=== PATIENT | male | born 1960 | race Caucasian/White ===

== ENCOUNTER 2016-10-20 20:00 | Emergency (ER) | payer MEDICAID, MEDICARE ==
--- NOTE | 2016-10-21 00:09 | EDDOCDS ---
Nurse's Notes [facility] Name: Valentino Lindsey Age: 56 yrs Sex: Male : 1960 Arrival Date: 10/20/2016 Time: 20:00 Bed TR8 Private MD: Diagnosis: Encounter for issue of repeat prescription-MULTIPLE Presentation: 10/20 20:03 Presenting complaint: Patient states: needs medication refill till he can get to the [facility] doctors office on Saturday. Adult Sepsis Screening: The patient does not have new or worsening altered mentation. Patient's respiratory rate is less than 22. Systolic blood pressure is greater than 100. Patient has a qSOFA score of 0- Negative Sepsis Screen. Suicide/Homicide risk assessment- the patient denies having any suicidal and/or homicidal ideations and does not present with any other emotional, behavioral or mental health complaints. Status: Patient is not a field service consultant or dependent. Transition of care: patient was not received from another setting of care. 20:03 Acuity: GIANNI Level 5 dsf 20:03 Method Of Arrival: Walkin/Carried/Asstd dsf Triage Assessment: 20:05 General: Appears in no apparent distress, Behavior is appropriate for age, cooperative. dsf Pain: Denies pain. HIV screening NA for this visit Offered previously. Historical: - Allergies: Codeine Phosphate; Haldol; - Home Meds: 1. Ventolin Rotahaler/Rotacaps Inhl 90 mcg every 4 hours (Last dose: Unknown) 2. quetiapine 300 mg oral tab nightly (Last dose: 10/19/2016) 3. trazodone 100 mg Oral tab nightly (Last dose: 10/19/2016) 4. clonidine HCl 0.1 mg Oral tab 1 tab 2 times per day (Last dose: 10/19/2016) 5. cyclobenzaprine 10 mg Oral tab every 8 hours (Last dose: 10/19/2016) 6. oxcarbazepine 300 mg oral tab 2 times per day (Last dose: 10/19/2016) 7. venlafaxine 75 mg oral cp24 1 cap once daily (Last dose: 10/19/2016) - PMHx: Asthma; Depression; - PSHx: right eye; repair of fracture to left little finger; - Social history: Smoking status: Patient uses tobacco products, current every day smoker. No barriers to communication noted, The patient speaks fluent Panamanian, Speaks appropriately for age. - Family history: Not pertinent. - : The pt / caregiver states he / she is not on anticoagulants. Home medication list is obtained from the patient. - Exposure Risk Screening:: None identified. Screenin/19 00:05 Screening information is obtained from the patient. Fall risk: No risks identified. cz Assistance ADL's: requires no assistance with activities of daily living. Abuse/DV Screen: The patient / caregiver reports he/she is: not in a situation that causes fear, pain or injury. Nutritional screening: No deficits noted. Advance Directives: Currently, there is no health care proxy. There is no active DNR order. There is no living will. There is no Power of Home Health Clinician. Advance directive information has not previously been placed in an [facility] medical record. Further advance directive information is declined. home support is adequate. Assessment: 00:05 General: alert male with no complaints just requesting prescription refills. cz Vital Signs: 10/20 20:01 BP 129 / 82; Pulse 67; Resp 18; Temp 96.5(T); Pulse Ox 99% on R/A; Weight 63.5 kg (R); lr2 Height 5 ft. 9 in. (175.26 cm) (R); Pain 0/10; 20:01 Body Mass Index 20.67 (63.50 kg, 175.26 cm) lr2 Vitals: 20:01 Log In Time: October 20, 2016 at 20:00. lr2 ED Course: 20:01 Patient visited by Keke Ibrahim. lr2 20:01 Patient moved to Waiting lr2 20:03 Patient moved to Pre RCE lr2 20:04 Triage Initiated dsf 22:15 Patient moved to Triage 1 ct3 23:31 [facility] Hedrick [facility]-C [facility] dt4 23:31 Gian Garg DO is Attending Physician. dt4 23:32 Patient visited by Jaleesa Hedrick PA-C. dt4 10/21 00:05 Patient moved to TR8 cz 00:05 The patient / caregiver is instructed regarding the plan of care and ED course. cz 00:05 No IV's were initiated during this patient's visit. No procedures done that require cz assistance. Order Results: There are currently no results for this order. Outcome: 00:01 Discharge ordered by Provider. dt4 00:05 Discharge Assessment: Patient awake, alert and oriented x 3. No cognitive and/or cz functional deficits noted. Patient verbalized understanding of disposition instructions. patient administered narcotics - no. The following High Risk Discharge criteria are identified: None. Discharged to home ambulatory. Condition: stable. Discharge instructions given to patient, Instructed on discharge instructions, follow up and referral plans. medication usage, Demonstrated understanding of instructions, medications, Pt was receptive of discharge instructions/ teaching. Prescriptions given X X 6. No special radiology studies were completed. Property :Personal belongings accompany Pt. 00:08 Patient left the ED. cz Signatures: Jose Rowley, DANIELLA RN cz Verito Sheets, MUNICIPAL CLERK MUNICIPAL CLERK ct3 Erika Cooney,DANIELLA RN Jaleesa Ramirez, PA-C PA-C dt4 Keke Ibrahim lr2 MONTSE
--- NOTE | 2016-10-21 00:09 | EDDOCDS ---
Physician Documentation [facility] Name: Valentino Lindsey Age: 56 yrs Sex: Male : 1960 Arrival Date: 10/20/2016 Time: 20:00 Bed TR8 Private MD: Disposition: 10/21/16 00:01 Discharged to Home/Self Care. Impression: Encounter for issue of repeat prescription - MULTIPLE. - Condition is Stable. - Discharge Instructions: Medicine Refill at the Emergency Department. - Prescriptions for oxcarbazepine 300 mg Oral tablet - take 1 tablet by ORAL route 2 times per day; 14 tablet. quetiapine 300 mg Oral tablet extended release 24 hr - take 1 tablet by ORAL route once daily at bedtime; 7 tablet. trazodone 100 mg Oral tablet - take 1 tablet by ORAL route at bedtime; 7 tablet. Clonidine 0.1 mg Oral Tablet - take 1 tablet by ORAL route every 12 hours; 14 tablet. Cyclobenzaprine 10 mg Oral Tablet - take 1 tablet by ORAL route 3 times per day As needed; 21 tablet. venlafaxine 75 mg Oral Tablet - take 1 tablet by ORAL route once daily with food; 7 tablet. - Medication Reconciliation, Local Pharmacy Hours form. - Follow up: Emergency Department; When: As needed; Reason: Worsening of conditions. Follow up: Private Physician; When: AT YOUR SCHEDULED APPOINTMENT ON Saturday10/26/16; Reason: Wound/Symptom Recheck, Recheck today's complaints, Continuance of care. - Problem is new. - Symptoms are unchanged. Historical: - Allergies: Codeine Phosphate; Haldol; - Home Meds: 1. Ventolin Rotahaler/Rotacaps Inhl 90 mcg every 4 hours (Last dose: Unknown) 2. quetiapine 300 mg oral tab nightly (Last dose: 10/19/2016) 3. trazodone 100 mg Oral tab nightly (Last dose: 10/19/2016) 4. clonidine HCl 0.1 mg Oral tab 1 tab 2 times per day (Last dose: 10/19/2016) 5. cyclobenzaprine 10 mg Oral tab every 8 hours (Last dose: 10/19/2016) 6. oxcarbazepine 300 mg oral tab 2 times per day (Last dose: 10/19/2016) 7. venlafaxine 75 mg oral cp24 1 cap once daily (Last dose: 10/19/2016) - PMHx: Asthma; Depression; - PSHx: right eye; repair of fracture to left little finger; - Social history: Smoking status: Patient uses tobacco products, current every day smoker. No barriers to communication noted, The patient speaks fluent French, Speaks appropriately for age. - Family history: Not pertinent. - : The pt / caregiver states he / she is not on anticoagulants. Home medication list is obtained from the patient. - Exposure Risk Screening:: None identified. Vital Signs: 10/20 20:01 BP 129 / 82; Pulse 67; Resp 18; Temp 96.5(T); Pulse Ox 99% on R/A; Weight 63.5 kg / lr2 139.99 lbs (R); Height 5 ft. 9 in. (175.26 cm) (R); Pain 0/10; 20:01 Body Mass Index 20.67 (63.50 kg, 175.26 cm) lr2 Signatures: Jose Rowley RN RN cz Fuller, Desiree, RN RN dsf Tschudi, Diane, PA-C PA-C dt4 MONTSE
--- NOTE | 2016-10-23 01:08 | EDDOCDS ---
Physician Documentation [facility] Name: Valentino Lindsey Age: 56 yrs Sex: Male : 1960 Arrival Date: 10/20/2016 Time: 20:00 Bed TR8 Private MD: Disposition: 10/21/16 00:01 Discharged to Home/Self Care. Impression: Encounter for issue of repeat prescription - MULTIPLE. - Condition is Stable. - Discharge Instructions: Medicine Refill at the Emergency Department. - Prescriptions for oxcarbazepine 300 mg Oral tablet - take 1 tablet by ORAL route 2 times per day; 14 tablet. quetiapine 300 mg Oral tablet extended release 24 hr - take 1 tablet by ORAL route once daily at bedtime; 7 tablet. trazodone 100 mg Oral tablet - take 1 tablet by ORAL route at bedtime; 7 tablet. Clonidine 0.1 mg Oral Tablet - take 1 tablet by ORAL route every 12 hours; 14 tablet. Cyclobenzaprine 10 mg Oral Tablet - take 1 tablet by ORAL route 3 times per day As needed; 21 tablet. venlafaxine 75 mg Oral Tablet - take 1 tablet by ORAL route once daily with food; 7 tablet. - Medication Reconciliation, Local Pharmacy Hours form. - Follow up: Emergency Department; When: As needed; Reason: Worsening of conditions. Follow up: Private Physician; When: AT YOUR SCHEDULED APPOINTMENT ON Saturday10/26/16; Reason: Wound/Symptom Recheck, Recheck today's complaints, Continuance of care. - Problem is new. - Symptoms are unchanged. Historical: - Allergies: Codeine Phosphate; Haldol; - Home Meds: 1. Ventolin Rotahaler/Rotacaps Inhl 90 mcg every 4 hours (Last dose: Unknown) 2. quetiapine 300 mg oral tab nightly (Last dose: 10/19/2016) 3. trazodone 100 mg Oral tab nightly (Last dose: 10/19/2016) 4. clonidine HCl 0.1 mg Oral tab 1 tab 2 times per day (Last dose: 10/19/2016) 5. cyclobenzaprine 10 mg Oral tab every 8 hours (Last dose: 10/19/2016) 6. oxcarbazepine 300 mg oral tab 2 times per day (Last dose: 10/19/2016) 7. venlafaxine 75 mg oral cp24 1 cap once daily (Last dose: 10/19/2016) - PMHx: Asthma; Depression; - PSHx: right eye; repair of fracture to left little finger; - Social history: Smoking status: Patient uses tobacco products, current every day smoker. No barriers to communication noted, The patient speaks fluent South African, Speaks appropriately for age. - Family history: Not pertinent. - : The pt / caregiver states he / she is not on anticoagulants. Home medication list is obtained from the patient. - Exposure Risk Screening:: None identified. Vital Signs: 10/20 20:01 BP 129 / 82; Pulse 67; Resp 18; Temp 96.5(T); Pulse Ox 99% on R/A; Weight 63.5 kg / lr2 139.99 lbs (R); Height 5 ft. 9 in. (175.26 cm) (R); Pain 0/10; 20:01 Body Mass Index 20.67 (63.50 kg, 175.26 cm) lr2 MDM: 10/21 00:59 [facility] Payment Agreement was scanned into [employer] and attached to record. [facility] 00:59 Financial registration complete. gjb 12:08 T-Sheet-- Draft Copy was scanned into [employer] and attached to record. lg Signatures: Jose Rowley, Isis Fuentes RN, Reg Reg lg Fuller, Desiree, RN RN dsf Tschudi, Diane, JAMES RAMIREZ dt4 Piper Conroy The chart was reviewed and I authenticate all verbal orders and agree with the evaluation and treatment provided.Attachments: 00:59 [facility] Payment Agreement [facility] 12:08 T-Sheet-- Draft Copy lg Chart Complete MTDD
--- NOTE | 2016-10-23 01:08 | EDDOCDS ---
Nurse's Notes [facility] Name: Valentino Lindsey Age: 56 yrs Sex: Male : 1960 Arrival Date: 10/20/2016 Time: 20:00 Bed TR8 Private MD: Diagnosis: Encounter for issue of repeat prescription-MULTIPLE Presentation: 10/20 20:03 Presenting complaint: Patient states: needs medication refill till he can get to the [facility] doctors office on Saturday. Adult Sepsis Screening: The patient does not have new or worsening altered mentation. Patient's respiratory rate is less than 22. Systolic blood pressure is greater than 100. Patient has a qSOFA score of 0- Negative Sepsis Screen. Suicide/Homicide risk assessment- the patient denies having any suicidal and/or homicidal ideations and does not present with any other emotional, behavioral or mental health complaints. Status: Patient is not a mechanical service technician or dependent. Transition of care: patient was not received from another setting of care. 20:03 Acuity: GIANNI Level 5 dsf 20:03 Method Of Arrival: Walkin/Carried/Asstd dsf Triage Assessment: 20:05 General: Appears in no apparent distress, Behavior is appropriate for age, cooperative. dsf Pain: Denies pain. HIV screening NA for this visit Offered previously. Historical: - Allergies: Codeine Phosphate; Haldol; - Home Meds: 1. Ventolin Rotahaler/Rotacaps Inhl 90 mcg every 4 hours (Last dose: Unknown) 2. quetiapine 300 mg oral tab nightly (Last dose: 10/19/2016) 3. trazodone 100 mg Oral tab nightly (Last dose: 10/19/2016) 4. clonidine HCl 0.1 mg Oral tab 1 tab 2 times per day (Last dose: 10/19/2016) 5. cyclobenzaprine 10 mg Oral tab every 8 hours (Last dose: 10/19/2016) 6. oxcarbazepine 300 mg oral tab 2 times per day (Last dose: 10/19/2016) 7. venlafaxine 75 mg oral cp24 1 cap once daily (Last dose: 10/19/2016) - PMHx: Asthma; Depression; - PSHx: right eye; repair of fracture to left little finger; - Social history: Smoking status: Patient uses tobacco products, current every day smoker. No barriers to communication noted, The patient speaks fluent Gambian, Speaks appropriately for age. - Family history: Not pertinent. - : The pt / caregiver states he / she is not on anticoagulants. Home medication list is obtained from the patient. - Exposure Risk Screening:: None identified. Screenin/19 00:05 Screening information is obtained from the patient. Fall risk: No risks identified. cz Assistance ADL's: requires no assistance with activities of daily living. Abuse/DV Screen: The patient / caregiver reports he/she is: not in a situation that causes fear, pain or injury. Nutritional screening: No deficits noted. Advance Directives: Currently, there is no health care proxy. There is no active DNR order. There is no living will. There is no Power of Human Resources Hr Representative. Advance directive information has not previously been placed in an [facility] medical record. Further advance directive information is declined. home support is adequate. Assessment: 00:05 General: alert male with no complaints just requesting prescription refills. cz Vital Signs: 10/20 20:01 BP 129 / 82; Pulse 67; Resp 18; Temp 96.5(T); Pulse Ox 99% on R/A; Weight 63.5 kg (R); lr2 Height 5 ft. 9 in. (175.26 cm) (R); Pain 0/10; 20:01 Body Mass Index 20.67 (63.50 kg, 175.26 cm) lr2 Vitals: 20:01 Log In Time: October 20, 2016 at 20:00. lr2 ED Course: 20:01 Patient visited by Keke Ibrahim. lr2 20:01 Patient moved to Waiting lr2 20:03 Patient moved to Pre RCE lr2 20:04 Triage Initiated dsf 22:15 Patient moved to Triage 1 ct3 23:31 [facility] Hedrick [facility] dt4 23:31 Gian Garg DO is Attending Physician. dt4 23:32 Patient visited by Jaleesa Hedrick PA-C. dt4 10/21 00:05 Patient moved to TR8 cz 00:05 The patient / caregiver is instructed regarding the plan of care and ED course. cz 00:05 No IV's were initiated during this patient's visit. No procedures done that require cz assistance. 00:59 [facility] Payment Agreement was scanned into [employer] and attached to record. gjchelsie 12:08 T-Sheet-- Draft Copy was scanned into [employer] and attached to record. lg Order Results: There are currently no results for this order. Outcome: 00:01 Discharge ordered by Provider. dt4 00:05 Discharge Assessment: Patient awake, alert and oriented x 3. No cognitive and/or cz functional deficits noted. Patient verbalized understanding of disposition instructions. patient administered narcotics - no. The following High Risk Discharge criteria are identified: None. Discharged to home ambulatory. Condition: stable. Discharge instructions given to patient, Instructed on discharge instructions, follow up and referral plans. medication usage, Demonstrated understanding of instructions, medications, Pt was receptive of discharge instructions/ teaching. Prescriptions given X X 6. No special radiology studies were completed. Property :Personal belongings accompany Pt. 00:08 Patient left the ED. cz Signatures: Jose Rowley, RN RN cz Isis Giron, Reg Reg lg Verito Sheets, BALL THREAD MACHINE TENDER BALL THREAD MACHINE TENDER ct3 Erika Cooney,RN RN dsf Jaleesa Hedrick, JAMES RAMIREZ dt4 Piper Conroy Laura lr2 Chart Complete MONTSE
--- NOTE | 2016-10-23 01:08 | EDDOCDS ---
Physician Documentation [facility] Name: Valentino Lindsey Age: 56 yrs Sex: Male : 1960 Arrival Date: 10/20/2016 Time: 20:00 Bed TR8 Private MD: Disposition: 10/21/16 00:01 Discharged to Home/Self Care. Impression: Encounter for issue of repeat prescription - MULTIPLE. - Condition is Stable. - Discharge Instructions: Medicine Refill at the Emergency Department. - Prescriptions for oxcarbazepine 300 mg Oral tablet - take 1 tablet by ORAL route 2 times per day; 14 tablet. quetiapine 300 mg Oral tablet extended release 24 hr - take 1 tablet by ORAL route once daily at bedtime; 7 tablet. trazodone 100 mg Oral tablet - take 1 tablet by ORAL route at bedtime; 7 tablet. Clonidine 0.1 mg Oral Tablet - take 1 tablet by ORAL route every 12 hours; 14 tablet. Cyclobenzaprine 10 mg Oral Tablet - take 1 tablet by ORAL route 3 times per day As needed; 21 tablet. venlafaxine 75 mg Oral Tablet - take 1 tablet by ORAL route once daily with food; 7 tablet. - Medication Reconciliation, Local Pharmacy Hours form. - Follow up: Emergency Department; When: As needed; Reason: Worsening of conditions. Follow up: Private Physician; When: AT YOUR SCHEDULED APPOINTMENT ON Saturday10/26/16; Reason: Wound/Symptom Recheck, Recheck today's complaints, Continuance of care. - Problem is new. - Symptoms are unchanged. Historical: - Allergies: Codeine Phosphate; Haldol; - Home Meds: 1. Ventolin Rotahaler/Rotacaps Inhl 90 mcg every 4 hours (Last dose: Unknown) 2. quetiapine 300 mg oral tab nightly (Last dose: 10/19/2016) 3. trazodone 100 mg Oral tab nightly (Last dose: 10/19/2016) 4. clonidine HCl 0.1 mg Oral tab 1 tab 2 times per day (Last dose: 10/19/2016) 5. cyclobenzaprine 10 mg Oral tab every 8 hours (Last dose: 10/19/2016) 6. oxcarbazepine 300 mg oral tab 2 times per day (Last dose: 10/19/2016) 7. venlafaxine 75 mg oral cp24 1 cap once daily (Last dose: 10/19/2016) - PMHx: Asthma; Depression; - PSHx: right eye; repair of fracture to left little finger; - Social history: Smoking status: Patient uses tobacco products, current every day smoker. No barriers to communication noted, The patient speaks fluent Liberian, Speaks appropriately for age. - Family history: Not pertinent. - : The pt / caregiver states he / she is not on anticoagulants. Home medication list is obtained from the patient. - Exposure Risk Screening:: None identified. Vital Signs: 10/20 20:01 BP 129 / 82; Pulse 67; Resp 18; Temp 96.5(T); Pulse Ox 99% on R/A; Weight 63.5 kg / lr2 139.99 lbs (R); Height 5 ft. 9 in. (175.26 cm) (R); Pain 0/10; 20:01 Body Mass Index 20.67 (63.50 kg, 175.26 cm) lr2 MDM: 10/21 00:59 [facility] Payment Agreement was scanned into [employer] and attached to record. [facility] 00:59 Financial registration complete. gjb 12:08 T-Sheet-- Draft Copy was scanned into [employer] and attached to record. lg Signatures: Jose Rowley, Isis Fuentes RN, Reg Reg lg Fuller, Desiree, RN RN dsf Tschudi, Diane, JAMES RAMIREZ dt4 Piper Conroy The chart was reviewed and I authenticate all verbal orders and agree with the evaluation and treatment provided.Attachments: 00:59 [facility] Payment Agreement [facility] 12:08 T-Sheet-- Draft Copy lg Chart Complete MTDD
== END 2016-10-21 00:08 | disposition home or self-care (01) ==
LOC: M ED 20:00
DX: Z76.0 Encounter for issue of repeat prescription (principal); J45.909 Unspecified asthma, uncomplicated; F32.9 Major depressive disorder, single episode, unspecified; Z79.899 Other long term (current) drug therapy; Z88.5 Allergy status to narcotic agent; Z88.8 Allergy status to other drugs, medicaments and biological substances; F17.210 Nicotine dependence, cigarettes, uncomplicated

== ENCOUNTER 2016-10-29 23:14 | Emergency (ER) | payer MEDICARE, MEDICAID ==
[2016-10-30] MEDS ORDERED: KETOROLAC 30 MG/ML VIAL (J1885) As Ordered ONE (00:59)
--- NOTE | 2016-10-30 01:26 | EDDOCDS ---
Physician Documentation [facility] Name: Valentino Lindsey Age: 56 yrs Sex: Male : 1960 Arrival Date: 10/29/2016 Time: 23:14 Bed Radiology Private MD: Disposition: 10/30/16 00:38 Discharged to Home/Self Care. Impression: Intercostal pain. - Condition is Stable. - Medication Reconciliation, Local Pharmacy Hours form. - Follow up: Private Physician; When: Call to arrange an appointment; Reason: Recheck today's complaints. - Problem is new. - Symptoms have improved. Historical: - Allergies: Codeine Phosphate (Anaphylaxis); Haldoldizzy, sleepy; - Home Meds: 1. clonidine HCl 0.1 mg Oral tab 1 tab 2 times per day 2. cyclobenzaprine 10 mg Oral tab every 8 hours 3. oxcarbazepine 300 mg oral tab 2 times per day 4. trazodone 100 mg Oral tab nightly 5. quetiapine 300 mg oral tab nightly 6. venlafaxine 75 mg oral cp24 1 cap once daily - PMHx: Asthma; Depression; Bipolar disorder; Mental Disabilty; - PSHx: right eye; repair of fracture to left little finger; - Social history: Smoking status: Patient uses tobacco products, heavy tobacco smoker. No barriers to communication noted, The patient speaks fluent Irish, Speaks appropriately for age, Preferred Language: Irish. - Family history: Not pertinent. - : The pt / caregiver states he / she is not on anticoagulants. Home medication list is obtained from the patient. - Exposure Risk Screening:: None identified. Vital Signs: 10/29 23:16 BP 149 / 92; Pulse 104; Resp 16; Temp 98.3(O); Pulse Ox 98% on R/A; Weight 63.5 kg / lr2 139.99 lbs (R); Height 5 ft. 8 in. (172.72 cm); Pain 3/10; 10/30 00:49 BP 118 / 78; Pulse 103; Resp 18; Temp 98.3(TE); Pulse Ox 96% on R/A; Pain 2/10; yamilex 10/29 23:16 Body Mass Index 21.29 (63.50 kg, 172.72 cm) lr2 MDM: 00:12 Rib Unilat W/PA Chest Only Ordered. EDMS 00:36 ketorolac 60 mg IM once ordered. cs11 01:12 Financial registration complete. [facility] Administered Medications: 01:04 Drug: ketorolac 60 mg [ketorolac 30 mg/mL (1 mL) injection solution (2 mL)] Route: IM; mgs Site: left gluteus; 01:26 Follow up: Response: Pain is decreased mlc Signatures: Dispatcher [employer] EDMS Wendy Guthrie RN RN lf1 Carmelo Dykes DO DO cs11 Rosalina Liz RN RN mlc Hook, Sandra [facility] Gian Odom RN mgs MTDD
--- NOTE | 2016-10-30 01:26 | EDDOCDS ---
Nurse's Notes [facility] Name: Valentino Lindsey Age: 56 yrs Sex: Male : 1960 Arrival Date: 10/29/2016 Time: 23:14 Bed Radiology Private MD: Diagnosis: Intercostal pain Presentation: 10/29 23:19 Presenting complaint: Patient states: Pt. reports that his rib on the right side has lf1 been popping out for two weeks and then he puts in back in place which takes he about five minutes and then it's okay for a awhile and pops out again. Pt. denies injury. States he would also like a flue shot. Pain is currently 2/10. Denies shortness of breath, no respiratory distress noted. Adult Sepsis Screening: The patient does not have new or worsening altered mentation. Patient's respiratory rate is less than 22. Systolic blood pressure is greater than 100. Patient has a qSOFA score of 0- Negative Sepsis Screen. Suicide/Homicide risk assessment- the patient denies having any suicidal and/or homicidal ideations and does not present with any other emotional, behavioral or mental health complaints. Status: Patient is not a claim service representative or dependent. Transition of care: patient was not received from another setting of care. 23:19 Acuity: GIANNI Level 3 lf1 23:19 Method Of Arrival: Walkin/Carried/Asstd lf1 Triage Assessment: 23:27 General: Appears unkempt, Behavior is anxious, restless. Pain: Location: left flank, lf1 left rib Pain currently is 6 out of 10 on a pain scale. HIV screening NA for this visit Offered previously. The patient is triaged at the bedside. See Assessment in Nurses Notes section of ED record. The patient is triaged at the bedside. See Assessment in Nurses Notes section of ED record. Neurological: Level of Consciousness is awake, alert. EENT: No deficits noted. Respiratory: Respiratory effort is even, unlabored, Respiratory pattern is regular, Breath sounds are clear bilaterally. Denies shortness of breath. Derm: Skin is normal. Historical: - Allergies: Codeine Phosphate (Anaphylaxis); Haldoldizzy, sleepy; - Home Meds: 1. clonidine HCl 0.1 mg Oral tab 1 tab 2 times per day 2. cyclobenzaprine 10 mg Oral tab every 8 hours 3. oxcarbazepine 300 mg oral tab 2 times per day 4. trazodone 100 mg Oral tab nightly 5. quetiapine 300 mg oral tab nightly 6. venlafaxine 75 mg oral cp24 1 cap once daily - PMHx: Asthma; Depression; Bipolar disorder; Mental Disabilty; - PSHx: right eye; repair of fracture to left little finger; - Social history: Smoking status: Patient uses tobacco products, heavy tobacco smoker. No barriers to communication noted, The patient speaks fluent [place] Islander, Speaks appropriately for age, Preferred Language: [place] Islander. - Family history: Not pertinent. - : The pt / caregiver states he / she is not on anticoagulants. Home medication list is obtained from the patient. - Exposure Risk Screening:: None identified. Screenin:55 Screening information is obtained from the patient. Fall risk: No risks identified. mgs Assistance ADL's: requires no assistance with activities of daily living. Abuse/DV Screen: The patient / caregiver reports he/she is: not in a situation that causes fear, pain or injury. Nutritional screening: No deficits noted. Advance Directives: Currently, there is no health care proxy. There is no active DNR order. home support is adequate. Assessment: 23:55 General: Appears in no apparent distress, Behavior is cooperative. Neurological: Level mgs of Consciousness is awake, alert. Cardiovascular: Capillary refill < 3 seconds. Respiratory: Airway is patent Respiratory effort is even, unlabored, Respiratory pattern is regular, symmetrical. Derm: Skin is pink, warm & dry. 10/30 01:05 General: Appears in no apparent distress, Behavior is cooperative. Neurological: Level mgs of Consciousness is awake, alert. Cardiovascular: Capillary refill < 3 seconds. Respiratory: Airway is patent Respiratory effort is even, unlabored, Respiratory pattern is regular, symmetrical. Derm: Skin is pink, warm & dry. 01:25 General: Appears in no apparent distress, comfortable, Behavior is cooperative. mlc Neurological: Level of Consciousness is awake, alert, obeys commands, Oriented to person, place, time. Respiratory: Airway is patent Respiratory effort is even, unlabored, Respiratory pattern is regular. Vital Signs: 10/29 23:16 BP 149 / 92; Pulse 104; Resp 16; Temp 98.3(O); Pulse Ox 98% on R/A; Weight 63.5 kg (R); lr2 Height 5 ft. 8 in. (172.72 cm); Pain 3/10; 10/30 00:49 BP 118 / 78; Pulse 103; Resp 18; Temp 98.3(TE); Pulse Ox 96% on R/A; Pain 2/10; yamilex 10/29 23:16 Body Mass Index 21.29 (63.50 kg, 172.72 cm) lr2 Vitals: 10/29 23:16 Log In Time: October 29, 2016 at 23:14. lr2 ED Course: 23:16 Patient visited by Keke Ibrahim. lr2 23:16 Patient moved to Waiting lr2 23:18 Patient moved to Pre RCE lr2 23:25 Triage Initiated lf1 23:44 Patient moved to 14 cz 23:48 Carmelo Dykes DO is Attending Physician. cs11 23:48 Patient visited by Carmelo Dykes DO. cs11 23:55 Gian Odom,RN is Primary Nurse. mgs 23:55 Patient visited by Gian Odom,DANIELLA. mgs 10/30 00:14 Patient moved to Radiology tmb 00:49 Patient visited by Karen Orta PCA. yamilex 01:05 Patient visited by Gian Odom,DANIELLA. mgs 01:25 The patient / caregiver is instructed regarding the plan of care and ED course. mlc 01:25 No IV's were initiated during this patient's visit. No procedures done that require mlc assistance. Administered Medications: 01:04 Drug: ketorolac 60 mg [ketorolac 30 mg/mL (1 mL) injection solution (2 mL)] Route: IM; mgs Site: left gluteus; 01:26 Follow up: Response: Pain is decreased mlc Order Results: There are currently no results for this order. Outcome: 00:38 Discharge ordered by Provider. cs11 01:25 Discharge Assessment: Patient awake, alert and oriented x 3. No cognitive and/or mlc functional deficits noted. Patient verbalized understanding of disposition instructions. patient administered narcotics - no. The following High Risk Discharge criteria are identified: None. Discharged to home ambulatory. Condition: stable. Discharge instructions given to patient, Instructed on discharge instructions, Demonstrated understanding of instructions, Pt was receptive of discharge instructions/ teaching. No special radiology studies were completed. Property sent home with patient. 01:26 Patient left the ED. mlc Signatures: Jose Rowley, RN RN cz Wendy Guthrie RN RN lf1 Marivel, Karen, TELEVISION EQUIPMENT OPERATOR TELEVISION EQUIPMENT OPERATOR Carmelo Calvo, DO cs11 Valentín Pena Mandy, RN RN mlc Sheldon, Matthew, RN RN Keke Rossi lr2 MTDD
--- NOTE | 2016-10-30 10:14 | REP ---
LEFT RIB SERIES: Five views including PA chest. HISTORY: Trauma. Left mid rib pain laterally. FINDINGS: PA chest radiograph shows no evidence of pneumothorax or hydrothorax. Mediastinum is not widened. Multiple views of the left rib cage show no obvious rib fracture. There is however on oblique radiograph a bulge or protrusion along the costal margin which may represent injury of the costal cartilage. This should be correlated clinically. No bony destructive lesion is seen. IMPRESSION: Question cartilage injury or fracture along the inferior costal margin visible on oblique radiograph. Correlate clinically. No rib fracture or bony destructive lesion is seen. Signed by Jay Downs MD 10/30/2016 01:58 P
--- NOTE | 2016-11-01 02:27 | EDDOCDS ---
Nurse's Notes [facility] Name: Valentino Lindsey Age: 56 yrs Sex: Male : 1960 Arrival Date: 10/29/2016 Time: 23:14 Bed Radiology Private MD: Diagnosis: Intercostal pain Presentation: 10/29 23:19 Presenting complaint: Patient states: Pt. reports that his rib on the right side has lf1 been popping out for two weeks and then he puts in back in place which takes he about five minutes and then it's okay for a awhile and pops out again. Pt. denies injury. States he would also like a flue shot. Pain is currently 2/10. Denies shortness of breath, no respiratory distress noted. Adult Sepsis Screening: The patient does not have new or worsening altered mentation. Patient's respiratory rate is less than 22. Systolic blood pressure is greater than 100. Patient has a qSOFA score of 0- Negative Sepsis Screen. Suicide/Homicide risk assessment- the patient denies having any suicidal and/or homicidal ideations and does not present with any other emotional, behavioral or mental health complaints. Status: Patient is not a human service technician or dependent. Transition of care: patient was not received from another setting of care. 23:19 Acuity: GIANNI Level 3 lf1 23:19 Method Of Arrival: Walkin/Carried/Asstd lf1 Triage Assessment: 23:27 General: Appears unkempt, Behavior is anxious, restless. Pain: Location: left flank, lf1 left rib Pain currently is 6 out of 10 on a pain scale. HIV screening NA for this visit Offered previously. The patient is triaged at the bedside. See Assessment in Nurses Notes section of ED record. The patient is triaged at the bedside. See Assessment in Nurses Notes section of ED record. Neurological: Level of Consciousness is awake, alert. EENT: No deficits noted. Respiratory: Respiratory effort is even, unlabored, Respiratory pattern is regular, Breath sounds are clear bilaterally. Denies shortness of breath. Derm: Skin is normal. Historical: - Allergies: Codeine Phosphate (Anaphylaxis); Haldoldizzy, sleepy; - Home Meds: 1. clonidine HCl 0.1 mg Oral tab 1 tab 2 times per day 2. cyclobenzaprine 10 mg Oral tab every 8 hours 3. oxcarbazepine 300 mg oral tab 2 times per day 4. trazodone 100 mg Oral tab nightly 5. quetiapine 300 mg oral tab nightly 6. venlafaxine 75 mg oral cp24 1 cap once daily - PMHx: Asthma; Depression; Bipolar disorder; Mental Disabilty; - PSHx: right eye; repair of fracture to left little finger; - Social history: Smoking status: Patient uses tobacco products, heavy tobacco smoker. No barriers to communication noted, The patient speaks fluent Sudanese, Speaks appropriately for age, Preferred Language: Sudanese. - Family history: Not pertinent. - : The pt / caregiver states he / she is not on anticoagulants. Home medication list is obtained from the patient. - Exposure Risk Screening:: None identified. Screenin:55 Screening information is obtained from the patient. Fall risk: No risks identified. mgs Assistance ADL's: requires no assistance with activities of daily living. Abuse/DV Screen: The patient / caregiver reports he/she is: not in a situation that causes fear, pain or injury. Nutritional screening: No deficits noted. Advance Directives: Currently, there is no health care proxy. There is no active DNR order. home support is adequate. Assessment: 23:55 General: Appears in no apparent distress, Behavior is cooperative. Neurological: Level mgs of Consciousness is awake, alert. Cardiovascular: Capillary refill < 3 seconds. Respiratory: Airway is patent Respiratory effort is even, unlabored, Respiratory pattern is regular, symmetrical. Derm: Skin is pink, warm & dry. 10/30 01:05 General: Appears in no apparent distress, Behavior is cooperative. Neurological: Level mgs of Consciousness is awake, alert. Cardiovascular: Capillary refill < 3 seconds. Respiratory: Airway is patent Respiratory effort is even, unlabored, Respiratory pattern is regular, symmetrical. Derm: Skin is pink, warm & dry. 01:25 General: Appears in no apparent distress, comfortable, Behavior is cooperative. mlc Neurological: Level of Consciousness is awake, alert, obeys commands, Oriented to person, place, time. Respiratory: Airway is patent Respiratory effort is even, unlabored, Respiratory pattern is regular. Vital Signs: 10/29 23:16 BP 149 / 92; Pulse 104; Resp 16; Temp 98.3(O); Pulse Ox 98% on R/A; Weight 63.5 kg (R); lr2 Height 5 ft. 8 in. (172.72 cm); Pain 3/10; 10/30 00:49 BP 118 / 78; Pulse 103; Resp 18; Temp 98.3(TE); Pulse Ox 96% on R/A; Pain 2/10; yamilex 10/29 23:16 Body Mass Index 21.29 (63.50 kg, 172.72 cm) lr2 Vitals: 10/29 23:16 Log In Time: October 29, 2016 at 23:14. lr2 ED Course: 23:16 Patient visited by Keke Ibrahim. lr2 23:16 Patient moved to Waiting lr2 23:18 Patient moved to Pre RCE lr2 23:25 Triage Initiated lf1 23:44 Patient moved to 14 cz 23:48 Carmelo Dykes DO is Attending Physician. cs11 23:48 Patient visited by Carmelo Dykes DO. cs11 23:55 Gian Odom,RN is Primary Nurse. mgs 23:55 Patient visited by Gian Odom,DANIELLA. mgs 10/30 00:14 Patient moved to Radiology tmb 00:49 Patient visited by Karen Orta PCA. yamilex 01:05 Patient visited by Gian Odom,DANIELLA. mgs 01:25 The patient / caregiver is instructed regarding the plan of care and ED course. mlc 01:25 No IV's were initiated during this patient's visit. No procedures done that require mlc assistance. 01:43 [facility] Payment Agreement was scanned into [email or web address] and attached to record. [facility] 10:43 Rib Unilat W/PA Chest Only Returned. EDMS Administered Medications: 01:04 Drug: ketorolac 60 mg [ketorolac 30 mg/mL (1 mL) injection solution (2 mL)] Route: IM; mgs Site: left gluteus; 01:26 Follow up: Response: Pain is decreased mlc Order Results: Radiology Order: Rib Unilat W/PA Chest Only Test: Rib Unilat W/PA Chest Only REASON FOR EXAMINATION: Trauma; LEFT RIB SERIES: Five views including PA chest.; ; HISTORY: Trauma. Left mid rib pain laterally.; ; FINDINGS: PA chest radiograph shows no evidence of pneumothorax or hydrothorax.; Mediastinum is not widened. Multiple views of the left rib cage show no obvious; rib fracture. There is however on oblique radiograph a bulge or protrusion along; the costal margin which may represent injury of the costal cartilage. This; should be correlated clinically. No bony destructive lesion is seen.; ; IMPRESSION: Question cartilage injury or fracture along the inferior costal; margin visible on oblique radiograph. Correlate clinically. No rib fracture or; bony destructive lesion is seen.; ; ; Signed by; Jay Downs MD 10/30/2016 01:58 P; Outcome: 00:38 Discharge ordered by Provider. cs11 01:25 Discharge Assessment: Patient awake, alert and oriented x 3. No cognitive and/or mlc functional deficits noted. Patient verbalized understanding of disposition instructions. patient administered narcotics - no. The following High Risk Discharge criteria are identified: None. Discharged to home ambulatory. Condition: stable. Discharge instructions given to patient, Instructed on discharge instructions, Demonstrated understanding of instructions, Pt was receptive of discharge instructions/ teaching. No special radiology studies were completed. Property sent home with patient. 01:26 Patient left the ED. [facility] [place] Signatures: Dispatcher [employer] EDJose Frank, Wendy Valles RNRN RN lf1 Karen Orta, INDIRECT SALES REPRESENTATIVE INDIRECT SALES REPRESENTATIVE Carmelo Calvo, DO DO cs11 Valentín Pena MandyRN Jia Ballard Matthew, RN RN Keke Rossi2 Chart Complete [facility]
--- NOTE | 2016-11-01 02:27 | EDDOCDS ---
Physician Documentation [facility] Name: Valentino Lindsey Age: 56 yrs Sex: Male : 1960 Arrival Date: 10/29/2016 Time: 23:14 Bed Radiology Private MD: Disposition: 10/30/16 00:38 Discharged to Home/Self Care. Impression: Intercostal pain. - Condition is Stable. - Medication Reconciliation, Local Pharmacy Hours form. - Follow up: Private Physician; When: Call to arrange an appointment; Reason: Recheck today's complaints. - Problem is new. - Symptoms have improved. Historical: - Allergies: Codeine Phosphate (Anaphylaxis); Haldoldizzy, sleepy; - Home Meds: 1. clonidine HCl 0.1 mg Oral tab 1 tab 2 times per day 2. cyclobenzaprine 10 mg Oral tab every 8 hours 3. oxcarbazepine 300 mg oral tab 2 times per day 4. trazodone 100 mg Oral tab nightly 5. quetiapine 300 mg oral tab nightly 6. venlafaxine 75 mg oral cp24 1 cap once daily - PMHx: Asthma; Depression; Bipolar disorder; Mental Disabilty; - PSHx: right eye; repair of fracture to left little finger; - Social history: Smoking status: Patient uses tobacco products, heavy tobacco smoker. No barriers to communication noted, The patient speaks fluent [place], Speaks appropriately for age, Preferred Language: [place]. - Family history: Not pertinent. - : The pt / caregiver states he / she is not on anticoagulants. Home medication list is obtained from the patient. - Exposure Risk Screening:: None identified. Vital Signs: 10/29 23:16 BP 149 / 92; Pulse 104; Resp 16; Temp 98.3(O); Pulse Ox 98% on R/A; Weight 63.5 kg / lr2 139.99 lbs (R); Height 5 ft. 8 in. (172.72 cm); Pain 3/10; 10/30 00:49 BP 118 / 78; Pulse 103; Resp 18; Temp 98.3(TE); Pulse Ox 96% on R/A; Pain 2/10; yamilex 10/29 23:16 Body Mass Index 21.29 (63.50 kg, 172.72 cm) lr2 MDM: 00:12 Rib Unilat W/PA Chest Only Ordered. EDMS 00:36 ketorolac 60 mg IM once ordered. cs11 01:12 Financial registration complete. [facility] 01:43 [facility] Payment Agreement was scanned into [employer] and attached to record. [facility] 10/31 06:56 ED course: certified letter sent to tp re formal reading of rib films. pt diagnosed w ml intercostal injury and rib film formally read that way. mlg. Administered Medications: 10/30 01:04 Drug: ketorolac 60 mg [ketorolac 30 mg/mL (1 mL) injection solution (2 mL)] Route: IM; mgs Site: left gluteus; 01:26 Follow up: Response: Pain is decreased mlc Signatures: Dispatcher [employer] EDMS Angelita Rodgers MD MD ml Ford, Lisa,RN RN lf1 Carmelo Dykes, DO cs11 Rosalina Liz RN RN mlc Hook, Sandra [facility] Gian Odom RN mgs The chart was reviewed and I authenticate all verbal orders and agree with the evaluation and treatment provided.Attachments: 01:43 [facility] Payment Agreement [facility] Chart Complete MTDD
--- NOTE | 2016-11-01 02:27 | EDDOCDS ---
Physician Documentation [facility] Name: Valentino Lindsey Age: 56 yrs Sex: Male : 1960 Arrival Date: 10/29/2016 Time: 23:14 Bed Radiology Private MD: Disposition: 10/30/16 00:38 Discharged to Home/Self Care. Impression: Intercostal pain. - Condition is Stable. - Medication Reconciliation, Local Pharmacy Hours form. - Follow up: Private Physician; When: Call to arrange an appointment; Reason: Recheck today's complaints. - Problem is new. - Symptoms have improved. Historical: - Allergies: Codeine Phosphate (Anaphylaxis); Haldoldizzy, sleepy; - Home Meds: 1. clonidine HCl 0.1 mg Oral tab 1 tab 2 times per day 2. cyclobenzaprine 10 mg Oral tab every 8 hours 3. oxcarbazepine 300 mg oral tab 2 times per day 4. trazodone 100 mg Oral tab nightly 5. quetiapine 300 mg oral tab nightly 6. venlafaxine 75 mg oral cp24 1 cap once daily - PMHx: Asthma; Depression; Bipolar disorder; Mental Disabilty; - PSHx: right eye; repair of fracture to left little finger; - Social history: Smoking status: Patient uses tobacco products, heavy tobacco smoker. No barriers to communication noted, The patient speaks fluent Bulgarian, Speaks appropriately for age, Preferred Language: Bulgarian. - Family history: Not pertinent. - : The pt / caregiver states he / she is not on anticoagulants. Home medication list is obtained from the patient. - Exposure Risk Screening:: None identified. Vital Signs: 10/29 23:16 BP 149 / 92; Pulse 104; Resp 16; Temp 98.3(O); Pulse Ox 98% on R/A; Weight 63.5 kg / lr2 139.99 lbs (R); Height 5 ft. 8 in. (172.72 cm); Pain 3/10; 10/30 00:49 BP 118 / 78; Pulse 103; Resp 18; Temp 98.3(TE); Pulse Ox 96% on R/A; Pain 2/10; yamilex 10/29 23:16 Body Mass Index 21.29 (63.50 kg, 172.72 cm) lr2 MDM: 00:12 Rib Unilat W/PA Chest Only Ordered. EDMS 00:36 ketorolac 60 mg IM once ordered. cs11 01:12 Financial registration complete. [facility] 01:43 [facility] Payment Agreement was scanned into [employer] and attached to record. [facility] 10/31 06:56 ED course: certified letter sent to tp re formal reading of rib films. pt diagnosed w ml intercostal injury and rib film formally read that way. mlg. Administered Medications: 10/30 01:04 Drug: ketorolac 60 mg [ketorolac 30 mg/mL (1 mL) injection solution (2 mL)] Route: IM; mgs Site: left gluteus; 01:26 Follow up: Response: Pain is decreased mlc Signatures: Dispatcher [employer] EDMS Angelita Rodgers MD MD ml Ford, Lisa,RN RN lf1 Carmelo Dykes, DO cs11 Rosalina Liz RN RN mlc Hook, Sandra [facility] Gian Odom RN mgs The chart was reviewed and I authenticate all verbal orders and agree with the evaluation and treatment provided.Attachments: 01:43 [facility] Payment Agreement [facility] Chart Complete MTDD
== END 2016-10-30 01:26 | disposition home or self-care (01) ==
LOC: M ED 23:14
DX: R07.82 Intercostal pain (principal); F31.9 Bipolar disorder, unspecified; J45.909 Unspecified asthma, uncomplicated; F79 Unspecified intellectual disabilities; F17.210 Nicotine dependence, cigarettes, uncomplicated; Z79.899 Other long term (current) drug therapy; Z88.5 Allergy status to narcotic agent
CPT/HCPCS: 71101; 96372; 99283; J1885

== ENCOUNTER 2016-11-04 00:27 | Emergency (ER) | payer MEDICAID ==
[~2016-11-04] VITALS: Ht 175.3 cm; Wt 65.8 kg
[2016-11-04 00:53] VITALS: BP 130/80
[2016-11-04] MEDS ORDERED: CLON-412 PO (00:59)
[2016-11-04] MEDS ORDERED: TRAZ100T4 PO ×2 (00:59→01:11)
[2016-11-04] MEDS ORDERED: VENL75TA2 PO ×2 (00:59→01:12)
[2016-11-04] MEDS ORDERED: OXCA300T PO (00:59)
[2016-11-04] MEDS ORDERED: CYCL10TA PO ×2 (00:59→01:16)
[2016-11-04] MEDS ORDERED: QUET300T49 PO (00:59)
[2016-11-04] MEDS ORDERED: ALBU17IN INH (01:09)
[2016-11-04] MEDS ORDERED: CLONI1TA PO (01:10)
[2016-11-04] MEDS ORDERED: QUET1TAB10 PO (01:14)
[2016-11-04] MEDS ORDERED: OXCA300S3 PO (01:15)
== END 2016-11-04 01:30 | disposition home or self-care (01) ==
LOC: M ED 01:21
DX: Z76.0 Encounter for issue of repeat prescription (principal); F20.9 Schizophrenia, unspecified; G47.9 Sleep disorder, unspecified; Z79.899 Other long term (current) drug therapy

== ENCOUNTER → 2016-11-18 | Emergency (ER) | payer MEDICAID, MEDICARE ==
[~2016-11-18] VITALS: Ht 180.3 cm; Wt 63.5 kg
[~2016-11-18] MED LIST: ALBU17IN INH; CLON-412 PO; CLONI1TA PO; CYCL10TA PO; OXCA300S3 PO; OXCA300T PO; QUET1TAB10 PO; QUET300T49 PO; TRAZ100T4 PO; VENL75TA2 PO
[2016-11-18 21:24] VITALS: BP 157/94
== END | disposition home or self-care (01) ==
LOC: M ED 21:23
DX: S09.90XA Unspecified injury of head, initial encounter (principal); Z53.21 Procedure and treatment not carried out due to patient leaving prior to being seen by health care provider

== ENCOUNTER 2017-01-10 19:19 | Emergency (ER) | payer MEDICAID ==
[~2017-01-10] VITALS: Ht 177.8 cm; Wt 63.5 kg
[2017-01-10 19:20] VITALS: BP 163/95
== END 2017-01-10 20:58 | disposition left against medical advice (07) ==
LOC: M ED 20:50
DX: Z53.29 Procedure and treatment not carried out because of patient's decision for other reasons (principal)

== ENCOUNTER 2017-01-17 22:51 | Emergency (ER) | payer MEDICAID ==
[~2017-01-17] VITALS: Ht 177.8 cm; Wt 63.5 kg
[2017-01-17 22:52] VITALS: BP 156/87
[2017-01-17] MEDS ORDERED: FLUORESCEIN OPHTH 1 MG STRIP OS ONE (23:15)
[2017-01-17] MEDS ORDERED: TETRACAINE 0.5% OPHTH SOLN 4ML OS ONE (23:15)
--- NOTE | 2017-01-17 23:38 | ED PDOC ---
Post-Departure Follow-Up WENT IN PT'S ROOM AT THIS TIME AND PT NOT IN EXAM ROOM AT THIS TIME. WILL CHECK ROOM AGAIN SHORTLY. AT THIS TIME, PT STILL NOT IN EXAM ROOM. PT LEFT WITHOUT BEING SEEN BY THIS RETAIL GREETER AT THIS TIME. NURSING STAFF DID INITIALLY ASSESSMENT ON THIS PT. MARY ANN MAGUIRE PA-C January 17, 2017 23:38
== END 2017-01-18 00:10 | disposition left against medical advice (07) ==
LOC: M ED 23:30
DX: S05.90XA Unspecified injury of unspecified eye and orbit, initial encounter (principal); Z53.21 Procedure and treatment not carried out due to patient leaving prior to being seen by health care provider

== ENCOUNTER 2017-05-17 19:40 | Emergency (ER) | payer MEDICAID ==
[~2017-05-17] VITALS: Ht 177.8 cm; Wt 68.2 kg
[~2017-05-17 19:40] MED LIST changes: +TRAZ-136 PO; -TRAZ100T4 PO
[2017-05-17 20:07] VITALS: BP 135/80
[2017-05-17] MEDS ORDERED: CLON-412 PO (20:12)
[2017-05-17] MEDS ORDERED: CETI1SYP16 PO (20:12)
[2017-05-17] MEDS ORDERED: OMEP40CA2 PO (20:12)
== END 2017-05-17 21:58 | disposition left against medical advice (07) ==
LOC: M ED 19:40
DX: Z76.0 Encounter for issue of repeat prescription (principal); Z53.21 Procedure and treatment not carried out due to patient leaving prior to being seen by health care provider

== ENCOUNTER 2017-05-21 11:12 | Emergency (ER) | payer MEDICAID ==
[~2017-05-21] VITALS: Ht 177.8 cm; Wt 68.2 kg
[2017-05-21 11:12] VITALS: BP 155/86
[~2017-05-21 11:12] MED LIST changes: +CETI1SYP16 PO; +OMEP40CA2 PO
[2017-05-21] MEDS ORDERED: CLON-412 PO (11:31)
[2017-05-21] MEDS ORDERED: CETI1SYP16 PO (11:31)
== END 2017-05-21 11:43 | disposition home or self-care (01) ==
LOC: M ED 11:12
DX: Z76.0 Encounter for issue of repeat prescription (principal); F41.9 Anxiety disorder, unspecified; F31.9 Bipolar disorder, unspecified; F17.200 Nicotine dependence, unspecified, uncomplicated; Z88.5 Allergy status to narcotic agent; Z88.8 Allergy status to other drugs, medicaments and biological substances

== ENCOUNTER 2017-07-26 20:43 | Emergency (ER) | payer MEDICAID ==
[~2017-07-26] VITALS: Ht 175.3 cm; Wt 69.1 kg
[2017-07-26] MEDS ORDERED: ASPIRIN 81 MG CHEW TABLET PO ONE (21:30)
[2017-07-26 21:51] LABS: BASO # 0.1 10^3/uL (0.0-0.2); BASO % 0.6 % (0.0-1.0); EOS # 0.2 10^3/uL (0.0-0.50); EOS % 2.2 % (0.0-3.0); IMMATURE GRANULOCYTE % 0.4 % (0-0); LYMPH # 3.4 10^3/uL (1.5-4.5); LYMPH % 32.5 % (24.0-44.0); MEAN CORPUSCULAR HEMOGLOBIN 32.9 pg (27.0-33.0); MEAN CORPUSCULAR HGB CONC 34.4 g/dl (32.0-36.5); MEAN CORPUSCULAR VOLUME 95.6 fl (80.0-96.0); MONO # 0.8 10^3/uL (0.0-0.8); MONO % 7.9 % (0.0-5.0); NEUTROPHILS # 5.9 10^3/uL (1.8-7.7); NEUTROPHILS % 56.4 % (36.0-66.0); PLATELET COUNT, AUTOMATED 260 10^3/uL (150-450); RED CELL DISTRIBUTION WIDTH 11.9 % (11.5-14.5); WHITE BLOOD COUNT 10.4 10^3/uL (4.0-10.0)
[2017-07-26 22:03] LABS: INR 0.86
[2017-07-26 22:26] LABS: ALBUMIN 3.9 GM/DL (3.2-5.2); ALBUMIN/GLOBULIN RATIO 0.98 (1.00-1.93); ALKALINE PHOSPHATASE 75 U/L (45-117); ALT/SGPT 21 U/L (12-78); ANION GAP 5 MEQ/L (8-16); AST/SGOT 17 U/L (7-37); BILIRUBIN,DIRECT < 0.1 MG/DL (0.0-0.2); BILIRUBIN,TOTAL 0.3 MG/DL (0.2-1.0); BLOOD UREA NITROGEN 9 MG/DL (7-18); CALCIUM LEVEL 9.7 MG/DL (8.5-10.1); CARBON DIOXIDE LEVEL 29 MEQ/L (21-32); CHLORIDE LEVEL 105 MEQ/L (98-107); CREATININE FOR GFR 1.06 MG/DL (0.70-1.30); GLOMERULAR FILTRATION RATE > 60.0 (>56); GLUCOSE, FASTING 91 MG/DL (70-105); POTASSIUM SERUM 3.7 MEQ/L (3.5-5.1); SODIUM LEVEL 139 MEQ/L (136-145); TOTAL PROTEIN 7.9 GM/DL (6.4-8.2)
[2017-07-26] MEDS ORDERED: LABETALOL HCL 100 MG/20 ML VIAL IV STA (23:02)
[2017-07-26 23:12] VITALS: BP 174/94
[2017-07-26 23:23] VITALS: BP 169/89
--- NOTE | 2017-07-27 07:56 | REP ---
Clinical: Chest pain . Comparison: 10/30/2016 . Technique: PA and lateral. Findings: The mediastinum and cardiac silhouette are normal. The lung miller are clear and without acute consolidation, effusion, or pneumothorax. The skeletal structures are intact and normal. Impression: 1. No acute cardiopulmonary process. Signed by Scott Roberson MD 07/27/2017 07:47 A
--- NOTE | 2017-07-29 08:14 | ECGEPIP ---
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
== END 2017-07-27 00:09 | disposition left against medical advice (07) ==
LOC: M ED 20:43
DX: I21.9 Acute myocardial infarction, unspecified (principal); I20.0 Unstable angina; F17.210 Nicotine dependence, cigarettes, uncomplicated; Z88.5 Allergy status to narcotic agent; Z88.8 Allergy status to other drugs, medicaments and biological substances; Z82.49 Family history of ischemic heart disease and other diseases of the circulatory system

== ENCOUNTER 2017-08-04 20:47 | Emergency (ER) | payer MEDICAID ==
[~2017-08-04] VITALS: Ht 177.8 cm; Wt 63.6 kg
[2017-08-04] MEDS ORDERED: HEPARIN DRIP 25,000 UNITS in APPROPRIATE DILUENT 1 EA IV SCH (21:10)
[2017-08-04] MEDS ORDERED: FAMOTIDINE 20 MG TAB PO ONE (21:15)
[2017-08-04] MEDS ORDERED: ASPIRIN 325 MG TAB PO ONE (21:15)
[2017-08-04] MEDS ORDERED: METOPROLOL TART 25 MG TABLET PO ONE (21:15)
[2017-08-04] MEDS ORDERED: CLOPIDOGREL 300 MG TAB (PLAVIX) PO ONE (21:15)
[2017-08-04] MEDS ORDERED: HEPARIN SOD (PORCINE) 5000 UNITS/ML VIAL IV ONE (21:15)
[2017-08-04] MEDS ORDERED: TENECTEPLASE 50 MG KIT (TNKase)(J3101) IV ONE (21:15)
[2017-08-04 21:20] LABS: BASO # 0.1 10^3/uL (0.0-0.2); BASO % 0.4 % (0.0-1.0); EOS # 0.2 10^3/uL (0.0-0.50); EOS % 1.7 % (0.0-3.0); IMMATURE GRANULOCYTE % 0.3 % (0-0); LYMPH # 3.7 10^3/uL (1.5-4.5); LYMPH % 29.4 % (24.0-44.0); MEAN CORPUSCULAR HEMOGLOBIN 33.3 pg (27.0-33.0); MEAN CORPUSCULAR HGB CONC 34.1 g/dl (32.0-36.5); MEAN CORPUSCULAR VOLUME 97.5 fl (80.0-96.0); MONO # 1.3 10^3/uL (0.0-0.8); MONO % 9.9 % (0.0-5.0); NEUTROPHILS # 7.4 10^3/uL (1.8-7.7); NEUTROPHILS % 58.3 % (36.0-66.0); PLATELET COUNT, AUTOMATED 240 10^3/uL (150-450); RED CELL DISTRIBUTION WIDTH 11.7 % (11.5-14.5); WHITE BLOOD COUNT 12.7 10^3/uL (4.0-10.0)
[2017-08-04 21:34] LABS: INR 0.93
[2017-08-04] MEDS ORDERED: MORPHINE 4 MG/ML 1ML SYRINGE IV ONE (21:45)
[2017-08-04 21:51] LABS: ANION GAP 8 MEQ/L (8-16); BLOOD UREA NITROGEN 12 MG/DL (7-18); CALCIUM LEVEL 9.3 MG/DL (8.5-10.1); CARBON DIOXIDE LEVEL 29 MEQ/L (21-32); CHLORIDE LEVEL 101 MEQ/L (98-107); CREATININE FOR GFR 1.24 MG/DL (0.70-1.30); GLOMERULAR FILTRATION RATE > 60.0 (>56); GLUCOSE, FASTING 148 MG/DL (70-105); POTASSIUM SERUM 3.4 MEQ/L (3.5-5.1); SODIUM LEVEL 138 MEQ/L (136-145)
--- NOTE | 2017-08-04 22:14 | REP ---
Clinical: Chest pain . Comparison: 07/26/2017 . Technique: PA and lateral. Findings: The cardiac silhouette is within normal limits. Hilar prominence and possible adenopathy cannot be excluded. The lung miller are clear and without acute consolidation, effusion, or pneumothorax. The skeletal structures are intact and normal. Impression: Cannot exclude hilar prominence and possible adenopathy. Consider chest CT with contrast for further investigation. Signed by Scott Roberson MD 08/04/2017 10:06 P
[2017-08-04 22:31] VITALS: BP 89/65
[2017-08-04] MEDS ORDERED: NS 1,000 ML IV STA (22:36)
--- NOTE | 2017-08-05 09:31 | ECGEPIP ---
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
== END 2017-08-04 22:43 | disposition short-term general hospital (02) ==
LOC: M ED 20:47
DX: I21.09 ST elevation (STEMI) myocardial infarction involving other coronary artery of anterior wall (principal); F31.9 Bipolar disorder, unspecified; F17.210 Nicotine dependence, cigarettes, uncomplicated; Z88.8 Allergy status to other drugs, medicaments and biological substances; Z88.5 Allergy status to narcotic agent
CPT/HCPCS: 71010; 80048; 82550; 82553; 85025; 85610; 85730; 93005; 96374; 96375; 99285; J3101

== ENCOUNTER 2017-09-11 23:21 | Emergency (ER) | payer MEDICARE, MEDICAID ==
[2017-09-12 00:03] LABS: HEMATOCRIT 42.8 % (42.0-52.0); HEMOGLOBIN 14.4 g/dl (14.0-18.0); MEAN CORPUSCULAR HEMOGLOBIN 32.4 pg (27.0-33.0); MEAN CORPUSCULAR HGB CONC 33.6 g/dl (32.0-36.5); MEAN CORPUSCULAR VOLUME 96.2 fl (80.0-96.0); PLATELET COUNT, AUTOMATED 196 10^3/uL (150-450); RED BLOOD COUNT 4.45 10^6/uL (4.30-6.10); WHITE BLOOD COUNT 7.5 10^3/uL (4.0-10.0)
[2017-09-12 00:23] LABS: AMPHETAMINES LEVEL URINE NEGATIVE (NEGATIVE); BARBITURATES URINE NEGATIVE (NEGATIVE); BENZODIAZEPINES URINE NEGATIVE (NEGATIVE); CANNABINOIDS URINE NEGATIVE (NEGATIVE); COCAINE METABOLITE URINE NEGATIVE (NEGATIVE); METHADONE URINE NEGATIVE (NEGATIVE); OPIATES URINE NEGATIVE (NEGATIVE); PHENCYCLIDINE URINE NEGATIVE (NEGATIVE)
[2017-09-12 00:35] LABS: ACETAMINOPHEN LEVEL < 2.0 UG/ML (10.0-30.0); ALBUMIN 3.7 GM/DL (3.2-5.2); ALBUMIN/GLOBULIN RATIO 1.12 (1.00-1.93); ALKALINE PHOSPHATASE 63 U/L (45-117); ALT/SGPT 17 U/L (12-78); ANION GAP 11 MEQ/L (8-16); AST/SGOT 14 U/L (7-37); BILIRUBIN,DIRECT < 0.1 MG/DL (0.0-0.2); BILIRUBIN,TOTAL 0.2 MG/DL (0.2-1.0); BLOOD UREA NITROGEN 13 MG/DL (7-18); CALCIUM LEVEL 8.9 MG/DL (8.5-10.1); CARBON DIOXIDE LEVEL 26 MEQ/L (21-32); CHLORIDE LEVEL 109 MEQ/L (98-107); CREATININE FOR GFR 0.96 MG/DL (0.70-1.30); ETHYL ALCOHOL (ETHANOL) 0.176 % (0.000-0.010); GLOMERULAR FILTRATION RATE > 60.0 (>56); GLUCOSE, FASTING 99 MG/DL (70-105); POTASSIUM SERUM 3.7 MEQ/L (3.5-5.1); SALICYLATE LEVEL 4.9 MG/DL (5.0-30.0); SODIUM LEVEL 146 MEQ/L (136-145); THYROID STIMULATING HORMONE 0.393 uIU/ML (0.358-3.740)
== END 2017-09-12 04:54 | disposition home or self-care (01) ==
LOC: M ED 23:21
DX: F10.929 Alcohol use, unspecified with intoxication, unspecified (principal); I25.10 Atherosclerotic heart disease of native coronary artery without angina pectoris; F41.9 Anxiety disorder, unspecified; F31.9 Bipolar disorder, unspecified; F20.9 Schizophrenia, unspecified; F17.210 Nicotine dependence, cigarettes, uncomplicated; Z79.01 Long term (current) use of anticoagulants; Z88.5 Allergy status to narcotic agent; Z88.8 Allergy status to other drugs, medicaments and biological substances
CPT/HCPCS: 84443

== ENCOUNTER 2017-11-03 03:33 | Emergency (ER) | payer MEDICARE, MEDICAID ==
[2017-11-03] MEDS ORDERED: METAL LOCK LOOP XX (05:14)
== END 2017-11-03 05:38 | disposition home or self-care (01) ==
LOC: M ED 03:33
DX: S00.93XA Contusion of unspecified part of head, initial encounter (principal); W00.9XXA Unspecified fall due to ice and snow, initial encounter; Y92.410 Unspecified street and highway as the place of occurrence of the external cause; I25.10 Atherosclerotic heart disease of native coronary artery without angina pectoris; I10 Essential (primary) hypertension; E78.5 Hyperlipidemia, unspecified; F17.210 Nicotine dependence, cigarettes, uncomplicated; Z88.5 Allergy status to narcotic agent; Z88.8 Allergy status to other drugs, medicaments and biological substances
CPT/HCPCS: 70450

== ENCOUNTER 2018-02-01 20:24 | Emergency (ER) | payer MEDICAID, MEDICARE ==
[2018-02-01] MEDS: NORCO 5/325MG TABLET (BULK FOR ED) PO ×2 (21:13)
== END 2018-02-01 21:25 | disposition home or self-care (01) ==
LOC: M ED 20:24
DX: S30.0XXA Contusion of lower back and pelvis, initial encounter (principal); W01.0XXA Fall on same level from slipping, tripping and stumbling without subsequent striking against object, initial encounter; Y92.89 Other specified places as the place of occurrence of the external cause; I10 Essential (primary) hypertension; F31.9 Bipolar disorder, unspecified; F17.200 Nicotine dependence, unspecified, uncomplicated; Z88.5 Allergy status to narcotic agent; Z88.8 Allergy status to other drugs, medicaments and biological substances
CPT/HCPCS: 99282

== ENCOUNTER 2018-02-03 16:35 | Emergency (ER) | payer MEDICARE, MEDICAID ==
[2018-02-03] MEDS: NS 1,000 ML IV (17:23)
[2018-02-03] MEDS: ADACEL/BOOSTRIX VACCINE (DIPHTH/PERTUSS/ACELL/TETANUS)0.5ML SYR (90715) IM (17:30)
[2018-02-03 17:51] LABS: BASO # 0.1 10^3/uL (0.0-0.2); BASO % 0.4 % (0.0-1.0); EOS # 0.1 10^3/uL (0.0-0.50); EOS % 0.4 % (0.0-3.0); HEMATOCRIT 50.6 % (42.0-52.0); HEMOGLOBIN 17.7 g/dl (13.5-17.5); IMMATURE GRANULOCYTE % 0.6 % (0-3.0); LYMPH % 14.2 % (24.0-44.0); MEAN CORPUSCULAR VOLUME 94.4 fl (80.0-96.0); MONO # 0.8 10^3/uL (0.0-0.8); MONO % 5.8 % (0.0-5.0); NEUTROPHILS % 78.6 % (36.0-66.0); PLATELET COUNT, AUTOMATED 354 10^3/uL (150-450); RED BLOOD COUNT 5.36 10^6/uL (4.30-6.10)
[2018-02-03 18:11] LABS: ANION GAP 15 MEQ/L (8-16); BLOOD UREA NITROGEN 11 MG/DL (7-18); CALCIUM LEVEL 9.4 MG/DL (8.5-10.1); CARBON DIOXIDE LEVEL 23 MEQ/L (21-32); CHLORIDE LEVEL 103 MEQ/L (98-107); CREATININE FOR GFR 1.25 MG/DL (0.70-1.30); GLOMERULAR FILTRATION RATE > 60.0 (>56); GLUCOSE, FASTING 98 MG/DL (70-100); POTASSIUM SERUM 3.9 MEQ/L (3.5-5.1); SODIUM LEVEL 141 MEQ/L (136-145)
[2018-02-03] MEDS: ceFAZolin SOD 1 GM in D5W MINI-BAG PLUS 50 ML IV (18:30)
[2018-02-03] MEDS: LIDOCAINE 1% MDV 20ML VIAL SC (18:45)
== END 2018-02-03 20:06 | disposition home or self-care (01) ==
LOC: M ED 16:35
DX: T76.11XA Adult physical abuse, suspected, initial encounter (principal); S02.401A Maxillary fracture, unspecified side, initial encounter for closed fracture; S61.215A Laceration without foreign body of left ring finger without damage to nail, initial encounter; S02.40FA Zygomatic fracture, left side, initial encounter for closed fracture; S61.511A Laceration without foreign body of right wrist, initial encounter; X99.1XXA Assault by knife, initial encounter; Y92.410 Unspecified street and highway as the place of occurrence of the external cause; I25.10 Atherosclerotic heart disease of native coronary artery without angina pectoris; F17.200 Nicotine dependence, unspecified, uncomplicated
CPT/HCPCS: J0690

== ENCOUNTER 2018-02-04 13:13 | Emergency (ER) | payer MEDICARE, MEDICAID | END 2018-02-04 15:02 | disposition left against medical advice (07) | LOC: M ED 13:13 | DX: Z53.21 Procedure and treatment not carried out due to patient leaving prior to being seen by health care provider (principal) ==

== ENCOUNTER 2018-02-04 20:05 | Emergency (ER) | payer MEDICARE, MEDICAID ==
[2018-02-04] MEDS: ONDANSETRON 4 MG ORAL DISINTEGRATING TAB (Q0162 PER 1MG) PO (20:56)
[2018-02-04] MEDS: IBUPROFEN 600 MG TAB PO (20:56)
== END 2018-02-04 21:27 | disposition home or self-care (01) ==
LOC: M ED 20:05
DX: Z48.00 Encounter for change or removal of nonsurgical wound dressing (principal); I10 Essential (primary) hypertension; I25.2 Old myocardial infarction; F20.89 Other schizophrenia; F17.210 Nicotine dependence, cigarettes, uncomplicated; Z88.5 Allergy status to narcotic agent; Z88.8 Allergy status to other drugs, medicaments and biological substances
CPT/HCPCS: Q0162

== ENCOUNTER 2018-02-12 02:11 | Emergency (ER) | payer MEDICARE, MEDICAID ==
[2018-02-12] MEDS ORDERED: CLINDAMYCIN 150 MG CAP As Ordered (02:33)
[2018-02-12] MEDS ORDERED: CLINDAMYCIN 150 MG CAP PO (02:45)
== END 2018-02-12 03:03 | disposition home or self-care (01) ==
LOC: M ED 03:03
DX: L03.113 Cellulitis of right upper limb (principal); Z88.5 Allergy status to narcotic agent; Z88.8 Allergy status to other drugs, medicaments and biological substances

== ENCOUNTER 2018-02-14 05:43 | Emergency (ER) | payer MEDICARE, MEDICAID ==
[2018-02-14] MEDS ORDERED: NEOSPORIN OINT 0.9 GM PKT (FLOOR STOCK) As Ordered (07:40)
== END 2018-02-14 08:03 | disposition home or self-care (01) ==
LOC: M ED 05:43
DX: Z48.02 Encounter for removal of sutures (principal); Z48.816 Encounter for surgical aftercare following surgery on the genitourinary system; I25.2 Old myocardial infarction; I10 Essential (primary) hypertension; F20.9 Schizophrenia, unspecified; F31.9 Bipolar disorder, unspecified; Z72.0 Tobacco use; Z88.5 Allergy status to narcotic agent; Z88.8 Allergy status to other drugs, medicaments and biological substances
CPT/HCPCS: 99283

== ENCOUNTER 2018-02-28 02:01 | Emergency (ER) | payer MEDICARE, MEDICAID | END 2018-02-28 04:05 | disposition left against medical advice (07) | LOC: M ED 02:01 | DX: M79.601 Pain in right arm (principal); Z53.21 Procedure and treatment not carried out due to patient leaving prior to being seen by health care provider ==

== ENCOUNTER 2018-03-07 20:42 | Emergency (ER) | payer MEDICARE, MEDICAID | END 2018-03-07 23:26 | disposition home or self-care (01) | LOC: M ED 20:42 | DX: S50.02XA Contusion of left elbow, initial encounter (principal); S60.211A Contusion of right wrist, initial encounter; W19.XXXA Unspecified fall, initial encounter; Y92.830 Public park as the place of occurrence of the external cause; Y93.67 Activity, basketball; Y99.9 Unspecified external cause status; I25.2 Old myocardial infarction; I10 Essential (primary) hypertension; F31.9 Bipolar disorder, unspecified; F20.9 Schizophrenia, unspecified; Z72.0 Tobacco use; Z88.5 Allergy status to narcotic agent; Z88.8 Allergy status to other drugs, medicaments and biological substances | CPT/HCPCS: 73080 ==

== ENCOUNTER 2018-03-14 01:01 | Emergency (ER) | payer MEDICARE, MEDICAID | END 2018-03-14 01:57 | disposition home or self-care (01) | LOC: M ED 01:01 | DX: S80.11XA Contusion of right lower leg, initial encounter (principal); X58.XXXA Exposure to other specified factors, initial encounter; Y92.9 Unspecified place or not applicable; Y93.9 Activity, unspecified; Y99.9 Unspecified external cause status; I25.2 Old myocardial infarction; I10 Essential (primary) hypertension; F20.9 Schizophrenia, unspecified; F31.9 Bipolar disorder, unspecified; Z72.0 Tobacco use; Z88.5 Allergy status to narcotic agent; Z88.8 Allergy status to other drugs, medicaments and biological substances | CPT/HCPCS: 99282 ==

== ENCOUNTER 2018-03-22 07:04 | Emergency (ER) | payer MEDICARE, MEDICAID | END 2018-03-22 08:20 | disposition home or self-care (01) | LOC: M ED 07:04 | DX: S50.02XA Contusion of left elbow, initial encounter (principal); Y04.0XXA Assault by unarmed brawl or fight, initial encounter; Y92.410 Unspecified street and highway as the place of occurrence of the external cause; J44.9 Chronic obstructive pulmonary disease, unspecified; F99 Mental disorder, not otherwise specified; F17.210 Nicotine dependence, cigarettes, uncomplicated | CPT/HCPCS: 73080 ==

== ENCOUNTER 2018-03-26 19:06 | Emergency (ER) | payer MEDICARE, MEDICAID ==
[2018-03-26] MEDS: NORCO, ANEXSIA 5/325MG TABLET (HYDROcodone/ACETAMINOPHEN) PO (20:07)
== END 2018-03-26 20:15 | disposition home or self-care (01) ==
LOC: M ED 19:06
DX: S40.011A Contusion of right shoulder, initial encounter (principal); Y04.8XXA Assault by other bodily force, initial encounter; Y92.830 Public park as the place of occurrence of the external cause; I10 Essential (primary) hypertension; I25.2 Old myocardial infarction; F31.9 Bipolar disorder, unspecified; F20.9 Schizophrenia, unspecified; Z95.5 Presence of coronary angioplasty implant and graft; Z88.5 Allergy status to narcotic agent; Z88.8 Allergy status to other drugs, medicaments and biological substances
CPT/HCPCS: 73030

== ENCOUNTER 2018-03-27 23:08 | Emergency (ER) | payer MEDICARE, MEDICAID | END 2018-03-27 23:11 | disposition left against medical advice (07) | LOC: M ED 23:08 | DX: Z53.29 Procedure and treatment not carried out because of patient's decision for other reasons (principal) ==

== ENCOUNTER 2018-05-04 12:01 | Emergency (ER) | payer MEDICARE, MEDICAID ==
[2018-05-04] MEDS: NS 1,000 ML IV (13:30)
[2018-05-04 13:35] LABS: BASO % 0.3 % (0.0-1.0); EOS % 0.1 % (0.0-3.0); HEMATOCRIT 49.5 % (42.0-52.0); HEMOGLOBIN 17.2 g/dl (13.5-17.5); IMMATURE GRANULOCYTE % 0.5 % (0-3.0); LYMPH # 2.1 10^3/uL (1.5-4.5); LYMPH % 19.4 % (24.0-44.0); MEAN CORPUSCULAR HEMOGLOBIN 33.7 pg (27.0-33.0); MEAN CORPUSCULAR HGB CONC 34.7 g/dl (32.0-36.5); MEAN CORPUSCULAR VOLUME 97.1 fl (80.0-96.0); MONO # 0.7 10^3/uL (0.0-0.8); MONO % 6.3 % (0.0-5.0); NEUTROPHILS # 7.8 10^3/uL (1.8-7.7); NEUTROPHILS % 73.4 % (36.0-66.0); PLATELET COUNT, AUTOMATED 228 10^3/uL (150-450); RED CELL DISTRIBUTION WIDTH 12.2 % (11.5-14.5); WHITE BLOOD COUNT 10.6 10^3/uL (4.0-10.0)
[2018-05-04 13:47] LABS: INR 0.92; PROTHROMBIN TIME 12.5 SECONDS (12.1-14.4)
[2018-05-04 13:48] LABS: PARTIAL THROMBOPLASTIN TIME 26.7 SECONDS (25.4-37.6)
[2018-05-04 13:57] LABS: ALBUMIN 3.8 GM/DL (3.2-5.2); ALBUMIN/GLOBULIN RATIO 0.93 (1.00-1.93); ALKALINE PHOSPHATASE 80 U/L (45-117); ALT/SGPT 35 U/L (12-78); ANION GAP 14 MEQ/L (8-16); AST/SGOT 55 U/L (7-37); BILIRUBIN,DIRECT 0.1 MG/DL (0.0-0.2); BILIRUBIN,TOTAL 0.4 MG/DL (0.2-1.0); BLOOD UREA NITROGEN 11 MG/DL (7-18); CALCIUM LEVEL 8.6 MG/DL (8.5-10.1); CARBON DIOXIDE LEVEL 22 MEQ/L (21-32); CHLORIDE LEVEL 106 MEQ/L (98-107); CK-MB VALUE MASS 7.1 NG/ML (<3.6); CPK CREATINE PHOSPHOKINASE 854 U/L (39-308); GLOMERULAR FILTRATION RATE > 60.0 (>56); GLUCOSE, FASTING 70 MG/DL (70-100); LIPASE 420 U/L (73-393); MB/CK RELATIVE INDEX 0.83 (< OR =4); POTASSIUM SERUM 4.4 MEQ/L (3.5-5.1); SODIUM LEVEL 142 MEQ/L (136-145); TOTAL PROTEIN 7.9 GM/DL (6.4-8.2); TROPONIN I 0.03 NG/ML (< 0.10)
[2018-05-04 14:31] LABS: SALICYLATE LEVEL 4.2 MG/DL (5.0-30.0); THYROID STIMULATING HORMONE 0.632 uIU/ML (0.358-3.740)
[2018-05-04 14:34] LABS: ACETAMINOPHEN LEVEL < 2.0 UG/ML (10.0-30.0)
[2018-05-04 14:34] LABS: ETHYL ALCOHOL (ETHANOL) 0.316 % (0.000-0.010)
[2018-05-04 15:08] LABS: AMPHETAMINES LEVEL URINE NEGATIVE (NEGATIVE); BARBITURATES URINE NEGATIVE (NEGATIVE); BENZODIAZEPINES URINE NEGATIVE (NEGATIVE); CANNABINOIDS URINE NEGATIVE (NEGATIVE); COCAINE METABOLITE URINE NEGATIVE (NEGATIVE); METHADONE URINE NEGATIVE (NEGATIVE); OPIATES URINE NEGATIVE (NEGATIVE); PHENCYCLIDINE URINE NEGATIVE (NEGATIVE)
[2018-05-04] MEDS: diphenhydrAMINE 50 MG CAP PO (18:09)
== END 2018-05-04 20:35 | disposition home or self-care (01) ==
LOC: M ED 12:01
DX: S00.83XA Contusion of other part of head, initial encounter (principal); Y04.0XXA Assault by unarmed brawl or fight, initial encounter; F10.129 Alcohol abuse with intoxication, unspecified
CPT/HCPCS: 73080

== ENCOUNTER 2018-05-11 21:29 | Emergency (ER) | payer MEDICARE, MEDICAID | END 2018-05-11 23:03 | disposition home or self-care (01) | LOC: M ED 21:29 | DX: S05.12XA Contusion of eyeball and orbital tissues, left eye, initial encounter (principal); R07.89 Other chest pain; Y04.0XXA Assault by unarmed brawl or fight, initial encounter; Y92.098 Other place in other non-institutional residence as the place of occurrence of the external cause; I10 Essential (primary) hypertension; F20.9 Schizophrenia, unspecified; F31.9 Bipolar disorder, unspecified; Z95.5 Presence of coronary angioplasty implant and graft; Z97.0 Presence of artificial eye; Z88.5 Allergy status to narcotic agent; Z88.8 Allergy status to other drugs, medicaments and biological substances | CPT/HCPCS: 99283 ==

== ENCOUNTER 2018-05-27 03:55 | Emergency (ER) | payer MEDICARE, MEDICAID | END 2018-05-27 04:45 | disposition left against medical advice (07) | LOC: M ED 03:55 | DX: Z53.21 Procedure and treatment not carried out due to patient leaving prior to being seen by health care provider (principal) ==

== ENCOUNTER 2018-06-17 07:15 | Emergency (ER) | payer MEDICARE, MEDICAID | END 2018-06-17 08:59 | disposition left against medical advice (07) | LOC: M ED 07:15 | DX: M79.603 Pain in arm, unspecified (principal); Z53.21 Procedure and treatment not carried out due to patient leaving prior to being seen by health care provider ==

== ENCOUNTER 2018-06-28 23:27 | Emergency (ER) | payer MEDICARE, MEDICAID | END 2018-06-29 | disposition left against medical advice (07) | LOC: M ED 23:27 | DX: Z53.21 Procedure and treatment not carried out due to patient leaving prior to being seen by health care provider (principal) ==

== ENCOUNTER 2018-07-05 17:29 | Emergency (ER) | payer MEDICARE, MEDICAID | END 2018-07-05 17:45 | disposition left against medical advice (07) | LOC: M ED 17:29 | DX: Z53.29 Procedure and treatment not carried out because of patient's decision for other reasons (principal) ==

== ENCOUNTER 2018-07-19 01:25 | Emergency (ER) | payer MEDICARE, MEDICAID | END 2018-07-19 02:10 | disposition left against medical advice (07) | LOC: M ED 01:25 | DX: Z53.21 Procedure and treatment not carried out due to patient leaving prior to being seen by health care provider (principal) ==

== ENCOUNTER 2018-07-19 10:16 | Emergency (ER) | payer MEDICARE, MEDICAID ==
[2018-07-19 11:46] LABS: BASO % 0.4 % (0.0-1.0); EOS # 0.1 10^3/uL (0.0-0.50); EOS % 0.6 % (0.0-3.0); HEMATOCRIT 45.9 % (42.0-52.0); HEMOGLOBIN 15.8 g/dl (13.5-17.5); IMMATURE GRANULOCYTE % 0.3 % (0-3.0); LYMPH # 2.5 10^3/uL (1.5-4.5); MEAN CORPUSCULAR HEMOGLOBIN 33.8 pg (27.0-33.0); MEAN CORPUSCULAR HGB CONC 34.4 g/dl (32.0-36.5); MEAN CORPUSCULAR VOLUME 98.1 fl (80.0-96.0); MONO # 1.1 10^3/uL (0.0-0.8); MONO % 10.7 % (0.0-5.0); NEUTROPHILS # 6.7 10^3/uL (1.8-7.7); PLATELET COUNT, AUTOMATED 284 10^3/uL (150-450); RED BLOOD COUNT 4.68 10^6/uL (4.30-6.10); RED CELL DISTRIBUTION WIDTH 12.7 % (11.5-14.5); WHITE BLOOD COUNT 10.4 10^3/uL (4.0-10.0)
[2018-07-19 12:13] LABS: ANION GAP 10 MEQ/L (8-16); BLOOD UREA NITROGEN 13 MG/DL (7-18); CALCIUM LEVEL 9.1 MG/DL (8.5-10.1); CARBON DIOXIDE LEVEL 25 MEQ/L (21-32); CHLORIDE LEVEL 103 MEQ/L (98-107); CPK CREATINE PHOSPHOKINASE 145 U/L (39-308); CREATININE FOR GFR 0.91 MG/DL (0.70-1.30); GLOMERULAR FILTRATION RATE > 60.0 (>56); GLUCOSE, FASTING 82 MG/DL (70-100); MB/CK RELATIVE INDEX 1.31 (< OR =4); POTASSIUM SERUM 4.2 MEQ/L (3.5-5.1); SODIUM LEVEL 138 MEQ/L (136-145); TROPONIN I < 0.02 NG/ML (< 0.10)
== END 2018-07-19 12:54 | disposition home or self-care (01) ==
LOC: M ED 10:16
DX: F10.10 Alcohol abuse, uncomplicated (principal); M77.11 Lateral epicondylitis, right elbow; I25.2 Old myocardial infarction; R94.31 Abnormal electrocardiogram [ECG] [EKG]; F33.9 Major depressive disorder, recurrent, unspecified; F41.9 Anxiety disorder, unspecified; Z98.61 Coronary angioplasty status; Z97.0 Presence of artificial eye; F17.200 Nicotine dependence, unspecified, uncomplicated; Z88.5 Allergy status to narcotic agent; Z88.8 Allergy status to other drugs, medicaments and biological substances
CPT/HCPCS: 71046

== ENCOUNTER 2018-08-08 08:57 | Emergency (ER) | payer MEDICARE, MEDICAID | END 2018-08-08 10:26 | disposition home or self-care (01) | LOC: M ED 08:57 | DX: S20.219A Contusion of unspecified front wall of thorax, initial encounter (principal); I25.2 Old myocardial infarction; I25.10 Atherosclerotic heart disease of native coronary artery without angina pectoris; I10 Essential (primary) hypertension; F17.210 Nicotine dependence, cigarettes, uncomplicated; Y99.9 Unspecified external cause status | CPT/HCPCS: 71101 ==

== ENCOUNTER 2018-08-16 05:39 | Emergency (ER) | payer MEDICARE, MEDICAID ==
[2018-08-16] MEDS: KETOROLAC 60 MG/2 ML VIAL (J1885) IM (06:16)
== END 2018-08-16 06:20 | disposition home or self-care (01) ==
LOC: M ED 05:39
DX: R07.89 Other chest pain (principal); I25.10 Atherosclerotic heart disease of native coronary artery without angina pectoris; I10 Essential (primary) hypertension; F31.9 Bipolar disorder, unspecified; F10.20 Alcohol dependence, uncomplicated; Z95.5 Presence of coronary angioplasty implant and graft; Z72.0 Tobacco use
CPT/HCPCS: J1885

== ENCOUNTER 2018-10-08 10:30 | Emergency (ER) | payer MEDICARE, MEDICAID ==
[~2018-10-08] VITALS: Ht 172.7 cm; Wt 68.0 kg
[~2018-10-08 10:30] MED LIST changes: +ATOR80TA59; +CEPH500C; +CLOP75TA2; +IBUP-1022 PO; +IBUP80TA PO; +KEFL500C17 PO; +METO1TAB32; +MUCI600T37 PO; +NITR0.4S14; +NITR0.4S14 SL; -OXCA300T PO; +OXCA300T14 PO; -QUET300T49 PO; +QUET300T53 PO; +TESS100C PO; -TRAZ-136 PO; +TRAZ-163 PO
[2018-10-08 11:10] LABS: HEMATOCRIT 47.7 % (42.0-52.0); HEMOGLOBIN 16.8 g/dl (13.5-17.5); MEAN CORPUSCULAR HEMOGLOBIN 34.4 pg (27.0-33.0); MEAN CORPUSCULAR HGB CONC 35.2 g/dl (32.0-36.5); MEAN CORPUSCULAR VOLUME 97.5 fl (80.0-96.0); PLATELET COUNT, AUTOMATED 212 10^3/uL (150-450); RED BLOOD COUNT 4.89 10^6/uL (4.30-6.10); WHITE BLOOD COUNT 8.1 10^3/uL (4.0-10.0)
[2018-10-08 11:36] LABS: AMPHETAMINES LEVEL URINE NEGATIVE (NEGATIVE); BARBITURATES URINE NEGATIVE (NEGATIVE); BENZODIAZEPINES URINE NEGATIVE (NEGATIVE); CANNABINOIDS URINE NEGATIVE (NEGATIVE); COCAINE METABOLITE URINE NEGATIVE (NEGATIVE); METHADONE URINE NEGATIVE (NEGATIVE); OPIATES URINE NEGATIVE (NEGATIVE); PHENCYCLIDINE URINE NEGATIVE (NEGATIVE)
[2018-10-08 11:59] LABS: ALT/SGPT 46 U/L (12-78); BILIRUBIN,DIRECT 0.4 MG/DL (0.0-0.2); BILIRUBIN,TOTAL 1.3 MG/DL (0.2-1.0); BLOOD UREA NITROGEN 17 MG/DL (7-18); CALCIUM LEVEL 9.2 MG/DL (8.5-10.1); CARBON DIOXIDE LEVEL 22 MEQ/L (21-32); CHLORIDE LEVEL 98 MEQ/L (98-107); CREATININE FOR GFR 1.09 MG/DL (0.70-1.30); GLOMERULAR FILTRATION RATE > 60.0 (>56); GLUCOSE, FASTING 89 MG/DL (70-100); SODIUM LEVEL 135 MEQ/L (136-145); TOTAL PROTEIN 8.2 GM/DL (6.4-8.2)
[2018-10-08 12:00] LABS: ACETAMINOPHEN LEVEL < 2.0 UG/ML (10.0-30.0); ALBUMIN 4.3 GM/DL (3.2-5.2); ETHYL ALCOHOL (ETHANOL) 0.269 % (0.000-0.010); SALICYLATE LEVEL 3.8 MG/DL (5.0-30.0)
[2018-10-08 17:20] VITALS: BP 150/85
== END 2018-10-08 17:22 | disposition home or self-care (01) ==
LOC: M ED 10:30
DX: F10.129 Alcohol abuse with intoxication, unspecified (principal); I25.2 Old myocardial infarction; Z98.61 Coronary angioplasty status
CPT/HCPCS: 36415; 80048; 80076; 80307; 84443; 85027; 99284; G0480

== ENCOUNTER 2018-11-01 05:01 | Emergency (ER) | payer MEDICARE, MEDICAID ==
[~2018-11-01] VITALS: Ht 177.8 cm; Wt 68.2 kg
[2018-11-01 05:02] VITALS: BP 137/89
--- NOTE | 2018-11-01 08:27 | REP ---
Clinical: Trauma . Technique: AP, lateral views of the left elbow. Findings: No acute fracture or dislocation is appreciated. Joint spaces and surrounding soft tissues appear normal. Lateral view demonstrates normal positioning to the anterior and posterior fat pads without evidence for effusion/hemarthrosis. No subcutaneous emphysema or foreign body identified. Impression: Normal left elbow radiographs. Electronically Signed by Scott Roberson MD 11/01/2018 08:19 A
== END 2018-11-01 05:51 | disposition home or self-care (01) ==
LOC: M ED 05:01
DX: S50.02XA Contusion of left elbow, initial encounter (principal); F10.220 Alcohol dependence with intoxication, uncomplicated; W00.0XXA Fall on same level due to ice and snow, initial encounter; Y92.410 Unspecified street and highway as the place of occurrence of the external cause; I25.10 Atherosclerotic heart disease of native coronary artery without angina pectoris; F17.200 Nicotine dependence, unspecified, uncomplicated; Z88.5 Allergy status to narcotic agent; Z88.8 Allergy status to other drugs, medicaments and biological substances

== ENCOUNTER 2018-11-07 07:18 | Emergency (ER) | payer MEDICARE, MEDICAID ==
[~2018-11-07] VITALS: Ht 175.3 cm; Wt 68.2 kg
[2018-11-07 07:18] VITALS: BP 177/79
[2018-11-07] MEDS ORDERED: AUGM875T28 PO (08:01)
--- NOTE | 2018-11-07 08:28 | REP ---
Right scapula: Two views. History: Trauma. Comparison right shoulder radiographs are from March 26, 2018. Findings: The right glenohumeral and acromioclavicular joints are normally aligned. No scapular fracture is seen. No humeral or clavicular fracture is noted. Periarticular soft tissues are unremarkable. The visualized right chest is unremarkable. Impression: Negative right scapular views. Electronically Signed by Jay Downs MD 11/07/2018 08:18 A
== END 2018-11-07 08:07 | disposition home or self-care (01) ==
LOC: M ED 07:18
DX: L03.011 Cellulitis of right finger (principal); S43.401A Unspecified sprain of right shoulder joint, initial encounter; W00.9XXA Unspecified fall due to ice and snow, initial encounter; Y92.89 Other specified places as the place of occurrence of the external cause; I25.2 Old myocardial infarction; F20.9 Schizophrenia, unspecified; F31.9 Bipolar disorder, unspecified; Z88.5 Allergy status to narcotic agent; Z88.8 Allergy status to other drugs, medicaments and biological substances; Z95.5 Presence of coronary angioplasty implant and graft; Z98.890 Other specified postprocedural states; Z97.0 Presence of artificial eye

== ENCOUNTER 2018-11-09 05:39 | Emergency (ER) | payer MEDICARE, MEDICAID ==
[~2018-11-09] VITALS: Ht 177.8 cm; Wt 66.4 kg
[2018-11-09 05:39] VITALS: BP 167/90
[~2018-11-09 05:39] MED LIST changes: +AUGM875T28 PO
[2018-11-09] MEDS ORDERED: METAL LOCK LOOP XX ONE (06:15)
== END 2018-11-09 08:32 | disposition left against medical advice (07) ==
LOC: M ED 05:39
DX: J02.9 Acute pharyngitis, unspecified (principal); R05 Cough; F20.9 Schizophrenia, unspecified; I25.10 Atherosclerotic heart disease of native coronary artery without angina pectoris; Z88.8 Allergy status to other drugs, medicaments and biological substances; Z88.5 Allergy status to narcotic agent

== ENCOUNTER 2018-11-13 01:18 | Emergency (ER) | payer MEDICARE, MEDICAID ==
[~2018-11-13] VITALS: Ht 177.8 cm; Wt 68.3 kg
[2018-11-13 01:18] VITALS: BP 140/90
== END 2018-11-13 03:46 | disposition left against medical advice (07) ==
LOC: M ED 01:18
DX: Z53.21 Procedure and treatment not carried out due to patient leaving prior to being seen by health care provider (principal)

== ENCOUNTER 2019-01-13 00:44 | Emergency (ER) | payer MEDICARE, MEDICAID ==
[~2019-01-13 00:44] MED LIST changes: +MOTR200T44 PO
[2019-01-13 00:54] VITALS: BP 125/80
== END 2019-01-13 02:31 | disposition left against medical advice (07) ==
LOC: M ED 00:44
DX: Z53.29 Procedure and treatment not carried out because of patient's decision for other reasons (principal)

== ENCOUNTER 2019-01-22 22:29 | Emergency (ER) | payer MEDICARE, MEDICAID | END 2019-01-22 23:16 | disposition left against medical advice (07) | LOC: M ED 22:29 | DX: R68.84 Jaw pain (principal); Z53.21 Procedure and treatment not carried out due to patient leaving prior to being seen by health care provider ==

== ENCOUNTER 2019-02-08 08:38 | Emergency (ER) | payer MEDICARE, MEDICAID ==
[~2019-02-08] VITALS: Ht 180.3 cm; Wt 68.3 kg
[2019-02-08 08:47] VITALS: BP 136/85
== END 2019-02-08 09:12 | disposition left against medical advice (07) ==
LOC: M ED 08:38 → EDBD 08:38 → M ED 09:12
DX: Z53.29 Procedure and treatment not carried out because of patient's decision for other reasons (principal)

== ENCOUNTER 2019-03-31 16:13 | Emergency (ER) | payer MEDICARE, MEDICAID ==
[~2019-03-31] VITALS: Ht 177.8 cm; Wt 52.3 kg
[2019-03-31 16:13] VITALS: BP 108/66
[2019-03-31 16:55] LABS: BASO # 0.1 10^3/uL (0.0-0.2); BASO % 0.6 % (0.0-1.0); EOS # 0.1 10^3/uL (0.0-0.50); EOS % 1.6 % (0.0-3.0); HEMATOCRIT 43.4 % (42.0-52.0); HEMOGLOBIN 15.5 g/dl (13.5-17.5); LYMPH # 2.3 10^3/uL (1.5-4.5); LYMPH % 29.1 % (24.0-44.0); MEAN CORPUSCULAR HEMOGLOBIN 35.9 pg (27.0-33.0); MEAN CORPUSCULAR HGB CONC 35.7 g/dl (32.0-36.5); MEAN CORPUSCULAR VOLUME 100.5 fl (80.0-96.0); MONO # 0.9 10^3/uL (0.0-0.8); MONO % 11.1 % (0.0-5.0); NEUTROPHILS # 4.6 10^3/uL (1.8-7.7); NEUTROPHILS % 57.3 % (36.0-66.0); PLATELET COUNT, AUTOMATED 188 10^3/uL (150-450); RED BLOOD COUNT 4.32 10^6/uL (4.30-6.10)
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
[2019-03-31 17:17] LABS: BLOOD UREA NITROGEN 10 MG/DL (7-18); CALCIUM LEVEL 9.3 MG/DL (8.8-10.2); CARBON DIOXIDE LEVEL 28 MEQ/L (21-32); CHLORIDE LEVEL 106 MEQ/L (98-107); CK-MB VALUE MASS 1.3 NG/ML (<3.6); CPK CREATINE PHOSPHOKINASE 156 U/L (39-308); CREATININE FOR GFR 1.14 MG/DL (0.70-1.30); GLOMERULAR FILTRATION RATE > 60.0 (>49); GLUCOSE, FASTING 134 MG/DL (70-100); MB/CK RELATIVE INDEX 0.83 (< OR =4); POTASSIUM SERUM 3.4 MEQ/L (3.5-5.1); SODIUM LEVEL 142 MEQ/L (136-145); TROPONIN I < 0.02 NG/ML (< 0.10)
[2019-03-31] MEDS ORDERED: IBUP-1022 PO (18:03)
[2019-03-31] MEDS ORDERED: METAL LOCK LOOP XX ONE ×2 (18:04→18:05)
[2019-03-31] MEDS ORDERED: IBUPROFEN 600 MG TAB PO ONE (18:15)
--- NOTE | 2019-04-01 19:31 | ECGEPIP ---
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
== END 2019-03-31 18:11 | disposition home or self-care (01) ==
LOC: M ED 16:13
DX: R07.89 Other chest pain (principal); Y04.8XXA Assault by other bodily force, initial encounter; Y92.89 Other specified places as the place of occurrence of the external cause; F17.210 Nicotine dependence, cigarettes, uncomplicated; Z88.5 Allergy status to narcotic agent; Z88.8 Allergy status to other drugs, medicaments and biological substances
CPT/HCPCS: 36415; 71046; 80048; 82550; 82553; 84484; 85025; 93005; 99284; G0480

== ENCOUNTER 2019-05-12 13:39 | Emergency (ER) | payer MEDICARE, MEDICAID ==
[~2019-05-12] VITALS: Ht 172.7 cm; Wt 67.8 kg
[2019-05-12 13:39] VITALS: BP 109/66
--- NOTE | 2019-05-12 14:33 | REP ---
LUMBOSACRAL SPINE: Five views of the lumbosacral spine are performed. There is no compression fracture identified. There is no definite malalignment. Mild diffuse spurring is noted. There appears to be slight disc space narrowing at L4-5 and L5-S1 with sclerosis at the facet joint at those levels. The posterior elements appear intact. IMPRESSION: Degenerative changes without evidence of fracture or dislocation. Electronically Signed by Andrés Menjivar MD 05/13/2019 04:54 P
== END 2019-05-12 15:01 | disposition home or self-care (01) ==
LOC: M ED 13:39
DX: S20.229A Contusion of unspecified back wall of thorax, initial encounter (principal); W19.XXXA Unspecified fall, initial encounter; Y92.098 Other place in other non-institutional residence as the place of occurrence of the external cause; I11.9 Hypertensive heart disease without heart failure; J44.9 Chronic obstructive pulmonary disease, unspecified; I25.10 Atherosclerotic heart disease of native coronary artery without angina pectoris; E78.9 Disorder of lipoprotein metabolism, unspecified; F17.200 Nicotine dependence, unspecified, uncomplicated; Z88.5 Allergy status to narcotic agent; Z88.8 Allergy status to other drugs, medicaments and biological substances; Z79.899 Other long term (current) drug therapy

== ENCOUNTER 2019-05-13 19:50 | Emergency (ER) | payer MEDICARE, MEDICAID ==
[~2019-05-13] VITALS: Ht 170.2 cm; Wt 67.7 kg
[2019-05-13 19:50] VITALS: BP 132/78
== END 2019-05-13 21:15 | disposition left against medical advice (07) ==
LOC: M ED 19:50
DX: Z53.21 Procedure and treatment not carried out due to patient leaving prior to being seen by health care provider (principal)

== ENCOUNTER 2019-05-14 07:55 | Emergency (ER) | payer MEDICARE, MEDICAID ==
[~2019-05-14] VITALS: Ht 177.8 cm; Wt 68.2 kg
--- NOTE | 2019-05-14 08:47 | REP ---
Left shoulder series: Three views: History: Pain. The lump on shoulder. Comparison is made with prior right shoulder radiographs most recent which is from December 04, 2018. Findings: There is osteoarthritic hypertrophy of the distal clavicle. The distal clavicle aligns somewhat superior with respect to the acromion process. There is soft tissue swelling overlying the distal clavicle at the AC joint. All of these findings however are observed on the contralateral side on the prior shoulder x-ray. This may reflect degenerative osteoarthritic disease rather than trauma. The glenohumeral joint is normally aligned. Periarticular soft tissues are unremarkable. Impression: AC joint osteoarthritis and mild superior subluxation of the distal clavicle relative to the acromion process essentially symmetric with the other shoulder radiographs done previously. AC separation injury versus arthropathy. Electronically Signed by Jay Downs MD 05/14/2019 12:44 P
[2019-05-14] MEDS ORDERED: KETOROLAC 60 MG/2 ML VIAL (J1885) IM ONE (09:00)
[2019-05-14 09:25] VITALS: BP 134/87
== END 2019-05-14 09:34 | disposition home or self-care (01) ==
LOC: M ED 07:55
DX: S43.102A Unspecified dislocation of left acromioclavicular joint, initial encounter (principal); M19.012 Primary osteoarthritis, left shoulder; X58.XXXA Exposure to other specified factors, initial encounter; Y92.098 Other place in other non-institutional residence as the place of occurrence of the external cause; I25.10 Atherosclerotic heart disease of native coronary artery without angina pectoris; Z95.5 Presence of coronary angioplasty implant and graft; F17.200 Nicotine dependence, unspecified, uncomplicated; Z88.5 Allergy status to narcotic agent; Z88.8 Allergy status to other drugs, medicaments and biological substances
CPT/HCPCS: 73030; 96372; 99283; J1885

== ENCOUNTER 2019-06-06 01:21 | Emergency (ER) | payer MEDICARE, MEDICAID ==
[~2019-06-06] VITALS: Ht 177.8 cm; Wt 68.2 kg
[2019-06-06 01:31] VITALS: BP 140/82
--- NOTE | 2019-06-06 01:56 | ED PDOC ---
Post-Departure Follow-Up Pt left without being seen CARROL BRAY, Jun 06, 2019 01:56
== END 2019-06-06 01:58 | disposition left against medical advice (07) ==
LOC: M ED 01:21
DX: Z53.21 Procedure and treatment not carried out due to patient leaving prior to being seen by health care provider (principal)

== ENCOUNTER 2019-06-16 00:58 | Emergency (ER) | payer MEDICARE, MEDICAID ==
[2019-06-16 01:07] VITALS: BP 114/69
== END 2019-06-16 01:41 | disposition left against medical advice (07) ==
LOC: M ED 00:58
DX: Z53.21 Procedure and treatment not carried out due to patient leaving prior to being seen by health care provider (principal)

== ENCOUNTER → 2019-06-20 | Emergency (ER) | payer MEDICARE, MEDICAID ==
[~2019-06-20] VITALS: Ht 177.8 cm; Wt 68.2 kg
[~2019-06-20] MED LIST changes: +METAL LOCK LOOP XX ONE; -OMEP40CA2 PO; +OMEP40CA97 PO
[2019-06-20 13:20] VITALS: BP 139/97
== END | disposition left against medical advice (07) ==
LOC: EDUNIT# 13:12 → EDBD 13:16 → M ED 13:16
DX: R10.30 Lower abdominal pain, unspecified (principal); Z53.21 Procedure and treatment not carried out due to patient leaving prior to being seen by health care provider

== ENCOUNTER 2019-07-23 20:21 | Emergency (ER) | payer MEDICARE, MEDICAID ==
[~2019-07-23] VITALS: Ht 177.8 cm; Wt 68.2 kg
[~2019-07-23 20:21] MED LIST changes: -METAL LOCK LOOP XX ONE
[2019-07-23 21:45] VITALS: BP 156/83
--- NOTE | 2019-07-24 08:54 | REP ---
Chest x-ray: Two views. History: Cough . Comparison study: March 31, 2019 . Findings: The lungs are well inflated and free of infiltrate. The pleural angles are sharp. The heart size is normal. Pulmonary vasculature is not increased. No significant bony abnormality is seen. Coronary artery stent material is seen overlying the heart. Impression: Status post coronary artery stenting. Otherwise negative chest x-ray. Electronically Signed by Jay Downs MD 07/24/2019 08:45 A
== END 2019-07-23 21:46 | disposition home or self-care (01) ==
LOC: M ED 20:21
DX: J41.0 Simple chronic bronchitis (principal); F17.200 Nicotine dependence, unspecified, uncomplicated; I25.10 Atherosclerotic heart disease of native coronary artery without angina pectoris; F10.20 Alcohol dependence, uncomplicated; Z95.1 Presence of aortocoronary bypass graft; Z95.5 Presence of coronary angioplasty implant and graft; Z88.8 Allergy status to other drugs, medicaments and biological substances; Z88.5 Allergy status to narcotic agent

== ENCOUNTER 2019-08-09 13:41 | Emergency (ER) | payer MEDICARE, MEDICAID ==
[~2019-08-09] VITALS: Ht 177.8 cm; Wt 68.2 kg
[2019-08-09 14:41] LABS: INFLUENZA A AMPLIFICATION NEGATIVE (NEGATIVE); INFLUENZA B AMPLIFICATION NEGATIVE (NEGATIVE)
[2019-08-09] MEDS ORDERED: ONDA4TAB6 PO (15:29)
[2019-08-09] MEDS ORDERED: KEFL500C17 PO (15:29)
[2019-08-09 15:31] VITALS: BP 135/86
--- NOTE | 2019-08-09 15:49 | ECGEPIP ---
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 Order Number: [id number] Reading MD: Miladys Carpio Measurements Intervals [place] Rate: 70 P: 62 ID: [id number] QRS: 35 QRSD: 93 T: 65 QT: 434 QTc: 469 Interpretive Statements SINUS RHYTHM LEFT ATRIAL ENLARGEMENT POSSIBLE LEFT VENTRICULAR HYPERTROPHY PROBABLE INFERIOR MYOCARDIAL INFARCTION, PROBABLY OLD NSTTW abnormalities DECREASED RATE 03/31/19 Electronically Signed on 08-09-2019 15:48:50 EST by Miladys Carpio
== END 2019-08-09 15:46 | disposition home or self-care (01) ==
LOC: M ED 13:41
DX: K12.2 Cellulitis and abscess of mouth (principal)

== ENCOUNTER 2019-09-07 05:27 | Emergency (ER) | payer MEDICARE, MEDICAID ==
[~2019-09-07] VITALS: Ht 177.8 cm; Wt 68.2 kg
[~2019-09-07 05:27] MED LIST changes: +ONDA4TAB6 PO
[2019-09-07 05:38] VITALS: BP 134/67
[2019-09-07] MEDS ORDERED: AUGMENTIN 875 MG TAB PO ONE (06:00)
[2019-09-07] MEDS ORDERED: predniSONE 20 MG TAB PO ONE (06:00)
[2019-09-07] MEDS ORDERED: AUGM500T34 PO (06:03)
[2019-09-07] MEDS ORDERED: PRED20TA PO (06:03)
== END 2019-09-07 06:22 | disposition home or self-care (01) ==
LOC: M ED 05:27
DX: J01.90 Acute sinusitis, unspecified (principal); F17.210 Nicotine dependence, cigarettes, uncomplicated; Z88.8 Allergy status to other drugs, medicaments and biological substances; Z88.5 Allergy status to narcotic agent

== ENCOUNTER 2019-10-08 20:27 | Emergency (ER) | payer MEDICARE, MEDICAID ==
[~2019-10-08] VITALS: Ht 175.3 cm; Wt 68.2 kg
[~2019-10-08 20:27] MED LIST changes: +AUGM500T34 PO; +PRED20TA PO; -TRAZ-163 PO; +TRAZ-257 PO
[2019-10-08 20:59] LABS: BASO % 0.5 % (0.0-1.0); EOS # 0.2 10^3/uL (0.0-0.5); EOS % 2.8 % (0.0-3.0); HEMOGLOBIN 15.5 g/dl (13.5-17.5); LYMPH # 2.6 10^3/uL (1.5-5.0); LYMPH % 34.2 % (24.0-44.0); MEAN CORPUSCULAR HEMOGLOBIN 33.6 pg (27.0-33.0); MEAN CORPUSCULAR HGB CONC 33.7 g/dl (32.0-36.5); MEAN CORPUSCULAR VOLUME 99.8 fl (80.0-96.0); MONO # 0.8 10^3/uL (0.0-0.8); MONO % 10.9 % (0.0-5.0); NEUTROPHILS # 3.9 10^3/uL (1.5-8.5); NEUTROPHILS % 51.2 % (36.0-66.0); PLATELET COUNT, AUTOMATED 188 10^3/uL (150-450); RED BLOOD COUNT 4.61 10^6/uL (4.30-6.10); WHITE BLOOD COUNT 7.6 10^3/uL (4.0-10.0)
[2019-10-08 21:29] LABS: BLOOD UREA NITROGEN 13 MG/DL (7-18); CALCIUM LEVEL 8.9 MG/DL (8.8-10.2); CARBON DIOXIDE LEVEL 27 MEQ/L (21-32); CHLORIDE LEVEL 107 MEQ/L (98-107); CK-MB VALUE MASS 1.7 NG/ML (<3.6); CPK CREATINE PHOSPHOKINASE 151 U/L (39-308); CREATININE FOR GFR 0.96 MG/DL (0.70-1.30); ETHYL ALCOHOL (ETHANOL) < 0.003 % (0.000-0.010); GLOMERULAR FILTRATION RATE > 60.0 (>49); GLUCOSE, FASTING 102 MG/DL (70-100); MB/CK RELATIVE INDEX 1.13 (< OR =4); POTASSIUM SERUM 3.9 MEQ/L (3.5-5.1); SODIUM LEVEL 142 MEQ/L (136-145); TROPONIN I 0.02 NG/ML (< 0.10)
[2019-10-08 21:30] VITALS: BP 155/94
--- NOTE | 2019-10-09 05:55 | ECGEPIP ---
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
--- NOTE | 2019-10-09 07:33 | REP ---
Portable chest, 08:58 p.m., single AP view with the patient sitting: Comparison is the PA and lateral chest 07/23/2019. The lung miller are clear. The cardiac size is normal. The gregory, mediastinum, and skeletal structures are unremarkable. Impression: Negative portable chest. Electronically Signed by Andrés Cavazos MD 10/09/2019 07:25 A
== END 2019-10-08 21:52 | disposition left against medical advice (07) ==
LOC: EDBD 20:27 → M ED 20:27
DX: R07.9 Chest pain, unspecified (principal); I25.10 Atherosclerotic heart disease of native coronary artery without angina pectoris; F31.9 Bipolar disorder, unspecified; F10.11 Alcohol abuse, in remission; I25.2 Old myocardial infarction; Z95.5 Presence of coronary angioplasty implant and graft; Z88.5 Allergy status to narcotic agent; Z88.8 Allergy status to other drugs, medicaments and biological substances; F17.210 Nicotine dependence, cigarettes, uncomplicated
CPT/HCPCS: 36415; 71045; 80048; 82550; 82553; 84484; 85025; 93005; 93041; 94760; 99285; G0480

== ENCOUNTER 2019-10-19 22:04 | Emergency (ER) | payer MEDICARE, MEDICAID ==
[~2019-10-19] VITALS: Ht 172.7 cm; Wt 68.2 kg
[2019-10-19 22:07] VITALS: BP 136/93
[2019-10-20] MEDS ORDERED: ANALGESIC BALM CRM 120 GM TOP STA (00:48)
[2019-10-20] MEDS ORDERED: BIOF4GEL4 TOP (00:51)
== END 2019-10-20 01:05 | disposition home or self-care (01) ==
LOC: M ED 22:04
DX: M79.604 Pain in right leg (principal); M79.605 Pain in left leg; I10 Essential (primary) hypertension; I25.2 Old myocardial infarction; Z95.5 Presence of coronary angioplasty implant and graft; Z88.5 Allergy status to narcotic agent; Z88.8 Allergy status to other drugs, medicaments and biological substances

== ENCOUNTER 2019-10-25 18:18 | Emergency (ER) | payer MEDICARE, MEDICAID ==
[~2019-10-25] VITALS: Ht 175.3 cm; Wt 73.3 kg
[~2019-10-25 18:18] MED LIST changes: +BIOF4GEL4 TOP
[2019-10-25 18:19] VITALS: BP 144/87
== END 2019-10-25 19:50 | disposition left against medical advice (07) ==
LOC: M ED 18:18
DX: Z53.21 Procedure and treatment not carried out due to patient leaving prior to being seen by health care provider (principal)

== ENCOUNTER 2019-11-03 17:17 | Emergency (ER) | payer MEDICARE, MEDICAID ==
[~2019-11-03] VITALS: Ht 175.3 cm; Wt 73.3 kg
[2019-11-03 17:29] VITALS: BP 140/88
== END 2019-11-03 17:35 | disposition left against medical advice (07) ==
LOC: M ED 17:17 → EDBD 17:17 → M ED 17:35
DX: Z53.21 Procedure and treatment not carried out due to patient leaving prior to being seen by health care provider (principal)

== ENCOUNTER 2019-11-06 04:53 | Emergency (ER) | payer MEDICARE, MEDICAID ==
[~2019-11-06] VITALS: Ht 175.3 cm; Wt 68.2 kg
[2019-11-06 05:21] LABS: BASO % 0.5 % (0.0-1.0); EOS # 0.2 10^3/uL (0.0-0.5); EOS % 2.2 % (0.0-3.0); HEMATOCRIT 45.2 % (42.0-52.0); HEMOGLOBIN 16.1 g/dl (13.5-17.5); LYMPH # 2.4 10^3/uL (1.5-5.0); LYMPH % 30.6 % (24.0-44.0); MEAN CORPUSCULAR HEMOGLOBIN 34.5 pg (27.0-33.0); MEAN CORPUSCULAR HGB CONC 35.6 g/dl (32.0-36.5); MEAN CORPUSCULAR VOLUME 96.8 fl (80.0-96.0); MONO # 0.9 10^3/uL (0.0-0.8); MONO % 11.7 % (0.0-5.0); NEUTROPHILS # 4.2 10^3/uL (1.5-8.5); NEUTROPHILS % 54.7 % (36.0-66.0); PLATELET COUNT, AUTOMATED 190 10^3/uL (150-450); RED BLOOD COUNT 4.67 10^6/uL (4.30-6.10); WHITE BLOOD COUNT 7.8 10^3/uL (4.0-10.0)
--- NOTE | 2019-11-06 05:45 | ECGEPIP ---
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
[2019-11-06 05:50] LABS: BLOOD UREA NITROGEN 13 MG/DL (7-18); CALCIUM LEVEL 9.5 MG/DL (8.8-10.2); CARBON DIOXIDE LEVEL 28 MEQ/L (21-32); CHLORIDE LEVEL 103 MEQ/L (98-107); CK-MB VALUE MASS 1.4 NG/ML (<3.6); CPK CREATINE PHOSPHOKINASE 142 U/L (39-308); CREATININE FOR GFR 1.05 MG/DL (0.70-1.30); GLOMERULAR FILTRATION RATE > 60.0 (>49); GLUCOSE, FASTING 104 MG/DL (70-100); MB/CK RELATIVE INDEX 0.99 (< OR =4); POTASSIUM SERUM 3.9 MEQ/L (3.5-5.1); SODIUM LEVEL 137 MEQ/L (136-145); TROPONIN I < 0.02 NG/ML (< 0.10)
[2019-11-06 06:15] VITALS: BP 150/87
[2019-11-06 06:15] LABS: ETHYL ALCOHOL (ETHANOL) 0.027 % (0.000-0.010)
== END 2019-11-06 06:30 | disposition left against medical advice (07) ==
LOC: M ED 04:53
DX: R07.9 Chest pain, unspecified (principal); I25.10 Atherosclerotic heart disease of native coronary artery without angina pectoris; R06.02 Shortness of breath; F17.200 Nicotine dependence, unspecified, uncomplicated; Z88.5 Allergy status to narcotic agent; Z88.8 Allergy status to other drugs, medicaments and biological substances
CPT/HCPCS: 80048; 82550; 82553; 84484; 85025; 93005; 93041; 94760; 99284; G0480

== ENCOUNTER 2019-12-22 11:05 | Emergency (ER) | payer MEDICARE, MEDICAID ==
[~2019-12-22] VITALS: Ht 177.8 cm; Wt 70.5 kg
[~2019-12-22 11:05] MED LIST changes: +CYCL-707 PO; -CYCL10TA PO
[2019-12-22 11:06] VITALS: BP 170/94
[2019-12-22] MEDS ORDERED: LATA0.0015 (11:11)
--- NOTE | 2019-12-22 12:55 | REP ---
DEEP VENOUS ULTRASONOGRAPHY RIGHT THIGH, RULE OUT DVT: REASON: Pain and swelling. TECHNIQUE: Multiple ultrasonographic images of the deep venous structures of the right thigh were obtained from the common femoral vein to the popliteal vein along with Doppler interrogation and color flow Doppler images. FINDINGS: There is no abnormal echogenic material seen within any of the visualized deep venous structures that would suggest acute thrombosis. Coaptation is unremarkable throughout. Doppler interrogation shows an expected response to respiratory variability and augmentation. The color flow images show what appears to be a normal vascular pattern throughout. IMPRESSION: There is no ultrasonographic evidence of deep venous thrombosis involving any of the visualized deep venous structures of the right thigh, as described above. Electronically Signed by Ed Watson DO 12/22/2019 01:25 P
[2019-12-22] MEDS ORDERED: IBUPROFEN 600 MG TAB PO ONE (13:00)
--- NOTE | 2019-12-22 13:01 | REP ---
REASON: Groin pain. Ultrasonographic evaluation of the right groin and inguinal region was performed. There is no evidence of a bowel-containing femoral or inguinal hernia. No abnormal rent is identified. There is no abnormal adipose collection. Two lymph nodes were seen in the right groin region, both maintain reniform shape with peripheral decreased echoes and central increased echoes, consistent with a fatty hilum. IMPRESSION: 1. No evidence of a hernia. 2. Normal-appearing groin lymph nodes. Electronically Signed by Ed Watson DO 12/22/2019 01:26 P
--- NOTE | 2019-12-22 13:47 | REP ---
RIGHT HIP, TWO VIEWS: Two views, right hip performed. No acute fracture or dislocation is seen. Mild degenerative changes at the hip joint with very mild joint space narrowing, subchondral sclerosis, and spurring. IMPRESSION: Mild degenerative changes. No acute fracture or dislocation. Electronically Signed by Andrés Menjivar MD 12/22/2019 04:59 P
== END 2019-12-22 13:01 | disposition home or self-care (01) ==
LOC: M ED 11:05
DX: S76.811A Strain of other specified muscles, fascia and tendons at thigh level, right thigh, initial encounter (principal); X58.XXXA Exposure to other specified factors, initial encounter; I10 Essential (primary) hypertension; F17.218 Nicotine dependence, cigarettes, with other nicotine-induced disorders; M79.604 Pain in right leg; Z88.8 Allergy status to other drugs, medicaments and biological substances; Z88.5 Allergy status to narcotic agent; Y92.89 Other specified places as the place of occurrence of the external cause; Y93.9 Activity, unspecified; Y99.9 Unspecified external cause status

== ENCOUNTER 2019-12-23 20:08 | Emergency (ER) | payer MEDICARE, MEDICAID ==
[~2019-12-23] VITALS: Ht 177.8 cm; Wt 70.5 kg
[~2019-12-23 20:08] MED LIST changes: +LATA0.0015
[2019-12-23 22:00] LABS: BASO % 0.3 % (0.0-1.0); EOS % 0.1 % (0.0-3.0); HEMATOCRIT 47.4 % (42.0-52.0); HEMOGLOBIN 16.7 g/dl (13.5-17.5); LYMPH # 1.2 10^3/uL (1.5-5.0); LYMPH % 12.4 % (24.0-44.0); MEAN CORPUSCULAR HEMOGLOBIN 34.3 pg (27.0-33.0); MEAN CORPUSCULAR HGB CONC 35.2 g/dl (32.0-36.5); MEAN CORPUSCULAR VOLUME 97.3 fl (80.0-96.0); MONO # 0.8 10^3/uL (0.0-0.8); MONO % 7.9 % (0.0-5.0); NEUTROPHILS # 7.6 10^3/uL (1.5-8.5); PLATELET COUNT, AUTOMATED 178 10^3/uL (150-450); RED BLOOD COUNT 4.87 10^6/uL (4.30-6.10); WHITE BLOOD COUNT 9.6 10^3/uL (4.0-10.0)
[2019-12-23 22:18] LABS: BLOOD UREA NITROGEN 12 MG/DL (7-18); CALCIUM LEVEL 9.3 MG/DL (8.8-10.2); CARBON DIOXIDE LEVEL 28 MEQ/L (21-32); CHLORIDE LEVEL 102 MEQ/L (98-107); CREATININE FOR GFR 1.01 MG/DL (0.70-1.30); GLOMERULAR FILTRATION RATE > 60.0 (>49); GLUCOSE, FASTING 117 MG/DL (70-100); POTASSIUM SERUM 4.2 MEQ/L (3.5-5.1); SODIUM LEVEL 137 MEQ/L (136-145)
[2019-12-23] MEDS ORDERED: NS 500 ML IV ONE (23:15)
--- NOTE | 2019-12-23 23:29 | REPVR ---
PROCEDURE INFORMATION: Exam: US Duplex Right Lower Extremity Arteries Or Arterial Bypass Grafts Exam date and time: 12/23/2019 10:25 PM Age: 59 years old Clinical indication: Pain; Foot; Right; Additional info: Right foot pain, abscent dp pulses TECHNIQUE: Imaging protocol: Right Real-time duplex scan of the arteries or arterial bypass grafts of the right lower extremity with 2-D willingham scale, color Doppler flow and spectral waveform analysis. Images documented and saved. COMPARISON: CR Foot, complete RIGHT 12/23/2019 9:02 PM FINDINGS: Right common femoral artery: No occlusion or significant stenosis. Monophasic waveforms. Atherosclerotic plaque present. Peak systolic velocity is 132 cm/s. Right superficial femoral artery: No occlusion or significant stenosis. Monophasic waveforms. Diffuse atherosclerotic plaque present. Peak systolic velocity is up to 30 cm/s. Right popliteal artery: Complete occlusion of the popliteal artery. However, there is small focal vascular flow seen within the in the mid popliteal artery without proximal or distal flow. Collateral vessels are seen adjacent to the popliteal artery. Right calf/foot arteries: Proximal anterior tibial artery and tibioperoneal arteries are patent. Tardus parvus waveforms in the proximal anterior tibial artery with slow flow. Posterior tibial and mid and distal segment of the anterior tibial arteries are occluded. Dorsalis pedis artery is not interrogated. Soft tissues: Unremarkable. IMPRESSION: 1. 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 2. Complete occlusion of the right posterior tibial and anterior tibial arteries as described. Electronically signed by: Lashanda Theodore On 12/23/2019 23:29:08 PM
[2019-12-24 00:58] VITALS: BP 160/96
--- NOTE | 2019-12-24 03:36 | REP ---
Clinical: Nontraumatic right foot pain Technique: AP, lateral, bilateral oblique views right foot . Findings: The osseous structures and joint spaces are intact and normal. There is no evidence for acute fracture or dislocation. Surrounding soft tissues are unremarkable. No subcutaneous emphysema or radiodense foreign body. Impression: Age-appropriate right foot series. No acute fracture or dislocation. Electronically Signed by Scott Roberson MD 12/24/2019 03:27 A
== END 2019-12-24 01:02 | disposition short-term general hospital (02) ==
LOC: M ED 20:08
DX: I77.1 Stricture of artery (principal); F17.200 Nicotine dependence, unspecified, uncomplicated; Z88.5 Allergy status to narcotic agent; Z88.8 Allergy status to other drugs, medicaments and biological substances; Z79.899 Other long term (current) drug therapy

== ENCOUNTER 2019-12-26 05:52 | Emergency (ER) | payer MEDICARE, MEDICAID ==
[2019-12-26 06:28] LABS: BASO % 0.2 % (0.0-1.0); HEMOGLOBIN 14.5 g/dl (13.5-17.5); LYMPH # 1.8 10^3/uL (1.5-5.0); MEAN CORPUSCULAR HEMOGLOBIN 34.3 pg (27.0-33.0); MEAN CORPUSCULAR HGB CONC 33.7 g/dl (32.0-36.5); MEAN CORPUSCULAR VOLUME 101.7 fl (80.0-96.0); MONO # 1.1 10^3/uL (0.0-0.8); MONO % 8.1 % (0.0-5.0); NEUTROPHILS # 10.1 10^3/uL (1.5-8.5); NEUTROPHILS % 77.4 % (36.0-66.0); PLATELET COUNT, AUTOMATED 163 10^3/uL (150-450); RED BLOOD COUNT 4.23 10^6/uL (4.30-6.10)
[2019-12-26 06:42] LABS: INR 0.95; PROTHROMBIN TIME 12.3 SECONDS (11.8-14.0)
[2019-12-26 06:43] LABS: PARTIAL THROMBOPLASTIN TIME 25.4 SECONDS (25.0-38.4)
[2019-12-26] MEDS ORDERED: traMADol 50 MG TAB PO ONE (06:45)
[2019-12-26] MEDS ORDERED: traMADol 50 MG TAB (BULK 4 TAB ED) PO ONE (06:45)
[2019-12-26 06:57] LABS: ALBUMIN 3.8 GM/DL (3.2-5.2); BILIRUBIN,DIRECT 0.4 MG/DL (0.0-0.2); BILIRUBIN,TOTAL 1.4 MG/DL (0.2-1.0); TOTAL PROTEIN 7.4 GM/DL (6.4-8.2)
[2019-12-26 07:56] VITALS: BP 102/57
== END 2019-12-26 07:58 | disposition home or self-care (01) ==
LOC: M ED 05:52
DX: G89.18 Other acute postprocedural pain (principal); R10.11 Right upper quadrant pain; E87.1 Hypo-osmolality and hyponatremia; M79.604 Pain in right leg; I10 Essential (primary) hypertension; F17.210 Nicotine dependence, cigarettes, uncomplicated; Z95.5 Presence of coronary angioplasty implant and graft

== ENCOUNTER 2019-12-30 04:09 | Emergency (ER) | payer MEDICARE, MEDICAID ==
[~2019-12-30] VITALS: Ht 175.3 cm; Wt 70.5 kg
[2019-12-30 04:46] VITALS: BP 100/59
== END 2019-12-30 05:45 | disposition home or self-care (01) ==
LOC: M ED 04:09 → EDBD 04:09 → EDUNIT# 04:09 → M ED 05:45
DX: I73.9 Peripheral vascular disease, unspecified (principal); I25.10 Atherosclerotic heart disease of native coronary artery without angina pectoris; F17.218 Nicotine dependence, cigarettes, with other nicotine-induced disorders; I10 Essential (primary) hypertension; I25.2 Old myocardial infarction; Z88.5 Allergy status to narcotic agent; Z88.8 Allergy status to other drugs, medicaments and biological substances

== ENCOUNTER 2020-01-11 05:44 | Emergency (ER) | payer MEDICARE, MEDICAID ==
[~2020-01-11] VITALS: Ht 175.3 cm; Wt 68.2 kg
[2020-01-11] MEDS ORDERED: methylPREDNISolone INJ 125 MG/2 ML VIAL (J2930) IV ONE (06:15)
[2020-01-11] MEDS ORDERED: TRANEXAMIC ACID INJection 1,000 MG in D5W 100 ML IV ONE (06:15)
[2020-01-11] MEDS ORDERED: C1 ESTERASE INHIBITOR IV ONE (06:15)
[2020-01-11] MEDS ORDERED: FAMOTIDINE IV BAG 20 MG in IV 1 EA IV ONE (06:15)
[2020-01-11] MEDS ORDERED: diphenhydrAMINE 50MG/ML VIAL (J1200) IV ONE (06:15)
[2020-01-11 06:29] LABS: ALBUMIN 3.7 GM/DL (3.2-5.2); ALT/SGPT 22 U/L (12-78); BILIRUBIN,DIRECT 0.2 MG/DL (0.0-0.2); BILIRUBIN,TOTAL 0.9 MG/DL (0.2-1.0); BLOOD UREA NITROGEN 17 MG/DL (7-18); C REACTIVE PROTEIN QUANTITATIV 1.97 MG/DL (0.00-0.30); CALCIUM LEVEL 9.1 MG/DL (8.8-10.2); CARBON DIOXIDE LEVEL 30 MEQ/L (21-32); CHLORIDE LEVEL 101 MEQ/L (98-107); COMPLEMENT C4 41 MG/DL (10-40); CREATININE FOR GFR 1.08 MG/DL (0.70-1.30); ETHYL ALCOHOL (ETHANOL) < 0.003 % (0.000-0.010); GLOMERULAR FILTRATION RATE > 60.0 (>49); GLUCOSE, FASTING 96 MG/DL (70-100); POTASSIUM SERUM 4.1 MEQ/L (3.5-5.1); SODIUM LEVEL 136 MEQ/L (136-145); TOTAL PROTEIN 7.7 GM/DL (6.4-8.2)
[2020-01-11] MEDS ORDERED: SPIR-10 PO (06:46)
[2020-01-11 09:41] VITALS: BP 127/67
[2020-01-14 00:08] LABS: C1 ESTER INHIB. NON FUNCTIONAL 53 mg/dL (21-39); C1 ESTERASE INHIB. FUNCTIONAL > 100 (.); COAGULATION FACTOR XII ACTIVIT 104 % (50-150); TRYPTASE 8.6 ug/L (2.2-13.2)
[2020-02-01] MEDS ORDERED: SPIR-10 (08:13)
== END 2020-01-11 10:04 | disposition home or self-care (01) ==
LOC: M ED 05:44
DX: T78.3XXA Angioneurotic edema, initial encounter (principal); T46.4X5A Adverse effect of angiotensin-converting-enzyme inhibitors, initial encounter; R22.0 Localized swelling, mass and lump, head; F17.200 Nicotine dependence, unspecified, uncomplicated; Z88.5 Allergy status to narcotic agent; Z88.8 Allergy status to other drugs, medicaments and biological substances
CPT/HCPCS: 80048; 80076; 83519; 85280; 85652; 86140; 86160; 86161; 86850; 86900; 86901; 93041; 94760; 96365; 96367; 96368; 99285; G0480; J0597; J1200; J2930

== ENCOUNTER 2020-01-22 21:04 | Emergency (ER) | payer MEDICARE, MEDICAID ==
[~2020-01-22] VITALS: Ht 177.8 cm; Wt 68.2 kg
[2020-01-22 21:04] VITALS: BP 149/87
[~2020-01-22 21:04] MED LIST changes: +SPIR-10 PO
[2020-01-22] MEDS ORDERED: ACET1TAB55 (21:19)
[2020-01-22] MEDS ORDERED: LISI-542 (21:19)
== END 2020-01-22 21:50 | disposition left against medical advice (07) ==
LOC: M ED 21:04
DX: Z53.21 Procedure and treatment not carried out due to patient leaving prior to being seen by health care provider (principal)

== ENCOUNTER 2020-02-01 07:59 | Emergency (ER) | payer MEDICARE, MEDICAID ==
[~2020-02-01] VITALS: Ht 177.8 cm; Wt 68.2 kg
[~2020-02-01 07:59] MED LIST changes: +ACET1TAB55; +LISI-542
[2020-02-01 08:07] VITALS: BP 113/67
[2020-02-01] MEDS ORDERED: STOO2CAP (08:13)
[2020-02-01] MEDS ORDERED: SPIR-10 PO (08:13)
[2020-02-07] MEDS ORDERED: LISI-542 PO (14:52)
== END 2020-02-01 09:02 | disposition left against medical advice (07) ==
LOC: M ED 07:59
DX: M79.671 Pain in right foot (principal); I10 Essential (primary) hypertension; F20.9 Schizophrenia, unspecified; F31.9 Bipolar disorder, unspecified; F17.200 Nicotine dependence, unspecified, uncomplicated; Z88.8 Allergy status to other drugs, medicaments and biological substances; Z79.899 Other long term (current) drug therapy

== ENCOUNTER 2020-02-03 07:15 | Emergency (ER) | payer MEDICARE, MEDICAID ==
[~2020-02-03] VITALS: Ht 175.3 cm; Wt 68.5 kg
[~2020-02-03 07:15] MED LIST changes: +STOO2CAP
[2020-02-03 07:16] VITALS: BP 135/81
[2020-02-03] MEDS ORDERED: NICO2GUM8 PO (07:23)
[2020-02-03] MEDS ORDERED: ASPI81TA85 PO (07:23)
--- NOTE | 2020-02-03 08:58 | REP ---
Right lower extremity Duplex Doppler venous ultrasound: Real time compression and duplex Doppler interrogation of the right lower extremity deep venous system is performed. The right common femoral, superficial femoral and popliteal veins are fully compressible with transducer pressure and demonstrate normal spontaneous and phasic flow, without evidence of deep venous thrombosis. Impression: No evidence of deep venous thrombosis of the right lower extremity femoral popliteal venous system. Electronically Signed by Andrés Menjivar MD 02/03/2020 08:49 A
[2020-02-07] MEDS ORDERED: LISI-542 PO (14:52)
== END 2020-02-03 08:20 | disposition home or self-care (01) ==
LOC: M ED 07:15
DX: M79.671 Pain in right foot (principal); I25.10 Atherosclerotic heart disease of native coronary artery without angina pectoris; I25.2 Old myocardial infarction; F10.129 Alcohol abuse with intoxication, unspecified

== ENCOUNTER 2020-02-07 14:38 | Emergency (ER) | payer MEDICARE, MEDICAID ==
[~2020-02-07] VITALS: Ht 177.8 cm; Wt 69.5 kg
[~2020-02-07 14:38] MED LIST changes: +ASPI81TA86 PO; -LISI-542; +LISI-898; +NICO2GUM8 PO; -QUET1TAB10 PO; +QUET300T2 PO
[2020-02-07 14:47] VITALS: BP 131/77
[2020-02-07] MEDS ORDERED: STOO2CAP PO (14:52)
[2020-02-07] MEDS ORDERED: LISI-898 PO (14:52)
[2020-02-07] MEDS ORDERED: ACET1TAB55 PO (14:52)
[2020-03-12] MEDS ORDERED: LISI-898 (00:31)
== END 2020-02-07 15:11 | disposition home or self-care (01) ==
LOC: M ED 14:38
DX: M72.2 Plantar fascial fibromatosis (principal); F17.200 Nicotine dependence, unspecified, uncomplicated; Z88.8 Allergy status to other drugs, medicaments and biological substances; Z88.5 Allergy status to narcotic agent; Z79.899 Other long term (current) drug therapy; Z79.82 Long term (current) use of aspirin

== ENCOUNTER 2020-02-26 22:41 | Emergency (ER) | payer MEDICARE, MEDICAID ==
[~2020-02-26] VITALS: Ht 175.3 cm; Wt 69.5 kg
[~2020-02-26 22:41] MED LIST changes: +ACET1TAB55 PO; +LISI-542; +LISI-542 PO; -LISI-898; +QUET1TAB10 PO; -QUET300T2 PO; +STOO2CAP PO
[2020-02-26 22:45] VITALS: BP 143/91
[2020-02-26] MEDS ORDERED: KEFL500C17 PO (23:30)
[2020-02-26] MEDS ORDERED: CEPHALEXIN 500 MG CAP PO ONE (23:30)
[2020-02-27 00:06] LABS: BASO # 0.1 10^3/uL (0.0-0.2); BASO % 0.5 % (0.0-1.0); EOS # 0.1 10^3/uL (0.0-0.5); EOS % 1.5 % (0.0-3.0); LYMPH # 1.9 10^3/uL (1.5-5.0); LYMPH % 19.7 % (24.0-44.0); MEAN CORPUSCULAR HEMOGLOBIN 33.6 pg (27.0-33.0); MEAN CORPUSCULAR HGB CONC 34.1 g/dl (32.0-36.5); MEAN CORPUSCULAR VOLUME 98.4 fl (80.0-96.0); MONO # 1.2 10^3/uL (0.0-0.8); MONO % 12.8 % (0.0-5.0); NEUTROPHILS # 6.2 10^3/uL (1.5-8.5); NEUTROPHILS % 64.9 % (36.0-66.0); PLATELET COUNT, AUTOMATED 163 10^3/uL (150-450); RED BLOOD COUNT 4.47 10^6/uL (4.30-6.10); WHITE BLOOD COUNT 9.5 10^3/uL (4.0-10.0)
[2020-02-27] MEDS ORDERED: KEFL500C17 PO (00:13)
[2020-02-27 00:30] LABS: ERYTHROCYTE SEDIMENTATION RATE 7 mm/hr (0-20)
== END 2020-02-27 00:36 | disposition home or self-care (01) ==
LOC: M ED 22:41 → EDBD 22:41 → M ED 02-27 00:36
DX: L03.115 Cellulitis of right lower limb (principal); W57.XXXA Bitten or stung by nonvenomous insect and other nonvenomous arthropods, initial encounter

== ENCOUNTER 2020-03-12 00:18 | Emergency (ER) | payer MEDICARE, MEDICAID ==
[~2020-03-12] VITALS: Ht 177.8 cm; Wt 69.1 kg
[2020-03-12 00:30] VITALS: BP 155/85
[2020-03-12] MEDS ORDERED: LISI-542 (00:31)
[2020-03-12] MEDS ORDERED: latanoprost (00:31)
[2020-03-12] MEDS ORDERED: SPIR-10 (00:31)
--- NOTE | 2020-03-12 16:03 | ECGEPIP ---
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 : 1960 Requested By: SHANTHI SANTOS Order Number: [id number] Reading MD: Angelita Rodgers Measurements Intervals [place] Rate: 65 P: 50 ID: [id number] QRS: 29 QRSD: 95 T: 55 QT: 473 QTc: 495 Interpretive Statements SINUS RHYTHM POSSIBLE LEFT ATRIAL ENLARGEMENT POSSIBLE LEFT VENTRICULAR HYPERTROPHY PROBABLE INFERIOR MYOCARDIAL INFARCTION, PROBABLY OLD CW 11/06/[address] T WAVE CHANGES Electronically Signed on 03-12-2020 16:03:29 EDT by Angelita Rodgers
== END 2020-03-12 01:07 | disposition home or self-care (01) ==
LOC: M ED 00:18
DX: R61 Generalized hyperhidrosis (principal); Z79.82 Long term (current) use of aspirin; Z79.899 Other long term (current) drug therapy; Z88.6 Allergy status to analgesic agent; Z88.8 Allergy status to other drugs, medicaments and biological substances

== ENCOUNTER → 2020-04-01 | Emergency (ER) | payer MEDICARE, MEDICAID ==
[~2020-04-01] MED LIST changes: +SPIR-10; +latanoprost
[2020-05-08 17:08] LABS: BASO # 0.1 10^3/uL (0.0-0.2); BASO % 1.1 % (0.0-1.0); EOS # 0.1 10^3/uL (0.0-0.5); EOS % 1.9 % (0.0-3.0); HEMATOCRIT 47.2 % (42.0-52.0); HEMOGLOBIN 16.3 g/dl (13.5-17.5); LYMPH # 1.5 10^3/uL (1.5-5.0); LYMPH % 23.5 % (24.0-44.0); MEAN CORPUSCULAR HEMOGLOBIN 34.1 pg (27.0-33.0); MEAN CORPUSCULAR HGB CONC 34.5 g/dl (32.0-36.5); MEAN CORPUSCULAR VOLUME 98.7 fl (80.0-96.0); MONO # 0.8 10^3/uL (0.0-0.8); MONO % 12.1 % (0.0-5.0); NEUTROPHILS # 3.8 10^3/uL (1.5-8.5); NEUTROPHILS % 61.1 % (36.0-66.0); PLATELET COUNT, AUTOMATED 219 10^3/uL (150-450); RED BLOOD COUNT 4.78 10^6/uL (4.30-6.10); WHITE BLOOD COUNT 6.2 10^3/uL (4.0-10.0)
[2020-05-08 18:07] LABS: INR 1.02; PARTIAL THROMBOPLASTIN TIME 28.2 SECONDS (25.0-38.4); PROTHROMBIN TIME 13.6 SECONDS (11.8-14.0)
--- NOTE | 2020-05-19 17:37 | ECGEPIP ---
SINUS TACHYCARDIA WITH OCCASIONAL PVC LAE LVH WITH STRAIN PRIOR INFERIOR NC SEE SCANNED DOWNTIME REPORT MTDD
[2020-06-11 07:19] LABS: ALBUMIN 3.7 GM/DL (3.2-5.2); ALT/SGPT 34 U/L (12-78); BILIRUBIN,DIRECT 0.2 MG/DL (0.0-0.2); BILIRUBIN,TOTAL 0.8 MG/DL (0.2-1.0); BLOOD UREA NITROGEN 15 MG/DL (7-18); CARBON DIOXIDE LEVEL 28 MEQ/L (21-32); CHLORIDE LEVEL 103 MEQ/L (98-107); CK-MB VALUE MASS 1.3 NG/ML (<3.6); CPK CREATINE PHOSPHOKINASE 144 U/L (39-308); CREATININE FOR GFR 1.02 MG/DL (0.70-1.30); FREE T4 0.91 NG/DL (0.76-1.46); GLOMERULAR FILTRATION RATE > 60.0 (>49); GLUCOSE, FASTING 101 MG/DL (70-100); LIPASE 232 U/L (73-393); POTASSIUM SERUM 4.1 MEQ/L (3.5-5.1); SODIUM LEVEL 138 MEQ/L (136-145); TOTAL PROTEIN 7.4 GM/DL (6.4-8.2); TROPONIN I 0.02 NG/ML (< 0.10)
== END | disposition left against medical advice (07) ==
LOC: M ED 10:40
DX: R07.9 Chest pain, unspecified (principal); R00.0 Tachycardia, unspecified; I49.3 Ventricular premature depolarization; I25.10 Atherosclerotic heart disease of native coronary artery without angina pectoris; I51.9 Heart disease, unspecified; Z95.5 Presence of coronary angioplasty implant and graft; Z88.8 Allergy status to other drugs, medicaments and biological substances; Z88.5 Allergy status to narcotic agent

== ENCOUNTER 2020-05-24 19:38 | Emergency (ER) | payer MEDICARE, MEDICAID ==
[~2020-05-24] VITALS: Ht 172.7 cm; Wt 66.8 kg
[2020-05-24 21:18] VITALS: BP 146/84
== END 2020-05-24 21:19 | disposition home or self-care (01) ==
LOC: EDBD 19:38 → M ED 19:38
DX: S39.011A Strain of muscle, fascia and tendon of abdomen, initial encounter (principal); X50.0XXA Overexertion from strenuous movement or load, initial encounter; Y92.9 Unspecified place or not applicable; Y99.9 Unspecified external cause status; I25.2 Old myocardial infarction; I10 Essential (primary) hypertension; F31.9 Bipolar disorder, unspecified; Z87.891 Personal history of nicotine dependence; Z88.6 Allergy status to analgesic agent; Z88.8 Allergy status to other drugs, medicaments and biological substances; Z79.899 Other long term (current) drug therapy

== ENCOUNTER 2020-10-20 21:51 | Emergency (ER) | payer MEDICARE, MEDICAID ==
[~2020-10-20] VITALS: Ht 175.3 cm; Wt 72.7 kg
[~2020-10-20 21:51] MED LIST changes: -LISI-542; -LISI-542 PO; +LISI-898; +LISI-898 PO; -QUET1TAB10 PO; +QUET300T2 PO
--- OUTSIDE RECORDS SUMMARY | 2020-10-20 21:56 | CCD ---
Author Author [facility] Organization [facility] Address Unknown Phone Unavailable Care Team Providers Care House Servant Name Role Phone Jennifer PATEL MD Unavailable Unavailable ANTECOLJennifer MD Unavailable Unavailable ANTECOLJennifer MD Unavailable Unavailable ANTECOLJennifer MD Unavailable Unavailable ANTECOLJennifer MD Unavailable Unavailable ANTECOLJennifer MD Unavailable Unavailable ANTECOLJennifer MD Unavailable Unavailable ANTECOLJennifer MD Unavailable Unavailable ANTECOLJennifer MD Unavailable Unavailable ANTECJennifer CHAPMAN MD Unavailable Unavailable ANTECOLJennifer MD Unavailable Unavailable ANTECOLJennifer MD Unavailable Unavailable ANTECOLJennifer MD Unavailable Unavailable ANTECOLJennifer MD Unavailable Unavailable ANTECOLJennifer MD Unavailable Unavailable ANTECOL, Jennifer BUTLER MD Unavailable Unavailable ANTECOL, Jennifer BUTLER MD Unavailable Unavailable ANTECOL, Jennifer BUTLER MD Unavailable Unavailable ANTECOL, Jennifer BUTLER MD Unavailable Unavailable ANTECOL, Jennifer BUTLER MD Unavailable Unavailable ANTECOL, Jennifer BUTLER MD Unavailable Unavailable ANTECOL, Jennifer BUTLER MD Unavailable Unavailable ANTECOL, Jennifer BUTLER MD Unavailable Unavailable ANTECOL, Jennifer BUTLER MD Unavailable Unavailable ANTECOL, Jennifer BUTLER MD Unavailable Unavailable ANTECOL, Jennifer BUTLER MD Unavailable Unavailable ANTECOL, Jennifer BUTLER MD Unavailable Unavailable ANTECOL, Jennifer BUTLER MD Unavailable Unavailable ANTECOL, Jennifer BUTLER MD Unavailable Unavailable ANTECOL, Jennifer BUTLER MD Unavailable Unavailable ANTECOL, Jennifer BUTLER MD Unavailable Unavailable ANTECOL, Jennifer BUTLER MD Unavailable Unavailable ANTECOL, Jennifer BUTLER MD Unavailable Unavailable ANTECOL, Jennifer BUTLER MD Unavailable Unavailable ANTECOL, Jennifer BUTLER MD Unavailable Unavailable ANTECOL, Jennifer BUTLER MD Unavailable Unavailable ANTECOL, Jennifer BUTLER MD Unavailable Unavailable ANTECOL, Jennifer BUTLER MD Unavailable Unavailable ANTECOL, Jennifer BUTLER MD Unavailable Unavailable ANTECOL, Jennifer BUTLER MD Unavailable Unavailable ANTECOL, Jennifer BUTLER MD Unavailable Unavailable ANTECOL, Jennifer BUTLER MD Unavailable Unavailable ANTECOL, Jennifer BUTLER MD Unavailable Unavailable ANTECOL, Jennifer BUTLER MD Unavailable Unavailable ANTECOL, Jennifer BUTLER MD Unavailable Unavailable ANTECOL, Jennifer BUTLER MD Unavailable Unavailable ANTECOL, Jennifer BUTLER MD Unavailable Unavailable ANTECOL, Jennifer BUTLER MD Unavailable Unavailable ANTECOL, Jennifer BUTLER MD Unavailable Unavailable ANTECOL, Jennifer BUTLER MD Unavailable Unavailable ANTECOL, Jennifer BUTLER MD Unavailable Unavailable ANTECOL, Jennifer BUTLER MD Unavailable Unavailable ANTECOL, Jennifer BUTLER MD Unavailable Unavailable ANTECOL, Jennifer BUTLER MD Unavailable Unavailable ANTECOL, Jennifer BULTER MD Unavailable Unavailable SEMEL, Patricia LOPES MD Unavailable Unavailable SEMEL, Patricia LOPES MD Unavailable Unavailable SEMEL, Patricia LOPES MD Unavailable Unavailable SEMEL, Patricia LOPES MD Unavailable Unavailable SEMEL, Patricia LOPES MD Unavailable Unavailable SEMEL, Patricia LOPES MD Unavailable Unavailable SEMEL, Patricia LOPES MD Unavailable Unavailable SEMEL, Patricia LOPES MD Unavailable Unavailable SEMEL, Patricia LOPES MD Unavailable Unavailable SEMEL, Patricia LOPES MD Unavailable Unavailable SEMEL, Patricia LOPES MD Unavailable Unavailable SEMEL, Patricia LOPES MD Unavailable Unavailable SEMEL, Patricia LOPES MD Unavailable Unavailable SEMEL, Patricia LOPES MD Unavailable Unavailable SEMEL, Patricia LOPES MD Unavailable Unavailable SEMEL, Patricia LOPES MD Unavailable Unavailable SEMEL, Patricia LOPES MD Unavailable Unavailable SEMEL, Patricia LOPES MD Unavailable Unavailable SEMEL, Patricia LOPES MD Unavailable Unavailable SEMEL, Patricia LOPES MD Unavailable Unavailable SEMEL, Patricia LOPES MD Unavailable Unavailable SEMEL, Patricia LOPES MD Unavailable Unavailable SEMEL, Patricia LOPES MD Unavailable Unavailable SEMEL, Patircia LOPES MD Unavailable Unavailable SEMEL, Patricia LOPES MD Unavailable Unavailable SEMEL, Patricia LOPES MD Unavailable Unavailable SEMEL, Patricia LOPES MD Unavailable Unavailable SEMEL, Patricia LOPES MD Unavailable Unavailable SEMEL, Patricia LOPES MD Unavailable Unavailable SEMEL, Patricia LOPES MD Unavailable Unavailable SEMEL, Patricia LOPES MD Unavailable Unavailable SEMEL, Patricia LOPES MD Unavailable Unavailable SEMEL, Patricia LOPES MD Unavailable Unavailable SEMEL, Patricia LOPES MD Unavailable Unavailable SEMEL, Patricia LOPES MD Unavailable Unavailable SEMEL, Patricia LOPES MD Unavailable Unavailable SEMEL, Patricia LOPES MD Unavailable Unavailable SEMEL, Patricia LOPES MD Unavailable Unavailable SEMEL, Patricia LOPES MD Unavailable Unavailable SEMEL, Patricia LOPES MD Unavailable Unavailable SEMEL, Patricia LOPES MD Unavailable Unavailable SEMEL, Patricia LOPES MD Unavailable Unavailable SEMEL, Patricia LOPES MD Unavailable Unavailable SEMEL, Patricia LOPES MD Unavailable Unavailable SEMEL, Patricia LOPES MD Unavailable Unavailable SEMEL, Patricia LOPES MD Unavailable Unavailable SEMEL, Patricia LOPES MD Unavailable Unavailable SEMEL, Patricia LOPES MD Unavailable Unavailable SEMEL, Patricia LOPES MD Unavailable Unavailable SEMEL, Patricia LOPES MD Unavailable Unavailable SEMEL, Patricia LOPES MD Unavailable Unavailable SEMEL, Patricia LOPES MD Unavailable Unavailable SEMEL, Patricia LOPES MD Unavailable Unavailable SEMEL, Patricia LOPES MD Unavailable Unavailable SEMEL, Patricia LOPES MD Unavailable Unavailable SEMEL, Patricia LOPES MD Unavailable Unavailable SEMEL, Patricia LOPES MD Unavailable Unavailable SEMEL, Patricia LOPES MD Unavailable Unavailable SEMEL, Patricia LOPES MD Unavailable Unavailable SEMEL, Patricia LOPES MD Unavailable Unavailable SEMEL, Patricia LOPES MD Unavailable Unavailable SEMEL, Patricia LOPES MD Unavailable Unavailable SEMEL, Patricia LOPES MD Unavailable Unavailable SEMEL, Patricia LOPES MD Unavailable Unavailable SEMEL, Patricia LOPES MD Unavailable Unavailable SEMEL, Patricia LOPES MD Unavailable Unavailable SEMEL, Patricia LOPES MD Unavailable Unavailable SEMEL, Patricia LOPES MD Unavailable Unavailable SEMEL, Patricia LOPES MD Unavailable Unavailable SEMEL, Patricia LOPES MD Unavailable Unavailable SEMEL, Patricia LOPES MD Unavailable Unavailable SEMEL, Patricia LOPES MD Unavailable Unavailable SEMEL, Patricia LOPES MD Unavailable Unavailable SEMEL, Patricia LOPES MD Unavailable Unavailable SEMEL, Patricia LOPES MD Unavailable Unavailable SEMEL, Patricia LOPES MD Unavailable Unavailable SEMEL, Patricia LOPES MD Unavailable Unavailable SEMEL, Patricia LOPES MD Unavailable Unavailable SEMEL, Patricia LOPES MD Unavailable Unavailable SEMEL, Patricia LOPES MD Unavailable Unavailable SEMEL, Patricia LOPES MD Unavailable Unavailable SEMEL, Patricia LOPES MD Unavailable Unavailable SEMEL, Patricia LOPES MD Unavailable Unavailable SEMEL, Patricia LOPES MD Unavailable Unavailable SEMEL, Patricia LOPES MD Unavailable Unavailable SEMEL, Patricia LOPES MD Unavailable Unavailable SEMEL, Patricia LOPES MD Unavailable Unavailable SEMEL, Patricia LOPES MD Unavailable Unavailable SEMEL, Patricia LOPES MD Unavailable Unavailable SEMEL, Patricia LOPES MD Unavailable Unavailable SEMEL, Patricia LOPES MD Unavailable Unavailable SEMEL, Patricia LOPES MD Unavailable Unavailable SEMEL, Patricia LOPES MD Unavailable Unavailable SEMEL, Patricia LOPES MD Unavailable Unavailable SEMEL, Patricia LOPES MD Unavailable Unavailable SEMEL, Patricia LOPES MD Unavailable Unavailable SEMEL, Patricia LOPES MD Unavailable Unavailable SEMEL, Patricia LOPES MD Unavailable Unavailable SEMEL, Patricia LOPES MD Unavailable Unavailable SEMEL, Patricia LOPES MD Unavailable Unavailable SEMEL, Patricia LOPES MD Unavailable Unavailable SEMEL, Patricia LOPES MD Unavailable Unavailable SEMEL, Patricia LOPES MD Unavailable Unavailable SEMEL, Patricia LOPES MD Unavailable Unavailable SEMEL, Patricia LOPES MD Unavailable Unavailable SEMEL, Patricia LOPES MD Unavailable Unavailable SEMEL, Patricia LOPES MD Unavailable Unavailable SEMEL, Patricia LOPES MD Unavailable Unavailable SEMEL, Patricia LOPES MD Unavailable Unavailable SEMEL, Patricia LOPES MD Unavailable Unavailable SEMEL, Patricia LOPES MD Unavailable Unavailable SEMEL, Patricia LOPES MD Unavailable Unavailable SEMEL, Patricia LOPES MD Unavailable Unavailable SEMEL, Patricia LOPES MD Unavailable Unavailable SEMEL, Patricia LOPES MD Unavailable Unavailable SEMEL, Patricia LOPES MD Unavailable Unavailable SEMEL, Patricia LOPES MD Unavailable Unavailable SEMEL, Patricia LOPES MD Unavailable Unavailable SEMEL, Patricia LOPES MD Unavailable Unavailable SEMEL, Patricia LOPES MD Unavailable Unavailable SEMEL, Patricia LOPES MD Unavailable Unavailable Fish, [facility], PA-C Unavailable Unavailabl e Fish, Val[facility], PA-C Unavailable Unavailabl e Fish, Val[facility], PA-C Unavailable Unavailabl e Fish, Val[facility], PA-C Unavailable Unavailabl e Fish, [facility], PA-C Unavailable Unavailabl e Fish, [facility], PA-C Unavailable Unavailabl e Fish, [facility], PA-C Unavailable Unavailabl e Fish, [facility], PA-C Unavailable Unavailabl e Fish, [facility], PA-C Unavailable Unavailabl e Fish, [facility], PA-C Unavailable Unavailabl e Fish, [facility], PA-C Unavailable Unavailabl e Fish, [facility], PA-C Unavailable Unavailabl e Fish, [facility], PA-C Unavailable Unavailabl e Fish, [facility], PA-C Unavailable Unavailabl e Fish, [facility], PA-C Unavailable Unavailabl e Fish, [facility], PA-C Unavailable Unavailabl e Fish, [facility], PA-C Unavailable Unavailabl e Fish, [facility], PA-C Unavailable Unavailabl e Fish, [facility], PA-C Unavailable Unavailabl e Fish, [facility], PA-C Unavailable Unavailabl e Fish, [facility], PA-C Unavailable Unavailabl e Fish, [facility], PA-C Unavailable Unavailabl e Fish, [facility], PA-C Unavailable Unavailabl e Fish, [facility], PA-C Unavailable Unavailabl e Fish, [facility], PA-C Unavailable Unavailabl e Fish, [facility], PA-C Unavailable Unavailabl e Fish, [facility], PA-C Unavailable Unavailabl e Fish, [facility], PA-C Unavailable Unavailabl e Fish, [facility], PA-C Unavailable Unavailabl e Fish, [facility], PA-C Unavailable Unavailabl e Fish, [facility], PA-C Unavailable Unavailabl e Fish, [facility], PA-C Unavailable Unavailabl e Fish, [facility], PA-C Unavailable Unavailabl e CROUCH, MARY ANN PATTIE RPA-C Unavailable Unavailable CROUCH, MARY ANN PATTIE RPA-C Unavailable Unavailable CROUCH, MARY ANN PATTIE RPA-C Unavailable Unavailable CROUCH, MARY ANN PATTIE RPA-C Unavailable Unavailable CROUCH, MARY ANN PATTIE RPA-C Unavailable Unavailable CROUCH, MARY ANN PATTIE RPA-C Unavailable Unavailable CROUCH, MARY ANN PATTIE RPA-C Unavailable Unavailable CROUCH, MARY ANN PATTIE RPA-C Unavailable Unavailable CROUCH, MARY ANN PATTIE RPA-C Unavailable Unavailable CROUCH, MARY ANN PATTIE RPA-C Unavailable Unavailable CROUCH, MARY ANN PATTIE RPA-C Unavailable Unavailable CROUCH, MARY ANN PATTIE RPA-C Unavailable Unavailable CROUCH, MARY ANN PATTIE RPA-C Unavailable Unavailable CROUCH, MARY ANN PATTIE RPA-C Unavailable Unavailable CROUCH, MARY ANN PATTIE RPA-C Unavailable Unavailable CROUCH, MARY ANN PATTIE RPA-C Unavailable Unavailable CROUCH, MARY ANN PATTIE RPA-C Unavailable Unavailable CROUCH, MARY ANN PATTIE RPA-C Unavailable Unavailable CROUCH, MARY ANN PATTIE RPA-C Unavailable Unavailable CROUCH, MARY ANN PATTIE RPA-C Unavailable Unavailable CROUCH, MARY ANN PATTIE RPA-C Unavailable Unavailable CROUCH, MARY ANN PATTIE RPA-C Unavailable Unavailable CROUCH, MARY ANN PATTIE RPA-C Unavailable Unavailable CROUCH, MARY ANN PATTIE RPA-C Unavailable Unavailable CROUCH, MARY ANN PATTIE RPA-C Unavailable Unavailable CROUCH, MARY ANN PATTIE RPA-C Unavailable Unavailable CROUCH, MARY ANN PATTIE RPA-C Unavailable Unavailable CROUCH, MARY ANN PATTIE RPA-C Unavailable Unavailable CROUCH, MARY ANN PATTIE RPA-C Unavailable Unavailable CROUCH, MARY ANN PATTIE RPA-C Unavailable Unavailable CROUCH, MARY ANN PATTIE RPA-C Unavailable Unavailable CROUCH, MARY ANN PATTIE RPA-C Unavailable Unavailable CROUCH, MARY ANN PATTIE RPA-C Unavailable Unavailable CROUCH, MARY ANN PATTIE RPA-C Unavailable Unavailable CROUCH, MARY ANN PATTIE RPA-C Unavailable Unavailable CROUCH, MARY ANN PATTIE RPA-C Unavailable Unavailable CROUCH, MARY ANN PATTIE RPA-C Unavailable Unavailable CROUCH, MARY ANN PATTIE RPA-C Unavailable Unavailable CROUCH, MARY ANN PATTIE RPA-C Unavailable Unavailable [facility], RFROST CROUCH [facility] PATTIE Unavailable Unavailable Re-disclosure Warning The records that you are about to access may contain information from federally-assisted alcohol or drug abuse programs. If such information is present, then the following federally mandated warning applies: This information has been disclosed to you from records protected by federal confidentiality rules (42 CFR part 2). The federal rules prohibit you from making any further disclosure of this information unless further disclosure is expressly permitted by the written consent of the person to whom it pertains or as otherwise permitted by 42 CFR part 2. A general authorization for the release of medical or other information is NOT sufficient for this purpose. The Federal rules restrict any use of the information to criminally investigate or prosecute any alcohol or drug abuse patient.The records that you are about to access may contain highly sensitive health information, the redisclosure of which is protected by Article 27-F of the [place] State Public Health law. If you continue you may have access to information: Regarding HIV / AIDS; Provided by facilities licensed or operated by the [facility] Office of Mental Health; or Provided by the [facility] Office for People With Developmental Disabilities. If such information is present, then the following [facility] mandated warning applies: This information has been disclosed to you from confidential records which are protected by state law. State law prohibits you from making any further disclosure of this information without the specific written consent of the person to whom it pertains, or as otherwise permitted by law. Any unauthorized further disclosure in violation of state law may result in a fine or usp sentence or both. A general authorization for the release of medical or other information is NOT sufficient authorization for further disc losure. Allergies and Adverse Reactions Type Description Substance Reaction Status Data Source(s ) Drug allergy LISINOPRIL Lisinopril 5 MG Oral Tablet angioedema SV [facility] Adverse Reaction Adverse Reaction Nicotine ME DENT ([facility]) Propensity to adverse reactions NICOTINE Nicotine Acti ve [facility] Drug Allergy Drug Allergy NKDA MEDENT ([facility]) Encounters Encounter Providers Location Date Indications Data Source(s ) OFFICE OUTPATIENT NEW 30 MINUTES Attender: Fani ONEAL PA-C Physical Therapy 05/19/2020 10:15:00 AM EDT MEDENT ([facility]) Outpatient Attender: KESHAWN BLANKENSHIP [facility] 01/31 10:02:02 AM EDT [facility] Outpatient Attender: CARRIE PATEL MD Main Office 02/02/2020 03:30:00 PM EDT MED[facility] ([facility]) Outpatient Attender: KESHAWN BLANKENSHIP [facility] 09/2019 09:53:00 AM EDT [facility] Outpatient Attender: KESHAWN BLANKENSHIP [facility] 01/01 01:20:02 PM EDT [facility] Outpatient Attender: KESHAWN BLANKENSHIP [facility] 01/01 01:12:03 PM EDT [facility] Outpatient Attender: KESHAWN BLANKENSHIP [facility] 01/01 09:50:23 AM EDT [facility] Outpatient Attender: KESHAWN BLANKENSHIP [facility] 12/31 11:18:01 AM EDT [facility] Outpatient Attender: PATTIE CROUCH RPA-C [facility] 01/12/2020 12:00:42 AM EDT [facility] Outpatient Attender: KESHAWN BLANKENSHIP [facility] 04/2020 03:05:01 PM EDT [facility] Outpatient Attender: KESHAWN BLANKENSHIP [facility] 01/2020 08:38:01 AM EDT [facility] Outpatient Attender: KESHAWN BLANK[facility]SHIP [facility] 12/02 08:20:02 AM EDT [facility] Inpatient Attender: MARIANNE JORDAN MDAdmitter: MARIANNE GO MD [id number] 12/24/2019 02:36:00 AM EDT - 12/25/2019 11:30:00 PM EDT [facility] Patient discharged. Inpatient Attender: MARIANNE JORDAN MDAdmitter: MARIANNE GO MD [id number] 12/23/2019 11:04:00 PM EDT [facility] Patient discharged. Outpatient Attender: PATTIE FLOYD [facility] 12/21/2019 03:09:59 PM EDT [facility] Outpatient 10/15/2019 01:16:00 PM [facility] Medications Medication Brand Name Start Date Product Form Dose Route Admi nistrative Instructions Pharmacy Instructions Status Indications Reaction Description Data Source(s) Aspirin 81 MG Delayed Release Oral Tablet Aspirin Ec 2019 12:00:00 AM EDT ORAL active [facility] ( [facility]) Nicotine 2 MG Chewing Gum [Nicorette] Nicorette 02/02/2020 12:00:00 AM EDT active [facility] ([facility]) Lisinopril 5 MG Oral Tablet Lisinopril 02/01/2020 12:00:00 AM EDT ORAL completed [facility] ([facility]) Spironolactone 25 MG Oral Tablet Spironolactone 02/01/2020 12:00:00 A M EDT ORAL active [facility] ([facility]) Acetaminophen 325 MG Oral Tablet Acetaminophen 01/19/2020 12:00:00 AM EDT active [facility] ([facility]) Spironolactone 25 MG Oral Tablet Spironolactone 01/19/2020 12:00:00 A M EDT ORAL completed [facility] ([facility]) cefazolin (ANCEF) injection 2 g 12/26/2019 04:00:00 AM EDT 2 g Intravenous active 2 g, Intravenou s, Administer over 6 Minutes, Every 8 hours (relative), First dose on 12/26/19 at 0400, For 2 doses, PACU & Post- op
Start 8 hours after pre-op doseRN may administer IV push or infuse this medication through syringe adapter set ref [id number]. Flush line after use
[facility] Medication administered onsite Lisinopril 5 MG Oral Tablet Lisinopril 12/26/2019 12:00:00 AM EDT ORAL active [facility] ([facility]) Spironolactone 25 MG Oral Tablet Spironolactone 12/26/2019 12:00:00 A M EDT ORAL active [facility] ([facility]) Docusate Sodium 100 MG Oral Capsule Docusate Sodium 12/26/2019 1 2:00:00 AM EDT ORAL active [facility] ( [facility]) Spironolactone 25 MG Oral Tablet spironolactone (ALDAC TONE) 25 MG tablet spironolactone (ALDACTONE) 25 MG tablet 12/26/2019 12:00:00 AM EDT 25 mg Oral active Take 1 tablet (25 mg tota l) by mouth daily [facility] Docusate Sodium 100 MG Oral Capsule docusate sodium (, DSS,) 100 MG CAPS docusate sodium (,DSS,) 100 MG CAPS 12/26/2019 12:00:00 AM EDT 100 mg Oral active Take 1 capsule (100 mg total) by mouth 2 (two) times a day [facility] Lisinopril 5 MG Oral Tablet lisinopril (PRINIVIL,ZESTR IL) 5 MG tablet lisinopril (PRINIVIL,ZESTRIL) 5 MG tablet 12/26/2019 12:00:00 AM EDT 5 mg O ral active Take 1 tablet (5 mg total) by mo uth daily [facility] normal saline flush 0.9 % injection 3 mL [id number] 12/25/2019 10:00:00 PM EDT 3 mL Intravenous active 3 mL , Intravenous, PROTOCOL, First dose on Sat12/25/19 at 2200, PACU & Post-op
With good PO intake (600 ml X 1 shift)
[facility] Medication administered onsite Docusate Sodium 100 MG Oral Capsule docusate sodium (C OLACE) capsule 100 mg docusate sodium (COLACE) capsule 100 mg 12/25/2019 09:00:00 PM EDT 100 mg Oral active 100 mg, Oral, 2 times daily, First dose on Sat12/25/19 at 2100, PACU & Post-op
hold for loose stools
[facility] Medication administered onsite 2 ML Metoclopramide 5 MG/ML Prefilled Sy ringe metoclopramide (REGLAN) injection 10 mg metoclopramide (REGLAN) injection 10 mg 12/25/2019 08:12:32 PM E DT 10 mg Intravenous active 10 mg, I ntravenous, Every 6 hours PRN, nausea, vomiting, Starting Sat12/25/19 at 2012, PACU & Post-op [facility] Medication administered onsite ondansetron (ZOFRAN) injection 4 mg [id number] 12/25/2019 08:12:3 2 PM EDT 4 mg Intravenous active 4 mg, In travenous, As needed, nausea, vomiting, Starting Sat12/25/19 at 2012, PACU & Post-op
Give for one dose if no response from metoclopramide
[facility] Medication administered onsite 10 ML Atropine Sulfate 0.1 MG/ML Prefill ed Syringe atropine sulfate injection 0.5 mg atropine sulfate injection 0.5 mg 12/25/2019 08:12:32 PM EDT 0.5 mg active 0.5 mg, Intrave nous Push, Every 5 min PRN, other, As needed, for heart rate less than 60 BPM and the patient is hemodynamically unstable and/or SBP is less than 90mmHg??, Starting Sat12/25/19 at 2011, For 1 day
Not to exceed a total of 3 mg or 0.04 mg/kg. Max of 6 doses
[facility] Medication administered onsite 500 ML heparin sodium, porcine 50 UNT/ML Injection heparin infusion 25,000 units in 500 mL 0.45% NaCl heparin infusion 25,000 units in 500 mL 0.45% NaCl 12/25/2019 08:00:00 PM EDT 500 U/h Intravenous active 500 Units/hr (10 mL/hr), Intravenous, at 10 mL/hr, Continuous, Starting Sat12/25/19 at 2000
No titrationInfuse this medication only through single port tubing ([facility] Infusion Set ref [id number]). Medication and tubing is to be discarded if infusion off for 4 hours.
[facility] Medication administered onsite fentaNYL Citrate (PF) (SUBLIMAZE) injection 25 mcg [id number] 12/25/2019 07:31:04 PM EDT 25 ug Intravenous aborted 25 mcg, Intravenous, Every 5 min PRN, moderate pain (4-6), moderate pain (4 to 6), Starting Sat12/25/19 at 1931, For 8 doses, PACU (only) [facility] Medication administered onsite gabapentin (NEURONTIN) capsule 300 mg 12/25/2019 02:00:00 PM EDT 300 mg Oral active [Order 1 Start ] Name: gabapentin (NEURONTIN) capsule 300 mg Signed Summary: 300 mg, Oral, 3 times daily, First dose on Sat12/25/19 at 1400, For 5 doses [Order 1 End] [Order 2 Start] Name: gabapentin (NEURONTIN) capsule 400 mg Signed Summary: 400 mg, Oral, 2 times daily, First dose on Sat12/27/19 at 0900, For 2 doses [Order 2 End] [facility] Medication administered onsite Acetaminophen 325 MG Oral Tablet Acetaminophen 12/25/2019 12:00:00 AM EDT ORAL active [facility] ([facility] Magnesium Hydroxide 80 MG/ML Oral Suspen sallie magnesium hydroxide (MILK OF MAGNESIA) 400 MG/5ML suspension 30 mL magnesium hydroxide (MILK OF MAGNESIA) 4 00 MG/5ML suspension 30 mL 12/25/2019 12:00:00 AM EDT 30 mL Oral active 30 mL, Oral, Daily PRN, constipation, Starting Sat12/25/19 at 0000
If senna- docusate is not effective
[facility] Medication administered onsite Magnesium Chloride 0.01358 MEQ/ML / Pota ssium Chloride 0.0497 MEQ/ML / Sodium Acetate 0.0163 MEQ/ML / Sodium Chloride 0.0899 MEQ/ML / Sodium gluconate 5.02 MG/ML Injectable Solution [Normosol-R] electrolyte-R (NORMOSOL-R/PLASMALYTE-R) solution electrolyte-R (NORMOSOL-R/PLASMALYTE-R) solution 12/24 12:00:00 AM EDT Intravenous active at 5 0 mL/hr, Intravenous, Continuous, Starting Sat12/25/19 at 0000 [facility] Medication administered onsite Acetaminophen 325 MG Oral Tablet acetaminophen (TYLENO L) 325 MG tablet acetaminophen (TYLENOL) 325 MG tablet 12/25/2019 12:00:00 AM EDT 65 0 mg Oral active Take 2 tablets (650 mg total) by mouth every 4 (four) hours as needed [facility] Docusate Sodium 50 MG / sennosides, HALF-WAY 8.6 MG Oral Tablet senna-docusate (PERICOLACE) 8.6-50 MG 2 tablet senna-docusate (PERICOLACE) 8.6-50 MG 2 tablet 12/24/2019 09:00:00 PM EDT 2 {tbl} Oral active 2 tablet, Oral, Nightly, First dose on Sat12/24/19 at 2100
hold for loose stools
[facility] Medication administered onsite atorvastatin 80 MG Oral Tablet atorvastatin (LIPITOR) tablet 80 mg atorvastatin (LIPITOR) tablet 80 mg 12/24/2019 09:00:00 PM EDT 80 mg Oral active 80 mg, Oral, Nightly, First dose on Sat12/24/19 at 2100 [facility] Medication administered onsite Acetaminophen 325 MG / Oxycodone Hydroch loride 5 MG Oral Tablet oxyCODONE- acetaminophen (PERCOCET) 5-325 MG 2 tablet oxyCODONE-acetaminophen (PERCOCET) 5- 325 MG 2 tablet 12/24/2019 02:49:00 PM EDT 2 {tbl} Oral a ctive 2 tablet, Oral, Every 4 hours PRN, severe pain (7-10), Starting Eleanor 12/24/19 at 1449, For 7 days [facility] Medication administered onsite Acetaminophen 325 MG / Oxycodone Hydroch loride 5 MG Oral Tablet oxyCODONE- acetaminophen (PERCOCET) 5-325 MG 1 tablet oxyCODONE-acetaminophen (PERCOCET) 5- 325 MG 1 tablet 12/24/2019 02:47:30 PM EDT 1 {tbl} Oral a ctive 1 tablet, Oral, Every 4 hours PRN, moderate pain (4-6), Starting Eleanor 12/24/19 at 1447, For 7 days [facility] Medication administered onsite gabapentin 600 MG Oral Tablet gabapentin (NEURONTIN) t ablet 300 mg gabapentin (NEURONTIN) tablet 300 mg 12/24/2019 02:00:00 PM EDT 300 mg Oral aborted 300 mg, Oral, 3 times daily, First dose on Eleanor 12/24/19 at 1400 [facility] Medication administered onsite 24 HR metoprolol succinate 25 MG Extende d Release Oral Tablet metoprolol succinate (TOPROL-XL) 24 hr tablet 25 mg metoprolol succinate (TOPROL-XL) 24 hr tablet 25 mg 12/24/2019 01:00:00 PM EDT 25 mg Oral abort ed 25 mg, Oral, Daily, First dose on Eleanor 12/24/19 at 1300 [facility] Medication administered onsite Spironolactone 25 MG Oral Tablet spironolactone (ALDAC TONE) tablet 25 mg spironolactone (ALDACTONE) tablet 25 mg 12/24/2019 01:00:00 PM EDT 25 mg Oral active 25 mg, Oral, Da sushil, First dose on Eleanor 12/24/19 at 1300
For administration and preparation considerations, refer to Hazardous Drugs in the Workplace Policy on Intranet.
[facility] Medication administered onsite Lisinopril 5 MG Oral Tablet lisinopril (PRINIVIL,ZESTR IL) tablet 5 mg lisinopril (PRINIVIL,ZESTRIL) tablet 5 mg 12/24/2019 01:00:00 PM EDT 5 mg Or al active 5 mg, Oral, Daily, F irst dose on Eleanor 12/24/19 at 1300
Hold for SBP <120
[facility] Medication administered onsite Thiamine 100 MG Oral Tablet thiamine tablet 100 mg thiamine tablet 100 mg 12/24/2019 09:00:00 AM EDT 100 mg Oral active 100 mg, Oral, Daily, First dose on Eleanor 12/24/19 at 0900 [facility] Medication administered onsite DAILY VANDANA (THERAGRAN) 1 tablet 56487-440-06 12/24/2019 09:00:00 AM EDT 1 {tbl} Oral active 1 tablet, Oral, Daily, First dose on Eleanor 12/24/19 at 0900 [facility] Medication administered onsite Folic Acid 1 MG Oral Tablet folic acid (FOLVITE) table t 1 mg folic acid (FOLVITE) tablet 1 mg 12/24/2019 09:00:00 AM EDT 1 mg Oral active 1 mg, Oral, Daily, First dose on Eleanor 12/24/19 at 0900 [facility] Medication administered onsite Aspirin 81 MG Chewable Tablet aspirin chewable tablet 81 mg aspirin chewable tablet 81 mg 12/24/2019 09:00:00 AM EDT 81 mg Oral activ e 81 mg, Oral, Daily, First dose on Eleanor 12/24/19 at 0900 [facility] Medication administered onsite clopidogrel 75 MG Oral Tablet clopidogrel (PLAVIX) tab let 75 mg clopidogrel (PLAVIX) tablet 75 mg 12/24/2019 09:00:00 AM EDT 75 mg Oral active 75 mg, Oral, Daily, First dose on Eleanor 12/24/19 at 0900 [facility] Medication administered onsite Albuterol 0.83 MG/ML Inhalant Solution a lbuterol (PROVENTIL) nebulizer solution 2.5 mg albuterol (PROVENTIL) nebulizer solution 2.5 mg 2019 08:00:00 AM EDT 2.5 mg active 2.5 mg, Nebulization, 3 times daily, First dose on Eleanor 12/24/19 at 0800 [facility] Medication administered onsite 1 ML Lorazepam 2 MG/ML Injection LORazepam (ATIVAN) in jection 0.5-1.5 mg LORazepam (ATIVAN) injection 0.5-1.5 mg 12/24/2019 06:25:19 AM EDT Intravenous active 0.5-1.5 mg, I ntravenous, As needed, GMAW, Starting Eleanor 12/24/19 at 0625, For 7 days
GMAW ScoreIVP/IM Dose 0 None 1 to 3 0.5 mg 4 to 7 1 mg 8 to 101.5 mg GMAW reassessment is every 2 hours for 5 days.If treatment is neededprior, notify provider.
[facility] Medication administered onsite normal saline flush 0.9 % injection 3 mL 60728-664-26 12/24/2019 06:00:00 AM EDT 3 mL Intravenous active 3 mL , Intravenous, Every 8 hours (scheduled), First dose on Eleanor 12/24/19 at 0600
flush per protocol, D/C Main IV fluid if appropriate
[facility] Medication administered onsite iopamidol (ISOVUE-370) 76 % 120 mL [id number] 12/24/2019 05:10:24 AM EDT 120 mL Intravenous completed 120 mL, Intra venous, Once in imaging, contrast, Starting Eleanor 12/24/19 at 0510, For 1 dose [facility] Medication administered onsite Acetaminophen 325 MG Oral Tablet acetaminophen (TYLENO L) 325 MG tablet 650 mg acetaminophen (TYLENOL) 325 MG tablet 650 mg 12/24/2019 03:11:12 AM EDT 650 mg Oral active 650 mg, Or al, Every 4 hours PRN, mild pain (1-3), Starting Eleanor 12/24/19 at 0311
"Maximum dose of acetaminophen is 4,000 mg from all sources in 24 hours."
[facility] Medication administered onsite sodium chloride 0.9% (NS) infusion [id number] 12/24/2019 03:00:00 A M EDT Intravenous active at 50 mL/hr, Intravenous, Continuous, Starting Eleanor 12/24/19 at 0300 [facility] Medication administered onsite 500 ML heparin sodium, porcine 50 UNT/ML Injection heparin infusion 25,000 units in 500 mL 0.45% NaCl heparin infusion 25,000 units in 500 mL 0.45% NaCl 12/24/2019 03:00:00 AM EDT 17 U/kg/h Intravenous aborted 17 Units/kg/hr ?? 64.9 kg (22.066 mL/hr, rounded to 22.1 mL/hr), Intravenous, at 22.1 mL/hr, Continuous, Starting Eleanor 12/24/19 at 0300
For DVT/PEaPTT (seconds) Heparin Dose (weight based)< 34 Bolus: 75 units/kg IV (Maximum bolus: 10,000 units) and increase infusion 3 units/kg/hr IV34 - 50 Bolus: 40 units/kg IV (Maximum bolus: 10,000 units) and increase infusion 2 units/kg/hr IV50.1 - 58 No bolus. Increase infusion 1 unit/kg/hr IV58.1 - 87 Therapeutic, No Nltvlp29.1 - 97 Decrease infusion 1 unit/kg/hr IV 97.1 - 110Hold infusion for 30 minutes & decrease infusion 2 units/kg/hr IV> 110 Call MD if patient is bleeding. Hold infusion for 60 minutes & decrease infusion 3 units/kg/hr IVInitial heparin IV infusion rate:Do not exceed 1500 units/hour or 15 units/kg/hr (whichever is less)Infuse this medication only through single port tubing ([employer] Infusion Set ref [id number]). Medication and tubing is to be discarded if infusion off for 4 hours.
[facility] Medication administered onsite 1 ML heparin sodium, porcine 1000 UNT/ML Injection heparin (porcine) injection 4,900 Units heparin (porcine) injection 4,900 Units 12/24/2019 03:00:00 AM EDT 75 U/kg Intravenous completed 4,900 Unit s (rounded from 4,867.5 Units = 75 Units/kg ?? 64.9 kg), Intravenous, Once, Eleanor 12/24/19 at 0300, For 1 dose
Do not exceed 10,000 units or 75 units/kg (whichever is less)
[facility] Medication administered onsite Albuterol 0.83 MG/ML Inhalant Solution a lbuterol (PROVENTIL) nebulizer solution 2.5 mg albuterol (PROVENTIL) nebulizer solution 2.5 mg 2019 02:58:51 AM EDT 2.5 mg active 2.5 mg, Nebulization, Every 2 hour PRN, wheezing, shortness of breath, Starting Eleanor 12/24/19 at 0258 [facility] Medication administered onsite Mineral Oil 1000 MG/ML Enema mineral oil enema 1 enema mineral oil enema 1 enema 12/24/2019 02:44:04 AM EDT 1 {enema} Rectal active 1 enema, Rectal, Daily PRN, constipation, unrelieved by MOM/bisacodyl/senna-docusate, Starting Eleanor 12/24/19 at 0244
hold for loose stools
[facility] Medication administered onsite 1 ML heparin sodium, porcine 1000 UNT/ML Injection heparin (porcine) injection 1,000-10,000 Units heparin (porcine) injection 1,000-10,000 Units 020 02:44:04 AM EDT Intravenous aborted 1,000-10,000 Units, Intravenous, As needed, other, Starting Eleanor 12/24/19 at 0244
Round dose to nearest 100 units< 34 Bolus: 75 units/kg IV (Maximum bolus: 10,000 units) 34 - 50 Bolus: 40 units/kg IV (Maximum bolus: 10,000 units)
[facility] Medication administered onsite Bisacodyl 10 MG Rectal Suppository bisacodyl (DULCOLAX ) suppository 10 mg bisacodyl (DULCOLAX) suppository 10 mg 12/24/2019 02:44:03 AM EDT 10 mg Rectal active 10 mg, Rectal, Daily PRN, constipation, Starting Eleanor 12/24/19 at 0244
Hold for BM.If senna-docusate and milk of magnesia are not effective
[facility] Medication administered onsite Insurance Providers Payer name Policy type / Coverage type Policy ID Covered green party ID Covered green party's relationship to quintero Policy [employer] Plan Information KASEYEDCHAD [id number] SP [id number] MEDICARE [id number] SP [id number] MEDICARE C [id number] S [id number] MEDICAID M [id number] MEDICAID [id number] SP [id number] MEDICAID [id number] MEDICARE [id number] MEDICARE [id number] Hyun [id number] MEDICAID [id number] Hyun [id number] EXCELLUS BCBS MEDICARE [id number] Hyun [id number] MEDICARE [id number] Hyun [id number] 1CA ANSI-Medicaid [id number] ANSI-Medicare Part B [id number] MEDICARE [id number] SP [id number] 1CA ANSI-Medicaid [id number] ANSI-Medicare Part B [id number] ANSI-Medicare Part B [id number] ANSI-Medicaid [id number] ANSI-Medicare Part B [id number] ANSI-Medicaid [id number] MEDICARE C [id number] S [id number] 1CA MEDICARE [id number] SP [id number] 2CA MEDICARE [id number] SP [id number] MEDICARE PI PI MEDICAID PI PI MEDICARE [id number] Hyun [id number] 1CA EXCELLUS BCBS MEDICARE [id number] Hyun [id number] 1CA [id number] 1CA [id number] MEDICARE UNAVAILABLE UNAVAILA BLE MEDICAID [facility] [id number] SP [id number] MEDICARE BLUE PPO EXCELLUS BC [id number] SP [id number] MEDICAID [facility] [id number] SP [id number] MEDICAID [facility] [id number] SP [id number] MEDICARE [id number] SP [id number] 1CA MEDICARE BLUE PPO 306 [id number] SP [id number] Problems, Conditions, and Diagnoses Code Display Name Description Problem Type Effective Dates Data Source(s) 994801738 Peripheral vascular disease Peripheral vascular diseas e Problem 12/24/2019 12:00:00 AM EDT [facility] ([facility]) [id number] Pain of right lower limb co-occurrent an d due to ischemia Pain of right lower limb co-occurrent and due to ischemia Problem 0 12/24/2019 12:00:00 AM EDT [facility] ([facility]) [id number] Noncompliance with treatment Noncompliance with treatm ent Problem 12/24/2019 12:00:00 AM EDT [facility] ([facility]) [id number] Ischemic myocardial dysfunction Ischemic myocard ial dysfunction Problem 12/24/2019 12:00:00 AM EDT [facility] ([facility]) [id number] History of placement of stent for pierre ry artery disease History of placement of stent for coronary artery disease Problem 020 12:00:00 AM EDT [facility] ([facility]) [id number] History of acute ST segment elevation my ocardial infarction History of acute ST segment elevation myocardial infarction Problem 12/24/2019 12:00:00 AM EDT [facility] ([facility]) [id number] Alcohol abuse Alcohol abuse Problem 12/24/2019 12:00:00 AM EDT [facility] ([facility]) I73.9 Peripheral artery disease Peripheral artery disease 64 [id number] 12/24/2019 12:00:00 AM EDT [facility] Z95.5 History of coronary artery stent placeme nt History of coronary artery stent placement [id number] 12/24/2019 12:00:00 AM EDT [facility] I25.5 Ischemic cardiomyopathy Ischemic cardiomyopathy 688823 12/24/2019 12:00:00 AM EDT [facility] F10.10 Alcohol abuse Alcohol abuse 92700499 12/24/2019 12:00:00 AM EDT [facility] I99.8 Pain of right lower extremity due to isc hemia Pain of right lower extremity due to ischemia 41075957 12/24/2019 12:00:00 AM EDT [facility] Z91.19 Noncompliance Noncompliance 56934009 12/24/2019 12:00:00 AM EDT [facility] I25.2 H/O ST elevation myocardial infarction H /O ST elevation myocardial infarction [id number] 12/24/2019 12:00:00 AM EDT [facility] 796.2 Elevated blood pressure Elevated blood pressure 12/21/2019 03:09:17 PM EDT [facility] V77.0 Screening for thyroid disorders Screening for thyroid disorders 12/21/2019 03:09:17 PM EDT [facility] V77.1 Screening for diabetes mellitus Screening for diabetes mellitus 12/21/2019 03:09:17 PM EDT [facility] V70.0 Encounter for general adult medical exam ination with abnormal findings Encounter for general adult medical examination with abnormal findings 12/21/2019 03:09:17 PM EDT [facility] 95017001 Alcohol abuse, uncomplicated Alcohol abuse, uncomplica pablo 12/21/2019 03:09:17 PM EDT [facility] V65.42 Alcohol abuse counseling and surveillanc e of alcoholic Alcohol abuse counseling and surveillance of alcoholic 12/21/2019 03:09:17 PM EDT [facility] 443.9 Intermittent claudication Intermittent claudication 12/21/2019 03:09:17 PM EDT [facility] V12.59 History of myocardial infarction History of myocardial infarction 12/21/2019 03:09:17 PM EDT [facility] 305.1 Tobacco user Tobacco user 12/21/2019 03:09:17 P M EDT [facility] V85.1 BMI 23.0-23.9 BMI 23.0-23.9 12/21/2019 03:09:17 PM EDT [facility] I99.8 Other disorder of circulatory system Other disor hank of circulatory system Diagnosis 12/24/2019 02:36:00 AM EDT [facility] M79.671 Pain in right foot Pain in right foot Diagnosis 02:36:00 AM EDT [facility] Surgeries/Procedures Procedure Description Date Indications Data Source(s) RADEX FOOT COMPLETE MINIMUM 3 VIEWS 05/19/2020 12:00:0 0 AM EDT [facility] ([facility]) ECG ROUTINE ECG W/LEAST 12 LDS W/I&R 02/02/2020 12:00: 00 AM EDT [facility] ([facility]) GLUC BLD GLUC MNTR DEV CLEARED FDA SPEC HOME USE POCT GLUCOSE Routine 12/25/2019 8:11 PM EDT 12/26/2019 12:11:00 AM EDT [facility] THROMBOPLASTIN TIME PARTIAL PLASMA/WHOLE BLOOD APTT STAT 12/25/2019 12:59 AM EDT 12/25/2019 04:59:00 AM EDT [facility] BLOOD COUNT COMPLETE AUTOMATED CBC Routine 12/25/2019 12:59 A M EDT 12/25/2019 04:59:00 AM EDT [facility] BASIC METABOLIC PANEL CALCIUM TOTAL BASIC METABOLIC PANEL Routi ne 12/25/2019 12:59 AM EDT 12/25/2019 04:59:00 AM EDT [facility] Embolectomy/Thrombectomy Pycuhykta-Ponys-Oarbsmna Artery Leg Inc 12/25/2019 12:00:00 AM EDT [facility] ([facility]) Bypass Graft Other Than Vein Iliofemoral 12/25/2019 12 :00:00 AM EDT [facility] ([facility]) THROMBOPLASTIN TIME PARTIAL PLASMA/WHOLE BLOOD APTT STAT 12/24/2019 6:54 PM EDT 12/24/2019 10:54:00 PM EDT [facility] THROMBOPLASTIN TIME PARTIAL PLASMA/WHOLE BLOOD APTT STAT 12/24/2019 11:38 AM EDT 12/24/2019 03:38:00 PM EDT [facility] DRUG SCR QUAL 1 DRUG CLASS METH EA DRUG CLASS DRUGS O F ABUSE, URINE (STAT, ER/INPATIENT) STAT 12/24/2019 10:30 AM EDT 12/24/2019 0 2:30:00 PM EDT [facility] ECG ROUTINE ECG W/LEAST 12 LDS TRCG ONLY W/O I&R ECG 12-LEAD Routine 12/24/2019 9:30 AM EDT 12/24/2019 01:30:43 PM EDT [facility] ECHO TTHRC R-T 2D W/WOM-MODE COMPL SPEC&COLR DOP ECHOCARDIO GRAM TRANSTHORACIC Pending Discharge 12/24/2019 9:19 AM EDT 12/24/2019 01:19 :28 PM EDT [facility] XR CHEST PA AND LATERAL XR CHEST PA AND LATERAL STAT 0 8:06 AM EDT 12/24/2019 12:06:10 PM EDT [facility] CTA ABDL AORTA&BI ILIOFEM W/CONTRAST&POSTPROCESS CT A NGIOGRAM ABDOMINAL AORTA AND BILATERAL RUNOFF STAT 12/24/2019 6:02 AM EDT 12/24/2019 10:02:07 AM EDT [facility] THROMBOPLASTIN TIME PARTIAL PLASMA/WHOLE BLOOD APTT STAT 12/24/2019 3:00 AM EDT 12/24/2019 07:00:00 AM EDT [facility] PROTHROMBIN TIME PROTIME-INR STAT 12/24/2019 3:00 AM EDT 12/24/2019 07:00:00 AM EDT [facility] BLOOD COUNT COMPLETE AUTOMATED CBC STAT 12/24/2019 3:00 A M EDT 12/24/2019 07:00:00 AM EDT [facility] COMPREHENSIVE METABOLIC PANEL COMPREHENSIVE METABOLIC PANEL STA T 12/24/2019 3:00 AM EDT 12/24/2019 07:00:00 AM EDT [facility] Radiologic Exam, Chest, 2 Views 12/24/2019 12:00:00 AM EDT [facility] ([facility]) Comp Tomogrp Angiog AB Aorta & Bilateral Iliofemoral LW Ext Runof 12/24/2019 12:00:00 AM EDT [facility] ([facility]) Electrocardiogram Tracing Only 12/24/2019 12:00:00 AM EDT [facility] ([facility]) ECHO TTHRC R-T 2D W/WOM-MODE COMPL SPEC&COLR DOP 12/23 12:00:00 AM EDT [facility] ([facility]) Results ID Date Data Source [id number] 01/12/2020 02:55:[address] [facility] MR[facility] Name Date of Age Gend*PT [id number] Chet Juarez JrRadha 1960 60 years M IPPT Location Admission Date/Time Visit ID Attending [id number] 12/24/19 0236 --- --- EPI ID CSN Admitting Pr ovider [id number] Marianne Jordan MD([id number]) Attestation signed by Marianne Jordan MD at 01/12/2020 2:55 PMI saw and evaluated the patient and reviewed 's panote. I agree with thehistory, physical and medical decision making with the following additions,exceptions, and/or observations:Signature: RAKAN Kramerate: January 12, 2020Time: 2:55 PM --Surgical Discharge Cedric Juarez Jr. date: 12/24/2019Admitting Physician: RAKAN Kramerischarge date and time: Pt leaving AMA to home this evening.Discharge Physician: Julianna Lei Diagnosis: Pain of right lower extremity due to ischemiaSecondary Diagnoses:Active Hospital Problems Diagnosis Date Noted H/O ST elevation myocardial infarction 12/24/2019 Noncompliance 12/24/2019 Pain of right lower extremity due to ischemia 12/24/2019 Alcohol abuse 12/24/2019 Ischemic cardiomyopathy History of coronary artery stent placement Peripheral artery disease Pure hypercholesterolemia 08/16/2017 Tobacco abuse 07/27/2017Resolved Hospital ProblemsNo resolved problems to display.Discharge Medications:Your medication listSTART taking these medications Instructions Last Dose Given Morning Afternoon Evening Bedtime As Neededacetaminophen 325 MG tabletCommonly known as: TYLENOL Take 2 tablets (650 mg total) by mouth every 4 (four) hours as neededDocusate Sodium 100 MG CapsCommonly known as: (DSS)Start taking on: December 26, 2019 Take 1 capsule (100 mg total) by mouth 2 (two) times a daylisinopril 5 MG tabletCommonly known as: PRINIVIL,ZESTRILStart taking on: December 26, 2019 Take 1 tablet (5 mg total) by mouth dailyspironolactone 25 MG tabletCommonly known as: ALDACTONEStart taking on: December 26, 2019 Take 1 tablet (25 mg total) by mouth dailyCONTINUE taking these medications Instructions Last Dose Given Morning Afternoon Evening Bedtime As Neededaspirin 81 MG chewable tablet Chew 1 tablet (81 mg total) dailyatorvastatin 80 MG tabletCommonly known as: LIPITOR Take 1 tablet (80 mg total) by mouth nightlyclopidogrel 75 MG tabletCommonly known as: PLAVIX Take 1 tablet (75 mg total) by mouth dailymetoprolol succinate 25 MG 24 hr tabletCommonly known as: TOPROL-XL Take 1 tablet (25 mg total) by mouth dailynitroglycerin 0.4 MG SL tabletCommonly known as: NITROSTAT Place 1 tablet (0.4 mg total) under the tongue every 5 (five) minutes as neededfor chest painWhere to Get Your MedicationsInformation about where to get these medications is not yet availableAsk your nurse or doctor about these medication s acetaminophen 325 MG tablet Docusate Sodium 100 MG Caps lisinopril 5 MG tablet spironolactone 25 MG tabletIndication for Admission: bilateral lower extremity ischemiaAdmission H&P: 59 years White or male with a past medical historysignificant for HLD, tobacco and alcohol abuse, h/o AMI s/p drug eluding stentsin [address] Roche, and medical noncompliance [facility] ischemia. Mr. Juarez states he has been experiencing bilateral leg cramping with walkingany distance. Over the last few days, he has noted worsening pain in the rightleg. The pain was severe yesterday and as such he presented to [facility] ED.He had a RLE arterial duplex completed revealing "complete occlusion of theright popliteal artery. Complete occlusion of the right posterior and anteriortibial arteries". Dr. Jordan agreed to admit the patient for further workup ofhis arterial disease. He states he has been able to ambulate, but with pain. He denies decreasedsensation or decreased movement of the right foot. Mr. Juarez was admitted to [facility] in 08/[address] elevation [place] at which time heunderwent cardiac cath with bare metal stents placed to the right coronary andcircumflex arteries. Bare metal stents were chosen due to the patient's h/ononcompliance. He was discharged on ASA and plavix, however he has not beentaking this medical "for some time."Hospital Course & Complications: Pt was admitted on 12/24/2019 for b/l LEischemia to Dr. Jordan's vascular surgery service. His R foot was pulseless andcool to the touch. He was started on a Heparin gtt. He was started on GMAW forhis 18 beers/day alcohol abuse. A stat CTA abdominal aorta with b/l runoff wasordered revealing R external iliac artery occlusion, R popliteal arteryocclusion, R posterior tibial artery occlusion, right peritoneal arterystenosis/occlusion, L superficial femoral artery occlusion and an ectaticinfrarenal abdominal aorta. His ASA, Plavix and Lipitor were continued but hismetoprolol was held d/t asymptomatic bradycardia in the 40's. CXR was performedwithout acute disease. EKG was simus rhythm. Cardiology was called foroperativeclearance. TTE revealed 30% EF, dilated L ventricle with extensiveinferior posterolateral and inferoseptal hypokinesis. Spironolactone 25 mg dailyand lisinopril 5 mg were added per cardiology. He was cleared for OR.12/24 Pt went to the OR with Dr. Jordan for a R ilio-femoral bypass, R SFAthrombectomy and R popliteal thrombectomy. EBL was 300 cc, Pt was under generalanesthesia and post-op he had a faint PT signal. On post-op evaluation Pt wasseen in the ICU and he was demanding to leave AMA. Pt was AAO to person, place,year and President. Attempts were made at redirection but unsuccessful. Risks ofleaving AMA and benefits of staying were described to the Pt who persisted toleave. Risks included bleeding from incisions, falls, re-occlusion of RLE,sepsis, urinary retention, infection and . Benefits of staying includedincisional monitoring, continue Hep gtt, appropriate d/c of mansfield catheter, bedrest and overall ICU care. Pt reasoning for leaving was to have a cigarette, seehis girlfriend and doctor. Nicotine patch was offered and Pt refused. Pt wasasked how he would leave and he stated medicaid cab. With assistance Ptdemonstrated he could stand out of bed and walk the room. Heparin gtt, stopped,IV's to be removed and mansfield catheter d/c'ed. Dr Jordan called and notified. Ptinstructed to come back to the ED if he were to change his mind.Pt denies fevers, chills, sweats, CP, SOB and abdominal pain. He denies back orright leg pain. He was instructed how to care for his incisions and followcertain restrictions. See d/c AVS. He is to continue ASA/Plavix. Pt instructedto f/u with PCP and Dr. Jordan.Past Medical History:Past Medical History:Diagnosis Date Heavy smoker Mental health disorder NSTEMI 07/27/2017Surgical Procedures:Procedure(s):CREATION, BYPASS, ARTER IAL, ILIAC TO FEMORAL AND RIGHT POPLITEAL THROMBECTOMY(Right)Significant Diagnostic Studies:Imagin12/24/2019 CXRIMPRESSION: Probable prominent nipple shadows as described. No acutecardiopulmonary disease.12/23 CTA abdomen/pelvis with b/l runoffIMPRESSION:1. Right external iliac artery occlusion and right popliteal arterial occlusionas described above.2. Distal left SFA occlusion.3. Right posterior tibial arterial occlusion and either significant stenoses orshort segment occlusions of the mid to distal peroneal artery of the right leg.4. Focally ectatic infrarenal abdominal aorta.12/25/2019 TTE The following segments are akinetic: basal inferior, basal inferolateral, midinferior and mid inferolateral. The following segments are hypokinetic: basal anterior, basal anteroseptal,basal inferoseptal, basal anterolateral, mid anterior, mid anteroseptal, midinferoseptal, mid anterolateral, apical anterior, apical septal, apicalinferior, apical lateral and apex. Left Ventricle: The left ventricular cavity is mildly dilated. Moderate toseverely (30-35%) decreased ejection fraction. Grade I (mild) left ventriculardiastolic dysfunction consistent with impaired relaxation. Normal left atrialpressure. normal wall thickness observed. Aortic Valve: There is calcification with reduced excursion of the aorticvalve present. Mild stenosis. Trace aortic insufficiency is present.Microbiology:noneLabs:BMP:Lab ResultsComponent Value Date NA 136 12/25/2019 K 4.0 12/25/2019 CL 104 12/25/2019 CO2 25 12/25/2019 ANIONGAP 7 12/25/2019 CALCIUM 9.2 12/25/2019 GLU 164 (H) 12/25/2019 BUN 13 12/25/2019 C REATININE 1.14 12/25/2019 GFRAA >60 12/25/2019 GFRNONAA >60 12/25/2019CBC without Diff:Lab ResultsComponent Value Date WBC 7.7 12/25/2019 RBC 4.33 (L) 12/25/2019 HGB 14.9 12/25/2019 HCT 43.2 12/25/2019 MCV 99.6 (H) 12/25/2019 MCH 34.3 (H) 12/25/2019 MCHC 34.4 12/25/2019 RDW 13.2 12/25/2019 PLT 156 12/25/2019 MPV 8.6 12/25/2019Treatments: See above Hospital Course & Complications.Discharge Exam:Most Recent Vital SignsTemp: [97.1 F-98.4 F] 98.4 FHeart Rate: [43-68] 67Resp: [10-25] 25BP: (106-144)/(58-79) 119/69Arterial Line BP: (115-161)/(47-88) 146/74Physical Exam:General: thin 59 years White or male, reclined in bed, agitated anddisgruntled towards nursing staff.Head: left eye enucleated with drainage.Heart: RRR S1S2, without audible M/R/G.Lungs: CTAB without W/R/R or cough. Without increased inspiratory effort. On NCO2.Abdomen: Soft, NT, ND, hypoactive BS. R flank dressing with bloody spotting.Genitalia: Mansfield in place.Extremities:RLE: R groin dressing CDI. NT. R calf dressing CDI. Also NT. Calf soft. Footwarm with pink color. Plantarflexion/dorsiflexion 5/5. Sensation diminished tolight touch. Doppler DP/PT/AT signals.LLE: calf soft, foot warm. Motor/sensation intact. No lesions. No edema. DopplerDP/PT/AT signals.Neuro: AAO to self, place, time, year and President. Answers questionsappropriately. No gross neurological deficits on exam.Items needing special attention:- Continue ASA/Plavix- Follow up with PCP, cardiology and Dr. Bueno Condition: AMADisposition: Home or Self CareSignature: EBONY Lei-CDate: December 25, 2019Time: 9:20 PM Name Value Range Interpretation Code Description Data Diana rce(s) Supporting Document(s) ID Date Data Source [id number] 01/11/2020 03:40:16 PM EDT [facility] Measurements & CalculationsHeight: 68 inches 172.72 cm Weight: 147.6 pounds 67.09 kg Body Mass Index (BMI): 22.52BMI Interpretation: Healthy WeightBody Surface Area (BSA): 1.80Weight Management Education Done (Nutrition/Physical Activity)Vital SignsTemperature: 96.4F 35.78C tympanic Pulse Rate: 94 beats/minuteRespiratory Rate: 24 respirations/minuteBlood Pressure: 106/69 left arm sitting automaticO2 Saturation: 98% room airVital Signs performed by: Wendy Kurtz , January 11, 2020 3:40 PMInitial Intake Information From: patientRoom #: 1Infectious Disease / Travel ScreeningRecent travel for you or any close contacts? NoHave you had any close contact with anyone diagnosed with or under investigation for COVID-19 (coronavirus)? NoFever? NoRespiratory symptoms: cough, cold, congestion, shortness of breath, difficulty breathing? NoLoss of smell? NoLoss of taste? NoSmoking, Tobacco, Vaping or Smoke Exposure StatusSmoke Status: current every day smokerTobacco Use: YesAdv to Quit: YesDo you vape? NoPassive Smoke Exposure: YesHealthcare HistorySince your last office visit...Have you been admitted to the hospital? NoHave you been to an emergency room (ER) or urgent care clinic? [facility]Have you seen another healthcare provider? NoHave you seen a dentist? NoIntake performed by: Wendy Kurtz , January 11, 2020 3:42 PMRate Your HealthIn general, would you say your health is? GoodPain AssessmentAre you currently having any pain which... You would like your provider to address? No Affects your activity level? NoDepression Screening - PHQ-2Over the last two weeks, have you... Had little interest or pleasure in doing things? Not at all Been feeling down, depressed, or hopeless? Not at all PHQ-2 Score: 0Anxiety Screening - JUAN DIEGO-2Over the last two weeks, have you been... Feeling nervous, anxious, or on edge? Not at all Unable to stop or control worrying? Not at all JUAN DIEGO-2 Score: 0Food InsecurityWithin the past year...Did you worry whether your food would run out before you got money to buy more? NoWas there a time when the food you bought didn't last and you didn't have money to get more? NoScreening, Brief Intervention, & Referral to Treatment (SBIRT)Pre-Screening Questions How many times have you have 5 or more drinks in a day? 363How many times have you used an illegal drug or used a prescription medication for a non- medical reason? 0Performed by: Wendy Kurtz , January 11, 2020 3:47 PMAUDIT How often do you have a drink of alcohol? Monthly or less How many drinks containing alcohol do you have on a typical day when you are drinking? 5 or 6 How often do you have five or more drinks on one occasion? Daily or almost dailyIn the last year, how often have you... Found that you were not able to stop drinking once you had started? Less than monthly Failed to do what was normally expected of you because of drinking? Never Needed a first drink in the morning to get yourself going after a heavy drinking session? Less than monthly Had a feeling of guilt or remorse after drinking? Monthly Been unable to remember what happened the night before because you had been drinking? Monthly Have you or someone else been injured because of your drinking? No Has a relative, friend, doctor, or other health care worker been concerned about your drinking or suggested you cut down? Yes, during the last yearToday's Results: AUDIT Score: 17 AUDIT Interpretation: Brief Treatment Performed by: Wendy Kurtz , January 11, 2020 3:48 PMPatient History Medical History:fake right eye 2007heart attack 08/04/2018-Frankford'sblood clot- Surgical History:6 stents in heartleft pinky surgeryFamily History:Myocardial infarction ([place]) (Mother)Social/Personal History: Advised to Quit/Tobacco Education: YesNurses Note patient would like refill on acetaminophenChief Complainter this am -er wants patient off lisinoprilHistory of Present Illness (HPI)Pt presents for follow-up for multiple ER visits. Pt is a poor historian and unfortunately his medical records are quite incomplete. Since his last visit here, he has apparently had some form of right leg vascular surgery, presumably for claudication. He is unsure of the provider, but believes they are in [place]. He was seen in [facility] ER 12/26/2019 for postop bleeding at the bandage sites, which was not a concern according to that ER note. Pt states he has not seen the surgeon since the procedure, doesn't have their number, and is unaware of any upcoming appointments. He also presents with medication bottles for blood pressure medications with an unrecognized prescriber name that are newly written/filled. He believed this was the surgeon, but we called that office and it was not. Pt was seen very early this morning at [facility] ER for tongue swelling, diagnosed with angioedema from his lisinopril. HPI performed by: Pattie BECK, January 11, 2020 4:07 PMTransitions of Care InboundProblem ReviewProblem List was reviewed and/or updated during this visit.Medication Reconciliation & ReviewMedication List was reviewed and/or updated during this visit, including review of any [id number] medications, herbal therapies, and/or supplements.Allergy ReviewAllergy List was reviewed and/or updated during this visit.Adult Preventive CareProvider Calculated and Reviewed all Clinical Protocols for patient today. Screening Tobacco Screening: Smoking Status: current every day smoker (01/11/2020) Tobacco Use: Currently (01/11/2020) Advised to Quit: Yes (01/11/2020)Labs/Meds/Other Counseling-Nutrition and Physical Activity:BMI Interpretation: Healthy Weight (01/11/2020) Counseling: Done (01/11/2020) Physical Activity: Done (01/11/2020)Cancer Screening ColonoscopyReviewed:Previous Comments: doesn't know when he had one done (12/21/2019)Today's Comments: never had one per patientReview of Systems General: Denies loss of appetite, chills, dizziness, fatigue, fever, headache, feeling ill. Cardiovascular: Denies chest pain, palpitations, feeling faint, SOB upon lying down, peripheral edema, elevated blood pressure. Respiratory: Denies cough, difficulty breathing, shortness of breath, wheezing. Gastrointestinal: Denies nausea, vomiting, diarrhea, constipation, pain or discomfort. Musculoskeletal: Denies leg pain. Skin: Denies rash, redness, suspicious lesions. Neurologic: Denies weakness, numbness/tingling, feeling faint. Physical ExamGeneral Appearance: well nourished, well hydrated, no acute distressEyes, External: conjunctivae and lids normal, EOMIRespiratory, Auscultation: clear to auscultation bilaterally; no rales, rhonchi, or wheezesCardiovascular, Auscultation: S1, S2 audible; no murmur, rub, or gallop; RRRPeripheral Circulation: no clubbing, cyanosis, edema, or varicositiesAbdomen: soft, non-tender, no masses, bowel sounds normalGait & Station: normalSkin, Inspection: no rashes, lesions, or ulcerations, healing large incisions on right leg and abdomen, no erythema or dehiscenceOrientation: oriented to time, place, and personJudgment & Insight: intactCare Management Plan Transitions of CareInboundRate Your HealthIn general, would you say your health is? GoodAssessment & Plan Problems:Assessed:Elevated blood pressure (ICD-796.2) (IJQ11-F85.0) Assessment: Instructions: Actually low today. Continue Spironolactone only today. STOP and never take Lisinopril again, allergy list updated.Intermittent claudication (ICD-443.9) (KGK99-I96.9) Assessment: Instructions: Resolved since surgery. Release of information form(s) to obtain medical records from your surgeon has been signed in the office today. We will reach out to your surgeon to help you find out what your follow-up with them will be.History of myocardial infarction (ICD-V12.59) (LYA93-S45.2) Assessment: Instructions: Fasting labs have been ordered for you today, PLEASE complete these as scheduled. When labs are drawn, please ensure that you have had nothing to eat or drink for 8-10 hours prior to the blood drawn. Water or black coffee is OK to have before the blood draw.Patient Instructions/Care Plan: Elevated blood pressure: Actually low today. Continue Spironolactone only today. STOP and never take Lisinopril again, allergy list updated.Intermittent claudication: Resolved since surgery. Release of information form(s) to obtain medical records from your surgeon has been signed in the office today. We will reach out to your surgeon to help you find out what your follow-up with them will be.History of myocardial infarction: Fasting labs have been ordered for you today, PLEASE complete these as scheduled. When labs are drawn, please ensure that you have had nothing to eat or drink for 8-10 hours prior to the blood drawn. Water or black coffee is OK to have before the blood draw. Plan developed in collaboration with patient and/or familyMedications:GNP STOOL SOFTENER 100 MG ORAL CAPSULEACETAMINOPHEN 325 MG ORAL TABLETALDACTONE 25 MG ORAL TABLETMedication Changes:Added: GNP STOOL SOFTENER 100 MG ORAL CAPSULE-1 capsule po bidNew Prescription:ACETAMINOPHEN 325 MG ORAL TABLET-Take 1-2 tablets po every 4 hours prn Qty: 30[Tablet] Refills: 3 Method: ElectronicALDACTONE 25 MG ORAL TABLET-1 tablet po qd Qty: 30[Tablet] Refills: 3 Method: ElectronicACETAMINOPHEN 325 MG ORAL TABLET-Take 1-2 tablets po every 4 hours prn Qty: 30[Tablet] Refills: 3 Method: ElectronicALDACTONE 25 MG ORAL TABLET-1 tablet po qd Qty: 30[Tablet] Refills: 3 Method: ElectronicAllergies:LISINOPRIL (LISINOPRIL) (Critical)Orders:Adult - Ofc Vst, EST, Level III [CPT-29137] Follow-Up Return to clinic: in 2 weeks for follow upAdditional Follow-Up: lab reviewClinical Visit Summary CompletedMedications:ALDACTONE 25 MG ORAL TABLET (SPIRONOLACTONE) 1 tablet po qd #30[Tablet] x 3 Entered and Authorized by: Pattie BECK Method used: [facility] [address] [place] [address] RxID: [id number] 325 MG ORAL TABLET (ACETAMINOPHEN) Take 1-2 tablets po every 4 hours prn #30[Tablet] x 3 Entered and Authorized by: Pattie BECK Method used: Electronically to [facility] ([facility]ail) [address] [place] [address] Fax: RxID: [id number] 25 MG ORAL TABLET (SPIRONOLACTONE) 1 tablet po qd #30[Tablet] x 3 Entered and Authorized by: Pattie BECK Method used: [facility]ically to [facility] ([facility]) [address] [place] [address] Note to Pharmacy: Route: ORAL; RxID: [id number] 325 MG ORAL TABLET (ACETAMINOPHEN) Take 1-2 tablets po every 4 hours prn #30[Tablet] x 3 Entered and Authorized by: Pattie BECK Method used: [facility]ically to [facility] ([facility]) [address] [place] [address] Note to Pharmacy: Route: ORAL; RxID: [id number] signed by Pattie BECK on 01/21/2020 at 1:11 PM Name Value Range Interpretation Code Description Data Diana rce(s) Supporting Document(s) ID Date Data Source [id number] 01/11/2020 09:05:00 AM EDT [facility] Name Value Range Interpretation Code Description Data Diana rce(s) Supporting Document(s) Erythrocyte sedimentation rate by Westergren method 20 [facility] ([facility]) C-Reactive Protein 1.97 [facility] ID Date Data Source [id number] 01/11/2020 09:05:00 AM EDT [facility] Name Value Range Interpretation Code Description Data Diana rce(s) Supporting Document(s) Albumin [Mass/volume] in Serum or Plasma 3.7 [facility] ([facility]) Alanine aminotransferase [Enzymatic activity/volume] in Serum or Pl asma 22 [facility] ([facility]) Calcium [Mass/volume] in Serum or Plasma 9.1 [facility] ([facility]) Carbon dioxide, total [Moles/volume] in Serum or Plasma 30 [facility]) Chloride [Moles/volume] in Serum or Plasma 101 [facility] ([facility]) Potassium [Moles/volume] in Serum or Plasma 4.1 [facility] ([facility]) Protein [Mass/volume] in Serum or Plasma 7.7 [facility] ([facility]) Alkaline phosphatase [Enzymatic activity/volume] in Serum or Plasma 8 5 [facility] ([facility]) Aspartate aminotransferase [Enzymatic activity/volume] in Serum or Plasma 19 [facility]) Sodium 136 [facility] Creatinine For GFR 1.08 [facility]) Urea nitrogen [Mass/volume] in Serum or Plasma 17 [facility] ([facility]) Glucose 96 83-110 [facility] ID Date Data Source [id number] 12/29/2019 06:35:[address] [facility] NT INFORMATIONPatient MRN Name Date of Age Gend*PT [id number] Chet Juarez Jr. 1960 59 years M IPPT Location Admission Date/Time Visit ID Attending [id number] 12/24/19 0236 --- --- EPI ID CSN Admitting Provider [id number] Marianne Jordan MD([id number]) [place] [address] OPERATIVE REPORT OPNAME: CHET JUAREZ JR.#: [id number] #: [id number] ADMISSION DATE: 12/24/2019DOB: 1960 SEX: M PT TYPE: I SURACCT #: [id number] CARE PHYSICIAN:DATE OF OPERATION: 12/25/2019DIAGNOSES:Occlusive disease with atherosclerosis, right lower extremity.PROCEDURE:Right iliofemoral bypass and right popliteal thrombectomy.SURGEON:Dr. Jordan.SPORTS MANAGEMENT PROFESSOR:EBONY Negron.ANESTHESIA:General.DESCRIPTION OF PROCEDURE:Patient anesthetized. The abdomen and groins were painted with ChloraPrepand draped in sterile fashion. The femoral bifurcation was exposed with asoft vessel was pulseless and somewhat collapsed. Retroperitoneal incisionwas made from the lateral border of the rectus on the right towards theanterior axillary line and the retroperitoneum was entered. The commoniliac artery has got good pulse with sizable vessel. A tunnel was madebetween the two incisions. He was given systemic heparin. An 8 mmHemashield graft was then anastomosed end-to-side to the common iliacartery with a 4-0 Prolene suture and to the femoral artery on the rightside at the bifurcation with a 5-0 Prolene suture. There were satisfactorypalpable pulses d istally. There was somewhat of an obstructed signal inthe superficial femoral artery knowing this is an occlusion at thepopliteal artery. The incisions were closed in layers with absorbablesuture material. I was unhappy with the appearance of the foot. The groinwas reopened and superficial femoral artery was exposed beyond theanastomosis. A Fogerty catheter was passed distally and brought back somethrombus with somewhat of improved Doppler signal. The incision was thenclosed in layers. I was still unhappy with the appearance of the foot.The right leg was painted with antiseptic solution and draped in sterilefashion. The popliteal artery was exposed below the knee. There isprobably some anomalous anatomy here with a branch with some vessels wherethere is actual tibial or collateral medial to the vein. The artery issoft and pulseless here and I feel it is certain there is significantdisease at the trifurcation. The artery was opened. The Feng catheterwas passed retrograde and brought back pulsatile inflow after some thrombuswas extruded. At this point, the arteriotomy was closed with a 6-0 Prolenesuture. There was a Doppler signal distally reflective of intrinsic tibialperoneal disease, but I felt that this was improving with now pulsatile inflow. The incision was closed in layers with absorbable suture material. Drydressings applied. The blood loss for the entire procedure was a couple of100 mL. Sponge and needle counts correct. He was brought to recovery roomin stable condition.ISAAK KRAMER/BRISEIDA Job #: [id number] DOC #: [id number] Name Value Range Interpretation Code Description Data Diana rce(s) Supporting Document(s) ID Date Data Source [id number] 12/26/2019 12:12:00 AM EDT [facility] ([facility]) Name Value Range Interpretation Code Description Data Diana rce(s) Supporting Document(s) Laboratory test finding (navigational concept) 128 mg/dL 70-99 [facility] ([facility]FOR[facility] ID Date Data Source [id number] 12/25/2019 08:12:51 PM EDT [facility] [place] [facility] Name Value Range Interpretation Code Description Data Diana rce(s) Supporting Document(s) POC NOVA GLU 128 mg/dL (70-99) H [facility] [place] [facility] PERFORMED BY [facility] ID Date Data Source [id number] 12/25/2019 04:40:[address] [facility] NT INFORMATIONPatient MRN Name Date of Age Gend*PT [id number] Chet Juarez Jr. 1960 59 years M IPPT Location Admission Date/Time Visit ID Attending Provider --- --- --- --- EPI ID CSN Admitting Provider [id number] ---Arterial Line PlacementPatient location during procedure: ORIndications for arterial line: multiple ABGs and hemodynamic monitoringStaffingPerformed by: Reji Huggins, JASONompleted: patient identified, risks and benefits discussed, surgical consentobtained, anesthesia consent obtained, monitors and equipment checked, pre-opevaluation completed, timeout performed, patient was prepped and draped in usualsterile fashion,Arterial Line InsertionSite prep: chlorhexidineLaterality: rightLocation: radial arteryNeedle gauge: 20 GTechnique: Seldinger technique used and ultrasound guidedNumber of attempts: 1AssessmentSutured: noDressing: dressing appliedPatient tolerance: tolerated well Name Value Range Interpretation Code Description Data Diana rce(s) Supporting Document(s) ID Date Data Source [id number] 12/25/2019 04:27:25 PM [facility] INFORMATIONPatient MRN Name Date of Age Gend*PT [id number] Chet Juarez Jr. 1960 59 years M IPPT Location Admission Date/Time Visit ID Attending Provider --- --- --- --- EPI ID CSN Admitting Provider [id number] ---AirwayPatient location during procedure: ORUrgency: electiveDifficult airway: noAdvanced airway equipment used: noStaffingPerformed by: Vamshi Berry CRNAAnesthesiologist: Reji Huggins MDIndications and Patient ConditionIndications for airway management: anesthesiaPreoxygenated: yesPatient position: sniffingIn-line stabilization: noMask ventilation: 0 - not attemptedFinal Airway/ApproachesFinal airway type: ETTNumber of attempts at final approach: 1Number of other approaches attempted: 0Final Airway DetailsFinal ETT airway: ETT - singleCuffed: yesTechnique used for successful ETT placement: direct laryngoscopyCricoid pressure: noRSI: noInsertion site: oralBlade type/size: MAC 3.5ETT size: 7.5 mmMeasured from: lipsETT to lips: 21 cmPlacement verified by: chest auscultation and + [id number]: CTA and equal breath sounds bilateralGrade view: grade I - full view of glottisAdditional NotesI performed this patients' endotracheal intubation which required substantiallyincreased work beyond that of the typical emergency endotracheal intubationbased on the need to use COVID-19 precautions which required increased time andskill employed through use of personal protective equipment in preparing for andduring the intubation as well as the additional time spent properly disposing ofthe equipment upon completion of the procedure. Name Value Range Interpretation Code Description Data Diana rce(s) Supporting Document(s) ID Date Data Source [id number] 12/25/2019 02:43:23 PM EDT [facility] NT INFORMATIONPatient MRN Name Date of Age Gend*PT [id number] Chet Juarez Jr. 1960 59 years M IPPT Location Admission Date/Time Visit ID Attending [id number] 12/24/19 0236 --- Marianne Jordan MD([id number]) EPI ID CSN Admitting Provider [id number] Marianne Jordan MD([id number])H&P reviewed. The patient was examined and there are no changes to the H&P.Marianne Jordan MD2:43 PM Name Value Range Interpretation Code Description Data Diana rce(s) Supporting Document(s) ID Date Data Source [id number] 12/28/2019 04:42:45 PM EDT Lab [facility] [place], [place] [address]Egl# Surgical Pathology ReportAccession #:[id number](s) ReceivedA: Right femoral thrombusClinical Diagnosis and HistoryRight lower extremity ischemiaDIAGNOSISRIGHT FEMORAL THROMBUS. THROMBUS/BLOOD CLOT (GROSS DIAGNOSIS). Gross DescriptionReceived in formalin, the specimen was labeled "right femoral thrombus"and consists of two fragments of dark red/brown blood clot measuring 1.5cm in aggregate. No sections submitted. Gross only.Processed at Laboratory [facility], Histopathology, [address] [place] [address], [facility].emggmm/gmm Reported: 12/28/2019Electronically Signed Out By Henri Gonzalez M.D. [facility]emg This report may include immunohistochemical or in-situ hybridizationresults. Testing was developed and the performance characteristicsdetermined by [facility] as required by CLIA '88. The FDAhas determined that approval for specific use is not necessary forclinical use. The quality of Hematoxylin and Eosin stains and asapplicable, for all immunohistochemical and/or special stains, includingpositive and negative controls, were reviewed and considered appropriate.ICD codes I82.601CPT codesA: 46858G Name Value Range Interpretation Code Description Data Diana rce(s) Supporting Document(s) ID Date Data Source [id number] 12/25/2019 05:51:14 AM EDT [facility] Name Value Range Interpretation Code Description Data Diana rce(s) Supporting Document(s) EKG [facility] RYZALf1bRzWNPdJdx9SkJeYbCTJwKL9zipk3N9V3dIAgP2TbyRHzn8rvM2HoI8ZjNETwCTQLQR6ClQNx jb2 [file] [id number]uQamLnDoIHxx65dOJqCdusEUpqfaV/fXS4tH9C/sY6iBwrzvyC+/[employer]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 [file] [id number]IRvh+GkqcqFXpvHvtJXKSNIKmIAAKKMCYZ3P= ID Date Data Source [id number] 12/25/2019 05:39:00 AM EDT [facility] Name Value Range Interpretation Code Description Data Diana rce(s) Supporting Document(s) Sodium [Moles/volume] in Serum or Plasma 136 mmol/L 136-145 [facility] ([facility]) Potassium [Moles/volume] in Serum or Plasma 4.0 mmol/L 3.6-5.2 [facility] ([facility]) Chloride [Moles/volume] in Serum or Plasma 104 mmol/L 100-108 [facility] ([facility]) Carbon dioxide, total [Moles/volume] in Serum or Plasma 25 mmol/L 22 -31 [facility] ([facility]) Anion gap in Serum or Plasma 7 mmol/L 7-16 [facility] ([facility]) Urea nitrogen [Mass/volume] in Serum or Plasma 13 mg/dL 7-24 [facility] ([facility]) Urea nitrogen/Creatinine [Mass Ratio] in Serum or Plasma 11.4 1 0.0-20.0 [facility] ([facility]) Glucose [Mass/volume] in Serum or Plasma 164 mg/dL 70-99 [facility] ([facility]) Creatinine [Mass/volume] in Serum or Plasma 1.14 mg/dL 0.80-1.30 [facility] ([facility]) Glomerular filtration rate/1.73 sq M pre dicted among non-blacks [Volume Rate/Area] in Serum or Plasma by Creatinine-based formula (MDRD) >60 [facility] ([facility]) Calcium [Mass/volume] in Serum or Plasma 9.2 mg/dL 8.4-10.2 [facility] ([facility]) Glomerular filtration rate/1.73 sq M pre dicted among blacks [Volume Rate/Area] in Serum or Plasma by Creatinine-based formula (MDRD) >60 [facility] ([facility]) Glomerular filtration rate/1.73 sq M pre dicted among non-blacks [Volume Rate/Area] in Serum or Plasma by Creatinine-based formula (MDRD) See Notes [facility] ([facility]) -- NORMAL KIDNEY FUNCTION OR MILD DISEASE - GFR >OR= 60 CHRONIC KIDNEY DISEASE - GFR 15 - 59 RENAL FAILURE - GFR <15 Est. GFR calculation based on the MDRD study equation, which assumes a steady state for creatinine. Est. GFR should not be used for medication dosing. ID Date Data Source [id number] 12/25/2019 05:23:00 AM EDT [facility] ([facility] Name Value Range Interpretation Code Description Data Diana rce(s) Supporting Document(s) aPTT in Platelet poor plasma by Coagulation assay 63.8 s 22.0-34. 3 [facility] ([facility]) ID Date Data Source [id number] 12/25/2019 05:10:00 AM EDT [facility] Name Value Range Interpretation Code Description Data Diana rce(s) Supporting Document(s) Leukocytes [#/volume] in Blood by Automated count 7.7 10*3/uL 4.1-11. 0 [facility] ([facility]) Hematocrit [Volume Fraction] of Blood by Automated count 43.2 % 4 1.0-53.0 [facility] ([facility]) Erythrocytes [#/volume] in Blood by Automated count 4.33 10*6/uL 4.60 -6.10 [facility] ([facility]) Hemoglobin [Mass/volume] in Blood 14.9 g/dL 13.5-18.0 [facility] ([facility]) Erythrocyte mean corpuscular volume [Entitic volume] by Auto mated count 99.6 fL 80.0-95.0 [facility] ([facility] ) Erythrocyte mean corpuscular hemoglobin concentration [Mass/volume] by Automated count 34.4 g/dL 32.0-36.0 [facility] ([facility]) Erythrocyte mean corpuscular hemoglobin [Entitic mass] by Automated count 34.3 pg 27.0-32.0 [facility] ([facility]) Platelets [#/volume] in Blood by Automated count 156 10*3/uL 150-450 [facility] ([facility]) Erythrocyte distribution width [Ratio] by Automated count 13.2 % 10.5-14.5 [facility] ([facility]) Platelet mean volume [Entitic volume] in Blood by Simeon-Geo 8.6 fL 7.1-10.7 [facility] ([facility]) ID Date Data Source [id number] 12/25/2019 01:40:09 AM EDT [facility] Name Value Range Interpretation Code Description Data Diana rce(s) Supporting Document(s) SODIUM 136 mmol/L (136-145) [facility] POTASSIUM 4.0 mmol/L (3.6-5.2) [facility] CHLORIDE 104 mmol/L (100-108) [facility] CO2 25 mmol/L (22-31) [facility] ANION GAP 7 mmol/L (7-16) [facility] UREA NITROGEN 13 mg/dL (7-24) [facility] CREATININE 1.14 mg/dL (0.80-1.30) [facility] BUN/CREAT RATIO 11.4 RATIO (10.0-20.0) [facility] GLUCOSE 164 mg/dL (70-99) H [facility] CALCIUM 9.2 mg/dL (8.4-10.2) [facility] GFR >60 ml/min/1.73m2 (>59) [facility] GFR ( AMER) >60 ml/min/1.73m2 (>59) [facility] GFR INTERPRETATION [facility] --NORMAL KIDNEY FUNCTION OR MILD DISEASE - GFR >OR= 60CHRONIC KIDNEY DISEASE - GFR 15 - 59RENAL FAILURE - GFR <15 Est. GFR calculation based on the MDRDstudy equation, which assumes a steadystate for creatinine. Est. GFR should notbe used for medication dosing. ID Date Data Source [id number] 12/25/2019 01:24:34 AM EDT [facility] Name Value Range Interpretation Code Description Data Diana rce(s) Supporting Document(s) APTT 63.8 s (22.0-34.3) H [facility] ID Date Data Source [id number] 12/25/2019 01:11:08 AM EDT [facility] Name Value Range Interpretation Code Description Data Diana rce(s) Supporting Document(s) WBC 7.7 10*3/uL (4.1-11.0) [facility] RBC 4.33 10*6/uL (4.60-6.10) L [facility] HGB 14.9 g/dL (13.5-18.0) [facility] HCT 43.2 % (41.0-53.0) [facility] MCV 99.6 fL (80.0-95.0) H [facility] MCH 34.3 pg (27.0-32.0) H [facility] MCHC 34.4 g/dL (32.0-36.0) [facility] RDW 13.2 % (10.5-14.5) [facility] PLT 156 10*3/uL (150-450) [facility] MPV 8.6 fL (7.1-10.7) [facility] ID Date Data Source [id number] 12/24/2019 07:22:22 PM EDT [facility] Name Value Range Interpretation Code Description Data Diana rce(s) Supporting Document(s) APTT 70.6 s (22.0-34.3) H [facility] ID Date Data Source [id number] 12/24/2019 03:59:00 PM EDT [facility] Name Value Range Interpretation Code Description Data Diana rce(s) Supporting Document(s) Amphetamines [Presence] in Urine by Screen method Negative [facility] ([facility]) Barbiturates [Presence] in Urine by Screen method Negative [facility]) Benzodiazepines [Presence] in Urine by Screen method Negative [facility] ([facility]) Cannabinoids cutoff [Mass/volume] in Urine Positive Abnormal (applies to non- numeric results) [facility]) Benzoylecgonine [Presence] in Urine by Screen method Negative [facility] ([facility]) Opiates [Presence] in Urine by Screen method Negative [facility] ([facility]) NOTE: Oxycodone is not sufficiently dete cted by this screening assay. A more sensitive assay is available upon request. Laboratory comment [Text] in Report Narrative These Ar e Screening Immunoassay Tests That [facility] ([facility]) ARE REPORTED POSITIVE WHEN THE RESULT S EXCEED THE THRESHOLD (CUTOFF) INDICATED. A LIST OF POTENTIAL INTERFERENCES FOR EACH METHOD CAN BE MADE AVAILABLE UPON REQUEST. CONFIRMATION OF A POSITIVE SCREEN CAN BE PERFORMED BY A REFERENCE LABORATORY IF REQUEST IS MADE WITHIN 48 HRS. PERFORMED BY [address] [place] [address] [facility] [id number] Phencyclidine [Presence] in Urine by Screen method Negative [facility]) ID Date Data Source [id number] 12/24/2019 02:29:00 PM EDT [facility] Name Value Range Interpretation Code Description Data Diana rce(s) Supporting Document(s) Bsa 1.81 m2 [facility] Pt Height 1.78 m [facility] Systolic BP Echo 150.00 [facility]) Weight 64.86 kg [facility]) LV Length [place] (A4c) 8.26 cm [facility] LV Length [place] (A2c) 8.41 cm [facility]) Diastolic BP Echo 84.00 [facility] LV Area [place] (A4c) 39.90 cm2 [facility] LV Area [place] (A2c) 39.20 cm2 [facility] LV Edv (A2c) 151.00 cm3 [facility] LV Diastolic Volume 154.00 cm3 [facility] LV Edv (A4c) 156.00 cm3 [facility]) LV Length Sys (A2c) 7.78 cm [facility] LV Length Sys (A4c) 7.45 cm [facility]) LV Esv (A2c) 101.00 cm3 [facility]) LV Area Sys (A2c) 30.60 cm2 [facility] LV Systolic Volume 109.00 cm3 [facility]) Lvidd 5.79 cm 3.5-6.0 [facility]) Ivs 1.14 cm 0.6-1.1 [facility]) Lvot diameter 2.2 cm [facility]) Lvot peak Vti 16.70 cm [facility]) Lvot mn grad 1.0 [facility]) Av Lvot peak gradient 2.00 [facility] ( [facility]) Lvot peak twila 0.68 m/s [facility]) Lvot Mean Twila 0.52 m/s [facility]) PW 1.09 cm 0.6-1.1 [facility]) MV E' Tissue Velocity Lateral 0.06 m/s [facility]) MV E' Lateral Tissue Twila 0.06 m/s [facility] T ([facility]) E/E' Lateral Ratio 10.80 [facility]) A2c Ef 33 [facility]) A4c Ef 30 [facility]) Lvot stroke volume 63.45 cm3 [facility]) LA size 1.63 cm [facility]) Lvot area 3.80 cm2 [facility]) LA size 3.49 cm [facility]) LA size 3.52 cm [facility]) LA size 3.67 cm [facility]) LA size 3.94 cm [facility]) LA size 3.76 cm [facility]) LA size 4.41 cm [facility] LA size 4.03 cm [facility] LA size 4.20 cm [facility] LA size 4.55 cm [facility] LA size 4.59 cm [facility] LA size 4.61 cm [facility] LA size 4.58 cm [facility]) LA size 4.52 cm [facility] LA size 4.17 cm [facility]) LA size 3.94 cm [facility] LA size 3.55 cm [facility]) LA size 4.40 cm [facility] LA size 2.28 cm [facility] LA size 3.07 cm [facility] Left atrial length superior-inferior (apical 2-chamber view) 5.40 cm [facility]) Left atrial length medial-lateral (apical 4-chamber view) 5.62 cm [facility]) LA Area Sys (A2c) 21.70 cm2 [facility] LA Area Sys (A4c) 21.20 cm2 [facility] LA Esv (A2c) 67.80 cm3 [facility]) LA volume 65.10 cm3 [facility] LA volume 67.70 cm3 [facility]) Av mean gradient 11.00 [facility] Ao peak twila 2.18 m/s [facility] ([facility]) Aortic valve velocity time integral 44.50 cm [facility]) Aortic valve mean velocity 1.61 m/s [facility] ([facility]) Ao root annulus 3.50 cm [facility] Av peak gradient 19.00 [facility] E wave decelartion time 176.00 ms [facility]) MV Peak A Twila 0.79 m/s [facility]) E/A ratio 0.86 [facility]) MV Peak E Twila 0.68 m/s [facility]) LV Systolic Volume Index 60.2 mL/m2 [facility] NT ([facility]) Av Velocity Ratio 0.31 [facility]) LV Diastolic Volume Index (A4c) 86.19 [facility]) LV Diastolic Volume Index 85.1 mL/m2 [facility]) LV Edv Index (A2c) 83.43 [facility]) LV Esv Index (A2c) 55.80 [facility]) ID Date Data Source [id number] 12/24/2019 12:44:17 PM EDT [facility] Name Value Range Interpretation Code Description Data Diana rce(s) Supporting Document(s) APTT 48.7 s (22.0-34.3) H [facility] ID Date Data Source [id number] 12/24/2019 11:30:[address] [facility] INFORMATIONPatient MRN Name Date of Age Gend*PT [id number] Chet Juarez Jr. 1960 59 years M IPPT Location Admission Date/Time Visit ID Attending [id number] 12/24/19 0236 --- Marianne Jordan MD([id number]) EPI ID CSN Admitting Provider [id number] Marianne Jordan MD([id number]) [place] [address] HISTORY AND PHYSICAL HPNAME: CHET JUAREZ JR.#: [id number] #: [id number] ADMISSION DATE: 12/24/2019DOB: 1960 SEX: M PT TYPE: I SURACCT #: [id number] CARE PHYSICIAN:DATE OF ADMISSION: 12/24/2019This is a 59-year-old man with coronary artery disease, status post PTCAwith claudication and ischemic pain in his right foot with absence ofDoppler signals, but intact viability of the foot with motion andsensation. He will have a CT angiogram to get a better handle on what isbl ocked and the nature of this and whether there is any endovasculartreatment or whether he will need to have a bypass in the leg for limbsalvage.ISAAK KRAMER/NTS Job #: [id number] DOC #: [id number] Name Value Range Interpretation Code Description Data Diana rce(s) Supporting Document(s) ID Date Data Source [id number] 12/24/2019 10:49:[address] [facility]FORMATIONPatient MRN Name Date of Age Gend*PT [id number] Chet Juarez Jr. 1960 59 years M IPPT Location Admission Date/Time Visit ID Attending [id number] 12/24/19 0236 --- Marianne Jordan MD([id number]) EPI ID CSN Admitting Provider [id number] Marianne Jordan MD([id number])CARDIOLOGY CONSULTATIONName: Chet Juarez Jr. Gender: maleDate of : 1960 Age: 59 yearsDate/Time of Admit: 12/24/2019 2:36 AM Code Status: Full CodePrimary Care Provider / Referring Physician: [facility]Informant:HISTORYCHIEF COMPLAINT: No chief complaint on file.HPI:This patient is a 59 years male who [facility] with limiting bilateral intermittent claudication. 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 He is acandidate for bypass.He has a history of coronary disease with stent placement in 2017. [facility] that [facility]he [facility] wall STEMI which was treatedwith reperfusion therapy. He developed recurrent ischemic chest pain followingreperfusion and was treated at [facility] with bare-metal stent placement inthe right coronary and circumflex. He had had a history of nonadherence tomedication.He has not had recurrent chest pain.His only prehospital meds are Toprol-XL 25 mg daily, Plavix 75 mg daily, ASA 81mg daily, Lipitor, and Nitrostat.His lab studies reveal a creatinine of 0.97 and GFR greater than 60. Hishemoglobin is 16.5.A TTE today demonstrates a dilated left ventricle with extensive inferiorposterolateral and inferoseptal hypokinesis. The EF is 30%. The left atrialpressure is not elevated. There is type I diastolic dysfunction. He hasfibro-degenerative aortic and mitral valve disease with a small amount of mitralinsufficiency. He does not have valvular aortic stenosis.PAST HISTORYPMH:Past Medical History:Diagnosis Date Heavy smoker Mental health disorder NSTEMI 07/27/2017PSH:Past Surgical History:Procedure Laterality Date ENUCLEATIONFH: No family history on file.PSH:Social HistorySocial History Narrative Lives with step-daughter and her boyfriend. lives downstairs.Social HistorySocioeconomic History Marital status: Single Spouse name: Not on file Number of children: Not on file Years of education: Not on file Highest education level: Not on fileOccupational History Not on fileSocial Needs Financial resource strain: Not on file Food insecurity: Worry: Not on file Inability: Not on file Transportation needs: Medical: Not on file Non-medical: Not on fileTobacco Use Smoking status: Current Every Day Smoker Packs/day: 2.00 Years: 45.00 Pack years: 90.00 Types: Cigarettes Smokeless tobacco: Never UsedSubstance and Sexual Activity Alcohol use: No Drug use: No Sexual activity: Not on fileLifestyle Physical activity: Days per week: Not on file Minutes per session: Not on file Stress: Not on fileRelationships Social connections: Talks on phone: Not on file Gets together: Not on file Attends latter day service: Not on file Active member of club or organization: Not on file Attends meetings of clubs or organizations: Not on file Relationship status: Not on file Intimate partner violence: Fear of current or ex partner: Not on file Emotionally abused: Not on file Physically abused: Not on file Forced sexual activity: Not on fileOther Topics Concern Not on fileSocial History Narrative Lives with step-daughter and her boyfriend. lives downstairs.Review of SystemsConstitutional: No fevers, chills, weight loss or night sweats..Eyes: No blindness, double vision, or glaucomaRespiratory: negative for asthma, chronic bronchitis, hemoptysis, pleurisy,sputum production, or wheezingCardiovascular: . He has bilateral leg claudication with an occluded rightpopliteal artery .Gastrointestinal: negative for constipation, diarrhea, melena, nausea, orvomitingNeurological: negative for dizziness, gait problems, headaches and seizuresHematologic/lymphatic: negative for easy bruising, petechiae, or anemiaBehavioral/Psych: He is nonadherent to medication and drinks over 10 bottles ofbeer a day. He has never had withdrawal symptoms or seizures.Endocrine: negative for polydipsia, polyphagia and polyuria and temperatureintoleranceAllergic/Immunologic: No seasonal allergiesMEDICATIONS AND ALLERGIESALLERGIES/SENSITIVITIES:AllergiesAllergen Reactions Codeine Haldol [Haloperidol Lactate] Nicoderm [Nicotine]MEDS:Medications Prior to AdmissionMedication Sig Dispense Refill Last Dose aspirin 81 MG chewable tablet Chew 1 tablet (81 mg total) daily 30 tablet 11Unknown at Unknown time atorvastatin (LIPITOR) 80 MG tablet Take 1 tablet (80 mg total) by mouthnightly 30 tablet 11 Unknown at Unknown time clopidogrel (PLAVIX) 75 MG tablet Take 1 tablet (75 mg total) by mouth daily30 tablet 11 Unknown at Unknown time metoprolol succinate (TOPROL-XL) 25 MG 24 hr tablet Take 1 tablet (25 mgtotal) by mouth daily 30 tablet 5 Unknown at Unknown time nitroglycerin (NITROSTAT) 0.[address] 1 tablet (0.4 mg total) underthe tongue every 5 (five) minutes as needed for chest pain 25 tablet 3 Unknownat Unknown timePhysicalVITAL SIGNS:Blood Pressure: BP: 150/84 Pulse: Heart Rate: 68Temperature: Temp: 97.7 F Respirations: Resp: 20Admission Weight: Weight: 64.9 kg (143 lb) O2 Saturation: SpO2: 100 %Today's Weight: Weight: 64.9 kg (143 lb)PHYSICAL EXAMINATION:GENERAL: Well developed, well nourished man in no acute distress and oriented toperson place and time. There is normal affect and thought process.HEENT: No arcus, xanthelasma, or scleral icterus. Nasal and oral mucosa pink.Tongue well-papillated.NECK: JVP normal. Carotids brisk. No lymphadenopathy.LUNGS: Resonant and clearCARDIAC: PMI normal S1 normal S2 physiologically split. No gallops. No murmurs.No rubs.ABDOMEN: Soft and nontender without hepatosplenomegaly. Bowel sounds are normal.PULSES: Pedal pulses are not palpableEXTREMITIES: No edema. No clubbing. No cyanosis. Skin coolMUSCULOSKELETAL: No deformities, good muscle tone, normal range of motionNEUROLOGICAL: No major sensory or motor deficits.DiagnosticsLABS:BMP:Lab ResultsComponent Value Date NA 138 12/24/2019 K 3.8 12/24/2019 CL 105 12/24/2019 CO2 27 12/24/2019 ANIONGAP 6 (L) 12/24/2019 CALCIUM 8.8 12/24/2019 GLU 96 12/24/2019 BUN 11 12/24/2019 CREATININE 0.97 12/24/2019 GFRAA >60 12/24/2019 GFRNONAA >60 12/24/2019CBC with Diff:Lab ResultsComponent Value Date WBC 8.0 12/24/2019 RBC 4.81 12/24/2019 HGB 16.5 12/24/2019 HCT 48.0 12/24/2019 MCV 99.9 (H) 12/24/2019 MCH 34.2 (H) 12/24/2019 MCHC 34.3 12/24/2019 RDW 12.8 12/24/2019 PLT 161 12/24/2019 MPV 8.1 12/24/2019 LYMPHOPCT 12.4 (L) 08/05/2017 MONOPCT 4.4 08/05/2017 EOSPCT 0.3 08/05/2017 BASOPCT 0.5 08/05/2017 NEUTROABS 10.7 (H) 08/05/2017 MONOABS 0.6 08/05/2017 BASOSABS 0.1 08/05/2017CBC without Diff:Lab ResultsComponent Value Date WBC 8.0 12/24/2019 RBC 4.81 12/24/2019 HGB 16.5 12/24/2019 HCT 48.0 12/24/2019 MCV 99.9 (H) 12/24/2019 MCH 34.2 (H) 12/24/2019 MCHC 34.3 12/24/2019 RDW 12.8 12/24/2019 PLT 161 12/24/2019 MPV 8.1 12/24/2019CMP:Lab ResultsComponent Value Date NA 138 12/24/2019 K 3.8 12/24/2019 CL 105 12/24/2019 CO2 27 12/24/2019 ANIONGAP 6 (L) 12/24/2019 BUN 11 12/24/2019 CREATININE 0.97 12/24/2019 BCR 11.3 12/24/2019 GLU 96 12/24/2019 CALCIUM 8.8 12/24/2019 ALBUMIN 3.5 12/24/2019 GLOB 3.9 12/24/2019 AGRC 0.9 12/24/2019 ALKPHOS 57 12/24/2019 LABBILI 0.9 12/24/2019 AST 21 12/24/2019 ALT 28 12/24/2019 GFRAA >60 12/24/2019 GFRNONAA >60 12/24/2019Coags:Lab ResultsComponent Value Date PROTIME 10.8 12/24/2019 INR 1.03 12/24/2019 APTT 25.4 12/24/2019D-Dimer: No results found for: DDAT, PROCALCITON, LACTATENT Pro- BNP : No results found for this or any previous visit.DIAGNOSTICS:IMAGING: Chest film reveals normal heart size, normal pulmonary blood flowdistribution, no edema, and no effusions.ECG: NSR with old inferior wall myocardial infarctionConclusionsImpressions:1. CAD with previous inferior wall STEMI treated with thrombolytic therapy andrescue angioplasty2. Ischemic cardiomyopathy3. TTE does not demonstrate elevation of the left atrial pressure and he has nosymptoms of heart failure4. History of nonadherence to medicine5. Right lower extremity claudicationRecommendations:1. He is medically clear for the OR2. Please add metoprolol succinate 25 mg daily. Please add spironolactone 25 mgdaily and lisinopril 5 mg daily to his program as well.3. Please prescribe nicotine replacement therapy for him as well.Thank you for this consultation.Alexis Ackerman, MDDate: December 24, 2019Time: 10:21 AM Name Value Range Interpretation Code Description Data Diana rce(s) Supporting Document(s) ID Date Data Source [id number] 12/24/2019 11:59:51 AM EDT [facility] Name Value Range Interpretation Code Description Data Diana rce(s) Supporting Document(s) AMPHETAMINES,URINE (NEG) [facility] BARBITURATES,URINE (NEG) [facility] BENZODIAZEPINE,URINE (NEG) [facility] CANNABINOIDS,URINE (NEG) A [facility] COCAINE,URINE (NEG) [facility] OPIATES,URINE (NEG) [facility] NOTE: Oxycodone is not sufficientlydetec pablo by this screening assay. A moresensitive assay is available upon request. PHENCYCLIDINE,URINE (NEG) [facility] PLEASE NOTE: [facility] [place] ARE REPORTED POSITIVE WHEN THE RESULT SEXCEED THE THRESHOLD (CUTOFF) INDICATED. ALIST OF POTENTIAL INTERFERENCES FOR EACHMETHOD CAN BE MADE AVAILABLE UPON REQUEST.CONFIRMATION OF A POSITIVE SCREEN CAN BE PERFORMED BY A REFERENCE LABORATORY IFREQUEST IS MADE WITHIN 48 HRS. PERFORMEDBY [address] [place] [address] CIERA LIANG CHAD [id number] ID Date Data Source [id number] 12/24/2019 10:01:45 AM EDT [facility] Name Value Range Interpretation Code Description Data Diana rce(s) Supporting Document(s) &PDF [facility] WBUHTt5vIiOXBiJq64/IXXnlMUYnr1KbXQydQVy3LVxsNASsJ2PyfNkmXQFWN5LWSN8KAuETVmMKKz1u vci [file] Q+josé manuel/gs3gKT+D09Ml9KY2OZfMlg3qWE9E46pK5KgRol/h9/AG+hD/Dk5TUWK7pNf0sHAS7a9XEwI2AR6 [file] /OIeSOfDf8RpilmGSWWEBYRSLJUEOMVQFDIVOPNGRRNYFXYCVTUHVBLUXRJTRRBPDUsE5QTOBL1ihmYR DLHfP2Im53v2gaMdDzg7U4NJ21DziRDCEQeLKUYE7kbsGWkQN3XCs/V6/S9G6ESq38/Dt/gr4T5fwp5p pH78l/hlx7c7hA1NCCVOiLxBhHx99FydbBE+V0XvEs XxocqoCzlrAuf9pRNqsoVDllZyz/36n0nfdvOvXkgD6+XnR3I+prPcDfNi/9L+7wnJJA/Bv7+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 [file] z/inpatient nursing [file] AgICAgICAgICAgICAgICAgICAgICAgICAgICAgICAgICAgICAgICAgICAgICAgICAgICAgICAgICAgIC TbQREbHVOhVKQfOXLySRMdAEXvCZ9BVJBzBPFnOBWp ICAgICAgICAgICAgICAgICAgICAgICAgICAgICAgICAgICAgICAgICAgICAgICAgICAgICAgICAgICAg XAUbLWBaLPHnENYyQOXrHMQwENUxSPMdJFOdUQZqSH5IWTKaFPWgDCVaFIBiABCpBHFtIRYeBVVcLWFp ICAgICAgICAgICAgICAgICAgICAgICAgICAgICAgIC ZoRQYgKQSkUJOxAQJvYRQcJPLmTQNzRTRdQLMsNBQrXGMySJJzYSMaEA2UHXDiEBJvWKXuETAmQAVxFM AgICAgICAgICAgICAgICAgICAgICAgICAgICAgICAgICAgICAgICAgICAgICAgICAgICAgICAgICAgIC LpGQWcJWZiLQHiJRKqYYUvVGPsVZTcNY8ZKZKwLUOo ICAgICAgICAgICAgICAgICAgICAgICAgICAgICAgICAgICAgICAgICAgICAgICAgICAgICAgICAgICAg SJFsPNAwPNOuXKCqFILsGCPxPIYsVAMsUVLsTKOgCZSjXQ0BUSSnCWHnWJDnTAUxTVZoOTWnSIPvPLZo ICAgICAgICAgICAgICAgICAgICAgICAgICAgICAgIC LgBYVjGNUeQPGlMXDhYEOhLRNlDPXmFYCbTCKsSNSsRAJrXTKxOOThHTAvXU9OJTGsCEFvDIPoVWDpSL AgICAgICAgICAgICAgICAgICAgICAgICAgICAgICAgICAgICAgICAgICAgICAgICAgICAgICAgICAgIC XqQZWlDHQgDIImXZOoASFgFEVaREMoKEXaFZ3LBQTk ICAgICAgICAgICAgICAgICAgICAgICAgICAgICAgICAgICAgICAgICAgICAgICAgICAgICAgICAgICAg YQItYGBcKSGdLDLpOGSbYZNdMUTbDUDbIPElYNNcCGAbFFFxKA2LUVUzZELlYSKgOJIaAICoSSFwYHMt ICAgICAgICAgICAgICAgICAgICAgICAgICAgICAgIC ZvTRCzTCHiJFOfFQZgFZWmHITuMCCcUMZtOCVqVXTjSHAbYYGrHREbBSIlLNWdNN1UEGDfJHZuUXCwXE AgICAgICAgICAgICAgICAgICAgICAgICAgICAgICAgICAgICAgICAgICAgICAgICAgICAgICAgICAgIC ToVFIsRLIhZBObYIOpUOIvRUQoPUGjDVFrGUXqEW0M TO31bICvb6W0OICkOW2vcbn/Vw7ARElpsnEvvMEfPT3ANbEbHZ2tzu7RHrMhCE0wak6XGZrZRoFnJ6B9 jRRbXEPsCCMPVvBnN78oWFszKm62EAxeKHNlLfPtROw8By2GZhOvA6ztKCDcKbP7QJTiVoP1NNZyUeW4 YMHyFrYeGTmlEE9We5HrmFAfSUg+Ay1YQE3dx9DuGQ x7FgVsZJ8tau4GEKwIYcPwD0E6cBSdV6K1JXkhZd2TBMAdALVzHGVmXKAYPRnaTJ5WVK3fwbX5BD1PoH LvSOVyDPLdgXXeCRq4V94bbKJoIQynHL2KCRQ+Bertha+Dl5ZZGGtSOShNGPoDdLbOUHUMvQmP24heUVwDQ NuFOItLCUpAk0THRRaS1IxtgAooZookfIzAPKgWWRH ZY0CVMkrmyOumTRzoLqbDI21yNmvFG3ZCi9UDjHzBQ4ocl2AiXJqKl8FUHT1Rd1USEUcRWOpJICyPPY2 HIUjZeZaHGqdKGSxSHFaNSP7PHNzRPApYS6UWiZxAHPrWeE2QLBeMXUmEZLdhq1TUBJxAZQ5ShDeJXRq KOIsBPZqGThyVWRlSDNxBYcwRAVuQTRpIK9FKuVwVC JbAFB8SpCnTOQwAOWgoa4JPEKjPSHkVkc2KAIzGSTbGUCzUXdwMYDhQAG1LeO5GYWhFAVxLL1GVbReNV MiBDT6XoMrBRSgMIBxdl0LTZNjXGKmZHI2HkUlXXFkAOZbZXmrTWGhRTY6Xog2JVWvVYClMF0MMtFgXM TrSBz9HSSdWECtSHDden8JZCKbFJPoQZp1OrRtXUYi IKDjVTalFSKfRZKmOGV3MNHcKTMoEY3CFrDyOOZkFHN3ZGNgVPQhEQLjel4ALDQfBPHhVXL8YrDdHSBi RVJzFRxyVMFtYKRjLse7QAUjTWJcID9JOhVlCYPhWUVuJTYwFDYrQGCoic2JLRNvSPBoWbM1DMWlSYNg FZZdUJtnHJLvLKE1VbqvPLDtVVNjWD7DWfUpUFAwZY czZYOdMIRdQLMxko5CKYSkSGIkAkF5AxOqDCVnGHAdBRtwPCIyMIS4SIv0CTElKCEsHC1JTwLpOGWbBG vmNLTaITEiJDQtfu3FGGObAGXyXUJ6KaOuEEOvVJZfYHiqULKqZWMkJDBaLSAcMVVlAP6SKsSyOFVvXm e7ABiuIUPtHLXuli7AUXXhUMXcITR5SGDjYICnUDCs YSnxISWwWENvQMD7DKAzILVnRT5PEjTzFKGaOiS0DAUhQIKsWVAzwf3CWPDeHJNnJentZqGgHCYhCYYu TUhoAAMbFLKzQIy1ACQxHDBuZS4PPjBbEHPnGMGmZsDpLVFrDTTlgr0ZMYVeGEQ3SqJ5WRTdQIYnGNOv CBadTQCnAJDzENSnJXYjCUBoTL9ZHoWpWCDjOAUxQd HiLRYsEXBtww6UBZXpVUS0NEW3EEDyTNHqYJKxWHofRXIqBYUlFdIoFXYcAZGhDU3LOqYqJPWzXaS1Nf SpVXBuLXCbzb1VODWiNVG8FVXmHoKuXCWbYKIwVVqoDMRcEUp7ZFQ7TNIyAQOjOM6TEgPzIBBjHrK2Ko IrRCQlBJLqbo2OEHUgXSU9LxAgQEWpFCGnAFFyGMe3 xxQzmQKzNJk7DY1EI4JqmxTbDYEBAj5Tj385OSKiSFCuAw3IM1ckVb0lRGRgTOOKVf7GVLq4DCVvOMy1 R6O2D2PsG3FtHsT4XNMgENSiRyTaQgp1DHI+PCkvFURgJOkmTRAaVJI1T2T6DzCySAOsVUYyXcXfDODe BU0nCKJEIi3+AGjhcATglMsxPNMFLdi1OrDkSMagHVCAJc8S ID Date Data Source [id number] 12/24/2019 09:26:42 AM EDT [address] [address]Nqnlizx Name: CHET SOLER: 1960Sex: MOrdering Provider: PALLAVI RAPHAELAuthorijulianna Prov: PALLAVI RAPHAELReferring Provider: Procedure Performed: CT ANGIOGRAM ABDOMINAL AORTA AND BILATERAL RUNOFFExam Date: 12/24/2019 06:02MRN: [id number] Number: [id number] Class: InpatientAccount #: [id number] for Exam: RLE ischemia, pain of RLE due to ischemia, lack of distal doppler signals.Technique: Helical axial images were obtained during the administration 70ml of Isovue 370 IV contrast.One or more of the following dose reduction techniqueswere utilized; automated exposure control, dose modulation, technique adjustment based on patient size and iterativereconstruction algorithms. Maximum Intensity Projections (MIP) and/or other multiplanar images images were created and reviewed.Comparison: NoneFINDINGS:Liver: Unremarkable.Gallbladder: Unremarkable.Spleen: Unremarkable.Kidneys: There are a few bilateral renal cyst s. Otherwise unremarkable.Adrenals: Unremarkable.Pancreas: UnremarkableBowel: Unremarkable. No evidence for free air or ascites. No abdominal lymphadenopathy.Aorta: Abdominal aorta is focally ectatic in the infrarenal portion measuring up to 2.9 x 2.7 cm with significant mural thrombus. There is moderate aortic calcification. There is mild stenosis of the proximal celiac axis. No significant stenosis of the SMA or renal arteries. The NIKKI is patent.IVC: Unremarkable.Lung bases: Clear.Bones: Unremarkable.Pelvis: Prostate is mildly enlarged measuring 4.9 x 3.3 cm. The pelvic organs are otherwise unre markable. The bladder is unremarkable. There is no free fluid or lymphadenopathy in the pelvis.Right leg: Common iliac artery is patent without significant stenosis. Internal iliac artery is patent. 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 Segmental occlusion is approximately 5 cm. The remainder of the common femoral artery is unremarkable. The profunda is patent and unremarkable. The SFA is patent and unremarkable. The popliteal artery occludes just klxhs-gmr-hhzz joint and reconstitutes just below the knee joint. There is a patent trifurcation. Anterior tibial artery is patent into the foot. The peroneal artery is diseased in its midportion with either areas of significant stenosis or short segment occlusion. Evaluation is difficult due to calcification. The posterior tibial artery occludes proximally.Left leg: There is diffuse atherosclerotic disease of the common iliac artery without significant stenosis, there is a mild stenosis distally. The internal iliac artery is occluded at its origin. The external iliac artery is patent with a few areas of less than 50% stenosis. The common femoral artery is patent and unremarkable. The profunda is patent and unremarkable. The SFA is patent until Marcelino's canal where it occludes. This is a short segment occlusion and it reconstitutes within Marcelino's canal. The popliteal artery is patent with areas of less than 50% stenosis. There is a patent trifurcation with three-vessel runoff.IMPRESSION:1. 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 Distal left SFA occlusion.3. Right posterior tibial arterial occlusion and either significant stenoses or short segment occlusions of the mid to distal peroneal artery of the right leg.4. Focally ectatic infrarenal abdominal aorta. Report electronically signed by: SIDDHARTHA MERRILL On 12/24/2019 9:26 AMWorkstation ID: [id number] - [id number] Name Value Range Interpretation Code Description Data Diana rce(s) Supporting Document(s) ID Date Data Source [id number] 12/24/2019 09:00:47 AM EDT [address] [address]Qxkuvyi Name: CHET ANNDOB: 1960Sex: MOrdering Provider: MARIN LUCEROEAuthorizing Prov: MARIN LUCEROEReferalbert Provider: Procedure Performed: XR CHEST PA AND LATERALExam Date: 12/24/2019 08:06MRN: [id number] Number: [id number] Class: InpatientAccount #: [id number] for Exam: pre- op. CAD hx. HTN.Technique: PA and lateral views obtained.Comparison: 08/05/2017.Findings: No acute infiltrates. There are probable prominent nipple shadows bilaterally. This can be confirmed with nipple markers if indicated. The heart is not enlarged. No vascular congestion. The bones appear intact. IMPRESSION: Probable prominent nipple shadows as described. No acute cardiopulmonary disease. Report electronically signed by: CONCHA AHUMADA On 12/24/2019 9:00 AMWorkstation ID: [id number] - [id number] Name Value Range Interpretation Code Description Data Diana rce(s) Supporting Document(s) ID Date Data Source [id number] 12/24/2019 07:56:00 AM EDT [facility] Name Value Range Interpretation Code Description Data Diana rce(s) Supporting Document(s) Sodium [Moles/volume] in Serum or Plasma 138 mmol/L 136-145 [facility] Potassium [Moles/volume] in Serum or Plasma 3.8 mmol/L 3.6-5.2 [facility]) Chloride [Moles/volume] in Serum or Plasma 105 mmol/L 100-108 [facility] Carbon dioxide, total [Moles/volume] in Serum or Plasma 27 mmol/L 22 -31 [facility] Anion gap in Serum or Plasma 6 mmol/L 7-16 [facility]) Urea nitrogen [Mass/volume] in Serum or Plasma 11 mg/dL 7-24 [facility]) Glucose [Mass/volume] in Serum or Plasma 96 mg/dL 70-99 [facility]) Creatinine [Mass/volume] in Serum or Plasma 0.97 mg/dL 0.80-1.30 [facility] Urea nitrogen/Creatinine [Mass Ratio] in Serum or Plasma 11.3 1 0.0-20.0 [facility]) Protein [Mass/volume] in Synovial fluid 7.4 g/dL 6.4-8.2 [facility]) Calcium [Mass/volume] in Serum or Plasma 8.8 mg/dL 8.4-10.2 [facility]) Albumin [Mass/volume] in Synovial fluid 3.5 g/dL 3.2-4.5 [facility]) Globulin [Mass/volume] in Urine by Electrophoresis 3.9 g/dL 2.7-4.3 [facility]) Alb/Glob ratio 0.9 [facility] Alkaline phosphatase [Enzymatic activity/volume] in Serum or Plasma 57 U/L 45-117 [facility] ) Bilirubin direct and total panel [Mass/volume] - Serum or Pl asma 0.9 mg/dL 0.0-1.0 [facility] ([facility] ) PLEASE NOTE: Total bilirubin results may be falsely elevated in patients taking Eltrombopag. Aspartate aminotransferase [Enzymatic activity/volume] in Serum or Plasma 21 U/L 11-39 [facility]) Alanine aminotransferase [Enzymatic activity/volume] in Seru m or Plasma 28 U/L 12-78 [facility] ) Glomerular filtration rate/1.73 sq M pre dicted among non-blacks [Volume Rate/Area] in Serum or Plasma by Creatinine-based formula (MDRD) >60 [facility]) Glomerular filtration rate/1.73 sq M pre dicted among blacks [Volume Rate/Area] in Serum or Plasma by Creatinine-based formula (MDRD) >60 [facility]) Glomerular filtration rate/1.73 sq M pre dicted among non-blacks [Volume Rate/Area] in Serum or Plasma by Creatinine-based formula (MDRD) See Notes [facility] -- NORMAL KIDNEY FUNCTION OR MILD DISEASE - GFR >OR= 60 CHRONIC KIDNEY DISEASE - GFR 15 - 59 RENAL FAILURE - GFR <15 Est. GFR calculation based on the MDRD study equation, which assumes a steady state for creatinine. Est. GFR should not be used for medication dosing. ID Date Data Source [id number] 12/24/2019 07:33:00 AM EDT [facility]) Name Value Range Interpretation Code Description Data Diana rce(s) Supporting Document(s) Prothrombin time (PT) in control Platelet poor plasma by Coagulation assay 10.8 s 9.2-11.9 [facility] INR in Platelet poor plasma by Coagulation assay 1.03 [facility]) SUGGESTED THERAPEUTIC RANGES USING INR F OR STABILIZED ANTICOAGULATED PATIENTS: STANDARD DOSE THERAPY INR 2.0-3.0 DVT, PE, PREVENT DVT OR EMBOLISM HIGH DOSE THERAPY INR 2.5-3.5 PREVENT EMBOLISM FROM MECHANICAL HEART VALVE ID Date Data Source [id number] 12/24/2019 05:45:[address] [facility]FORMATIONPatient MRN Name Date of Age Gend*PT [id number] Chet Juarez Jr. 1960 59 years M IPPT Location Admission Date/Time Visit ID Attending [id number] 12/24/19 0236 --- Marianne Jordan MD([id number]) EPI ID CSN Admitting Provider [id number] Marianne Jordan MD([id number]) Attestation signed by Marianne Jordan MD at 12/24/2019 5:45 AMI saw and evaluated the patient and reviewed pas note. I agree with thehistory, physical and medical decision making with the following additions,exceptions, and/or observations:Signature: RAKAN Kramerate: December 24, 2019Time: 5:45 AM-------- ADMISSION HISTORY AND PHYSICALMorris Ann FieldMRN:[id number]: 1960Informant: The patient who is a poor historian as well as old medical recordsPrimary Care Provider: [facility]Attending: Marianne Jordan MDHPI:59 years White or male with a past medical history significant forHLD, tobacco and alcohol abuse, h/o AMI s/p drug eluding stents in 2017 by , and medical noncompliance presents with as a transfer from an [facility] with right lower extremity ischemia.Mr. Juarez states he has been experiencing bilateral leg cramping with walkingany distance. Over the last few days, he has noted worsening pain in the rightleg. The pain was severe yesterday and as such he presented to [facility] ED.He had a RLE arterial duplex completed revealing "complete occlusion of theright popliteal artery. Complete occlusion of the right posterior and anteriortibial arteries". Dr. Jordan agreed to admit the patient for further workup ofhis arterial disease.He states he has been able to ambulate, but with pain. He denies decreasedsensation or decreased movement of the right foot.Mr. Juarez was admitted to [facility] in 08/[address] elevation MO at which time heunderwent cardiac cath with bare metal stents placed to the right coronary andcircumflex arteries. Bare metal stents were chosen due to the patient's h/ononcompliance. He was discharged on ASA and plavix, however he has not beentaking this medical "for some time."Past Medical History:Past Medical History:Diagnosis Date Heavy smoker Mental health disorder NSTEMI 07/27/2017Past Surgical History:Past Surgical History:Procedure Laterality Date ENUCLEATIONMedications:Medications Prior to AdmissionMedication Sig Dispense Refill Last Dose aspirin 81 MG chewable tablet Chew 1 tablet (81 mg total) daily 30 tablet 11Unknown at Unknown time atorvastatin (LIPITOR) 80 MG tablet Take 1 tablet (80 mg total) by mouthnightly 30 tablet 11 Unknown at Unknown time clopidogrel (PLAVIX) 75 MG tablet Take 1 tablet (75 mg total) by mouth daily30 tablet 11 Unknown at Unknown time metoprolol succinate (TOPROL-XL) 25 MG 24 hr tablet Take 1 tablet (25 mgtotal) by mouth daily 30 tablet 5 Unknown at Unknown time nitroglycerin (NITROSTAT) 0.[address] 1 tablet (0.4 mg total) underthe tongue every 5 (five) minutes as needed for chest pain 25 tablet 3 Unknownat Unknown timeAllergies:Codeine; Haldol [haloperidol lactate]; and Nicoderm [nicotine]Family History:No family history on file.Social History:Social HistoryTobacco Use Smoking status: Current Every Day Smoker Packs/day: 2.00 Years: 45.00 Pack years: 90.00 Types: Cigarettes Smokeless tobacco: Never UsedSubstance Use Topics Alcohol use: No Drug use: NoREVIEW OF SYSTEMSConstitutional: Denies fever, chills, fatigue and unexpected weight change.HEENT: 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 Denies hearing is goodExtremities/Musculoskeletal: Admits to weakness in the bialteral legs.Denies numbness, back painRespiratory: Denies cough, shortness of breath,wheezing, chronic cough or sputumproduction, no hemoptysisCardiovascular: Denies chest pain or pressure, palpitations and leg swelling.Gastrointestinal: Denies nausea, vomiting, abdominal pain, diarrhea,constipation or blood in stool or vomit.Genitourinary: Denies dysuria, urgency, frequency, hematuria and difficultyurinating.Skin: Denies rashes or lesionsNeurological: Denies dizziness, seizures, speech difficulty, weakness,light-headedness, numbness. Negative for TIA or CVAEndocrine: Negative for Diabetes or Thyroid disorderHematological: Does not bruise/bleed easily. Negative for anemia or bleedingdisorderPHYSICAL EXAMVital Signs: There were no vitals taken for this visit.General Appearance: 59 years male, INAD, appears disheveled, pleasant.Skin: Warm and dry. Turgor is good, no rashes or lesions are notedHead: Head is normocephalic, atraumaticEyes: false right eye with poor EOM. Left eye with PERRL and EOMI.Ears: hearing is intact,external ears normalNose: appears normal nose is patentNeck: Supple without masses. Trachea is midline. Thyroid is not palpable, noJVD, no lymphadenopathyLungs: faint wheezing at the basesHeart: regular rate and rhythm.Abdomen: Soft, non-tender, non distended, no masses, no organomegaly appreciatedno pulsatile masses, positive bowel soundsExtremities: LLE- warm, movement intact, decreased sensation to light touch in the distaltoes, doppler DP/PT signals. No edema or color change, calf soft. RLE- cool from the mid foot distally, movement intact, decreased sensation inthe toes, no doppler signals noted. No pallor or rubor of the foot. No edema,calf soft.Neurological: Alert and oriented x 3, speech clear, cranial nerves II-XII aregrossly intact. Sensation is intact.LABS, IMAGING, AND OTHER DIAGNOSTICSDiagnostic tests reviewed:Labs completed at [facility] on 12/23/19 are as follows: WBC 9.6, H&H 47.4&16.7, plt 178, BUN 12, Cr 1.01, GFR >60, K 4.2ASSESSMENT AND PLAN:Principal Problem: Pain of right lower extremity due to ischemiaActive Problems: Tobacco abuse Pure hypercholesterolemia H/O ST elevation myocardial infarction Noncompliance Alcohol abuse1. 59yo male admitted with clinical RLE ischemia- admit patient to Dr. Jordan's service- patient's right foot is cool distally with loss of doppler signals, howeverthere is no loss of movement or ischemic color changes. The limb is notimmediately threatened.- Will start heparin gtt and order stat CTA.- patient lists codeine as an allergy, but cannot recall what reaction heexperienced. Will order tylenol and review previous admissions for any previousanalgesia he has received previously.- will restart his ASA, plavix and lipitor that he was prescribed after hiscardiac cath. Will hold off on restarting metoprolol- he does experienceasymptomatic bradycardia into the 40s at times.2. Tobacco abuse- tobacco cessation reviewed. Patient is a 2ppd smoker.3. Alcohol abuse- GMAW monitoring protocol ordered.4. H/o MO, HLD- patient had bare metal stents place to right coronary and circumflex arteriesin 08/[address] Roche. He has not been taking his ASA or plavix, and it doesnot sound like he has been following with a hog killer since then.- he is asymptomatic.- EKG ordered- will need a cardiology consult prior to OR if he is deemed to require surgicalvascular interventionDVT Prophylaxis: Heparin gtt for DVT prophylaxis.Code Status: FullADOD: unknownPatient condition and plan of care discussed with Marianne Jordan MD and ramesh. Further adjustments to the plan will come from him.Signature: Pallavi Raphael PADate: December 24, 2019Time: 2:54 AM Name Value Range Interpretation Code Description Data Diana rce(s) Supporting Document(s) ID Date Data Source [id number] 12/28/2019 12:22:05 AM EDT [facility] SPEC EXP DATE 12/27/2019PATI ENT ABO/Rh A POSITIVEANTIBODY SCREEN NEGATIVETESTING SITE PERFORMED AT [address] [place], [place] [address]BLOOD BANK COMMENT BLOOD TYPE CONFIRMED.UNIT NUMBER [id number] COMPONENT TYPE LEUKOPOOR RED CELLSUNIT DIVISION 00STATUS OF UNIT REL FROM ALLOCTRANSFUSION STATUS OK TO TRANSFUSECROSSMATCH RESULT COMPATIBLEUNIT NUMBER [id number] COMPONENT TYPE LEUKOPOOR RED CELLSUNIT DIVISION 00STATUS OF UNIT REL FROM ALLOCTRANSFUSION STATUS OK TO TRANSFUSECROSSMATCH RESULT COMPATIBLE Name Value Range Interpretation Code Description Data Diana rce(s) Supporting Document(s) TYPE AND SCREEN [facility] ID Date Data Source [id number] 12/24/2019 03:56:57 AM EDT [facility] Name Value Range Interpretation Code Description Data Diana rce(s) Supporting Document(s) SODIUM 138 mmol/L (136-145) [facility] POTASSIUM 3.8 mmol/L (3.6-5.2) [facility] CHLORIDE 105 mmol/L (100-108) [facility] CO2 27 mmol/L (22-31) [facility] ANION GAP 6 mmol/L (7-16) L [facility] UREA NITROGEN 11 mg/dL (7-24) [facility] CREATININE 0.97 mg/dL (0.80-1.30) [facility] BUN/CREAT RATIO 11.3 RATIO (10.0-20.0) [facility] GLUCOSE 96 mg/dL (70-99) [facility] CALCIUM 8.8 mg/dL (8.4-10.2) [facility] TOTAL PROTEIN 7.4 g/dL (6.4-8.2) [facility] ALBUMIN 3.5 g/dL (3.2-4.5) [facility] GLOBULIN 3.9 g/dL (2.7-4.3) [facility] ALB/GLOB RATIO 0.9 RATIO [facility] ALKALINE PHOSPHATASE 57 U/L (45-117) [facility] BILIRUBIN,TOTAL 0.9 mg/dL (0.0-1.0) [facility] PLEASE NOTE:Total bilirubin results may be falselyelevated in patients taking Eltrombopag. AST (SGOT) 21 U/L (11-39) [facility] ALT (SGPT) 28 U/L (12-78) [facility] GFR >60 ml/min/1.73m2 (>59) [facility] GFR ( AMER) >60 ml/min/1.73m2 (>59) [facility] GFR INTERPRETATION [facility] --NORMAL KIDNEY FUNCTION OR MILD DISEASE - GFR >OR= 60CHRONIC KIDNEY DISEASE - GFR 15 - 59RENAL FAILURE - GFR <15 Est. GFR calculation based on the MDRDstudy equation, which assumes a steadystate for creatinine. Est. GFR should notbe used for medication dosing. ID Date Data Source [id number] 12/24/2019 03:34:03 AM EDT [facility] Name Value Range Interpretation Code Description Data Diana rce(s) Supporting Document(s) APTT 25.4 s (22.0-34.3) [facility] ID Date Data Source [id number] 12/24/2019 03:34:03 AM EDT [facility] Name Value Range Interpretation Code Description Data Diana rce(s) Supporting Document(s) PT 10.8 s (9.2-11.9) Lab [facility] INR 1.03 [facility] SUGGESTED THERAPEUTIC RANGES USING INR F ORSTABILIZED ANTICOAGULATED PATIENTS:STANDARD DOSE THERAPY INR 2.0-3.0 DVT, PE, PREVENT DVT OR EMBOLISMHIGH DOSE THERAPY INR 2.5-3.5 PREVENT EMBOLISM FROM MECHANICAL HEART VALVE ID Date Data Source [id number] 12/24/2019 03:23:12 AM EDT [facility] Name Value Range Interpretation Code Description Data Diana rce(s) Supporting Document(s) WBC 8.0 10*3/uL (4.1-11.0) [facility] RBC 4.81 10*6/uL (4.60-6.10) [facility] HGB 16.5 g/dL (13.5-18.0) [facility] HCT 48.0 % (41.0-53.0) [facility] MCV 99.9 fL (80.0-95.0) H [facility] MCH 34.2 pg (27.0-32.0) H [facility] MCHC 34.3 g/dL (32.0-36.0) [facility] RDW 12.8 % (10.5-14.5) [facility] PLT 161 10*3/uL (150-450) [facility] MPV 8.1 fL (7.1-10.7) [facility] ID Date Data Source [id number] 12/21/2019 02:16:30 PM EDT [facility] Measurements & CalculationsHeight: 68 inches (5 ft. 8 in.) 172.72 cm Weight: 155 pounds 6 oz. 70.63 kg Body Mass Index (BMI): 23.71BMI Interpretation: Healthy WeightBody Surface Area (BSA): 1.84Weight Management Education Done (Nutrition/Physical Activity)Vital SignsTemperature: 97.7F oral Pulse Rate: 74 beats/minuteRespiratory Rate: 18 respirations/minuteBlood Pressure: 147/88 left arm sitting automaticO2 Saturation: 97% room airVital Signs performed by: Tasneem Galdamez LPN, December 21, 2019 2:36 PMVital Signs performed by: Pattie BECK, December 21, 2019 2:51 PMInitial Intake Information from: patientRoom #: 1Smoking, Tobacco, Vaping or Smoke Exposure StatusSmoke Status: current every day smokerTobacco Use: YesAdv to Quit: YesDo you vape? NoPassive Smoke Exposure: YesHealthcare HistorySince your last office visit...Have you been admitted to the hospital? NoHave you been to an emergency room (ER) or urgent care clinic? NoHave you seen another healthcare provider? NoHave you seen a dentist? NoRate Your HealthIn general, would you say your health is? FairPain AssessmentAre you currently having any pain which... You would like your provider to address? No Affects your activity level? NoDepression Screening - PHQ-2Over the last two weeks, have you... Had little interest or pleasure in doing things? Not at all Been feeling down, depressed, or hopeless? Not at all PHQ-2 Score: 0Anxiety Screening - JUAN DIEGO-2Over the last two weeks, have you been... Feeling nervous, anxious, or on edge? Not at all Unable to stop or control worrying? Not at all JUAN DIEGO-2 Score: 0Infectious Disease / Travel ScreeningRecent travel for you or any close contacts? NoHave you had any close contact with anyone diagnosed with or under investigation for COVID-19 (coronavirus)? NoHave you had any of the following symptoms recently? Fever? NoRespiratory symptoms: cough, cold, congestion, short ness of breath, difficulty breathing? NoPRAPARE Sociodemographic Characteristics Race: White Ethnicity: Not or Preferred Language: EnglishFamily and Home Address: [address] [place] [address] [address] [facility] [address] [place] [address] What is your housing situation today? I have housing Are you worried about losing your housing? NoMoney and Resources What is the highest level of school that you have finished? 9th-12th grade Employed? No Are you seeking work? No Insurance: MedicareIn the past year, have you or any family members you live with been unable to get any of the following when it was really needed? Denies Insecurity: food, utilities, clothing, early childhood assistant, phone, legal services, otherIn the past year, have you had trouble affording costs associated with health insurance (such as deductibles, co-payments, etc.)? NoSocial and Emotional Health How often do you see or talk to people that you care about and feel close to? More than 5 times a week How stressed are you? A little bitAdditional Optional Domains In the past 3 months, have you spent more than 2 nights in a row in a usp, skilled nursing, skilled nursing center or juvenile correctional facility? No Has lack of transportation kept you from medical appointments or from getting your medications? Yes - medical and non-medicalIn the past year, have you had trouble getting any of the following when it was really needed (check all that apply)?noneIn the past year, have you had trouble paying the costs associated with health care or medicine (such as co-payments, costs for services, prices of medicines)? NoHow confident are you that you can control and manage most of your health problems? Somewhat confident Are you a refugee? No (Country of origin: [facility]) Do you feel physically and emotionally safe where you live? Yes In the past year, have you been afraid of a partner, ex-partner? NoScreening, Brief Intervention, & Referral to Treatment (SBIRT)Pre-Screening Questions How many times have you have 5 or more drinks in a day? 365How many times have you used an illegal drug or used a prescription medication for a non-medical reason? 0Performed by: Tasneem Galdamez LPN, December 21, 2019 2:30 PMPatient History Medical History:fake right eye 2007[facility] heartleft pinky surgeryFamily History:Myocardial infarction ([place]) (Mother)Social/Personal History: Packs/day: 1Comments: 1 PDD x 50 yearsAdvised to Quit/Tobacco Education: YesAlcohol Use: CurrentlyFrequency: dailyAmount: 15 beersDrug Use: NeverChief Complaintestablishing careHistory of Present Illness (HPI)59 yo male here to establish care. Pt has not seen PCP in years. Pt states he has pain in his calves when he walks too much and has to rest to get it to go away. Pt states he drinks about 15 or more beers a day. Reports hx of fluctuating BP. Pt was seen at [facility] ER a month ago for acute breathing issues and was recommended a PCP at the time. Pt states he is concerned that he has wax or something in his ears since he has stuff coming out on his q-tip.Follows with [facility] regularly. HPI performed by: Pattie BECK, December 21, 2019 2:55 PMProblem ReviewProblem List was reviewed and/or updated during this visit.Medication Reconciliation & ReviewMedication List was reviewed and/or updated during this visit, including review of any [id number] medications, herbal therapies, and/or supplements. Patient has no known medications.Allergy ReviewAllergy List was reviewed and/or updated during this visit. Patient has no known allergies.Adult Preventive CareProvider Calculated and Reviewed all Clinical Protocols for patient today. Screening Tobacco Screening: Smoking Status: current every day smoker (12/21/2019) Tobacco Use: Currently (12/21/2019) Advised to Quit: Yes (12/21/2019)Labs/Meds/Other Counseling-Nutrition and Physical Activity:BMI Interpretation: Healthy Weight (12/21/2019) Counseling: Done (12/21/2019) Physical Activity: Done (12/21/2019)Cancer Screening ColonoscopyReviewed:Today's Comments: doesn't know when he had one doneReview of Systems General: Denies loss of appetite, chills, dizziness, fatigue, fever, headache, feeling ill. Ears/Nose/Throat: Complains of see HPI, ear discharge. Denies earache, decreased hearing, nasal congestion, sore throat. Cardiovascular: Denies chest pain, palpitations, feeling faint, trouble breathing w/exertion, peripheral edema. complaining of calf cramping with walking, resolves rapidly with restRespiratory: Denies cough, difficulty breathing, shortness of breath. Gastrointestinal: Denies nausea, vomiting, diarrhea, constipation, pain or discomfort, abdominal pain, blood in stool, black or tarry stools, jaundice, heartburn. Musculoskeletal: Denies joint pain, joint swelling, stiffness, recent injury. Skin: Denies rash, suspicious lesions. Neurologic: Denies weakness, numbness/tingling, feeling faint. Psychiatric: Denies depression, anxiety. Physical ExamGeneral Appearance: well nourished, well hydrated, no acute distressEyes, External: conjunctivae and lids normal, EOMIExternal Ears: normal, no lesions or deformitiesHearing: grossly intactOtoscopy: canals clear, tympanic membranes intact, no fluid, light reflex intact bilaterallyExternal Nose: normal, no lesions or deformitiesNasal: mucosa, septum, and turbinates normal, nares patentLips/Teeth/Gums: no gingival inflammation, no labial lesionsPharynx: tongue normal, posterior pharynx without erythema or exudate, no thrush/aphthous ulcerNeck: supple, no masses, trachea midline, full range of motion of neckThyroid: no nodules, masses, tenderness, or enlargementRespiratory, Auscultation: clear to auscultation bilaterally; no rales, rhonchi, or wheezesRespiratory, Effort: no intercostal retractions or use of accessory musclesCardiovascular, Auscultation: S1, S2 audible; no murmur, rub, or gallop; RRRPeripheral Circulation: no clubbing, cyanosis, edema, or varicositiesAbdomen: soft, non-tender, no masses, bowel sounds normalGait & Station: normalSkin, Inspection: no rashes, lesions, or ulcerationsOrientation: oriented to time, place, and personMood & Affect: no depression, anxiety, or agitationJudgment & Insight: intactRate Your HealthIn general, would you say your health is? FairAssessment & Plan Problems:Added: BMI 23.0-23.9 (ICD-V85.1) (DAT32-I09.23)History of myocardial infarction (ICD-V12.59) (NBS62-H82.2) Assessment: Instructions: Referred to cardiology for further evaluation and routine monitoring. Has not had any care since 08/2018 when he had 6 stents placed at [facility]. Not on any medications at this time.Intermittent claudication (ICD-443.9) (DBO20-J42.9) Assessment: Instructions: Ordered ultrasounds to assess further.Encounter for general adult medical examination with abnormal findings (ICD-V70.0) (YPD75-Q90.01) Assessment: Instructions: Recommend annual medical appointments. Recommend routine dental and vision care.Screening for diabetes mellitus (ICD-V77.1) (NZO57-J42.1) Assessment: Instructions: Fasting labs have been ordered for you today. When labs are drawn, please ensure that you have had nothing to eat or drink for 8-10 hours prior to the blood drawn. Water or black coffee is OK to have before the blood draw.Alcohol abuse counseling and surveillance of alcoholic (ICD-V65.42) (ICD10- Z71.41) Assessment: Instructions: Strongly advised to seek treatment to quit. 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 Goal BP is <140/90, please call the office if your blood pressures are consistently running higher than that cutoff. Call 911 or report to the closest ER for chest pain, shortness of breath, dizziness, or passing out.Screening for thyroid disorders (ICD-V77.0) (UGY99-T35.29) Assessment: Instructions: Update routine labs.Patient Instructions/Care Plan: History of myocardial infarction: Referred to cardiology for further evaluation and routine monitoring. Has not had any care since 08/2018 when he had 6 stents placed at [facility]. Not on any medications at this time.Intermittent claudication: Ordered ultrasounds to assess further.Encounter for general adult medical examination with abnormal findings: Recommend annual medical appointments. Recommend routine dental and vision care.Screening for diabetes mellitus: Fasting labs have been ordered for you today. When labs are drawn, please ensure that you have had nothing to eat or drink for 8-10 hours prior to the bl ood drawn. Water or black coffee is OK to have before the blood draw.Alcohol abuse counseling and surveillance of alcoholic: Strongly advised to seek treatment to quit. Reviewed usp health risks associated with alcohol consumption, especially in regard to cardiac risk .Alcohol abuse- uncomplicated: As above.Tobacco user: Smoking cessation counseling was recommended with patient today.Elevated blood pressure: Recommend reduced salt intake, cut back on caffeine and alcohol, increase physical activity. 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 Goal BP is <140/90, please call the office if your blood pressures are consistently running higher than that cutoff. Call 911 or report to the closest ER for chest pain, shortness of breath, dizziness, or passing out.Screening for thyroid disorders: Update routine labs. Plan developed in collaboration with patient and/or familyAllergies:No Known Allergies (updated 12/21/2019) Orders:COMP METABOLIC PANEL [CPT-06267] CBC W/DIFF [CPT-13763] LIPID PANEL [CPT-69752] TSH [CPT-06473] T-4 free [CPT-23650] Vitamin D 250H Unspecified [CPT-15015] Folate (Folic Acid Serum) [CPT-70790] Whole Blood Thiamine [CPT-18740] VITAMIN B-12 [CPT-90672] Duplex scan of lower extremity arteries; complete bilateral study [CPT-58939] Cardiology Consult [CPT-36974] Preventive, New, (40-64) [CPT-74913] Follow-Up Return to clinic: in 1-2 weeks for follow upClinical Visit Summary Declined Name Value Range Interpretation Code Description Data Diana rce(s) Supporting Document(s) ID Date Data Source [id number] 11/06/2019 11:55:00 AM EST [facility] ([facility]) Name Value Range Interpretation Code Description Data Diana rce(s) Supporting Document(s) Troponin Laboratory test result [facility] ([facility]) ID Date Data Source [id number] 11/06/2019 11:55:00 AM EST [facility] ([facility]) Name Value Range Interpretation Code Description Data Diana rce(s) Supporting Document(s) CPK-MB 1.4 [facility] Creatine kinase [Enzymatic activity/volume] in Serum or Plasma 142 [facility] ([facility]) Procedure Social History Code Duration Value Status Description Data Source(s ) Alcohol intake 12/25/2019 12:00:00 AM EDT No completed [facility] Cigarette pack-years 12/25/2019 12:00:00 AM EDT UNK completed [facility] Cigarettes smoked current (pack per day) - Reported 12/25/19 20 12:00:00 AM EDT UNK completed [facility] Smoking 12/25/2019 12:00:00 AM EDT Current every day smoker co mpleted Current every day smoker [facility] Vital Signs ID Date Data Source UNK Name Value Range Interpretation Code Description Data Source(s) Body mass index (BMI) [Ratio] 22.0 kg/m2 22.0 k g/m2 [facility] ([facility]) Body weight 145.00 [lb_av] 145.00 [lb_av] [facility] T ([facility]) Body height 68 [in_i] 68 [in_i] [facility] ([facility]) 5'8" Body temperature 97.5 [degF] 97.5 [degF] [facility] ([facility]) Diastolic blood pressure--sitting 71 mm[Hg] 71 mm[Hg] [facility] ([facility]) [place] adult cuff, [place] Systolic blood pressure--sitting 118 mm[Hg] 118 mm[Hg] [facility] ([facility]) [place] adult cuff, [place] Heart rate 64 /min 64 /min [facility] Body mass index (BMI) [Ratio] 21.5 kg/m2 21.5 k g/m2 [facility] ([facility]) Body height 70 [in_i] 70 [in_i] [facility]) 5'10" Body weight 150.00 [lb_av] 150.00 [lb_av] [facility] T ([facility]) Respiratory rate 25 /min 25 /min [facility] Heart rate 67 /min 67 /min [facility] Oxygen saturation in Arterial blood by Pulse oximetry 98 % 98 % [facility] Diastolic blood pressure 69 mm[Hg] 69 mm[Hg] [facility] Systolic blood pressure 119 mm[Hg] 119 mm[Hg] [facility] Body temperature 36.89 Makenzie 36.89 Makenzie [facility] Body mass index (BMI) [Ratio] 20.52 kg/m2 20.52 kg/m2 [facility] Body weight 64.864 kg 64.864 kg [facility] Body height 177.8 cm 177.8 cm [facility] Patient Treatment Plan of Care Planned Activity Planned Date Details Description Data Source (s) Lisinopril 5 MG Oral Tablet 12/26/2019 12:00:00 AM EDT [facility] Spironolactone 25 MG Oral Tablet 12/26/2019 12:00:00 AM EDT [facility] Docusate Sodium 100 MG Oral Capsule 12/26/2019 12:00:00 AM EDT [facility] Acetaminophen 325 MG Oral Tablet 12/25/2019 12:00:00 AM EDT [facility]
--- OUTSIDE RECORDS SUMMARY | 2020-10-20 23:12 | CCD ---
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 Role Phone Jennifer PATEL MD Unavailable [...] Jennifer BUTLER MD Unavailable Unavailable ANTECOL, Jennifer BUTLRE MD Unavailable Unavailable ANTECOL, Jennifer BUTLER MD Unavailable Unavailable ANTECOL, Jennifer BUTLER MD Unavailable Unavailable ANTECOL, Jennifer BUTLER MD Unavailable Unavailable ANTECOL, Jennifer BUTLER MD Unavailable Unavailable ANTECOL, Jennifer BUTLER MD Unavailable Unavailable SEMEL, Patricia LOPES MD Unavailable Unavailable SEMEL, Patricia LOPES MD Unavailable Unavailable SEMEL, Patricia LOPES MD Unavailable Unavailable SEMEL, Ptaricia LOPES MD Unavailable Unavailable SEMEL, Patricia LOPES [...] Patricia LOPES MD Unavailable Unavailable Fish, Valeria [facility], PA-C Unavailable Unavailabl e Fish, Valeria [facility], PA-C Unavailable Unavailabl e Fish, Valeria [facility], PA-C Unavailable Unavailabl e Fish, Valeria [facility], PA-C Unavailable Unavailabl e Fish, [facility], PA-C Unavailable Unavailabl e Fish, [facility], PA-C Unavailable Unavailabl e Fish, [facility], PA-C Unavailable Unavailabl e Fish, [facility], PA-C Unavailable Unavailabl e Fish, [facility], PA-C Unavailable Unavailabl e Fish, [facility], PA-C Unavailable Unavailabl e Fish, [facility], PA-C Unavailable Unavailabl e Fish, [facility], PA-C Unavailable Unavailabl e Fish, [facility], PA-C Unavailable Unavailabl e Fish, [facility], PA-C Unavailable Unavailabl e Fish, [facility], PA-C Unavailable Unavailabl e Fish, [facility], PA-C Unavailable Unavailabl e Fish, [facility], PA-C Unavailable Unavailabl e Fish, [facility], PA-C Unavailable Unavailabl e Fish, [facility], PA-C Unavailable Unavailabl e Fish, [facility], PA-C Unavailable Unavailabl e Fish, [facility], PA-C Unavailable Unavailabl e Fish, [facility], PA-C Unavailable Unavailabl e Fish, [facility], PA-C Unavailable Unavailabl e Fish, [facility], PA-C Unavailable Unavailabl e Fish, [facility], PA-C Unavailable Unavailabl e Fish, [facility], PA-C Unavailable Unavailabl e Fish, [facility], PA-C Unavailable Unavailabl e Fish, [facility], PA-C Unavailable Unavailabl e Fish, [facility], PA-C Unavailable Unavailabl e Fish, [facility], PA-C Unavailable Unavailabl e Fish, [facility], PA-C Unavailable Unavailabl e Fish, [facility], PA-C Unavailable Unavailabl e Fish, [facility], PA-C Unavailable Unavailabl e CROUCH, MARY ANN PATTIE RPA-C Unavailable Unavailable CROUCH, MARY ANN PATTIE RPA-C Unavailable Unavailable CROUCH, MARY ANN PATTIE RPA-C Unavailable Unavailable CROUCH, MARY ANN PATTIE RPA-C Unavailable Unavailable CROUCH, MARY ANN PATTIE RPA-C Unavailable Unavailable CROUCH, MARY ANN PATTIE RPA-C Unavailable Unavailable CROUCH, MARY ANN PATTIE RPA-C Unavailable Unavailable RCOUCH, MARY ANN PATTIE RPA-C Unavailable Unavailable CROUCH, [...] is protected by Article 27-F of the [place] State Public Health law. If you continue you may have access to information: Regarding HIV / AIDS; Provided by facilities licensed or operated by the [facility] Office of Mental Health; or Provided by the [facility] Office for People With Developmental Disabilities. If such information is present, then the following [facility] mandated warning applies: This information has [...] law may result in a fine or prison sentence or both. A general authorization for the release of medical or other information is NOT sufficient authorization for further disc losure. Allergies and Adverse Reactions Type Description Substance Reaction Status Data Source(s ) Drug allergy LISINOPRIL Lisinopril 5 MG Oral Tablet angioedema SV [facility] Adverse Reaction Adverse Reaction Nicotine ME DENT ([facility]) Propensity to adverse reactions NICOTINE Nicotine Acti ve [facility] Drug Allergy Drug Allergy NKDA MEDENT ([facility]) Encounters Encounter Providers Location Date Indications Data Source(s ) OFFICE OUTPATIENT NEW 30 MINUTES Attender: Fani ONEAL PA-C Physical Therapy 05/19/2020 10:15:00 AM EDT MEDENT ([facility]) Outpatient Att[facility]: [facility] 01/31 10:02:02 AM EDT [facility] Outpatient Attender: CARRIE PATEL MD Main Office 02/02/2020 03:30:00 PM EDT MEDENT ([facility]) Outpatient Attender: [facility] 09/2019 09:53:00 AM EDT [facility] Outpatient Attender: [facility] 01/01 01:20:02 PM EDT [facility] Outpatient Attender: [facility] 01/01 01:12:03 PM EDT [facility] Outpatient Attender: [facility] 01/01 09:50:23 AM EDT [facility] Outpatient Attender: [facility] 12/31 11:18:01 AM EDT [facility] Outpatient Attender: PATTIE CROUCH RPA-C [facility] 01/12/2020 12:00:42 AM EDT [facility] Outpatient Attender: [facility] 04/2020 03:05:01 PM EDT [facility] Outpatient Attender: [facility] 01/2020 08:38:01 AM EDT [facility] Outpatient Attender: [facility] 12/02 08:20:02 AM EDT [facility] Inpatient Attender: MARIANNE JORDAN MDAdmitter: MARIANNE GO MD [id number] 12/24/2019 02:36:00 AM EDT - 12/25/2019 11:30:[address] [facility] Patient discharged. Inpatient Attender: MARIANNE JORDAN MDAdmitter: MARIANNE GO MD [id number] 12/23/2019 11:04:00 PM EDT [facility] Patient discharged. Outpatient Attender: PATTIE FLOYD [facility] 12/21/2019 03:09:59 PM EDT [facility] Outpatient 10/15/2019 01:16:00 PM [facility] Medications Medication Brand Name Start Date Product Form Dose Route Admi nistrative Instructions Pharmacy Instructions Status Indications Reaction Description Data Source(s) Aspirin 81 MG Delayed Release Oral Tablet Aspirin Ec 2019 12:00:00 AM EDT ORAL active MEDENT ( [facility]) Nicotine 2 MG Chewing Gum [Nicorette] Nicorette 02/02/2020 12:00:00 AM EDT active MED[facility] ([facility]) Lisinopril 5 MG Oral Tablet Lisinopril 02/01/2020 12:00:00 AM EDT ORAL completed [facility] ([facility]) Spironolactone 25 MG Oral Tablet Spironolactone 02/01/2020 12:00:00 A M EDT ORAL active [facility] ([facility]) Acetaminophen 325 MG Oral Tablet Acetaminophen 01/19/2020 12:00:00 AM EDT active [facility] ([facility]) Spironolactone 25 MG Oral Tablet Spironolactone 01/19/2020 12:00:00 A M EDT ORAL completed [facility] ([facility] cefazolin (ANCEF) injection 2 g 12/26/2019 04:00:00 AM EDT 2 g Intravenous active 2 g, Intravenou s, Administer over 6 Minutes, Every 8 hours (relative), First dose on 12/26/19 at 0400, For 2 doses, PACU & Post- op
Start 8 hours after pre-op doseRN may administer IV push or infuse this medication through syringe adapter set ref [id number]. Flush line after use
[facility] Medication administered onsite Lisinopril 5 MG Oral Tablet Lisinopril 12/26/2019 12:00:00 AM EDT ORAL active MEDENT ([facility]) Spironolactone 25 MG Oral Tablet Spironolactone 12/26/2019 12:00:00 A M EDT ORAL active [facility] ([facility] Docusate Sodium 100 MG Oral Capsule Docusate Sodium 12/26/2019 1 2:00:00 AM EDT ORAL active MEDENT ( [facility]) Spironolactone 25 MG Oral Tablet spironolactone (ALDAC TONE) 25 MG tablet spironolactone (ALDACTONE) 25 MG tablet 12/26/2019 12:00:00 AM EDT 25 mg Oral active Take 1 tablet (25 mg tota l) by mouth daily [facility] Docusate Sodium 100 MG Oral Capsule docusate sodium (, DSS,) 100 MG CAPS docusate sodium (,DSS,) 100 MG CAPS 12/26/2019 12:00:00 AM EDT 100 mg Oral active Take 1 capsule (100 mg total) by mouth 2 (two) times a day [facility] Lisinopril 5 MG Oral Tablet lisinopril (PRINIVIL,ZESTR IL) 5 MG tablet lisinopril (PRINIVIL,ZESTRIL) 5 MG tablet 12/26/2019 12:00:00 AM EDT 5 mg O ral active Take 1 tablet (5 mg total) by mo uth daily [facility] normal saline flush 0.9 % injection 3 mL [id number] 12/25/2019 10:00:00 PM EDT 3 mL Intravenous active 3 mL , Intravenous, PROTOCOL, First dose on Sat12/25/19 at 2200, PACU & Post-op
With good PO intake (600 ml X 1 shift)
[facility] Medication administered onsite Docusate Sodium 100 MG Oral Capsule docusate sodium (C OLACE) capsule 100 mg docusate sodium (COLACE) capsule 100 mg 12/25/2019 09:00:00 PM EDT 100 mg Oral active 100 mg, Oral, 2 times daily, First dose on Sat12/25/19 at 2100, PACU & Post-op
hold for loose stools
[facility] Medication administered onsite 2 ML Metoclopramide 5 MG/ML Prefilled Sy ringe metoclopramide (REGLAN) injection 10 mg metoclopramide (REGLAN) injection 10 mg 12/25/2019 08:12:32 PM E DT 10 mg Intravenous active 10 mg, I ntravenous, Every 6 hours PRN, nausea, vomiting, Starting Sat12/25/19 at 2012, PACU & Post-op [facility] Medication administered onsite ondansetron (ZOFRAN) injection 4 mg [id number] 12/25/2019 08:12:3 2 PM EDT 4 mg Intravenous active 4 mg, In travenous, As needed, nausea, vomiting, Starting Sat12/25/19 at 2012, PACU & Post-op
Give for one dose if no response from metoclopramide
[facility] Medication administered onsite 10 ML Atropine [...] or 0.04 mg/kg. Max of [address]
[facility] Medication administered onsite 500 ML heparin [...] single port tubing (SmartSite Infusion Set ref [id number]). Medication and tubing is to be discarded if infusion off for [address]
[facility] Medication administered onsite fentaNYL Citrate (PF) (SUBLIMAZE) injection 25 mcg [id number] 12/25/2019 07:31:04 PM EDT 25 ug Intravenous aborted 25 mcg, Intravenous, Every 5 min PRN, moderate pain (4-6), moderate pain (4 to 6), Starting Sat12/25/19 at 1931, For 8 doses, PACU (only) [facility] Medication administered onsite gabapentin (NEURONTIN) capsule [...] 0900, For 2 doses [Order [address] End] [facility] Medication administered onsite Acetaminophen 325 MG Oral Tablet Acetaminophen 12/25/2019 12:00:00 AM EDT ORAL active [facility] ([facility] Magnesium Hydroxide 80 MG/ML Oral Suspen sallie magnesium hydroxide (MILK OF MAGNESIA) 400 MG/5ML suspension 30 mL magnesium hydroxide (MILK OF MAGNESIA) 4 00 MG/5ML suspension 30 mL 12/25/2019 12:00:00 AM EDT 30 mL Oral active 30 mL, Oral, Daily PRN, constipation, Starting Sat12/25/19 at 0000
If senna- docusate is not effective
[facility] Medication administered onsite Magnesium Chloride 0.94297 MEQ/ML / Pota ssium Chloride 0.0497 MEQ/ML / Sodium Acetate 0.0163 MEQ/ML / Sodium Chloride 0.0899 MEQ/ML / Sodium gluconate 5.02 MG/ML Injectable Solution [Normosol-R] electrolyte-R (NORMOSOL-R/PLASMALYTE-R) solution electrolyte-R (NORMOSOL-R/PLASMALYTE-R) solution 12/24 12:00:00 AM EDT Intravenous active at 5 0 mL/hr, Intravenous, Continuous, Starting Sat12/25/[address] [facility] Medication administered onsite Acetaminophen 325 MG Oral Tablet acetaminophen (TYLENO L) 325 MG tablet acetaminophen (TYLENOL) 325 MG tablet 12/25/2019 12:00:00 AM EDT 65 0 mg Oral active Take 2 tablets (650 mg total) by mouth every 4 (four) hours as needed [facility] Docusate Sodium 50 MG / sennosides, [facility] 8.6 MG Oral Tablet senna-docusate (PERICOLACE) 8.6-50 MG 2 tablet senna-docusate (PERICOLACE) 8.6-50 MG 2 tablet 12/24/2019 09:00:00 PM EDT 2 {tbl} Oral active 2 tablet, Oral, Nightly, First dose on Sat12/24/19 at 2100
hold for loose stools
[facility] Medication administered onsite atorvastatin 80 MG Oral Tablet atorvastatin (LIPITOR) tablet 80 mg atorvastatin (LIPITOR) tablet 80 mg 12/24/2019 09:00:00 PM EDT 80 mg Oral active 80 mg, Oral, Nightly, First dose on Sat12/24/[address] [facility] Medication administered onsite Acetaminophen 325 MG / Oxycodone Hydroch loride 5 MG Oral Tablet oxyCODONE- acetaminophen (PERCOCET) 5-325 MG 2 tablet oxyCODONE-acetaminophen (PERCOCET) 5- 325 MG 2 tablet 12/24/2019 02:49:00 PM EDT 2 {tbl} Oral a ctive 2 tablet, Oral, Every 4 hours PRN, severe pain (7-10), Starting Eleanor 12/24/19 at 1449, For [address] [facility] Medication administered onsite Acetaminophen 325 MG / Oxycodone Hydroch loride 5 MG Oral Tablet oxyCODONE- acetaminophen (PERCOCET) 5-325 MG 1 tablet oxyCODONE-acetaminophen (PERCOCET) 5- 325 MG 1 tablet 12/24/2019 02:47:30 PM EDT 1 {tbl} Oral a ctive 1 tablet, Oral, Every 4 hours PRN, moderate pain (4-6), Starting Eleanor 12/24/19 at 1447, For [address] [facility] Medication administered onsite gabapentin 600 MG Oral Tablet gabapentin (NEURONTIN) t ablet 300 mg gabapentin (NEURONTIN) tablet 300 mg 12/24/2019 02:00:00 PM EDT 300 mg Oral aborted 300 mg, Oral, 3 times daily, First dose on Eleanor 12/24/[address] [facility] Medication administered onsite 24 HR metoprolol succinate 25 MG Extende d Release Oral Tablet metoprolol succinate (TOPROL-XL) 24 hr tablet 25 mg metoprolol succinate (TOPROL-XL) 24 hr tablet 25 mg 12/24/2019 01:00:00 PM EDT 25 mg Oral abort ed 25 mg, Oral, Daily, First dose on Eleanor 12/24/[address] [facility] Medication administered onsite Spironolactone 25 MG Oral Tablet spironolactone (ALDAC TONE) tablet 25 mg spironolactone (ALDACTONE) tablet 25 mg 12/24/2019 01:00:00 PM EDT 25 mg Oral active 25 mg, Oral, Da sushil, First dose on Eleanor 12/24/19 at 1300
For administration and preparation considerations, refer to Hazardous Drugs in the Workplace Policy on Intranet.
[facility] Medication administered onsite Lisinopril 5 MG Oral Tablet lisinopril (PRINIVIL,ZESTR IL) tablet 5 mg lisinopril (PRINIVIL,ZESTRIL) tablet 5 mg 12/24/2019 01:00:00 PM EDT 5 mg Or al active 5 mg, Oral, Daily, F irst dose on Eleanor 12/24/19 at 1300
Hold for SBP <120
[facility] Medication administered onsite Thiamine 100 MG Oral Tablet thiamine tablet 100 mg thiamine tablet 100 mg 12/24/2019 09:00:00 AM EDT 100 mg Oral active 100 mg, Oral, Daily, First dose on Eleanor 12/24/[address] [facility] Medication administered onsite DAILY VANDANA (THERAGRAN) 1 tablet [id number] 12/24/2019 09:00:00 AM EDT 1 {tbl} Oral active 1 tablet, Oral, Daily, First dose on Eleanor 12/24/[address] [facility] Medication administered onsite Folic Acid 1 MG Oral Tablet folic acid (FOLVITE) table t 1 mg folic acid (FOLVITE) tablet 1 mg 12/24/2019 09:00:00 AM EDT 1 mg Oral active 1 mg, Oral, Daily, First dose on Eleanor 12/24/[address] [facility] Medication administered onsite Aspirin 81 MG Chewable Tablet aspirin chewable tablet 81 mg aspirin chewable tablet 81 mg 12/24/2019 09:00:00 AM EDT 81 mg Oral activ e 81 mg, Oral, Daily, First dose on Eleanor 12/24/[address] [facility] Medication administered onsite clopidogrel 75 MG Oral Tablet clopidogrel (PLAVIX) tab let 75 mg clopidogrel (PLAVIX) tablet 75 mg 12/24/2019 09:00:00 AM EDT 75 mg Oral active 75 mg, Oral, Daily, First dose on Eleanor 12/24/[address] [facility] Medication administered onsite Albuterol 0.83 MG/ML Inhalant Solution a lbuterol (PROVENTIL) nebulizer solution 2.5 mg albuterol (PROVENTIL) nebulizer solution 2.5 mg 2019 08:00:00 AM EDT 2.5 mg active 2.5 mg, Nebulization, 3 times daily, First dose on Eleanor 12/24/[address] [facility] Medication administered onsite 1 ML Lorazepam [...] 5 days.If treatment is neededprior, notify provider.
[facility] Medication administered onsite normal saline flush 0.9 % injection 3 mL [id number] 12/24/2019 06:00:00 AM EDT 3 mL Intravenous active 3 mL , Intravenous, Every 8 hours (scheduled), First dose on Eleanor 12/24/19 at 0600
flush per protocol, D/C Main IV fluid if appropriate
[facility] Medication administered onsite iopamidol (ISOVUE-370) 76 % 120 mL [id number] 12/24/2019 05:10:24 AM EDT 120 mL Intravenous completed 120 mL, Intra venous, Once in imaging, contrast, Starting Eleanor 12/24/19 at 0510, For [address] [facility] Medication administered onsite Acetaminophen 325 MG Oral Tablet acetaminophen (TYLENO L) 325 MG tablet 650 mg acetaminophen (TYLENOL) 325 MG tablet 650 mg 12/24/2019 03:11:12 AM EDT 650 mg Oral active 650 mg, Or al, Every 4 hours PRN, mild pain (1-3), Starting Eleanor 12/24/19 at 0311
"Maximum dose of acetaminophen is 4,000 mg from all sources in 24 hours."
[facility] Medication administered onsite sodium chloride 0.9% (NS) infusion [id number] 12/24/2019 03:00:00 A M EDT Intravenous active at 50 mL/hr, Intravenous, Continuous, Starting Eleanor 12/24/[address] [facility] Medication administered onsite 500 ML heparin [...] 1 unit/kg/hr IV58.1 - 87 Therapeutic, No Degusd03.1 - 97 Decrease infusion 1 unit/kg/hr IV 97.1 - 110Hold infusion for 30 minutes & decrease infusion 2 units/kg/hr IV> 110 Call MD if patient is bleeding. Hold infusion for 60 minutes & decrease infusion 3 units/kg/hr IVInitial heparin IV infusion rate:Do not exceed 1500 units/hour or 15 units/kg/hr (whichever is less)Infuse this medication only through single port tubing (SmartSite Infusion Set ref [id number]). Medication and tubing is to be discarded if infusion off for [address]
[facility] Medication administered onsite 1 ML heparin sodium, porcine 1000 UNT/ML Injection heparin (porcine) injection 4,900 Units heparin (porcine) injection 4,900 Units 12/24/2019 03:00:00 AM EDT 75 U/kg Intravenous completed 4,900 Unit s (rounded from 4,867.5 Units = 75 Units/kg ?? 64.9 kg), Intravenous, Once, Eleanor 12/24/19 at 0300, For 1 dose
Do not exceed 10,000 units or 75 units/kg (whichever is less)
[facility] Medication administered onsite Albuterol 0.83 MG/ML Inhalant Solution a lbuterol (PROVENTIL) nebulizer solution 2.5 mg albuterol (PROVENTIL) nebulizer solution 2.5 mg 2019 02:58:51 AM EDT 2.5 mg active 2.5 mg, Nebulization, Every 2 hour PRN, wheezing, shortness of breath, Starting Eleanor 12/24/[address] [facility] Medication administered onsite Mineral Oil 1000 MG/ML Enema mineral oil enema 1 enema mineral oil enema 1 enema 12/24/2019 02:44:04 AM EDT 1 {enema} Rectal active 1 enema, Rectal, Daily PRN, constipation, unrelieved by MOM/bisacodyl/senna-docusate, Starting Eleanor 12/24/19 at 0244
hold for loose stools
[facility] Medication administered onsite 1 ML heparin [...] 40 units/kg IV (Maximum bolus: 10,000 units)
[facility] Medication administered onsite Bisacodyl 10 MG Rectal Suppository bisacodyl (DULCOLAX ) suppository 10 mg bisacodyl (DULCOLAX) suppository 10 mg 12/24/2019 02:44:03 AM EDT 10 mg Rectal active 10 mg, Rectal, Daily PRN, constipation, Starting Eleanor 12/24/19 at 0244
Hold for BM.If senna-docusate and milk of magnesia are not effective
[facility] Medication administered onsite Insurance Providers Payer name Policy type / Coverage type Policy ID Covered democrat ID Covered democrat's relationship to quintero Policy Quintero Plan Information KASEYEDCHAD [id number] SP [id number] MEDICARE [id number] SP [id number] MEDICARE C [id number] S [id number] [id number] MEDICAID [id number] MEDICAID [id number] SP [id number] MEDICAID [id number] MEDICARE [id number] MEDICARE [id number] Hyun [id number] G61 MEDICAID [id number] Hyun [id number] [employer] MEDICARE [id number] Hyun [id number] MEDICARE [id number] Hyun [id number] 1CA ANSI-Medicaid [id number] ANSI-Medicare Part B [id number] MEDICARE [id number] SP [id number] 1CA ANSI-Medicaid [id number] ANSI-Medicare Part B [id number] ANSI-Medicare Part B [id number] ANSI-Medicaid [id number] ANSI-Medicare Part B [id number] ANSI-Medicaid [id number] MEDICARE C [id number] S [id number] 1CA MEDICARE [id number] SP [id number] 2CA MEDICARE [id number] SP [id number] MEDICARE PI PI MEDICAID PI PI MEDICARE [id number] Hyun [id number] 1CA EXCELLUS BCBS MEDICARE [id number] Hyun [id number] 1CA [id number] 1CA [id number] MEDICARE UNAVAILABLE [place] BLE MEDICAID [facility] [id number] SP [id number] MEDICARE BLUE PPO [place]CELL[place] [id number] SP [id number] MEDICAID [facility] [id number] SP [id number] MEDICAID [facility] [id number] SP [id number] MEDICARE [id number] SP [id number] 1CA MEDICARE BLUE PPO 306 [id number] SP [id number] Problems, Conditions, and Diagnoses Code Display Name Description Problem Type Effective Dates Data Source(s) 480606232 Peripheral vascular disease Peripheral vascular diseas e Problem 12/24/2019 12:00:00 AM EDT MEDENT ([facility]) [id number] Pain of right lower limb co-occurrent an d due to ischemia Pain of right lower limb co-occurrent and due to ischemia Problem 0 12/24/2019 12:00:00 AM EDT MEDENT ([facility]) [id number] Noncompliance with treatment Noncompliance with treatm ent Problem 12/24/2019 12:00:00 AM EDT MEDENT ([facility]) [id number] Ischemic myocardial dysfunction Ischemic myocard ial dysfunction Problem 12/24/2019 12:00:00 AM EDT MEDENT ([facility] [id number] History of placement of stent for pierre ry artery disease History of placement of stent for coronary artery disease Problem 020 12:00:00 AM EDT MEDENT ([facility]) [id number] History of acute ST segment elevation my ocardial infarction History of acute ST segment elevation myocardial infarction Problem 12/24/2019 12:00:00 AM EDT MEDTREY ([facility]) [id number] Alcohol abuse Alcohol abuse Problem 12/24/2019 12:00:00 AM EDT ZARA ([facility]) I73.9 Peripheral artery disease Peripheral artery disease 64 [id number] 12/24/2019 12:00:[address] [facility] Z95.5 History of coronary artery stent placeme nt History of coronary artery stent placement [id number] 12/24/2019 12:00:[address] [facility] I25.5 Ischemic cardiomyopathy Ischemic cardiomyopathy [id number] 12/24/2019 12:00:[address] [facility] F10.10 Alcohol abuse Alcohol abuse [id number] 12/24/2019 12:00:[address] [facility] I99.8 Pain of right lower extremity due to isc hemia Pain of right lower extremity due to ischemia [id number] 12/24/2019 12:00:00 AM EDT [facility] Z91.19 Noncompliance Noncompliance [id number] 12/24/2019 12:00:[address] [facility] I25.2 H/O ST elevation myocardial infarction H /O ST elevation myocardial infarction [id number] 12/24/2019 12:00:[address] [facility] 796.2 Elevated blood pressure Elevated blood pressure 12/21/2019 03:09:17 PM EDT [facility] V77.0 Screening for thyroid disorders Screening for thyroid disorders 12/21/2019 03:09:17 PM EDT [facility] V77.1 Screening for diabetes mellitus Screening for diabetes mellitus 12/21/2019 03:09:17 PM EDT [facility] V70.0 Encounter for general adult medical exam ination with abnormal findings Encounter for general adult medical examination with abnormal findings 12/21/2019 03:09:17 PM EDT [facility] [id number] Alcohol abuse, uncomplicated Alcohol abuse, uncomplica pablo 12/21/2019 03:09:17 PM EDT [facility] V65.42 Alcohol abuse counseling and surveillanc e of alcoholic Alcohol abuse counseling and surveillance of alcoholic 12/21/2019 03:09:17 PM EDT [facility] 443.9 Intermittent claudication Intermittent claudication 12/21/2019 03:09:17 PM EDT [facility] V12.59 History of myocardial infarction History of myocardial infarction 12/21/2019 03:09:17 PM EDT [facility] 305.1 Tobacco user Tobacco user 12/21/2019 03:09:17 P M EDT [facility] V85.1 BMI 23.0-23.9 BMI 23.0-23.9 12/21/2019 03:09:17 PM EDT [facility] I99.8 Other disorder of circulatory system Other disor hank of circulatory system Diagnosis 12/24/2019 02:36:00 AM EDT [facility] M79.671 Pain in right foot Pain in right foot Diagnosis 02:36:[address] [facility] Surgeries/Procedures Procedure Description Date Indications Data Source(s) RADEX FOOT COMPLETE MINIMUM 3 VIEWS 05/19/2020 12:00:0 0 AM EDT [facility] ([facility]) ECG ROUTINE ECG W/LEAST 12 LDS W/I&R 02/02/2020 12:00: 00 AM EDT [facility] ([facility]) GLUC BLD GLUC MNTR DEV CLEARED FDA SPEC HOME USE POCT GLUCOSE Routine 12/25/2019 8:11 PM EDT 12/26/2019 12:11:[address] [facility] THROMBOPLASTIN TIME PARTIAL PLASMA/WHOLE BLOOD APTT STAT 12/25/2019 12:59 AM EDT 12/25/2019 04:59:00 AM EDT [facility] BLOOD COUNT COMPLETE AUTOMATED CBC Routine 12/25/2019 12:59 A M EDT 12/25/2019 04:59:00 AM EDT [facility] BASIC METABOLIC PANEL CALCIUM TOTAL BASIC METABOLIC PANEL Routi ne 12/25/2019 12:59 AM EDT 12/25/2019 04:59:00 AM EDT [facility] Embolectomy/Thrombectomy Dzhaxyava-Ayxtw-Eifmgjmu Artery Leg Inc 12/25/2019 12:00:00 AM EDT [facility] ([facility]) Bypass Graft Other Than Vein Iliofemoral 12/25/2019 12 :00:00 AM EDT [facility] ([facility]) THROMBOPLASTIN TIME PARTIAL PLASMA/WHOLE BLOOD APTT STAT 12/24/2019 6:54 PM EDT 12/24/2019 10:54:00 PM EDT [facility] THROMBOPLASTIN TIME PARTIAL PLASMA/WHOLE BLOOD APTT STAT 12/24/2019 11:38 AM EDT 12/24/2019 03:38:00 PM EDT [facility] DRUG SCR QUAL 1 DRUG CLASS METH EA DRUG CLASS DRUGS O F ABUSE, URINE (STAT, ER/INPATIENT) STAT 12/24/2019 10:30 AM EDT 12/24/2019 0 2:30:[address] [facility] ECG ROUTINE ECG W/LEAST 12 LDS TRCG ONLY W/O I&R ECG 12-LEAD Routine 12/24/2019 9:30 AM EDT 12/24/2019 01:30:43 PM EDT [facility] ECHO TTHRC R-T 2D W/WOM-MODE COMPL SPEC&COLR DOP ECHOCARDIO GRAM TRANSTHORACIC Pending Discharge 12/24/2019 9:19 AM EDT 12/24/2019 01:19 :[address] [facility] XR CHEST PA AND LATERAL XR CHEST PA AND LATERAL STAT 0 8:06 AM EDT 12/24/2019 12:06:[address] [facility] CTA ABDL AORTA&BI ILIOFEM W/CONTRAST&POSTPROCESS CT A NGIOGRAM ABDOMINAL AORTA AND BILATERAL RUNOFF STAT 12/24/2019 6:02 AM EDT 12/24/2019 10:02:[address] [facility] THROMBOPLASTIN TIME PARTIAL PLASMA/WHOLE BLOOD APTT STAT 12/24/2019 3:00 AM EDT 12/24/2019 07:00:00 AM EDT [facility] PROTHROMBIN TIME PROTIME-INR STAT 12/24/2019 3:00 AM EDT 12/24/2019 07:00:[address] [facility] BLOOD COUNT COMPLETE AUTOMATED CBC STAT 12/24/2019 3:00 A M EDT 12/24/2019 07:00:[address] [facility] COMPREHENSIVE METABOLIC PANEL COMPREHENSIVE METABOLIC PANEL STA T 12/24/2019 3:00 AM EDT 12/24/2019 07:00:00 AM EDT [facility] Radiologic Exam, Chest, 2 Views 12/24/2019 12:00:00 AM EDT [facility] ([facility]) Comp Tomogrp Angiog AB Aorta & Bilateral Iliofemoral LW Ext Runof 12/24/2019 12:00:00 AM EDT [facility] ([facility]) Electrocardiogram Tracing Only 12/24/2019 12:00:00 AM EDT [facility] ([facility]) ECHO TTHRC R-T 2D W/WOM-MODE COMPL SPEC&COLR DOP 12/23 12:00:00 AM EDT [facility] ([facility]) Results ID Date Data Source [id number] 01/12/2020 02:55:42 [facility] INFORMATIONPatient MRN Name Date of Age Gend*PT [id number] Chet Juarez JrRadha 1960 60 years M IPPT Location Admission Date/Time Visit ID Attending [id number] 12/24/19 0236 --- --- EPI ID CSN Admitting Pr ovider [id number] Marianne Jordan MD([id number]) Attestation signed by Marianne Jordan MD at [...] noncompliance [facility] with [facility] extremity ischemia. Mr. Juarez states he has been experiencing bilateral leg cramping with walkingany distance. Over the last few days, he has noted worsening pain in the rightleg. The pain was severe yesterday and as such he presented to [facility] ED.He had a RLE arterial duplex completed revealing "complete occlusion of theright popliteal artery. Complete occlusion of the right posterior and anteriortibial arteries". Dr. Jordan agreed to admit the patient for further workup ofhis arterial disease. He states he has been able to ambulate, but with pain. He denies decreasedsensation or decreased movement of the right foot. Mr. Juarez was admitted to [facility] in 08/[address] [place] at which time heunderwent cardiac cath with [...] rce(s) Supporting Document(s) ID Date Data Source [id number] 01/11/2020 03:40:16 PM EDT [facility] Measurements & CalculationsHeight: 68 inches 172.72 [...] (ER) or urgent care clinic[facility] you seen another healthcare provider? 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 He was seen in [facility] ER 12/26/2019 for postop bleeding at the [...] was seen very early this morning at [facility] ER for tongue swelling, diagnosed with angioedema from his lisinopril. HPI performed by: Pattie BECK, January 11, 2020 4:07 PMTransitions of Care InboundProblem ReviewProblem List was reviewed and/or updated during this visit.Medication Reconciliation & ReviewMedication List was reviewed and/or updated during this visit, including review of any wnip-tde-wrljmvg medications, herbal therapies, and/or supplements.Allergy ReviewAllergy List [...] GoodAssessment & Plan Problems:Assessed:Elevated blood pressure (ICD-796.2) (EDH03-R93.0) Assessment: Instructions: Actually low today. Continue Spironolactone only today. STOP and never take Lisinopril again, allergy list updated.Intermittent claudication (ICD-443.9) (PJW35-X26.9) Assessment: Instructions: Resolved since surgery. Release of information form(s) to obtain medical records from your surgeon has been signed in the office today. We will reach out to your surgeon to help you find out what your follow-up with them will be.History of myocardial infarction (ICD-V12.59) (ZMR08-P63.2) Assessment: Instructions: Fasting labs have been ordered [...] (Critical)Orders:Adult - Ofc Vst, EST, Level III [CPT-12465] Follow-Up Return to clinic: in 2 weeks for follow upAdditional Follow-Up: lab reviewClinical Visit Summary CompletedMedications:ALDACTONE 25 MG ORAL TABLET (SPIRONOLACTONE) 1 tablet po qd #30[Tablet] x 3 Entered and Authorized by: Pattie BECK Method used: Electronically to [facility] (retail) [address] [place] [address] RxID: [id number] 325 MG ORAL TABLET (ACETAMINOPHEN) Take 1-2 tablets po every 4 hours prn #30[Tablet] x 3 Entered and Authorized by: Pattie BECK Method used: Electronically to [facility] (retail) [address] [place] [address] Fax: RxID: [id number] 25 MG ORAL TABLET (SPIRONOLACTONE) 1 tablet po qd #30[Tablet] x 3 Entered and Authorized by: Pattie BECK Method used: Electronically to [facility] (retail) [address] [place] [address] Note to Pharmacy: Route: ORAL; RxID: [id number] 325 MG ORAL TABLET (ACETAMINOPHEN) Take 1-2 tablets po every 4 hours prn #30[Tablet] x 3 Entered and Authorized by: Pattie BECK Method used: Electronically to [facility] (retail) [address] [place] [address] Note to Pharmacy: Route: ORAL; RxID: [id number] signed by Pattie BECK on 01/21/2020 at 1:11 PM Name Value Range Interpretation Code Description Data Diana rce(s) Supporting Document(s) ID Date Data Source [id number] 01/11/2020 09:05:00 AM EDT [facility] ([facility]) Name Value Range Interpretation Code Description Data Diana rce(s) Supporting Document(s) Erythrocyte sedimentation rate by Westergren method 20 [facility] ([facility]) C-Reactive Protein 1.97 [facility]) ID Date Data Source [id number] 01/11/2020 09:05:00 AM EDT [facility] ([facility]) Name Value Range Interpretation Code Description Data Diana rce(s) Supporting Document(s) Albumin [Mass/volume] in Serum or Plasma 3.7 [facility] ([facility]) Alanine aminotransferase [Enzymatic activity/volume] in Serum or Pl asma 22 [facility] ([facility]) Calcium [Mass/volume] in Serum or Plasma 9.1 [facility] ([facility]) Carbon dioxide, total [Moles/volume] in Serum or Plasma 30 [facility] ([facility]) Chloride [Moles/volume] in Serum or Plasma 101 [facility] ([facility]) Potassium [Moles/volume] in Serum or Plasma 4.1 [facility] ([facility]) Protein [Mass/volume] in Serum or Plasma 7.7 [facility] ([facility]) Alkaline phosphatase [Enzymatic activity/volume] in Serum or Plasma 8 5 [facility] ([facility]) Aspartate aminotransferase [Enzymatic activity/volume] in Serum or Plasma 19 [facility] ([facility]) Sodium 136 [facility] Creatinine For GFR 1.08 [facility] ([facility]) Urea nitrogen [Mass/volume] in Serum or Plasma 17 [facility] ([facility]) Glucose 96 83-110 [facility] ID Date Data Source [id number] 12/29/2019 06:35:31 AM EDT [facility] NT INFORMATIONPatient MRN Name Date of Age Gend*PT [id number] Chet Juarez Jr. 1960 59 years M IPPT Location Admission Date/Time Visit ID Attending [id number] 12/24/19 0236 --- --- EPI ID CSN Admitting Provider [id number] Marianne Jordan MD([id number]) [place] [address] OPERATIVE REPORT OPNAME: CHET JUAREZ JR.#: [id number] #: [id number] ADMISSION DATE: 12/24/2019DOB: 1960 SEX: M PT TYPE: I SURACCT #: [id number] CARE PHYSICIAN:DATE OF OPERATION: 12/25/2019DIAGNOSES:Occlusive disease with atherosclerosis, right lower extremity.PROCEDURE:Right iliofemoral bypass and right popliteal thrombectomy.SURGEON:Dr. Jordan.RUBBER BELT SPLICER:EBONY Negron.ANESTHESIA:General.DESCRIPTION OF PROCEDURE:Patient anesthetized. The abdomen and [...] recovery roomin stable condition.ISAAK KRAMER/BRISEIDA Job #: [id number] DOC #: [id number] Name Value Range Interpretation Code Description Data Diana rce(s) Supporting Document(s) ID Date Data Source [id number] 12/26/2019 12:12:00 AM EDT [facility] ([facility]) Name Value Range Interpretation Code Description Data Diana rce(s) Supporting Document(s) Laboratory test finding (navigational concept) 128 mg/dL 70-99 [facility] ([facility]) PERFORMED BY [facility] CLINICAL STAFF ID Date Data Source [id number] 12/25/2019 08:12:51 PM EDT [facility] Name Value Range Interpretation Code Description Data Diana rce(s) Supporting Document(s) POC NOVA GLU 128 mg/dL (70-99) H [facility] PERFORMED BY [facility] CLINICAL [facility] ID Date Data Source [id number] 12/25/2019 04:40:50 PM EDT [facility] NT INFORMATIONPatient MRN Name Date of Age Gend*PT [id number] Chet Juarez Jr. 1960 59 years M IPPT Location Admission Date/Time Visit ID Attending Provider --- --- --- --- EPI ID CSN Admitting Provider [id number] ---Arterial Line PlacementPatient location during procedure: ORIndications [...] rce(s) Supporting Document(s) ID Date Data Source [id number] 12/25/2019 04:27:25 PM [facility] NT INFORMATIONPatient MRN Name Date of Age Gend*PT [id number] Chet Juarez Jr. 1960 59 years M IPPT Location Admission Date/Time Visit ID Attending Provider --- --- --- --- EPI ID CSN Admitting Provider [id number] ---AirwayPatient location during procedure: ORUrgency: electiveDifficult airway: [...] cmPlacement verified by: chest auscultation and + [id number]: CTA and equal breath sounds bilateralGrade view: [...] rce(s) Supporting Document(s) ID Date Data Source [id number] 12/25/2019 02:43:[address] [facility] NT INFORMATIONPatient MRN Name Date of Age Gend*PT [id number] Chet Juarez Jr. 1960 59 years M IPPT Location Admission Date/Time Visit ID Attending [id number] 12/24/19 0236 --- Marianne Jordan MD([id number]) EPI ID CSN Admitting Provider [id number] Marianne Jordan MD([id number])H&P reviewed. The patient was examined and there are no changes to the H&P.Marianne Jordan MD2:43 PM Name Value Range Interpretation Code Description Data Diana rce(s) Supporting Document(s) ID Date Data Source [id number] 12/28/2019 04:42:45 PM EDT [facility] [place], [place] [address]Ohh# Surgical Pathology ReportAccession #:[id number](s) ReceivedA: Right femoral thrombusClinical Diagnosis and HistoryRight lower extremity ischemiaDIAGNOSISRIGHT FEMORAL THROMBUS. THROMBUS/BLOOD CLOT (GROSS DIAGNOSIS). Gross DescriptionReceived in formalin, the specimen was labeled "right femoral thrombus"and consists of two fragments of dark red/brown blood clot measuring 1.5cm in aggregate. No sections submitted. Gross only.Processed at Laboratory [facility], Histopathology, [address] [place] [address], [facility].emggmm/gmm Reported: 12/28/2019Electronically Signed Out By Henri Gonzalez M.D. [facility]emg This report may include immunohistochemical or in-situ hybridizationresults. Testing was developed and the performance characteristicsdetermined by [facility] as required by CLIA '88. The FDAhas determined that approval for specific use is not necessary forclinical use. The quality of Hematoxylin and Eosin stains and asapplicable, for all immunohistochemical and/or special stains, includingpositive and negative controls, were reviewed and considered appropriate.ICD codes I82.601CPT codesA: 73451A Name Value Range Interpretation Code Description Data Diana rce(s) Supporting Document(s) ID Date Data Source [id number] 12/25/2019 05:51:[address] [facility] Name Value Range Interpretation Code Description Data Diana rce(s) Supporting Document(s) EKG [facility] [id number]7W2vUKiG4PqlMSpr6yxY0TrL6EjVRGlXYUHQO9BvOSv jb2 [file] 6Rsv0LzBskkio30DPSUImxlZwjVpkKoAySOrw56jVWwZiegZWwqpfI/sRG3aV1U/eR1wRksgauT+/artificial inseminator [file] [id number]+UvujnVKkoJnzDVPMRFKuWZBECKAKA6B= ID Date Data Source [id number] 12/25/2019 05:39:00 AM EDT [facility] ([facility] Name Value Range Interpretation Code Description Data Diana rce(s) Supporting Document(s) Sodium [Moles/volume] in Serum or Plasma 136 mmol/L 136-145 [facility] ([facility]) Potassium [Moles/volume] in Serum or Plasma 4.0 mmol/L 3.6-5.2 [facility] ([facility]) Chloride [Moles/volume] in Serum or Plasma 104 mmol/L 100-108 [facility] ([facility]) Carbon dioxide, total [Moles/volume] in Serum or Plasma 25 mmol/L 22 -31 [facility] ([facility]) Anion gap in Serum or Plasma 7 mmol/L 7-16 [facility] ([facility]) Urea nitrogen [Mass/volume] in Serum or Plasma 13 mg/dL 7-24 [facility] ([facility]) Urea nitrogen/Creatinine [Mass Ratio] in Serum or Plasma 11.4 1 0.0-20.0 [facility] ([facility]) Glucose [Mass/volume] in Serum or Plasma 164 mg/dL 70-99 [facility] ([facility]) Creatinine [Mass/volume] in Serum or Plasma 1.14 mg/dL 0.80-1.30 [facility] ([facility]) Glomerular filtration rate/1.73 sq M pre dicted among non-blacks [Volume Rate/Area] in Serum or Plasma by Creatinine-based formula (MDRD) >60 [facility] ([facility]) Calcium [Mass/volume] in Serum or Plasma 9.2 mg/dL 8.4-10.2 [facility] ([facility]) Glomerular filtration rate/1.73 sq M pre dicted among blacks [Volume Rate/Area] in Serum or Plasma by Creatinine-based formula (MDRD) >60 [facility] ([facility]) Glomerular filtration rate/1.73 sq M pre dicted among non-blacks [Volume Rate/Area] in Serum or Plasma by Creatinine-based formula (MDRD) See Notes [facility] ([facility]) -- NORMAL KIDNEY FUNCTION OR MILD DISEASE - GFR >OR= 60 CHRONIC KIDNEY DISEASE - GFR 15 - 59 RENAL FAILURE - GFR <15 Est. GFR calculation based on the MDRD study equation, which assumes a steady state for creatinine. Est. GFR should not be used for medication dosing. ID Date Data Source [id number] 12/25/2019 05:23:00 AM EDT [facility] ([facility]) Name Value Range Interpretation Code Description Data Diana rce(s) Supporting Document(s) aPTT in Platelet poor plasma by Coagulation assay 63.8 s 22.0-34. 3 [facility] ([facility]) ID Date Data Source [id number] 12/25/2019 05:10:00 AM EDT [facility] ([facility] Name Value Range Interpretation Code Description Data Diana rce(s) Supporting Document(s) Leukocytes [#/volume] in Blood by Automated count 7.7 10*3/uL 4.1-11. 0 [facility] ([facility]) Hematocrit [Volume Fraction] of Blood by Automated count 43.2 % 4 1.0-53.0 [facility] ([facility]) Erythrocytes [#/volume] in Blood by Automated count 4.33 10*6/uL 4.60 -6.10 [facility] ([facility]) Hemoglobin [Mass/volume] in Blood 14.9 g/dL 13.5-18.0 [facility] ([facility]) Erythrocyte mean corpuscular volume [Entitic volume] by Auto mated count 99.6 fL 80.0-95.0 [facility] ([facility] ) Erythrocyte mean corpuscular hemoglobin concentration [Mass/volume] by Automated count 34.4 g/dL 32.0-36.0 [facility] ([facility]) Erythrocyte mean corpuscular hemoglobin [Entitic mass] by Automated count 34.3 pg 27.0-32.0 [facility] ([facility]) Platelets [#/volume] in Blood by Automated count 156 10*3/uL 150-450 [facility] ([facility]) Erythrocyte distribution width [Ratio] by Automated count 13.2 % 10.5-14.5 [facility] ([facility]) Platelet mean volume [Entitic volume] in Blood by Simeon-Geo 8.6 fL 7.1-10.7 [facility] ([facility]) ID Date Data Source [id number] 12/25/2019 01:40:09 AM EDT [facility] Name Value Range Interpretation Code Description Data Diana rce(s) Supporting Document(s) SODIUM 136 mmol/L (136-145) [facility] POTASSIUM 4.0 mmol/L (3.6-5.2) [facility] CHLORIDE 104 mmol/L (100-108) [facility] CO2 25 mmol/L (22-31) [facility] ANION GAP 7 mmol/L (7-16) [facility] UREA NITROGEN 13 mg/dL (7-24) [facility] CREATININE 1.14 mg/dL (0.80-1.30) [facility] BUN/CREAT RATIO 11.4 RATIO (10.0-20.0) [facility] GLUCOSE 164 mg/dL (70-99) H [facility] CALCIUM 9.2 mg/dL (8.4-10.2) [facility] GFR >60 ml/min/1.73m2 (>59) [facility] GFR ( AMER) >60 ml/min/1.73m2 (>59) [facility] GFR INTERPRETATION [facility] --NORMAL KIDNEY FUNCTION OR MILD DISEASE - GFR >OR= 60CHRONIC KIDNEY DISEASE - GFR 15 - 59RENAL FAILURE - GFR <15 Est. GFR calculation based on the MDRDstudy equation, which assumes a steadystate for creatinine. Est. GFR should notbe used for medication dosing. ID Date Data Source [id number] 12/25/2019 01:24:34 AM EDT [facility] Name Value Range Interpretation Code Description Data Diana rce(s) Supporting Document(s) APTT 63.8 s (22.0-34.3) H [facility] ID Date Data Source [id number] 12/25/2019 01:11:08 AM EDT [facility] Name Value Range Interpretation Code Description Data Diana rce(s) Supporting Document(s) WBC 7.7 10*3/uL (4.1-11.0) [facility] [place] RBC 4.33 10*6/uL (4.60-6.10) L [facility] HGB 14.9 g/dL (13.5-18.0) [facility] HCT 43.2 % (41.0-53.0) [facility] MCV 99.6 fL (80.0-95.0) H [facility] MCH 34.3 pg (27.0-32.0) H [facility] MCHC 34.4 g/dL (32.0-36.0) [facility] RDW 13.2 % (10.5-14.5) [facility] PLT 156 10*3/uL (150-450) [facility] MPV 8.6 fL (7.1-10.7) [facility] ID Date Data Source [id number] 12/24/2019 07:22:22 PM EDT [facility] Name Value Range Interpretation Code Description Data Diana rce(s) Supporting Document(s) APTT 70.6 s (22.0-34.3) H [facility] ID Date Data Source [id number] 12/24/2019 03:59:00 PM EDT [facility] ([facility] [...] Immunoassay Tests That [facility] ([facility]) ARE REPORTED POSITIVE WHEN THE RESULT S EXCEED THE THRESHOLD (CUTOFF) INDICATED. A LIST OF POTENTIAL INTERFERENCES FOR EACH METHOD CAN BE MADE AVAILABLE UPON REQUEST. CONFIRMATION OF A POSITIVE SCREEN CAN BE PERFORMED BY A REFERENCE LABORATORY IF REQUEST IS MADE WITHIN 48 HRS. PERFORMED BY [address] [place] [address] [facility] [id number] Phencyclidine [Presence] in Urine by Screen method Negative [facility] ([facility]) ID Date Data Source [id number] 12/24/2019 02:29:00 PM EDT [facility] ([facility]) Name Value Range Interpretation Code Description Data Diana rce(s) Supporting Document(s) Bsa 1.81 m2 [facility] ([facility]) Pt Height 1.78 m [facility] ([facility]) Systolic BP Echo 150.00 [facility] ([facility]) Weight 64.86 kg [facility] ([facility]) LV Length [place] (A4c) 8.26 cm [...] 21.70 cm2 [facility] ([facility]) LA Area Sys (A4c) 21.20 cm2 [facility] ([facility]) LA Esv (A2c) 67.80 cm3 [facility] ([facility] LA volume 65.10 cm3 [facility] ([facility] LA volume 67.70 cm3 [facility] ([facility]) Av mean gradient 11.00 [facility] ([facility]) Ao peak twila 2.18 m/s [facility] ([facility]) Aortic valve velocity time integral 44.50 cm [facility] ([facility]) Aortic valve mean velocity 1.61 m/s MED ENT ([facility]) Ao root annulus 3.50 cm [facility] ([facility]) Av peak gradient 19.00 [facility] ([facility]) E wave decelartion time 176.00 ms [...] [facility]) ID Date Data Source [id number] 12/24/2019 12:44:17 PM EDT [facility] Name Value Range Interpretation Code Description Data Diana rce(s) Supporting Document(s) APTT 48.7 s (22.0-34.3) H [facility] ID Date Data Source [id number] 12/24/2019 11:30:36 AM EDT [facility] INFORMATIONPatient MRN Name Date of Age Gend*PT [id number] Chet Juarez Jr. 1960 59 years M IPPT Location Admission Date/Time Visit ID Attending [id number] 12/24/19 0236 --- Marianne Jordan MD([id number]) EPI ID CSN Admitting Provider [id number] Marianne Jordan MD([id number]) [place] [address] HISTORY AND PHYSICAL HPNAME: CHET JUAREZ JR.#: [id number] #: [id number] ADMISSION DATE: 12/24/2019DOB: 1960 SEX: M PT TYPE: I SURACCT #: [id number] CARE PHYSICIAN:DATE OF ADMISSION: 12/24/2019This is a [...] the leg for limbsalvage.ISAAK KRAMER/NTS Job #: [id number] DOC #: [id number] Name Value Range Interpretation Code Description Data Diana rce(s) Supporting Document(s) ID Date Data Source [id number] 12/24/2019 10:49:03 AM EDT [facility] NT INFORMATIONPatient MRN Name Date of Age Gend*PT [id number] hCet Juarez Jr. 1960 59 years M IPPT Location Admission Date/Time Visit ID Attending [id number] 12/24/19 0236 --- Marianne Jordan MD([id number]) EPI ID CSN Admitting Provider [id number] Marianne Jordan MD([id number])CARDIOLOGY CONSULTATIONName: Chet Juarez Jr. Gender: maleDate of : 1960 Age: 59 yearsDate/Time of Admit: 12/24/2019 2:36 AM Code Status: Full CodePrimary Care Provider / Referring Physician: [facility]INICInformant:HISTORYCHIEF COMPLAINT: No chief complaint on file.HPI:This patient is a 59 years male [facility]. 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 He is acandidate for bypass.He has a history of coronary disease with stent placement in 2017. At that timehe [facility] inferior wall STEMI which was treatedwith reperfusion therapy. He developed recurrent ischemic chest pain followingreperfusion and was treated at [facility] with bare-metal stent placement inthe right coronary [...] file Gets together: Not on file Attends yazidism service: Not on file Active member of [...] rce(s) Supporting Document(s) ID Date Data Source [id number] 12/24/2019 11:59:51 AM EDT [facility] Name Value Range Interpretation Code Description Data Diana rce(s) Supporting Document(s) AMPHETAMINES,URINE (NEG) [facility] BARBITURATES,URINE (NEG) [facility] BENZODIAZEPINE,URINE (NEG) [facility] CANNABINOIDS,URINE (NEG) A [facility] COCAINE,URINE (NEG) [facility] OPIATES,URINE (NEG) [facility] NOTE: Oxycodone is not sufficientlydetec pablo by this screening assay. A moresensitive assay is available upon request. PHENCYCLIDINE,URINE (NEG) [facility] PLEASE NOTE: [facility] ARE REPORTED POSITIVE WHEN THE RESULT SEXCEED THE THRESHOLD (CUTOFF) INDICATED. ALIST OF POTENTIAL INTERFERENCES FOR EACHMETHOD CAN BE MADE AVAILABLE UPON REQUEST.CONFIRMATION OF A POSITIVE SCREEN CAN BE PERFORMED BY A REFERENCE LABORATORY IFREQUEST IS MADE WITHIN 48 HRS. PERFORMEDBY [address] [place] [address] CIERA LIANG CHAD [address] ID Date Data Source [id number] 12/24/2019 10:01:[address] [facility] Name Value Range Interpretation Code Description Data Diana rce(s) Supporting Document(s) &PDF [facility] PCJLJt7wWpNJIwLi35/XPDliXFCew7MbZNvwQAy1JVraFRTqG7TinQqvEYFPY7VLXZ1VHfSBQsOWZb8y vci [file] Q+josé manuel/gs3gKT+Y31Uh9XQ0TXgXaw2cTP8L24qN5NpTts/h9/AG+hD/Mf4NCIV0rQy1kXPX8d3BLsQ9TP9 [file] /KGeUPxUh7XybipKGKNKYPYLWWHOLLAEPKHVVETMOWAFYLSKONTTJVLHANDFHPCULMrT7YZYCQ6lnpIO KMWnE5Ra55f6pjQsXvx0C6AU52UxsBZGCEjRRGXE3rwwECnZL9JAu/V6/C3U7IIs39/Dt/vh5Y5mcb3o pH78l/eqf3t1oW4VWHJZmIiSxSj59JylyHX+V0XvEs MqsdliZzvwNuh5fEHcbtDWusXfj/04z8dlcgKvGcuH6+XnR3I+prPcDfNi/9L+7wnJJA/Bv7+vision mixer/t+tC [file] z/packing line operator+XLjAGAuEL8k7fGl8RYeobtPuCY47zb2ojkVYb [file] AgICAgICAgICAgICAgICAgICAgICAgICAgICAgICAgICAgICAgICAgICAgICAgICAgICAgICAgICAgIC RpOKIoUPTtOYEpBGZmEFUjPRQqVF9UIYVqPTHjXWNh ICAgICAgICAgICAgICAgICAgICAgICAgICAgICAgICAgICAgICAgICAgICAgICAgICAgICAgICAgICAg XFFyVURdZZTrKUEbWFDcIWZfCYTsNYVeEYMoQOYjVM0TBEFcCVKtLIGiPIOwBHGqXRKdTUXuTRWxHDGo ICAgICAgICAgICAgICAgICAgICAgICAgICAgICAgIC BgQJWeQGMtSVDsKRKnFMSeLCQiHOVhAXNmTACoSLQkDSBsRFWuNGGzRJ6WPMLrXHPbGFUeJLWrZDGrZD AgICAgICAgICAgICAgICAgICAgICAgICAgICAgICAgICAgICAgICAgICAgICAgICAgICAgICAgICAgIC DcDFGpYVUdRVNyYDKtYGRaDUMrWMFoTG9JIAVyZVZp ICAgICAgICAgICAgICAgICAgICAgICAgICAgICAgICAgICAgICAgICAgICAgICAgICAgICAgICAgICAg NOAdKRZsXNNxMMSeHONtHSBbEEKzERVaSNMtNWFdUHKrAD1DQZUhNGNlDEYgODAjOOQxJUReCKFdCFLz ICAgICAgICAgICAgICAgICAgICAgICAgICAgICAgIC YeFXRbFETfGZXgMNSyDTKcBUQrWBMkQWRlLJSiULWaYATiBQWbZWVuAPEgYI5QRZFlPZRbOJMrIOAhMK AgICAgICAgICAgICAgICAgICAgICAgICAgICAgICAgICAgICAgICAgICAgICAgICAgICAgICAgICAgIC IiFKYkUBHhCILoFRSrVGKrSFWpECTtYCZoVI0CKAGo ICAgICAgICAgICAgICAgICAgICAgICAgICAgICAgICAgICAgICAgICAgICAgICAgICAgICAgICAgICAg NZJdDMGuTSNrPTFmAYCgUSThOFIwZPKpIUElFMTrXKVaPAXfBZ4EAOEkQNPrSCKnGBQuGCKuRBQvLGFd ICAgICAgICAgICAgICAgICAgICAgICAgICAgICAgIC FhWORcWKDjMSUtJPJvCKDoJGTvJWFxPXVqXEReDLQcAJLvYXKnGGLuJGUhMITwQN8QCAOtTIZnQQQiKB AgICAgICAgICAgICAgICAgICAgICAgICAgICAgICAgICAgICAgICAgICAgICAgICAgICAgICAgICAgIC SpVVNySPZzQUWzCDUsLAIyDZStQJVnTQUzBAMzGR5N NM88jLOks0P6JJFmKS3cfbn/Qi9BKCqaswEllZLpQA3WMkZnVU1ugw2HUnBkWT4oph3ZCUmKVbFoP2G9 iFAzEHItAYTAMfXdC48tLNsuBa40CMvrKOJsZgIiNZz9Nc3COqDiF6jfAVGtUkE5PSLbXrM4VZJnCsL6 TVLwGnItEOvqWS1Uy5IzjPHwBWm+Aa8JQT2ce6IkAD l9CjNmHX1ood5HSJqHLyWkR1L1zHTlS6E1PPeeJz0PXGSlAVYhVRQgFWKLYZtcME1JDN5znzP2ZL8IbE UjBDNiAICozXUfQAr4M41lxIVuHGjeBA9SSDO+Bertha+Ad8GUISjBQHbGZAyVyCzRTINAtEaR95scRMlEA JeDJBmILOaWt9WOJMbX1RpitEptQabhoUbSIHwHFJI RF0XCDpoqeOgiDXrbHozSP06jEqvFF2CAr9RCwGsCK1uie0FkBWxDv2YYPM2Cl8ZRRSdXYCoLVUtKDH7 YCIpJbTyQOwnFLDoNBKjTAG2GYOaHQAkSC2RMhSgKMLrDxC0JMQzLETkPQAlik8UHNZcKOE9FrRzJUQz WQQqIYVuQAzwKXSzYJKaGFdkMXUrKLHhCE8QLfDvWW KlGUW3WkPvJOZcJXKqly1TZLWyDBNjNif6GQWmSOTxIMPnVCnsPJPxYOI7UnK7WODlNBAoAQ0YAzUuCJ WlSIV1FkPoLTKxXHOzxu0JNQTsLZMiLKY8ClMrIDHtDPOzKXimAFJuPMI6Mxn9OOSsZYRuQU9RIgXjHD MgIQq8XSItUOMjCMDplt3JOUCnPTClFAs8XiBdRGAh CZGfTNgzJUQtEVRjJYU5ENFmVYFcQV4FOyGuECPeAIB5VSCqGAAtGMHgia2VSMDvIFCqYZO2MhWhRDMn WAYdRJakZTJwPLFiCno9MUVlJLQmRZ1BVsKtRHGvZJFfQDAcJEAqHDUziw9BPCXhLDHhXzJ1VOXaHZRg QVIuYLtwTNVcSUC5VbzvVXSdQAWvSP5SMnQbIUOgEV fgLTAmMYGtEGPhdx3WBHRmNQTlRlJ0UvTuYQIpURJiPHdrYLHzHFK1OIn3CLTlJKEbBH3MJkElVZBlXJ fzPKYwVSEwLQUriq1KNDBiXITyCAD7UjYvVULlFNHdIPtnICRsGCLfOGEePSVvVROeAQ6PZjUfDZJrNd p4SBsvBZZfAZOiyf0FZMXdRPQrKIX4WIUjAZDyBUGi HHftVIObBJQeXQK5DZBfSQLnSD0KDhXpJCUcEuF1EOCpCKZuCFRvhs1FFGMrHOTgIwfbTmDyDQObEYZz MOejTFCzZJOnRQn1FQHxTQOzJE1FBcDyQBRuOTPlWjMyLTFaNVOsms4UPVUgSAY2GkI9COVwXFLaAIEa JWpnDUOmMTKkFFXlPMUdVOOmHP3RGeWlNLGwMQEsEq PzACQnADKedu3WRPJzMFO4VPN6XTWhVQPaXGWlLBsoNLCoIIGhHwMmUTFhESCmDO5MKvMlVSYtLrV7Tl EaCCPhAARdtm0RFRSuTXI6KHPoLdGxXGYzIBKmAUwhVCJeJCx3WAS3JYLzFBKcOJ6UKjUpECSxJlZ4Az BjRZVmVVWftb7BXGAsTQX2LwJpOJXtURUtDLZwKPd9 uwUysWLpSZb7KR8JE0TwzcPfCXFFZe7Nc739FXDrJCBkQg0OO9nxAb9zUBNeYWZKDt1UIUu8MWSmSKp0 F8P5O7JuM4WoTlZ3QKXpHXCrJmHmCjn2HLP+GLfoABFkMPcnGOYhTJT2H9F5XtYwGMOgGWJdInTlBHFb JT5fMDEXNn4+KNskpICqdHlhWWRKZqj6NaTiCBhzPEDSNo3C ID Date Data Source [id number] 12/24/2019 09:26:42 AM EDT [address] [address]Ywapmvg Name: CHET SOLER: 1960Sex: MOrdering Provider: PALLAVI RAPHAELAuthorijulianna Prov: PALLAVI RAPHAELReferring Provider: Procedure Performed: CT ANGIOGRAM ABDOMINAL AORTA AND BILATERAL RUNOFFExam Date: 12/24/2019 06:02MRN: [id number] Number: [id number] Class: InpatientAccount #: [id number] for Exam: RLE ischemia, pain of RLE [...] and unremarkable. The popliteal artery occludes just xxvfg-sqc-gpwa joint and reconstitutes just below the knee [...] SIDDHARTHA MERRILL On 12/24/2019 9:26 AMWorkstation ID: [id number] - [id number] Name Value Range Interpretation Code Description Data Diana rce(s) Supporting Document(s) ID Date Data Source [id number] 12/24/2019 09:00:47 AM EDT [address] [address]Buijlso Name: CHET ANNDOB: 1960Sex: MOrdering Provider: MARIN LUCEROEAuthorizing Prov: MARIN LUCEROEReferalbert Provider: Procedure Performed: XR CHEST PA AND LATERALExam Date: 12/24/2019 08:06MRN: [id number] Number: [id number] Class: InpatientAccount #: [id number] for Exam: pre- op. CAD hx. HTN.Technique: [...] CONCHA AHUMADA On 12/24/2019 9:00 AMWorkstation ID: [id number] - [id number] Name Value Range Interpretation Code Description Data Diana rce(s) Supporting Document(s) ID Date Data Source [id number] 12/24/2019 07:56:00 AM EDT [facility] ([facility]) Name Value Range Interpretation Code Description [...] 3.9 g/dL 2.7-4.3 [facility] ([facility]) Alb/Glob ratio 0.9 [facility] ([facility]) Alkaline phosphatase [Enzymatic activity/volume] in Serum or Plasma 57 U/L 45-117 [facility] ([facility] ) Bilirubin direct and total panel [Mass/volume] - Serum or Pl asma 0.9 mg/dL 0.0-1.0 [facility] ([facility] ) PLEASE NOTE: Total bilirubin results may be falsely elevated in patients taking Eltrombopag. Aspartate aminotransferase [Enzymatic activity/volume] in Serum or Plasma 21 U/L 11-39 [facility] ([facility]) Alanine aminotransferase [Enzymatic activity/volume] in Seru m or Plasma 28 U/L 12-78 [facility] ([facility] ) Glomerular filtration rate/1.73 sq M pre dicted among non-blacks [Volume Rate/Area] in Serum or Plasma by Creatinine-based formula (MDRD) >60 [facility] ([facility]) Glomerular filtration rate/1.73 sq M pre dicted among blacks [Volume Rate/Area] in Serum or Plasma by Creatinine-based formula (MDRD) >60 [facility] ([facility]) Glomerular filtration rate/1.73 sq M pre dicted among non-blacks [Volume Rate/Area] in Serum or Plasma by Creatinine-based formula (MDRD) See Notes [facility] -- NORMAL KIDNEY FUNCTION OR MILD DISEASE - GFR >OR= 60 CHRONIC KIDNEY DISEASE - GFR 15 - 59 RENAL FAILURE - GFR <15 Est. GFR calculation based on the MDRD study equation, which assumes a steady state for creatinine. Est. GFR should not be used for medication dosing. ID Date Data Source [id number] 12/24/2019 07:33:00 AM EDT [facility] ([facility]) Name Value Range Interpretation Code Description Data [...] MECHANICAL HEART VALVE ID Date Data Source [id number] 12/24/2019 05:45:15 AM EDT [facility] NT INFORMATIONPatient MRN Name Date of Age Gend*PT [id number] Chet Juarez Jr. 1960 59 years M IPPT Location Admission Date/Time Visit ID Attending [id number] 12/24/19 0236 --- Marianne Jordan MD([id number]) EPI ID CSN Admitting Provider [id number] Marianne Jordan MD([id number]) Attestation signed by Marianne Jordan MD at 12/24/2019 5:45 AMI saw and evaluated the patient and reviewed pas note. I agree with thehistory, physical and medical decision making with the following additions,exceptions, and/or observations:Signature: RAKAN Kramerate: December 24, 2019Time: 5:45 AM-------- ADMISSION HISTORY AND PHYSICALMorris Ann FieldMRN:[id number]: 1960Informant: The patient who is a poor historian as well as old medical recordsPrimary Care Provider: [facility] CL[facility]ICAttending: Marianne Jordan MDHPI:59 years White or male with a past medical history significant forHLD, tobacco and alcohol abuse, h/o AMI s/p drug eluding stents in 2017 by , and medical noncompliance presents with as a transfer from an [facility] with right lower extremity ischemia.Mr. Juarez states he has been experiencing bilateral leg cramping with walkingany distance. Over the last few days, he has noted worsening pain in the rightleg. The pain was severe yesterday and as such he presented to [facility] ED.He had a RLE arterial duplex completed revealing "complete occlusion of theright popliteal artery. Complete occlusion of the right posterior and anteriortibial arteries". Dr. Jordan agreed to admit the patient for further workup ofhis arterial disease.He states he has been able to ambulate, but with pain. He denies decreasedsensation or decreased movement of the right foot.Mr. Juarez was admitted to [facility] in 08/[address] elevation [place] at which time heunderwent cardiac cath with [...] AND OTHER DIAGNOSTICSDiagnostic tests reviewed:Labs completed at [facility] on 12/23/19 are as follows: WBC 9.6, [...] Alcohol abuse- GMAW monitoring protocol ordered.4. H/o AK, HLD- patient had bare metal stents place to right coronary and circumflex arteriesin 08/[address] Roche. He has not been taking his ASA or plavix, and it doesnot sound like he has been following with a sales market leader since then.- he is asymptomatic.- EKG ordered- [...] rce(s) Supporting Document(s) ID Date Data Source [id number] 12/28/2019 12:22:05 AM EDT [facility] SPEC EXP DATE 12/27/2019PATI ENT ABO/Rh A POSITIVEANTIBODY SCREEN NEGATIVETESTING SITE PERFORMED AT [address] [place], [place] [id number] BANK COMMENT BLOOD TYPE CONFIRMED.UNIT NUMBER [id number] COMPONENT TYPE LEUKOPOOR RED CELLSUNIT DIVISION 00STATUS OF UNIT REL FROM ALLOCTRANSFUSION STATUS OK TO TRANSFUSECROSSMATCH RESULT COMPATIBLEUNIT NUMBER [id number] COMPONENT TYPE LEUKOPOOR RED CELLSUNIT DIVISION 00STATUS OF UNIT REL FROM ALLOCTRANSFUSION STATUS OK TO TRANSFUSECROSSMATCH RESULT COMPATIBLE Name Value Range Interpretation Code Description Data Diana rce(s) Supporting Document(s) TYPE AND SCREEN [facility] ID Date Data Source [id number] 12/24/2019 03:56:57 AM EDT [facility] Name Value Range Interpretation Code Description Data Diana rce(s) Supporting Document(s) SODIUM 138 mmol/L (136-145) [facility] POTASSIUM 3.8 mmol/L (3.6-5.2) [facility] CHLORIDE 105 mmol/L (100-108) [facility] CO2 27 mmol/L (22-31) [facility] ANION GAP 6 mmol/L (7-16) L [facility] UREA NITROGEN 11 mg/dL (7-24) [facility] CREATININE 0.97 mg/dL (0.80-1.30) [facility] BUN/CREAT RATIO 11.3 RATIO (10.0-20.0) [facility] GLUCOSE 96 mg/dL (70-99) [facility] CALCIUM 8.8 mg/dL (8.4-10.2) [facility] TOTAL PROTEIN 7.4 g/dL (6.4-8.2) [facility] ALBUMIN 3.5 g/dL (3.2-4.5) [facility] GLOBULIN 3.9 g/dL (2.7-4.3) [facility] ALB/GLOB RATIO 0.9 RATIO [facility] ALKALINE PHOSPHATASE 57 U/L (45-117) [facility] BILIRUBIN,TOTAL 0.9 mg/dL (0.0-1.0) [facility] PLEASE NOTE:Total bilirubin results may be falselyelevated in patients taking Eltrombopag. AST (SGOT) 21 U/L (11-39) [facility] ALT (SGPT) 28 U/L (12-78) [facility] GFR >60 ml/min/1.73m2 (>59) [facility] GFR ( AMER) >60 ml/min/1.73m2 (>59) [facility] GFR INTERPRETATION [facility] --NORMAL KIDNEY FUNCTION OR MILD DISEASE - GFR >OR= 60CHRONIC KIDNEY DISEASE - GFR 15 - 59RENAL FAILURE - GFR <15 Est. GFR calculation based on the MDRDstudy equation, which assumes a steadystate for creatinine. Est. GFR should notbe used for medication dosing. ID Date Data Source [id number] 12/24/2019 03:34:03 AM EDT [facility] Name Value Range Interpretation Code Description Data Diana rce(s) Supporting Document(s) APTT 25.4 s (22.0-34.3) [facility] ID Date Data Source [id number] 12/24/2019 03:34:03 AM EDT [facility] Name Value Range Interpretation Code Description Data Diana rce(s) Supporting Document(s) PT 10.8 s (9.2-11.9) [facility] INR 1.03 [facility] SUGGESTED THERAPEUTIC RANGES USING INR F ORSTABILIZED ANTICOAGULATED PATIENTS:STANDARD DOSE THERAPY INR 2.0-3.0 DVT, PE, PREVENT DVT OR EMBOLISMHIGH DOSE THERAPY INR 2.5-3.5 PREVENT EMBOLISM FROM MECHANICAL HEART VALVE ID Date Data Source [id number] 12/24/2019 03:23:12 AM EDT [facility] Name Value Range Interpretation Code Description Data Diana rce(s) Supporting Document(s) WBC 8.0 10*3/uL (4.1-11.0) [facility] [place] RBC 4.81 10*6/uL (4.60-6.10) [facility] HGB 16.5 g/dL (13.5-18.0) [facility] HCT 48.0 % (41.0-53.0) [facility] MCV 99.9 fL (80.0-95.0) H [facility] MCH 34.2 pg (27.0-32.0) H [facility] MCHC 34.3 g/dL (32.0-36.0) [facility] RDW 12.8 % (10.5-14.5) [facility] PLT 161 10*3/uL (150-450) [facility] MPV 8.1 fL (7.1-10.7) [facility] ID Date Data Source [id number] 12/21/2019 02:16:30 PM EDT [facility] Measurements & CalculationsHeight: 68 inches (5 [...] or Preferred Language: EnglishFamily and Home Address: [address] [place] [address] [address] [facility] [address] [place] [address] What is your housing situation today? I [...] really needed? 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 No Has [...] you a refugee? No (Country of origin: [facility]) Do you feel physically and emotionally safe [...] History Medical History:fake right eye 2007[facility] st[facility] in heartleft pinky surgeryFamily History:Myocardial infarction ([place]) (Mother)Social/Personal History: Packs/day: 1Comments: 1 PDD x [...] of fluctuating BP. Pt was seen at [facility] ER a month ago for acute breathing issues and was recommended a PCP at the time. Pt states he is concerned that he has wax or something in his ears since he has stuff coming out on his q-tip.Follows with [facility] regularly. HPI performed by: Pattie BECK, December 21, 2019 2:55 PMProblem ReviewProblem List was reviewed and/or updated during this visit.Medication Reconciliation & ReviewMedication List was reviewed and/or updated during this visit, including review of any eutm-tqa-wkudqdo medications, herbal therapies, and/or supplements. Patient has [...] FairAssessment & Plan Problems:Added: BMI 23.0-23.9 (ICD-V85.1) (EEG52-I30.23)History of myocardial infarction (ICD-V12.59) (DLH20-C45.2) Assessment: Instructions: Referred to cardiology for further evaluation and routine monitoring. Has not had any care since 08/2018 when he had 6 stents placed at [facility]. Not on any medications at this time.Intermittent claudication (ICD-443.9) (AWB00-A51.9) Assessment: Instructions: Ordered ultrasounds to assess further.Encounter for general adult medical examination with abnormal findings (ICD-V70.0) (EUL26-V35.01) Assessment: Instructions: Recommend annual medical appointments. Recommend routine dental and vision care.Screening for diabetes mellitus (ICD-V77.1) (YWE33-H28.1) Assessment: Instructions: Fasting labs have been ordered [...] advised to seek treatment to quit. Reviewed terminal make up operator health risks associated with alcohol consumption, especially in regard to cardiac risk .Alcohol abuse, uncomplicated (ICD10- F10.10) Assessment: Instructions: As above.Tobacco user (ICD-305.1) (ICD10- F17.200) Assessment: Instructions: Smoking cessation counseling was recommended with patient today.Elevated blood pressure (ICD-796.2) (VEH69-T27.0) Assessment: Instructions: Recommend reduced salt intake, cut back on caffeine and alcohol, increase physical activity. We reviewed the terminal make up operator risks associated with uncontrolled high blood pressure, including stroke and heart attack. Goal BP is <140/90, please call the office if your blood pressures are consistently running higher than that cutoff. Call 911 or report to the closest ER for chest pain, shortness of breath, dizziness, or passing out.Screening for thyroid disorders (ICD-V77.0) (JWP65-N38.29) Assessment: Instructions: Update routine labs.Patient Instructions/Care Plan: History of myocardial infarction: Referred to cardiology for further evaluation and routine monitoring. Has not had any care since 08/2018 when he had 6 stents placed at [facility]. Not on any medications at this time.Intermittent [...] advised to seek treatment to quit. Reviewed custodial health risks associated with alcohol consumption, especially in regard to cardiac risk .Alcohol abuse- uncomplicated: As above.Tobacco user: Smoking cessation counseling was recommended with patient today.Elevated blood pressure: Recommend reduced salt intake, cut back on caffeine and alcohol, increase physical activity. We reviewed the terminal make up operator risks associated with uncontrolled high blood pressure, [...] Known Allergies (updated 12/21/2019) Orders:COMP METABOLIC PANEL [CPT-08019] CBC W/DIFF [CPT-32430] LIPID PANEL [CPT-92835] TSH [CPT-27047] T-4 free [CPT-22874] Vitamin D 250H Unspecified [CPT-68285] Folate (Folic Acid Serum) [CPT-26768] Whole Blood Thiamine [CPT-23059] VITAMIN B-12 [CPT-40599] Duplex scan of lower extremity arteries; complete bilateral study [CPT-53921] Cardiology Consult [CPT-14896] Preventive, New, (40-64) [CPT-21465] Follow-Up Return to clinic: in 1-2 weeks for follow upClinical Visit Summary Declined Name Value Range Interpretation Code Description Data Diana rce(s) Supporting Document(s) ID Date Data Source [id number] 11/06/2019 11:55:00 AM EST [facility] ([facility]) Name Value Range Interpretation Code Description Data Diana rce(s) Supporting Document(s) Troponin Laboratory test result [facility] ([facility]) ID Date Data Source [id number] 11/06/2019 11:55:00 AM EST [facility] ([facility] Name Value Range Interpretation Code Description Data Diana rce(s) Supporting Document(s) CPK-MB 1.4 [facility] Creatine kinase [Enzymatic activity/volume] in Serum or Plasma 142 [facility] ([facility]) Procedure Social History Code Duration Value Status Description Data Source(s ) Alcohol intake 12/25/2019 12:00:00 AM EDT No completed [facility] Cigarette pack-years 12/25/2019 12:00:00 AM EDT UNK completed [facility] Cigarettes smoked current (pack per day) - Reported 12/25/19 20 12:00:00 AM EDT UNK completed [facility] Smoking 12/25/2019 12:00:00 AM EDT Current every day smoker co mpleted Current every day smoker [facility] Vital Signs ID Date Data Source UNK Name Value Range Interpretation Code Description Data Source(s) Body mass index (BMI) [Ratio] 22.0 kg/m2 22.0 k g/m2 [facility] ([facility]) Body weight 145.00 [lb_av] 145.00 [lb_av] MEDEN T ([facility]) Body height 68 [in_i] 68 [in_i] [facility] ([facility]) 5'8" Body temperature 97.5 [degF] 97.5 [degF] [facility] ([facility]) Diastolic blood pressure--sitting 71 mm[Hg] 71 mm[Hg] [facility] ([facility]) [place] adult cuff, [place] Systolic blood pressure--sitting 118 mm[Hg] 118 mm[Hg] [facility] ([facility]) [place] cuff[place] Heart rate 64 /min 64 /min [facility] ([facility] Body mass index (BMI) [Ratio] 21.5 kg/m2 21.5 k g/m2 [facility] ([facility]) Body height 70 [in_i] 70 [in_i] [facility] ([facility]) 5'10" Body weight 150.00 [lb_av] 150.00 [lb_av] MEDEN T ([facility]) Respiratory rate 25 /min 25 /min [facility] Heart rate 67 /min 67 /min [facility] Oxygen saturation in Arterial blood by Pulse oximetry 98 % 98 % [facility] Diastolic blood pressure 69 mm[Hg] 69 mm[Hg] [facility] Systolic blood pressure 119 mm[Hg] 119 mm[Hg] [facility] Body temperature 36.89 Makenzie 36.89 Makenzie [facility] Body mass index (BMI) [Ratio] 20.52 kg/m2 20.52 kg/m2 [facility] Body weight 64.[address] [facility] Body height 177.[address] [facility] Patient Treatment Plan of Care Planned Activity Planned Date Details Description Data Source (s) Lisinopril 5 MG Oral Tablet 12/26/2019 12:00:[address] [facility] Spironolactone 25 MG Oral Tablet 12/26/2019 12:00:[address] [facility] Docusate Sodium 100 MG Oral Capsule 12/26/2019 12:00:[address] [facility] Acetaminophen 325 MG Oral Tablet 12/25/2019 12:00:[address] [facility]
[2020-10-20 23:24] VITALS: BP 137/96
== END 2020-10-20 23:27 | disposition home or self-care (01) ==
LOC: M ED 21:51
DX: F10.220 Alcohol dependence with intoxication, uncomplicated (principal); F17.200 Nicotine dependence, unspecified, uncomplicated; F43.0 Acute stress reaction; Z79.82 Long term (current) use of aspirin; Z79.899 Other long term (current) drug therapy; Z88.6 Allergy status to analgesic agent; Z88.8 Allergy status to other drugs, medicaments and biological substances

== ENCOUNTER 2020-11-03 12:49 | Emergency (ER) | payer MEDICARE, MEDICAID ==
[2020-11-03 13:16] LABS: HEMATOCRIT 49.2 % (42.0-52.0); HEMOGLOBIN 16.6 g/dl (13.5-17.5); MEAN CORPUSCULAR HGB CONC 33.7 g/dl (32.0-36.5); MEAN CORPUSCULAR VOLUME 100.8 fl (80.0-96.0); PLATELET COUNT, AUTOMATED 173 10^3/uL (150-450); RED BLOOD COUNT 4.88 10^6/uL (4.30-6.10); WHITE BLOOD COUNT 11.1 10^3/uL (4.0-10.0)
[2020-11-03 13:49] LABS: AMPHETAMINES LEVEL URINE NEGATIVE (NEGATIVE); BARBITURATES URINE NEGATIVE (NEGATIVE); BENZODIAZEPINES URINE NEGATIVE (NEGATIVE); CANNABINOIDS URINE NEGATIVE (NEGATIVE); COCAINE METABOLITE URINE NEGATIVE (NEGATIVE); METHADONE URINE NEGATIVE (NEGATIVE); OPIATES URINE NEGATIVE (NEGATIVE); PHENCYCLIDINE URINE NEGATIVE (NEGATIVE)
[2020-11-03 13:55] LABS: ACETAMINOPHEN LEVEL < 2.0 UG/ML (10.0-30.0); ALBUMIN 4.3 GM/DL (3.2-5.2); ALT/SGPT 129 U/L (12-78); BILIRUBIN,DIRECT 0.2 MG/DL (0.0-0.2); BILIRUBIN,TOTAL 0.6 MG/DL (0.2-1.0); BLOOD UREA NITROGEN 16 MG/DL (7-18); CALCIUM LEVEL 9.3 MG/DL (8.8-10.2); CARBON DIOXIDE LEVEL 32 MEQ/L (21-32); CHLORIDE LEVEL 101 MEQ/L (98-107); CREATININE FOR GFR 0.92 MG/DL (0.70-1.30); ETHYL ALCOHOL (ETHANOL) 0.288 % (0.000-0.010); GLOMERULAR FILTRATION RATE > 60.0 (>49); GLUCOSE, FASTING 99 MG/DL (70-100); POTASSIUM SERUM 3.9 MEQ/L (3.5-5.1); SALICYLATE LEVEL 2.9 MG/DL (5.0-30.0); SODIUM LEVEL 137 MEQ/L (136-145); THYROID STIMULATING HORMONE 0.655 uIU/ML (0.358-3.740); TOTAL PROTEIN 7.9 GM/DL (6.4-8.2)
[2020-11-03] MEDS ORDERED: NICOTINE 21MG/24HR 1 EA TRANSDERMAL TD ONE (15:25)
[2020-11-03 18:05] VITALS: BP 176/99
== END 2020-11-03 18:08 | disposition home or self-care (01) ==
LOC: M ED 12:49
DX: F43.0 Acute stress reaction (principal); F10.120 Alcohol abuse with intoxication, uncomplicated; F31.9 Bipolar disorder, unspecified; F41.9 Anxiety disorder, unspecified; F17.200 Nicotine dependence, unspecified, uncomplicated; Z79.82 Long term (current) use of aspirin; Z79.899 Other long term (current) drug therapy; Z88.6 Allergy status to analgesic agent; Z88.8 Allergy status to other drugs, medicaments and biological substances

== ENCOUNTER 2020-11-26 17:52 | Inpatient (IN) | payer MEDICARE, MEDICAID ==
[~2020-11-26] VITALS: Ht 175.3 cm; Wt 62.8 kg
[2020-11-26] MEDS ORDERED: OXAZEPAM 15 MG CAP PO ONE (18:15)
[2020-11-26 19:27] LABS: HEMATOCRIT 47.1 % (42.0-52.0); MEAN CORPUSCULAR HEMOGLOBIN 34.2 pg (27.0-33.0); MEAN CORPUSCULAR VOLUME 100.6 fl (80.0-96.0); PLATELET COUNT, AUTOMATED 169 10^3/uL (150-450); RED BLOOD COUNT 4.68 10^6/uL (4.30-6.10); WHITE BLOOD COUNT 6.1 10^3/uL (4.0-10.0)
[2020-11-26 19:48] LABS: AMPHETAMINES LEVEL URINE NEGATIVE (NEGATIVE); BARBITURATES URINE NEGATIVE (NEGATIVE); BENZODIAZEPINES URINE NEGATIVE (NEGATIVE); CANNABINOIDS URINE NEGATIVE (NEGATIVE); COCAINE METABOLITE URINE NEGATIVE (NEGATIVE); METHADONE URINE NEGATIVE (NEGATIVE); OPIATES URINE NEGATIVE (NEGATIVE); PHENCYCLIDINE URINE NEGATIVE (NEGATIVE)
[2020-11-26 20:00] LABS: ACETAMINOPHEN LEVEL < 2.0 UG/ML (10.0-30.0); ALT/SGPT 158 U/L (12-78); BILIRUBIN,DIRECT 0.1 MG/DL (0.0-0.2); BILIRUBIN,TOTAL 0.4 MG/DL (0.2-1.0); BLOOD UREA NITROGEN 13 MG/DL (7-18); CALCIUM LEVEL 9.4 MG/DL (8.8-10.2); CARBON DIOXIDE LEVEL 25 MEQ/L (21-32); CHLORIDE LEVEL 104 MEQ/L (98-107); CREATININE FOR GFR 1.05 MG/DL (0.70-1.30); ETHYL ALCOHOL (ETHANOL) 0.274 % (0.000-0.010); GLOMERULAR FILTRATION RATE > 60.0 (>49); GLUCOSE, FASTING 87 MG/DL (70-100); POTASSIUM SERUM 4.5 MEQ/L (3.5-5.1); SALICYLATE LEVEL 3.5 MG/DL (5.0-30.0); SODIUM LEVEL 138 MEQ/L (136-145); TOTAL PROTEIN 7.6 GM/DL (6.4-8.2)
[2020-11-27] MEDS ORDERED: LORazepam 2 MG TAB PO PRN (09:50)
[2020-11-27] MEDS: THIAMINE 100 MG TAB PO SCH ×2 (11:09→21:09)
[2020-11-27] MEDS: FOLIC ACID 1 MG TAB PO SCH (11:09)
[2020-11-27] MEDS: MULTIVITAMINS/MINERALS THERAP 1 TAB PO SCH (11:09)
[2020-11-28] MEDS: THIAMINE 100 MG TAB PO SCH ×2 (09:00→21:19)
[2020-11-28] MEDS: MULTIVITAMINS/MINERALS THERAP 1 TAB PO SCH (09:00)
[2020-11-28] MEDS: FOLIC ACID 1 MG TAB PO SCH (09:00)
[2020-11-28 15:40] LABS: RSV AMPLIFICATION NEGATIVE (NEGATIVE)
--- NOTE | 2020-11-28 19:47 | ECGEPIP ---
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
[2020-11-29] MEDS: MULTIVITAMINS/MINERALS THERAP 1 TAB PO SCH (08:17)
[2020-11-29] MEDS: THIAMINE 100 MG TAB PO SCH ×2 (08:18→19:57)
[2020-11-29] MEDS: FOLIC ACID 1 MG TAB PO SCH (08:18)
[2020-11-29] MEDS ORDERED: NICOTINE 21MG/24HR 1 EA TRANSDERMAL TD SCH (09:00)
[2020-11-29] MEDS ORDERED: MOM 30ML SUSPENSION UDC PO PRN (11:50)
[2020-11-29] MEDS ORDERED: traZODone 50 MG TAB PO PRN (11:50)
[2020-11-29] MEDS ORDERED: MAALOX 30 ML SUSP *UDC PO PRN (11:50)
[2020-11-29] MEDS ORDERED: ACETAMINOPHEN TAB 650MG DOSE (2X325MG) PO PRN (11:50)
[2020-11-29 13:12] VITALS: BP 121/85
[2020-11-29 14:00] VITALS: BP 121/85
[2020-11-29] MEDS ORDERED: LORazepam 2 MG TAB PO PRN (14:15)
[2020-11-29 21:16] VITALS: BP 111/61
[2020-11-30 06:38] VITALS: BP 159/89
[2020-11-30] MEDS: THIAMINE 100 MG TAB PO SCH (08:15)
[2020-11-30] MEDS ORDERED: NICOTINE POLACRILEX 2 MG GUM PO PRN (08:20)
[2020-11-30] MEDS ORDERED: FOLIC ACID 1 MG TAB PO SCH (09:00)
[2020-11-30] MEDS ORDERED: MULTIVITAMINS/MINERALS THERAP 1 TAB PO SCH (09:00)
--- NOTE | 2020-11-30 10:09 | MHHPEPDOC ---
General Date Of Admission: Nov 29, 2020 Legal Status: 9.39 Chief Complaint "I was stupid. I don't want to kill myself" History of Present Illness HISTORY OF THE PRESENT ILLNESS: Patient is a 60 -year-old , Disabled, [place] , male, who reports that he had a knife up to his body as a suicidal gesture. He reports that he was annoyed at people in his apartment building because they were continuously asking him for money. He was drinking and made a suicidal gesture but denies at today's interview that he is suicidal. He states in today's interview, "I was listening to stupid people at home. I don't want to hurt myself. I have a good friend at home. I am not doing that anymore, I promise. I have a friend I can talk to on the phone, he takes me to [facility], to my MD, and he's my best friend." He reports that he was drinking ETOH and did not have the knife to his throat but that he had it in his band up to his person. He had written a request to leave stating that he has no wish to self-harm and that he has a cat at home who he is extremely worried about. He reports grief over the loss of his , admits to ETOH use and recent termination of a relationship. "She left me for a drug-user, look at me, I don't do drugs." PER ED REPORT: 60 yo M with a patient reported history of bipolar disorder not on medication as well as alcohol use disorder who was brought in by police for suicidal gesture of holding a knife to his own neck and threatening to kill himself, while intoxicated. Neighbors called the police. In the ED, he was intoxicated with an elevated ethanol level on labs with an otherwise negative tox screen and normal CBC and BMP without acute physical complaints. He reported psychosocial stressors involving an ex-girlfriend, bothersome neighbors and the grief of the loss of his late . He admitted to excessive alcohol consumption and was admitted to the [facility] for suicidality and depression. He otherwise denied any recent physical illness or complaints, without any recent fever, chills, chest pain, palpitations, abdominal pain, nausea, emesis, diarrhea or constipation. Aurea reports that neighbor called police threatening suicide. When police arrived, pt. opened door and had knife to his throat. Pt. eventually dropped knife after almost half hour of convincing and pt. tried to shut door but police were able to get hold of pt. Pt. appears intoxicated. Psychiatric Review of Systems Depression (2 or more weeks): denies Cathy (4 or more days of): denies Psychosis: denies PTSD: denies Anxiety: denies Past Psychiatric History Previous Psychiatric Diagnosis: "Bipolar", doesn't remember who diagnosed him, a nd states he takes no medications. Previous Psychiatric Admissions: 50 years ago in [place], [place]. Suicide Attempts: None Psychiatric Follow-up: None Psychiatric medications: None Past Medical History Medical Problems cardiac fx left 5th digit blood clot in leg Head Injury: No Seizures: No Hospitalizations: Yes Surgeries: Yes Family Medical/Psychiatric HX Medical Problems heart attack - mom maternal family - cardiac Psychiatric Disorders: No Addiction: Yes Suicide Attemps/Completions: Yes (cousin- overdosed) Social History Childhood: Born in [place], one of 14 children. He states he is one of the younger sibling. Abuse/Trauma: no Current Living Situation: Lives in own apartment Education: No school Employment: he reports none Social Support: [facility] Legal: burglary fpc 5 times Marital: 10 years, at 51 she was 74 Mental Status Examination General Appearance: unkempt, disheveled, ds/not appear stated age (appears older), hospital scubs/clothing, other (no teeth) Demeanor: average Eye Contact: average Activity: average Behavior: cooperative Speech: clear Mood: euthymic, other (he denied depression or anxiety) Affect: constricted Thought Process: logical/linear Thought Content (Delusions): none reported, denies SI, HI, AVH Thought Content (Other): none reported Thought Content (Aggressive): none reported Perception (Hallucinations): none reported Perception (Other): none reported Cognition (Impairment of): none reported Cognition(Intelligence Est.): average Oriented: Awake, Alert, Oriented times three Insight: fair Judgment: Fair Psychosis: Denies Diagnoses Alcohol Induced Depressive Disorder Alcohol Use Disorder A-FIB/CHADSVASC A-FIB History Current/History of A-Fib/PAF?: No Current PO Anticoag Therapy: No Assessment Patient is a 60 year old , Disabled, Domic[place], Male who had made a suicidal gesture to hurt himself with a knife while he was intoxicated. He is alert and oriented and in the initial interview he had written a formal request for discharge. He stated in his interview that he was not currently suicidal and that he was not wanting to self- harm at this time. He reports a long history of ETOH use. States that he has grief over the loss of his in 2018, but recently had a termination of a relationship with a woman who had left him for another man. He reported that he was extremely frustrated with his neighbors that were repeatedly at his door requesting money. Patient denies past suicide gestures or attempts. He reports no history of depression except for the period after his 's . He reports no formal schooling or employment history. Received SSI and states that he wants to return home to his cat, which he is very tearful about when asked about his cat. Patient poses some risk factors that elevate his suicidal risks, but his protective factors that he has never had a past history of suicidal attempts, his last hospitalization was over 50 years ago, while he has no employment history, patient reports no financial stressors and that his sense of purpose appears to be his love for his cat which demonstrates his future orientation/meaning in life; worrying about the cat's feeding schedule. Patient did not want to stay in the hospital to consider any medications. He denies that he needs any therapies. He does not pose a danger to himself or others at this time. I will discharge that patient to home. Initial Treatment Plan 1. Patient was admitted on a [9.39] status. 2. Complete history was obtained. 3. With patients permission, family will be contacted and database will be expanded. 4. Patients medication regimen will be reviewed and changed accordingly. 5. Patient will be provided with protected environment. 6. Patient will be treated with individual, group, and milieu therapies. 7. Patient will receive supportive psych-education. 8. Discharge planning will commence immediately. 9. Outpatient follow-up treatment will be strongly recommended. 10. The initial treatment plan will focus initially on: * Depression. * Risk for suicide. ESTIMATED LENGTH OF STAY: 1-3 DAYS. TIME SPENT COUNSELING AND COORDINATING INITIAL CARE: 60 minutes. N/A-No Antipsychotics Vital Signs Vital Signs Date Time Temp Pulse Resp B/P (MAP) Pulse Ox O2 Delivery O2 Flow Rate FiO2 11/30/20 06:38 97.3 95 16 159/89 (112) 98 Room Air Medications No Active Prescriptions or Reported Meds Allergies Coded Allergies: lisinopril (Verified Allergy, Severe, angioedema, 11/03/20) angioedema codeine (Verified Allergy, Unknown, 12/26/19) haloperidol (Verified Allergy, Unknown, 12/26/19) ARMIN PIRES NP Nov 30, 2020 09:31
--- NOTE | 2020-11-30 12:19 | HPEPDOC ---
General Date of Admission Nov 29, 2020 at 11:49 Date of Service: Nov 30, 2020 Attending Physician: RICHARD MEDEROS MD Chief Complaint History of Present Illness Patient had been discharged by the time I went in to evaluate him. Home Medications No Active Prescriptions or Reported Meds Allergies Coded Allergies: lisinopril (Verified Allergy, Severe, angioedema, 11/03/20) angioedema codeine (Verified Allergy, Unknown, 12/26/19) haloperidol (Verified Allergy, Unknown, 12/26/19) RICHARD MEDEROS MD Nov 30, 2020 09:12
--- NOTE | 2020-11-30 14:18 | MHDSPDOC ---
[facility] Discharge Summary Discharge Summary DATE OF ADMISSION: Nov 29, 2020 at 11:49 DATE OF DISCHARGE: november 29, 2020 at 1408 DISCHARGE DIAGNOSES: Alcohol Induced Depressive Disorder Alcohol Use Disorder REASON FOR ADMISSION: HISTORY OF THE PRESENT ILLNESS: Patient is a 60 -year-old , Disabled, [place]omic[place] , male, who reports that he had a knife up to his body as a suicidal gesture "I was stupid. I don't want to kill myself." He reports that he was annoyed at people in his apartment building because they were continuously asking him for money. He was drinking and made a suicidal gesture but denies at today's interview that he is suicidal. He states in today's interview, "I was listening to stupid people at home. I don't want to hurt myself. I have a good friend at home. I am not doing that anymore, I promise. I have a friend I can talk to on the phone, he takes me to [facility], to my MD, and he's my best friend." He reports that he was drinking ETOH and did not have the knife to his throat but that he had it in his band up to his person. He had written a request to leave stating that he has no wish to self-harm and that he has a cat at home who he is extremely worried about. He reports grief over the loss of his , admits to ETOH use and recent termination of a relationship. "She left me for a drug-user, look at me, I don't do drugs." PER ED REPORT: 60 yo M with a patient reported history of bipolar disorder not on medication as well as alcohol use disorder who was brought in by police for suicidal gesture of holding a knife to his own neck and threatening to kill himself, while intoxicated. Neighbors called the police. In the ED, he was intoxicated with an elevated ethanol level on labs with an otherwise negative tox screen and normal CBC and BMP without acute physical complaints. He reported psychosocial stressors involving an ex-girlfriend, bothersome neighbors and the grief of the loss of his late . He admitted to excessive alcohol consumption and was admitted to the [facility] for suicidality and depression. He otherwise denied any recent physical illness or complaints, without any recent fever, chills, chest pain, palpitations, abdominal pain, nausea, emesis, diarrhea or constipation. Aurea reports that neighbor called police threatening suicide. When police arrived, pt. opened door and had knife to his throat. Pt. eventually dropped knife after almost half hour of convincing and pt. tried to shut door but police were able to get hold of pt. Pt. appears intoxicated. Blood Alcohol Content was 0.274 CONSULTANTS INVOLVED: See Medical H + P by Hospitalist TREATMENT AND PROGRESS ON THE UNIT : Patient was admitted to the [facility] on a 39 legal status he was afforded the following treatment modalities: 1) Individual Therapy 2) Group Therapy 3) Medication Management 4) Milieu Therapy 5) Safe Environment HOSPITAL COURSE: Patient is a 60 year old , Disabled, Domiciled, Male who had made a suicidal gesture to hurt himself with a knife while he was intoxicated. He is alert and oriented and in the initial interview he had written a formal request for discharge. He stated in his interview that he was not currently suicidal and that he was not wanting to self- harm at this time. He reports a long history of ETOH use. He is admitted to [facility] on a 39 legal status. Patient had written a request for discharge and states that he vehemently denies continued suicidality. He reports a long history of ETOH and had been under the influence of alcohol when this gesture had occurred. States that he has grief over the loss of his in 2018, but recently had a termination of a relations hip with a woman who had left him for another man. He reported that he was extremely frustrated with his neighbors that were repeatedly at his door requesting money. Patient denies past suicide gestures or attempts. He reports no history of depression prior to this gesture except for the period after his 's . He reports no formal schooling or employment history. Received SSI and states that he wants to return home to his cat, which he is very tearful about when asked about his cat. Patient poses some risk factors that elevate his suicidal risks, but his protective factors that he has never had a past history of suicidal attempts, his last hospitalization was over 50 years ago, while he has no employment history, patient reports no financial stressors and that his sense of purpose appears to be his love for his cat which demonstrates his future orientation/meaning in life; worrying about the cat's feeding schedule. Patient did not want to stay in the hospital to consider any medications. He denies that he needs any therapies. He does not pose a danger to himself or others at this time. I will discharge that patient to home. DISCHARGE ASSESSMENT: Pt entered room alert and oriented, was cooperative and pleasant. Pt stated he had something for the provider, pt requested in writing to be discharged, the notes stated he was not suicidal and that he would not hu rt himself, his actions were a mistake. Pt then expressed his desire to go home and care for his cat, pt is future oriented, denies thoughts of self harm, denies history of self harm, denies depression, denies drug use. Pt stated he had one good friend who is very supportive, providing transportation to varies appointments. Pt states that his neighbors ask him for money which leads to his distress MENTAL STATUS EXAMINATION ON DISCHARGE: Patient is a 60 -year-old , Disabled, Domiciled , male, who reports that he had a knife up to his body as a suicidal gesture. General Appearance: unkempt, disheveled, ds/not appear stated age (appears older), hospital scrubs/clothing, other (no teeth) Demeanor: average Eye Contact: average Activity: average Behavior: cooperative Speech: clear Mood: euthymic, other (he denied depression or anxiety) Affect: constricted Thought Process: logical/linear Thought Content (Delusions): none reported, denies SI, HI, AVH Thought Content (Other): none reported Thought Content (Aggressive): none reported Perception (Hallucinations): none reported Perception (Other): none reported Cognition (Impairment of): none reported Cognition(Intelligence Est.): below average Oriented: Awake, Alert, Oriented times three Insight: fair Judgment: Fair Psychosis: Denies MEDICATIONS ON DISCHARGE: None PLAN/FOLLOWUP ARRANGEMENTS: patient will follow up with [facility]. The amount of time spent in the coordination of care for this patient was approx imately 60 minutes. ETOH/Disorder Med Rx ETOH/DRUG DISORDER RX: Offrd @ d/c & pt refused Vital Signs/I&Os Vital Signs Date Time Temp Pulse Resp B/P (MAP) Pulse Ox O2 Delivery O2 Flow Rate FiO2 11/30/20 06:38 97.3 95 16 159/89 (112) 98 Room Air Medications No Active Prescriptions or Reported Meds Allergies Coded Allergies: lisinopril (Verified Allergy, Severe, angioedema, 11/03/20) angioedema codeine (Verified Allergy, Unknown, 12/26/19) haloperidol (Verified Allergy, Unknown, 12/26/19) ARMIN PIRES NP Nov 30, 2020 09:56
== END 2020-11-30 11:49 | disposition home or self-care (01) | DRG 897 ==
LOC: M ED 17:52 → M ED INP 11-29 11:49 → M PSY 11-29 12:57
PROVIDERS: ADMIT Psychiatry & Neurology Psychiatry; ATTEND Psychiatry & Neurology Psychiatry
DX: F10.14 Alcohol abuse with alcohol-induced mood disorder (principal); R45.851 Suicidal ideations; Z63.5 Disruption of family by separation and divorce; Z88.5 Allergy status to narcotic agent; Z88.8 Allergy status to other drugs, medicaments and biological substances

== ENCOUNTER 2020-12-25 20:02 | Emergency (ER) | payer MEDICARE, MEDICAID ==
[~2020-12-25 20:02] MED LIST changes: +DOCU-160; +DOCU-160 PO; -STOO2CAP; -STOO2CAP PO
[2020-12-25 20:14] VITALS: BP 155/97
[2020-12-25] MEDS ORDERED: IBUPROFEN 600MG TAB PO ONE (20:20)
[2020-12-25] MEDS ORDERED: NAPR-837 PO (21:10)
--- NOTE | 2020-12-25 21:15 | REPVR ---
PROCEDURE INFORMATION: Exam: XR Right Shoulder Exam date and time: 12/25/2020 8:16 PM Age: 60 years old Clinical indication: Pain; Shoulder; Right TECHNIQUE: Imaging protocol: XR Right shoulder. Views: 2 or more views. COMPARISON: CR Shoulder, complete 03/26/2018 7:34 PM FINDINGS: Bones/joints: No fracture or dislocation. Soft tissues: Normal. IMPRESSION: Negative right shoulder. Electronically signed by: Todd Patterson On 12/25/2020 21:15:31 PM
== END 2020-12-25 21:17 | disposition home or self-care (01) ==
LOC: M ED 20:02
DX: S46.911A Strain of unspecified muscle, fascia and tendon at shoulder and upper arm level, right arm, initial encounter (principal); X50.0XXA Overexertion from strenuous movement or load, initial encounter; Y92.410 Unspecified street and highway as the place of occurrence of the external cause; Y93.89 Activity, other specified; Y99.8 Other external cause status; I10 Essential (primary) hypertension; F17.210 Nicotine dependence, cigarettes, uncomplicated

== ENCOUNTER 2021-01-11 01:54 | Emergency (ER) | payer MEDICARE, MEDICAID ==
[~2021-01-11 01:54] MED LIST changes: +NAPR-837 PO
[2021-01-11 01:55] VITALS: BP 138/102
== END 2021-01-11 04:33 | disposition left against medical advice (07) ==
LOC: M ED 01:54
DX: Z53.21 Procedure and treatment not carried out due to patient leaving prior to being seen by health care provider (principal)

== ENCOUNTER 2021-04-28 01:40 | Emergency (ER) | payer MEDICARE, MEDICAID ==
[~2021-04-28] VITALS: Ht 172.7 cm; Wt 66.8 kg
[~2021-04-28 01:40] MED LIST changes: +OMEP40CA4 PO; -OMEP40CA97 PO
[2021-04-28 01:41] VITALS: BP 144/88
[2021-04-28] MEDS ORDERED: ASPI81TA26 PO (01:48)
== END 2021-04-28 03:17 | disposition left against medical advice (07) ==
LOC: M ED 01:40
DX: Z53.21 Procedure and treatment not carried out due to patient leaving prior to being seen by health care provider (principal)

== ENCOUNTER 2021-05-02 13:09 | Emergency (ER) | payer MEDICARE, MEDICAID ==
[~2021-05-02] VITALS: Ht 172.7 cm; Wt 64.6 kg
[~2021-05-02 13:09] MED LIST changes: +ASPI81TA26 PO
[2021-05-02 13:28] VITALS: BP 138/94
[2021-05-02 15:41] LABS: BASO # 0.1 10^3/uL (0.0-0.2); BASO % 0.7 % (0.0-1.0); EOS # 0.3 10^3/uL (0.0-0.5); EOS % 4.1 % (0.0-3.0); HEMATOCRIT 48.3 % (42.0-52.0); HEMOGLOBIN 16.9 g/dl (13.5-17.5); LYMPH # 2.1 10^3/uL (1.5-5.0); LYMPH % 27.3 % (24.0-44.0); MEAN CORPUSCULAR HEMOGLOBIN 34.9 pg (27.0-33.0); MEAN CORPUSCULAR VOLUME 99.8 fl (80.0-96.0); MONO # 0.9 10^3/uL (0.0-0.8); NEUTROPHILS # 4.2 10^3/uL (1.5-8.5); NEUTROPHILS % 55.5 % (36.0-66.0); PLATELET COUNT, AUTOMATED 170 10^3/uL (150-450); RED BLOOD COUNT 4.84 10^6/uL (4.30-6.10); WHITE BLOOD COUNT 7.6 10^3/uL (4.0-10.0)
[2021-05-02 15:55] LABS: INR 0.91; PROTHROMBIN TIME 12.6 SECONDS (12.7-14.5)
[2021-05-02 15:56] LABS: PARTIAL THROMBOPLASTIN TIME 27.6 SECONDS (25.9-37.0)
[2021-05-02 15:58] LABS: D-DIMER QUANT 1775.11 ng/ml (<500)
[2021-05-02 16:06] LABS: ALT/SGPT 52 U/L (12-78); BILIRUBIN,DIRECT 0.3 MG/DL (0.0-0.2); C REACTIVE PROTEIN QUANTITATIV < 0.30 MG/DL (0.00-0.30); LIPASE 292 U/L (73-393); TOTAL PROTEIN 8.1 GM/DL (6.4-8.2)
--- NOTE | 2021-05-02 16:14 | REP ---
INDICATION: calf pain COMPARISON: None. 02/03/2020. TECHNIQUE: Real time compression and duplex Doppler interrogation of the right lower extremity deep venous system is performed, including the left common femoral vein.Compression of the right peroneal and posterior tibial veins is performed. FINDINGS: The right common femoral, superficial femoral and popliteal veins are fully compressible with transducer pressure and demonstrate normal spontaneous and phasic flow, without evidence of deep venous thrombosis.The left common femoral vein demonstrates no thrombus.The visualized right peroneal and posterior tibial veins demonstrate no thrombus. IMPRESSION: No evidence of deep venous thrombosis of the right lower extremity femoral popliteal venous system.The visualized right peroneal and posterior tibial veins demonstrate no thrombus. <Electronically signed by Andrés Menjivar > 05/02/21 [id number]
== END 2021-05-02 17:20 | disposition left against medical advice (07) ==
LOC: M ED 13:09
DX: Z53.29 Procedure and treatment not carried out because of patient's decision for other reasons (principal)

== ENCOUNTER 2021-05-02 23:46 | Emergency (ER) | payer MEDICARE, MEDICAID ==
[~2021-05-02] VITALS: Ht 172.7 cm; Wt 62.5 kg
[~2021-05-02 23:46] MED LIST changes: -LISI-898; -LISI-898 PO; +LISI5TAB11; +LISI5TAB11 PO
[2021-05-03 05:19] VITALS: BP 119/67
== END 2021-05-03 06:35 | disposition left against medical advice (07) ==
LOC: M ED 23:46
DX: M79.661 Pain in right lower leg (principal); I10 Essential (primary) hypertension; E78.5 Hyperlipidemia, unspecified; F31.9 Bipolar disorder, unspecified; F20.9 Schizophrenia, unspecified; F10.10 Alcohol abuse, uncomplicated; I25.10 Atherosclerotic heart disease of native coronary artery without angina pectoris; Z86.718 Personal history of other venous thrombosis and embolism; Z95.5 Presence of coronary angioplasty implant and graft; Z88.5 Allergy status to narcotic agent; Z88.8 Allergy status to other drugs, medicaments and biological substances; F17.210 Nicotine dependence, cigarettes, uncomplicated

== ENCOUNTER 2021-05-30 01:03 | Emergency (ER) | payer MEDICARE, MEDICAID ==
[~2021-05-30] VITALS: Ht 172.7 cm; Wt 65.6 kg
[2021-05-30 01:03] VITALS: BP 138/76
[~2021-05-30 01:03] MED LIST changes: +LISI-898; +LISI-898 PO; -LISI5TAB11; -LISI5TAB11 PO
== END 2021-05-30 02:18 | disposition left against medical advice (07) ==
LOC: M ED 01:03
DX: Z53.29 Procedure and treatment not carried out because of patient's decision for other reasons (principal)

== ENCOUNTER 2021-05-30 20:08 | Emergency (ER) | payer MEDICARE, MEDICAID ==
[~2021-05-30] VITALS: Ht 172.7 cm; Wt 65.9 kg
[2021-05-30 20:30] VITALS: BP 151/89
[2021-05-30] MEDS ORDERED: KETOROLAC TROMETHAMINE 10 MG TAB PO ONE (20:40)
== END 2021-05-30 20:54 | disposition home or self-care (01) ==
LOC: M ED 20:08
DX: M25.571 Pain in right ankle and joints of right foot (principal); Z76.5 Malingerer [conscious simulation]; F10.10 Alcohol abuse, uncomplicated; Z88.5 Allergy status to narcotic agent; Z88.8 Allergy status to other drugs, medicaments and biological substances; F17.210 Nicotine dependence, cigarettes, uncomplicated

== ENCOUNTER 2021-06-04 22:45 | Emergency (ER) | payer MEDICARE, MEDICAID ==
[~2021-06-04] VITALS: Ht 172.7 cm; Wt 64.6 kg
[2021-06-04 22:45] VITALS: BP 145/87
== END 2021-06-04 23:48 | disposition left against medical advice (07) ==
LOC: M ED 22:45
DX: Z53.21 Procedure and treatment not carried out due to patient leaving prior to being seen by health care provider (principal)

== ENCOUNTER 2021-06-05 03:24 | Emergency (ER) | payer MEDICARE, MEDICAID ==
[~2021-06-05] VITALS: Ht 172.7 cm; Wt 64.0 kg
[2021-06-05 03:24] VITALS: BP 115/85
== END 2021-06-05 04:06 | disposition left against medical advice (07) ==
LOC: M ED 03:24
DX: Z53.29 Procedure and treatment not carried out because of patient's decision for other reasons (principal)

== ENCOUNTER 2021-06-09 21:54 | Emergency (ER) | payer MEDICARE, MEDICAID ==
[~2021-06-09] VITALS: Ht 172.7 cm; Wt 67.3 kg
[2021-06-09 21:55] VITALS: BP 149/90
== END 2021-06-10 00:30 | disposition left against medical advice (07) ==
LOC: M ED 21:54
DX: Z53.21 Procedure and treatment not carried out due to patient leaving prior to being seen by health care provider (principal)

== ENCOUNTER → 2021-06-15 | Outpatient (CLI) | payer MEDICARE, MEDICAID ==
--- NOTE | 2021-06-15 15:11 | REP ---
INDICATION: CLAUDICATION W/ PVD COMPARISON: None. TECHNIQUE: Real-time sonographic evaluation of the lower extremity arteries with FINDINGS: All numeric values represent peak systolic velocities in cm/SEC On the right: Ankle brachial index was not obtained. TECHNICAL LABORATORY ASST: Occluded Profunda: 50.4 biphasic SFA proximal: 42.9 triphasic SFA Mid: 61.2 triphasic SFA distal: 70.4 triphasic Popliteal: 109.2 triphasic CYRUS proximal: 43.7 triphasic Tibioperoneal trunk: 69.2 triphasic TRACTOR TRAILER TECHNICIAN proximal: 22.5 biphasic TRACTOR TRAILER TECHNICIAN distal: 32.7 monophasic CYRUS distal: 50.6 monophasic On the left: Ankle brachial index was not obtained TECHNICAL LABORATORY ASST: 66.5 triphasic Profunda: 75.1 triphasic SFA proximal: 48.1 triphasic SFA Mid: 28.9 monophasic SFA distal: 27.3 monophasic Popliteal: 42.1 monophasic CYRUS proximal: 14.5 monophasic Tibioperoneal trunk: 19.2 monophasic TRACTOR TRAILER TECHNICIAN proximal: 17.5 monophasic TRACTOR TRAILER TECHNICIAN distal: No flow identified CYRUS distal 21.8 monophasic The aorta was patent to the right femoral bypass graft the wiyot right common iliac artery, external iliac artery, and common femoral artery were occluded. IMPRESSION: As above <Electronically signed by Ed Watson > 06/15/21 [id number]
== END ==
LOC: M RAD 12:50
PROVIDERS: ATTEND Physician Assistant
DX: I73.9 Peripheral vascular disease, unspecified (principal)

== ENCOUNTER 2021-07-08 18:02 | Emergency (ER) | payer MEDICARE, MEDICAID ==
[~2021-07-08] VITALS: Ht 172.7 cm; Wt 67.0 kg
--- OUTSIDE RECORDS SUMMARY | 2021-07-08 18:09 | CCD ---
Author Author [facility] Organization [facility] Address Unknown Phone Unavailable Care Team Providers Care Trust Manager Name Role Phone CROUCH, MARY ANN PATTIE RPA-C Unavailable Unavailable [...] CROUCH, MARY ANN PATTIE RPA-C Unavailable Unavailable Angle ZAMORA MD Unavailable Unavailable Angle ZAMORA MD Unavailable Unavailable Angle ZAMORA MD Unavailable Unavailable Angle ZAMORA MD Unavailable Unavailable Angle ZAMORA MD Unavailable Unavailable Angle ZAMORA MD Unavailable Unavailable Angle ZAMORA MD Unavailable Unavailable Fish, aVleria ONEAL PA-C Unavailable Unavailabl e Fish, Valeria Fani MPAS, PA-C Unavailable Unavailabl e Fish, [facility], PA-C Unavailable Unavailabl e Fish, [facility], PA-C Unavailable Unavailabl e Fish, [facility], PA-C Unavailable Unavailabl e Fish, [facility], PA-C Unavailable Unavailabl e Fish, [facility], PA-C Unavailable Unavailabl e Fish, [facility], PA-C Unavailable Unavailabl e Fish, [facility], PA-C Unavailable Unavailabl e Fish, [facility], PA-C Unavailable Unavailabl e Fish, [facility], PA-C Unavailable Unavailabl e Fish, [facility], PA-C Unavailable Unavailabl e Fish, [facility], PA-C Unavailable Unavailabl e Fish, [facility], PA-C Unavailable Unavailabl e Fish, [facility], PA-C Unavailable Unavailabl e Fish, [facility], PA-C Unavailable Unavailabl e Fish, [facility], PA-C Unavailable Unavailabl e Fish, [facility], PA-C Unavailable Unavailabl e Fish, [facility], PA-C Unavailable Unavailabl e Fish, [facility], PA-C Unavailable Unavailabl e Fish, [facility], PA-C Unavailable Unavailabl e Fish, [facility], PA-C Unavailable Unavailabl e Fish, [facility], PA-C Unavailable Unavailabl e Fish, [facility], PA-C Unavailable Unavailabl e Fish, [facility], PA-C Unavailable Unavailabl e Fish, [facility], PA-C Unavailable Unavailabl e Fish, [facility], PA-C Unavailable Unavailabl e Fish, [facility], PA-C Unavailable Unavailabl e Fish, [facility], PA-C Unavailable Unavailabl e Fish, [facility], PA-C Unavailable Unavailabl e Fish, [facility], PA-C Unavailable Unavailabl e Fish, [facility], PA-C Unavailable Unavailabl e Fish, [facility], PA-C Unavailable Unavailabl e Fish, [facility] JAMES ONEAL Unavailable Unavailabl e Valeria Orozco JAMES ONEAL Unavailable Unavailabl e Valeria Orozco JAEMS ONEAL Unavailable Unavailabl e Re-disclosure Warning The records that you are [...] is protected by Article 27-F of the [facility] Public Health law. If you continue you may have access to information: Regarding HIV / AIDS; Provided by facilities licensed or operated by the [facility] Office of Mental Health; or Provided by the [facility] Office for People With Developmental Disabilities. If such information is present, then the following [facility] mandated warning applies: This information has [...] law may result in a fine or custodial sentence or both. A general authorization for the release of medical or other information is NOT sufficient authorization for further disc losure. Encounters Encounter Providers Location Date Indications Data Source(s ) Outpatient Attender: PASTORA Ivory/Luis/Pineda/Julieta 06/22/2021 08:45:00 AM EDT ZARA ([facility] [place] Tavera: [address], [facility] [address], [place] [address], Ph. Attender: PATTIE FLOYD [facility] Medical 03/21/2021 12:00:00 AM EDT MARIE ([facility]) OFFICE OUTPATIENT NEW 30 MINUTES Attender: Fani ONEAL PA-C Physical Therapy 05/19/2020 10:15:00 AM EDT MEDTREY ([facility] ) Immunizations Vaccine Date Status Description Data Source(s) Tdap 03/21/2021 01:54:00 PM EDT completed 03/21/2021 0.5 mL MARIE ([facility]) pneumococcal polysaccharide PPV23 03/21/2021 01:54:00 PM EDT com pleted 10.5 mL MARIE ([facility]) Medications No Information Insurance Providers Payer name Policy type / Coverage type Policy ID Covered green party ID Covered green party's relationship to quintero Policy Quintero Plan Information MEDICARE [id number] xxxxxxxxxxx [id number] MEDICARE [id number] Hyun [id number] 1CA MEDICARE [id number] SP [id number] 1CA MEDICARE [id number] Hyun [id number] EXCELLUS BS MEDICARE [id number] Hyun [id number] EXCELLUS BS MEDICARE [id number] Hyun [id number] MEDICAID [id number] Hyun [id number] MEDICAID [id number] MEDICARE [id number] Hyun [id number] 1CA ANS-Medicaid [id number] ANS-Medicare Part B [id number] ANS-Medicare Part B [id number] [facility]-Medicaid [id number] [facility] [id number] [facility]-Medicaid [id number] MEDICARE C [id number] S [id number] 1CA MEDICARE [id number] SP [id number] 2CA MEDICARE [id number] SP [id number] MEDICARE PI PI MEDICAID PI PI [id number] 1CA [id number] 1CA [id number] MEDICARE UNAVAILABLE UNAVAILA BLE MEDICAID [facility] [id number] SP [id number] MEDICARE BLUE PPO EXCELLUS BC [id number] SP [id number] MEDICAID [facility] [id number] SP [id number] MEDICAID [facility] [id number] SP [id number] [place] [id number] SP [id number] MEDICARE BLUE PPO 306 [id number] SP [id number] MEDICARE [id number] SP [id number] EMEDNY [id number] SP [id number] MEDICARE C [id number] S [id number] MEDICAID M [id number] S [id number] MEDICAID [id number] SP [id number] [facility]-Medicaid [id number] [facility] [id number] MEDICARE [id number] SP [id number] 1CA Problems, Conditions, and Diagnoses Code Display Name Description Problem Type Effective Dates Data Source(s) 21056991 Essential hypertension Essential hypertension Problem 06/22/2021 12:00:00 AM EDT [facility] ) [id number] Coronary artery bypass graft stent prese nt Coronary Artery Bypass Graft Stent Present Problem 03/21/2021 12:00:00 AM EDT MERIDIAN ([facility]) [id number] History of myocardial infarction History of Myoc ardial Infarction Problem 03/21/2021 12:00:00 AM EDT MARIE ([facility]) [id number] Procedure by method Procedure by Method Problem 0 12/21/2019 12:00:00 AM EDT - 04/06/2021 12:00:00 AM EDT MERIDIAN ([facility]) [id number] Body measurement finding Body Measurement Finding Prob lokesh 12/21/2019 12:00:00 AM EDT - 03/21/2021 12:00:00 AM EDT MERIDIAN ([facility]) Surgeries/Procedures Procedure Description Date Indications Data Source(s) OFFICE OUTPATIENT NEW 30 MINUTES 06/22/2021 12:00:00 A M EDT [facility] ([facility] ) RADEX FOOT COMPLETE MINIMUM 3 VIEWS 05/19/2020 12:00:0 0 AM EDT [facility] ([facility] ) Results ID Date Data Source [id number] 11/28/2020 02:47:00 PM EDT [facility] Name Value Range Interpretation Code Description Data Diana rce(s) Supporting Document(s) SARS coronavirus 2 RNA [Presence] in Res piratory specimen by ROSANGELA with probe detection NEGATIVE [facility] This lab was ordered by [facility] a nd reported by [facility]. Procedure Social History No Information Vital Signs ID Date Data Source UNK Name Value Range Interpretation Code Description Data Source(s) Systolic blood pressure 106 mm[Hg] 106 mm[Hg] [facility] ([facility], ) Diastolic blood pressure 71 mm[Hg] 71 mm[Hg] [facility] ([facility], ) Body temperature 98.3 [degF] 98.3 [degF] [facility] ([facility], ) Body height 68 [in_i] 68 [in_i] [facility] ([facility]) 5'8" Body weight 141.00 [lb_av] 141.00 [lb_av] [facility] Body mass index (BMI) [Ratio] 21.4 kg/m2 21.4 k g/m2 [facility] ([facility]) [place] body weight 154 [lb_av] 154 [lb_av] [facility] ([facility]) Body weight 63.958 kg 63.958 kg [facility] ([facility]) Body surface area Derived from formula 1.76 m2 1.76 m2 [facility] ([facility]) Diastolic blood pressure 77 mm[Hg] 77 mm[Hg] MARIE ([facility]) Body height 68 [in_i] 68 [in_i] MERIDIAN ([facility]) Body mass index (BMI) [Ratio] 21.9 kg/m2 21.9 k g/m2 MARIE ([facility]) Systolic blood pressure 116 mm[Hg] 116 mm[Hg] A THENA ([facility]) Body weight 2304 [oz_av] 2304 [oz_av] MARIE ([facility]) Body temperature 97.5 [degF] 97.5 [degF] [facility] Body height 68 [in_i] 68 [in_i] [facility] ([facility]) 5'8" Body weight 145.00 [lb_av] 145.00 [lb_av] MED[facility] T ([facility]) Body mass index (BMI) [Ratio] 22.0 kg/m2 22.0 k g/m2 [facility] ([facility])
--- OUTSIDE RECORDS SUMMARY | 2021-07-08 18:09 | CCD | Continuity of Care Document ---
Author Author Valentino ZAMORA MD Organization Unknown Address [address], [address] [place] [address] Phone [phone] Care Team Providers Care Portrait Artist Name Role Phone GayPhani AUTM [phone] AUTM Unavailable AUTM Unavailable Problems Active Problems Provider Date Essential hypertension Jamison Zamora MD Onset: 06/22/2021 Social History Type Date Description Comments Sex Unknown ETOH Use 15 a day Tobacco Use Start: Unknown Patient is a current smoker, smo kes every day 1.5 ppd x45 years Recreational Drug Use Denies Drug Use Allergies and adverse reactions Active Allergies Criticality Reaction | Severity Comments Date Lisinopril Unable to assess criticality 06/22/2021 Medications Active Medications SIG Qnty Indications Ordering Provide r Date Tramadol HCL 50mg Tablets Take One Tablet By Mouth Every Day as Needed Maximum Daily Dose 1 Tablet Unknown Acamprosate Calcium 333mg Tablets DR Take One Tablet By Mouth Three Times A Day Unknown Hydroxyzine HCL 25mg Tablets Take One Tablet By Mouth AT Bedtime Unknown SM Aspirin Adult Low Strength 81mg Tablets DR Take One Tablet By Mouth Every Day Unknow n Naproxen 500mg Tablets Take One Tablet By Mouth Twice A Day Take With Food Unknown Immunizations Description No Information Available Vital Signs Date Vital Result Comment 06/22/2021 9:07am BP Systolic 106 mmHg BP Diastolic 71 mmHg Body Temperature 98.3 F Height 68 inches 5'8" Weight 141.00 lb BMI (Body Mass Index) 21.4 kg/m2 [place] Body Weight 154 lb Weight 63.958 kg BSA (Body Surface Area) 1.76 m2 Results Description No Information Available Procedures Date Code Description Status 06/22/2021 95044 Office/Outpatient New Low MDM 30 -44 Minutes Completed Medical Devices Description No Information Available Encounters Type Date Location Provider Dx Diagnosis Office Visit 06/22/2021 8:45a [facility] Jamison ramos MD M48.062 Spinal stenosis, lumbar region with neur ogenic claudication Assessments Date Code Description Provider 06/22/2021 M48.062 Spinal stenosis, lumbar region w ith neurogenic claudication Jamison Zamora MD Plan of Treatment No Information Available Functional Status Description No Information Available Mental Status Description No Information Available Referrals Refer to Reason for Referral Status Appt Date Macey Davey MD PERIPHERAL VASCULAR DISEASE [facility] ed 06/22/[address] [place] [address] [phone] Andrés Momin D.O. COLONOSCOPY Scheduled 04/27/[address] [place] [address] [phone]
--- OUTSIDE RECORDS SUMMARY | 2021-07-08 18:09 | CCD | Continuity of Care Document ---
Author Author Valentino ZAMORA MD Organization Unknown Address [address], [address] [place] [address] Phone [phone] Care Team Providers Care Cook Roast Name Role Phone GayPhani AUTM [phone] AUTM Unavailable Problems Active Problems Provider Date [...] lb BMI (Body Mass Index) 21.4 kg/m2 [place] Body Weight 154 lb Weight 63.958 kg BSA (Body Surface Area) 1.76 m2 Results Description No Information Available Procedures Description No Information Available Medical Devices Description No Information Available Encounters Description No Information Available Assessments Date Code Description Provider 06/22/2021 M48.062 Spinal stenosis, lumbar region w ith neurogenic claudication Jamison Zamora MD Plan of Treatment No Information Available Functional Status Description No Information Available Mental Status Description No Information Available Referrals Refer to Reason for Referral Status Appt Date Macey Davey MD PERIPHERAL VASCULAR DISEASE [facility] ed 06/22/[address] [place] [phone] Andrés Momin D.O. COLONOSCOPY Scheduled 04/27/[address] [place] [phone]
[2021-07-08 18:30] VITALS: BP 153/81
--- OUTSIDE RECORDS SUMMARY | 2021-07-08 19:44 | CCD ---
Author Author [facility] Organization [facility] Address Unknown Phone Unavailable Care Team Providers Care [employer] Sky Show Technician Name Role Phone CROUCH, MARY ANN PATTIE [...] CROUCH, MARY ANN PATTIE RPA-C Unavailable Unavailable CROUHC, MARY ANN PATTIE RPA-C Unavailable Unavailable CROUCH, [...] Unavailable Angle ZAMORA MD Unavailable Unavailable Fish, Valeria ONEAL PA-C Unavailable Unavailabl e Fish, Valeria Fani MPAS, PA-C Unavailable Unavailabl e Fish, [facility], PA-C Unavailable Unavailabl e Fish, [facility], PA-C Unavailable Unavailabl e Fish, [facility], PA-C Unavailable Unavailabl e Fish, [facility], PA-C Unavailable Unavailabl e Fish, [facility], PA-C Unavailable Unavailabl e Fish, [facility], PA-C Unavailable Unavailabl e Fish, [facility], PA-C Unavailable Unavailabl e Fish, [facility], PA-C Unavailable Unavailabl e Fish, [facility], PA-C Unavailable Unavailabl e Fish, [facility], PA-C Unavailable Unavailabl e Fish, [facility], PA-C Unavailable Unavailabl e Fish, [facility], PA-C Unavailable Unavailabl e Fish, [facility], PA-C Unavailable Unavailabl e Fish, [facility], PA-C Unavailable Unavailabl e Fish, [facility], PA-C Unavailable Unavailabl e Fish, [facility], PA-C Unavailable Unavailabl e Fish, [facility], PA-C Unavailable Unavailabl e Fish, [facility], PA-C Unavailable Unavailabl e Fish, [facility], PA-C Unavailable Unavailabl e Fish, [facility], PA-C Unavailable Unavailabl e Fish, [facility], PA-C Unavailable Unavailabl e Fish, [facility], PA-C Unavailable Unavailabl e Fish, [facility], PA-C Unavailable Unavailabl e Fish, [facility], PA-C Unavailable Unavailabl e Fish, [facility], PA-C Unavailable Unavailabl e Fish, [facility], PA-C Unavailable Unavailabl e Fish, [facility], PA-C Unavailable Unavailabl e Fish, [facility], PA-C Unavailable Unavailabl e Fish, [facility], PA-C Unavailable Unavailabl e Fish, [facility], PA-C Unavailable Unavailabl e Fish, [facility], PA-C Unavailable Unavailabl e Fish, [facility] JAMES ONEAL Unavailable Unavailabl e Valeria Orozco JAMES ONEAL Unavailable Unavailabl e Valeria Orozco JAMES ONEAL Unavailable Unavailabl e Re-disclosure Warning The [...] is protected by Article 27-F of the [facility] Public Health law. If you continue you may have access to information: Regarding HIV / AIDS; Provided by facilities licensed or operated by the [facility] Office of Mental Health; or Provided by the [facility] Office for People With Developmental Disabilities. If such information is present, then the following [facility] mandated warning applies: This information has been [...] law may result in a fine or halfway sentence or both. A general authorization for the release of medical or other information is NOT sufficient authorization for further disc losure. Encounters Encounter Providers Location Date Indications Data Source(s ) Outpatient Attender: PASTORA Ivory/Luis/Pineda/Julieta 06/22/2021 08:45:00 AM EDT [facility] ([facility] [place]: [address] [facility], [address] [address], [place] [address], Ph. Attender: P[facility]IE [facility] Medical 03/21/2021 12:00:00 AM EDT [place] ([facility]) OFFICE OUTPATIENT NEW 30 MINUTES Attender: Fani ONEAL PA-C Physical Therapy 05/19/2020 10:15:00 AM EDT [facility] ([facility] ) Immunizations Vaccine Date Status Description Data Source(s) Tdap 03/21/2021 01:54:00 PM EDT completed 03/21/2021 0.5 mL [facility] ([facility]) pneumococcal polysaccharide PPV23 03/21/2021 01:54:00 PM EDT com pleted 10.5 mL [facility] ([facility]) Medications No Information Insurance Providers Payer name Policy type / Coverage type Policy ID Covered libertarian ID Covered libertarian's relationship to quintero Policy Quintero Plan Information MEDICARE [id number] xxxxxxxxxxx [id number] MEDICARE [id number] Hyun [id number] 1CA MEDICARE [id number] SP [id number] 1CA MEDICARE [id number] Hyun [id number] EXCELLUS BS MEDICARE [id number] Hyun [id number] EXCELLUS BS MEDICARE [id number] Hyun [id number] MEDICAID [id number] Hyun [id number] MEDICAID [id number] [id number] MEDICARE [id number] Hyun [id number] 1CA ANS-Medicaid [id number] ANS-Medicare Part B [id number] ANS-Medicare Part B [id number] [facility]-Medicaid [id number] [facility] [id number] [facility]-Medicaid [id number] MEDICARE C [id number] S [id number] 1CA MEDICARE [id number] SP [id number] 2CA MEDICARE [id number] SP [id number] MEDICARE PI PI MEDICAID PI PI [id number] 1CA [id number] 1CA [id number] MEDICARE UNAVAILABLE UNAVAILA BLE MEDICAID [facility] [id number] SP [id number] MEDICARE BLUE PPO EXCELLUS BC [id number] SP [id number] MEDICAID [facility] [id number] SP [id number] MEDICAID [facility] [id number] SP [id number] [place] [id number] SP [id number] MEDICARE BLUE PPO [id number] SP [id number] MEDICARE [id number] SP [id number] [place] [id number] SP [id number] MEDICARE C [id number] S [id number] MEDICAID M [id number] S [id number] MEDICAID [id number] SP [id number] [facility]-Medicaid [id number] [facility] [id number] MEDICARE [id number] SP [id number] 1CA Problems, Conditions, and Diagnoses Code Display Name Description Problem Type Effective Dates Data Source(s) 23153033 Essential hypertension Essential hypertension Problem 06/22/2021 12:00:00 AM EDT [facility] [id number] Coronary artery bypass graft stent prese nt Coronary Artery Bypass Graft Stent Present Problem 03/21/2021 12:00:00 AM EDT [place] ([facility]) [id number] History of myocardial infarction History of Myoc ardial Infarction Problem 03/21/2021 12:00:00 AM EDT [place] ([facility]) [id number] Procedure by method Procedure by Method Problem 0 12/21/2019 12:00:00 AM EDT - 04/06/2021 12:00:00 AM EDT [place] ([facility]) [id number] Body measurement finding Body Measurement Finding Prob lokesh 12/21/2019 12:00:00 AM EDT - 03/21/2021 12:00:00 AM EDT [place] ([facility]) Surgeries/Procedures Procedure Description Date Indications Data Source(s) OFFICE OUTPATIENT NEW 30 MINUTES 06/22/2021 12:00:00 A M EDT [facility] RADEX FOOT COMPLETE MINIMUM 3 VIEWS 05/19/2020 12:00:0 0 AM EDT [facility] ([facility] ) Results ID Date Data Source [id number] 11/28/2020 02:47:00 PM EDT [facility] Name Value Range Interpretation Code Description Data Diana rce(s) Supporting Document(s) SARS coronavirus 2 RNA [Presence] in Res piratory specimen by ROSANGELA with probe detection NEGATIVE [facility] This lab was ordered by [facility] a nd reported by [facility]. Procedure Social History No Information Vital Signs ID Date Data Source UNK Name Value Range Interpretation Code Description Data Source(s) Systolic blood pressure 106 mm[Hg] 106 mm[Hg] [facility] ([facility], ) Diastolic blood pressure 71 mm[Hg] 71 mm[Hg] [facility] ([facility], ) Body temperature 98.3 [degF] 98.3 [degF] [facility] ([facility], ) Body height 68 [in_i] 68 [in_i] [facility] ([facility]) 5'8" Body weight 141.00 [lb_av] 141.00 [lb_av] [facility] Body mass index (BMI) [Ratio] 21.4 kg/m2 21.4 k g/m2 [facility] ([facility]) Eads body weight 154 [lb_av] 154 [lb_av] [facility] ([facility]) Body weight 63.958 kg 63.958 kg [facility] ([facility]) Body surface area Derived from formula 1.76 m2 1.76 m2 [facility] ([facility]) Diastolic blood pressure 77 mm[Hg] 77 mm[Hg] [place] ([facility]) Body height 68 [in_i] 68 [in_i] [place] ([facility]) Body mass index (BMI) [Ratio] 21.9 kg/m2 21.9 k g/m2 [place] ([facility]) Systolic blood pressure 116 mm[Hg] 116 mm[Hg] A [place] ([facility]) Body weight 2304 [oz_av] 2304 [oz_av] [place] ([facility]) Body temperature 97.5 [degF] 97.5 [degF] [facility] Body height 68 [in_i] 68 [in_i] [facility] 5'8" Body weight 145.00 [lb_av] 145.00 [lb_av] [facility] ([facility]) Body mass index (BMI) [Ratio] 22.0 kg/m2 22.0 k g/m2 [facility] ([facility])
--- NOTE | 2021-07-09 05:48 | ECGEPIP ---
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
== END 2021-07-08 20:43 | disposition home or self-care (01) ==
LOC: M ED 18:02
DX: R07.9 Chest pain, unspecified (principal); R11.10 Vomiting, unspecified; F31.9 Bipolar disorder, unspecified; F20.9 Schizophrenia, unspecified; F10.10 Alcohol abuse, uncomplicated; I25.2 Old myocardial infarction; Z86.718 Personal history of other venous thrombosis and embolism; Z88.5 Allergy status to narcotic agent; Z88.8 Allergy status to other drugs, medicaments and biological substances; Z91.19 Patient's noncompliance with other medical treatment and regimen; F17.210 Nicotine dependence, cigarettes, uncomplicated

== ENCOUNTER → 2021-08-03 | Outpatient (CLI) | payer MEDICARE, MEDICAID ==
--- NOTE | 2021-08-03 18:40 | REPVR ---
PROCEDURE INFORMATION: Exam: MR Lumbar Spine Without Contrast Exam date and time: 08/03/2021 9:25 AM Age: 61 years old Clinical indication: Low back pain; Additional info: Pain in RT foot TECHNIQUE: Imaging protocol: Multiplanar magnetic resonance images of the lumbar spine without intravenous contrast. COMPARISON: CR Spine. Lumbosacral, complete 05/12/2019 2:08 PM FINDINGS: Modic type 1 edematous degenerative endplate change at L5-S1. Lumbar vertebral body heights are maintained. No cord compression. No abnormal cord signal. Conus medullaris terminates at the L1 level. Paravertebral soft tissues are unremarkable. L1-L2: By broad-based disc bulge causes mild canal narrowing and mild bilateral foraminal narrowing. L2-L3: Left foraminal disc protrusion causing mild left foraminal narrowing. No significant canal narrowing. L3-L4: Broad-based disc bulge and facet hypertrophy cause mild canal narrowing with moderate right and egjz-fn-zprofyck left foraminal narrowing. L4-L5: Broad-based disc bulge and facet hypertrophy cause mild canal narrowing and qgre-xd-edxgxaen bilateral foraminal narrowing. L5-S1: Broad-based disc bulge and facet hypertrophy cause moderate left and severe right foraminal narrowing with impingement upon the exiting right L5 nerve root. IMPRESSION: Multilevel spondylotic changes of the lumbar spine, including moderate to severe right neural foraminal narrowing at L5-S1 with impingement upon the exiting right L5 nerve root, as detailed above. Electronically signed by: Jersey Iyer On 08/03/2021 18:40:26 PM
== END ==
LOC: M PLAIMG 08:12
PROVIDERS: ATTEND Orthopaedic Surgery
DX: M47.816 Spondylosis without myelopathy or radiculopathy, lumbar region (principal)

== ENCOUNTER 2021-09-18 19:18 | Emergency (ER) | payer MEDICARE, MEDICAID ==
[~2021-09-18] VITALS: Ht 172.7 cm; Wt 65.5 kg
[~2021-09-18 19:18] MED LIST changes: -LISI-898; -LISI-898 PO; +LISI5TAB11; +LISI5TAB11 PO
[2021-09-18 19:36] VITALS: BP 152/98
[2021-09-18 20:13] LABS: BASO # 0.1 10^3/uL (0.0-0.2); BASO % 1.1 % (0.0-1.0); EOS # 0.1 10^3/uL (0.0-0.5); EOS % 1.8 % (0.0-3.0); HEMATOCRIT 46.7 % (42.0-52.0); HEMOGLOBIN 16.3 g/dl (13.5-17.5); LYMPH # 1.5 10^3/uL (1.5-5.0); MEAN CORPUSCULAR HEMOGLOBIN 34.9 pg (27.0-33.0); MEAN CORPUSCULAR HGB CONC 34.9 g/dl (32.0-36.5); MONO # 0.7 10^3/uL (0.0-0.8); MONO % 11.6 % (2.0-8.0); NEUTROPHILS # 3.7 10^3/uL (1.5-8.5); NEUTROPHILS % 60.3 % (36.0-66.0); PLATELET COUNT, AUTOMATED 207 10^3/uL (150-450); RED BLOOD COUNT 4.67 10^6/uL (4.30-6.10); WHITE BLOOD COUNT 6.1 10^3/uL (4.0-10.0)
[2021-09-18 20:33] LABS: ALBUMIN 3.6 GM/DL (3.2-5.2); ALT/SGPT 48 U/L (12-78); BILIRUBIN,TOTAL 0.7 MG/DL (0.2-1.0); BLOOD UREA NITROGEN 10 MG/DL (7-18); CALCIUM LEVEL 9.3 MG/DL (8.8-10.2); CARBON DIOXIDE LEVEL 30 MEQ/L (21-32); CHLORIDE LEVEL 102 MEQ/L (98-107); CREATININE FOR GFR 0.88 MG/DL (0.70-1.30); GLOMERULAR FILTRATION RATE > 60.0 (>49); GLUCOSE, FASTING 112 MG/DL (70-100); POTASSIUM SERUM 4.2 MEQ/L (3.5-5.1); SODIUM LEVEL 135 MEQ/L (136-145); TOTAL PROTEIN 7.2 GM/DL (6.4-8.2)
[2021-09-18 20:35] LABS: CK-MB VALUE MASS 1.4 NG/ML (<3.6); MB/CK RELATIVE INDEX 1.56 (< OR =4)
[2021-09-18 20:51] LABS: AMPHETAMINES LEVEL URINE NEGATIVE (NEGATIVE); BARBITURATES URINE NEGATIVE (NEGATIVE); BENZODIAZEPINES URINE NEGATIVE (NEGATIVE); CANNABINOIDS URINE NEGATIVE (NEGATIVE); COCAINE METABOLITE URINE NEGATIVE (NEGATIVE); METHADONE URINE NEGATIVE (NEGATIVE); OPIATES URINE NEGATIVE (NEGATIVE); PHENCYCLIDINE URINE NEGATIVE (NEGATIVE)
== END 2021-09-18 21:20 | disposition left against medical advice (07) ==
LOC: M ED 19:18
DX: R07.89 Other chest pain (principal); Z53.9 Procedure and treatment not carried out, unspecified reason; I25.10 Atherosclerotic heart disease of native coronary artery without angina pectoris; I25.2 Old myocardial infarction; K21.9 Gastro-esophageal reflux disease without esophagitis; Z95.5 Presence of coronary angioplasty implant and graft; F17.200 Nicotine dependence, unspecified, uncomplicated; Z88.8 Allergy status to other drugs, medicaments and biological substances

== ENCOUNTER 2021-11-18 05:48 | Inpatient (IN) | payer MEDICARE, MEDICAID ==
[~2021-11-18] VITALS: Ht 172.7 cm; Wt 62.7 kg
[2021-11-18 07:39] LABS: HEMATOCRIT 46.5 % (42.0-52.0); HEMOGLOBIN 15.9 g/dl (13.5-17.5); MEAN CORPUSCULAR HEMOGLOBIN 34.1 pg (27.0-33.0); MEAN CORPUSCULAR HGB CONC 34.2 g/dl (32.0-36.5); MEAN CORPUSCULAR VOLUME 99.8 fl (80.0-96.0); PLATELET COUNT, AUTOMATED 214 10^3/uL (150-450); RED BLOOD COUNT 4.66 10^6/uL (4.30-6.10); WHITE BLOOD COUNT 7.4 10^3/uL (4.0-10.0)
[2021-11-18 08:21] LABS: ACETAMINOPHEN LEVEL < 2.0 UG/ML (10.0-30.0); ALBUMIN 3.6 GM/DL (3.2-5.2); ALT/SGPT 34 U/L (12-78); BILIRUBIN,DIRECT 0.2 MG/DL (0.0-0.2); BILIRUBIN,TOTAL 0.4 MG/DL (0.2-1.0); BLOOD UREA NITROGEN 18 MG/DL (7-18); CALCIUM LEVEL 9.1 MG/DL (8.8-10.2); CARBON DIOXIDE LEVEL 27 MEQ/L (21-32); CHLORIDE LEVEL 103 MEQ/L (98-107); CREATININE FOR GFR 1.01 MG/DL (0.70-1.30); ETHYL ALCOHOL (ETHANOL) 0.251 % (0.000-0.010); GLOMERULAR FILTRATION RATE > 60.0 (>49); GLUCOSE, FASTING 82 MG/DL (70-100); SALICYLATE LEVEL 2.3 MG/DL (5.0-30.0); SODIUM LEVEL 139 MEQ/L (136-145); TOTAL PROTEIN 7.1 GM/DL (6.4-8.2)
[2021-11-18] MEDS ORDERED: MULTIVITAMINS/MINERALS THERAP 1 TAB PO SCH (09:00)
[2021-11-18] MEDS ORDERED: FOLIC ACID 1 MG TAB PO SCH (09:00)
[2021-11-18] MEDS ORDERED: LORazepam 2 MG TAB PO PRN (09:30)
[2021-11-18 11:47] LABS: AMPHETAMINES LEVEL URINE NEGATIVE (NEGATIVE); BARBITURATES URINE NEGATIVE (NEGATIVE); BENZODIAZEPINES URINE NEGATIVE (NEGATIVE); CANNABINOIDS URINE NEGATIVE (NEGATIVE); COCAINE METABOLITE URINE NEGATIVE (NEGATIVE); METHADONE URINE NEGATIVE (NEGATIVE); OPIATES URINE NEGATIVE (NEGATIVE); PHENCYCLIDINE URINE NEGATIVE (NEGATIVE)
[2021-11-18 12:18] LABS: RSV AMPLIFICATION NEGATIVE (NEGATIVE)
[2021-11-18] MEDS ORDERED: HOME MED LIST COMPLETE! XX SCH (12:35)
[2021-11-18] MEDS: THIAMINE 100 MG TAB PO SCH ×2 (16:16→21:00)
[2021-11-19] MEDS ORDERED: ACETAMINOPHEN TAB 650MG DOSE (2X325MG) PO PRN (00:15)
[2021-11-19] MEDS ORDERED: traZODone 50 MG TAB PO PRN (00:15)
[2021-11-19] MEDS ORDERED: MAALOX 30 ML SUSP *UDC PO PRN (00:15)
[2021-11-19] MEDS ORDERED: MOM 30ML SUSPENSION UDC PO PRN (00:15)
[2021-11-19] MEDS ORDERED: LORazepam 2 MG TAB PO PRN (00:15)
[2021-11-19 02:00] VITALS: BP 123/86
[2021-11-19 02:08] VITALS: BP 123/86
[2021-11-19 06:32] VITALS: BP 149/94
[2021-11-19] MEDS: FOLIC ACID 1 MG TAB PO SCH (09:00)
[2021-11-19] MEDS: CARVedilol 3.125 MG TAB PO SCH ×2 (09:00→20:01)
[2021-11-19] MEDS: THIAMINE 100 MG TAB PO SCH ×2 (09:00→20:01)
[2021-11-19] MEDS: MULTIVITAMINS/MINERALS THERAP 1 TAB PO SCH (09:00)
[2021-11-19] MEDS ORDERED: NICOTINE POLACRILEX 2 MG GUM PO PRN (10:05)
[2021-11-19] MEDS: NALTREXONE 50 MG TAB PO SCH (10:16)
[2021-11-19] MEDS ORDERED: NITROGLYCERIN 0.4 MG SUBL TABLET SL PRN (12:10)
[2021-11-19] MEDS: ASPIRIN 81 MG CHEW TABLET PO SCH (12:27)
[2021-11-19 12:31] VITALS: BP 114/74
[2021-11-19] MEDS ORDERED: CARV3.12 PO (13:39)
[2021-11-19] MEDS ORDERED: THIA100TA PO (13:39)
[2021-11-19] MEDS ORDERED: FOLI1TAB11 PO (13:39)
[2021-11-19] MEDS ORDERED: NITR4TASL SL (13:39)
[2021-11-19] MEDS ORDERED: ASPI81CH8 PO ×2 (13:39→15:01)
[2021-11-19] MEDS ORDERED: NICO2GUM PO (13:39)
[2021-11-19] MEDS ORDERED: VITMTA PO (13:39)
[2021-11-19] MEDS ORDERED: SIMV40TA20 PO ×2 (13:39→15:01)
[2021-11-19 14:43] VITALS: BP 129/83
[2021-11-19] MEDS ORDERED: SELF1KIT MC (15:02)
[2021-11-19 17:44] VITALS: BP 111/75
[2021-11-19] MEDS ORDERED: SIMVASTATIN 40 MG TAB PO SCH (21:00)
[2021-11-20 06:42] VITALS: BP 103/71
[2021-11-20] MEDS ORDERED: DEBR6.5S4 AU (07:41)
[2021-11-20 08:04] LABS: ALBUMIN 3.6 GM/DL (3.2-5.2); BILIRUBIN,DIRECT 0.2 MG/DL (0.0-0.2); CHOLESTEROL RISK RATIO 3.225 (<5); TOTAL PROTEIN 7.2 GM/DL (6.4-8.2)
[2021-11-20] MEDS: NALTREXONE 50 MG TAB PO SCH (08:04)
[2021-11-20] MEDS: MULTIVITAMINS/MINERALS THERAP 1 TAB PO SCH (08:05)
[2021-11-20] MEDS: FOLIC ACID 1 MG TAB PO SCH (08:06)
[2021-11-20] MEDS: THIAMINE 100 MG TAB PO SCH (08:06)
[2021-11-20] MEDS: ASPIRIN 81 MG CHEW TABLET PO SCH (08:06)
[2021-11-20 08:07] VITALS: BP 113/83
[2021-11-20] MEDS: CARVedilol 3.125 MG TAB PO SCH (08:07)
[2021-11-20 08:57] LABS: HEMOGLOBIN A1c 5.6 %
[2021-11-20] MEDS ORDERED: NALTREXONE 50 MG TAB PO SCH (09:00)
[2021-11-20] MEDS ORDERED: CARBAMIDE PEROXIDE 6.5% OTIC SOLN 15ML AU SCH (09:00)
[2021-11-20] MEDS ORDERED: NALT50TA4 PO (11:34)
[2021-11-20] MEDS ORDERED: TRAZ-252 PO (11:34)
== END 2021-11-20 13:35 | disposition home or self-care (01) | DRG 897 ==
LOC: M ED 05:48 → M ED INP 11-19 00:15 → M PSY 11-19 01:32
PROVIDERS: ADMIT Psychiatry & Neurology Psychiatry; ATTEND Student in an Organized Health Care Education/Training Program
DX: F10.24 Alcohol dependence with alcohol-induced mood disorder (principal); F10.229 Alcohol dependence with intoxication, unspecified; I25.10 Atherosclerotic heart disease of native coronary artery without angina pectoris; I25.2 Old myocardial infarction; I10 Essential (primary) hypertension; H61.23 Impacted cerumen, bilateral; Z95.5 Presence of coronary angioplasty implant and graft; Z86.718 Personal history of other venous thrombosis and embolism; Z91.19 Patient's noncompliance with other medical treatment and regimen; Z91.14 Patient's other noncompliance with medication regimen; Z20.822 Contact with and (suspected) exposure to COVID-19; Z59.02 Unsheltered homelessness; Z88.8 Allergy status to other drugs, medicaments and biological substances; Z88.5 Allergy status to narcotic agent

== ENCOUNTER 2021-11-20 19:53 | Emergency (ER) | payer MEDICARE, MEDICAID ==
[~2021-11-20] VITALS: Ht 172.7 cm; Wt 65.4 kg
[~2021-11-20 19:53] MED LIST changes: +ASPI81CH8 PO; +CARV3.12 PO; +DEBR6.5S4 AU; +FOLI1TAB11 PO; +NALT50TA4 PO; +NICO2GUM PO; +NITR4TASL SL; +SELF1KIT MC; +SIMV40TA20 PO; +THIA100TA PO; +TRAZ-252 PO; +VITMTA PO
[2021-11-20 20:02] VITALS: BP 121/83
[2021-11-20 20:30] LABS: HEMATOCRIT 46.2 % (42.0-52.0); HEMOGLOBIN 15.9 g/dl (13.5-17.5); MEAN CORPUSCULAR HEMOGLOBIN 33.6 pg (27.0-33.0); MEAN CORPUSCULAR HGB CONC 34.4 g/dl (32.0-36.5); MEAN CORPUSCULAR VOLUME 97.7 fl (80.0-96.0); PLATELET COUNT, AUTOMATED 206 10^3/uL (150-450); RED BLOOD COUNT 4.73 10^6/uL (4.30-6.10); WHITE BLOOD COUNT 11.1 10^3/uL (4.0-10.0)
[2021-11-20 20:42] LABS: AMPHETAMINES LEVEL URINE NEGATIVE (NEGATIVE); BARBITURATES URINE NEGATIVE (NEGATIVE); BENZODIAZEPINES URINE NEGATIVE (NEGATIVE); CANNABINOIDS URINE NEGATIVE (NEGATIVE); COCAINE METABOLITE URINE NEGATIVE (NEGATIVE); METHADONE URINE NEGATIVE (NEGATIVE); OPIATES URINE NEGATIVE (NEGATIVE); PHENCYCLIDINE URINE NEGATIVE (NEGATIVE)
[2021-11-20 21:04] LABS: ACETAMINOPHEN LEVEL < 2.0 UG/ML (10.0-30.0); ALBUMIN 3.7 GM/DL (3.2-5.2); ALT/SGPT 32 U/L (12-78); BILIRUBIN,DIRECT 0.3 MG/DL (0.0-0.2); BILIRUBIN,TOTAL 1.1 MG/DL (0.2-1.0); BLOOD UREA NITROGEN 11 MG/DL (7-18); CALCIUM LEVEL 9.1 MG/DL (8.8-10.2); CARBON DIOXIDE LEVEL 21 MEQ/L (21-32); CHLORIDE LEVEL 95 MEQ/L (98-107); CREATININE FOR GFR 1.01 MG/DL (0.70-1.30); ETHYL ALCOHOL (ETHANOL) 0.276 % (0.000-0.010); GLOMERULAR FILTRATION RATE > 60.0 (>49); GLUCOSE, FASTING 123 MG/DL (70-100); POTASSIUM SERUM 3.8 MEQ/L (3.5-5.1); SALICYLATE LEVEL < 1.7 MG/DL (5.0-30.0); SODIUM LEVEL 130 MEQ/L (136-145); TOTAL PROTEIN 7.1 GM/DL (6.4-8.2)
[2021-11-20 21:05] LABS: RSV AMPLIFICATION NEGATIVE (NEGATIVE)
== END 2021-11-20 20:51 | disposition home or self-care (01) ==
LOC: M ED 19:53
DX: F10.20 Alcohol dependence, uncomplicated (principal); F20.9 Schizophrenia, unspecified; I51.9 Heart disease, unspecified; Z88.8 Allergy status to other drugs, medicaments and biological substances; Z79.899 Other long term (current) drug therapy; F17.200 Nicotine dependence, unspecified, uncomplicated

== ENCOUNTER → 2022-01-27 13:00 | Emergency (ER) | payer MEDICARE, MEDICAID ==
[~2022-01-27] VITALS: Ht 167.6 cm; Wt 67.6 kg
[2022-01-27 13:01] VITALS: BP 115/76
== END | disposition left against medical advice (07) ==
LOC: M ED 13:00
DX: Z53.21 Procedure and treatment not carried out due to patient leaving prior to being seen by health care provider (principal)

== ENCOUNTER 2022-03-21 21:48 | Emergency (ER) | payer MEDICARE, MEDICAID | END 2022-03-21 22:12 | disposition left against medical advice (07) | LOC: M ED 21:48 | DX: Z53.21 Procedure and treatment not carried out due to patient leaving prior to being seen by health care provider (principal) ==

== ENCOUNTER 2022-04-01 10:15 | Emergency (ER) | payer MEDICARE, MEDICAID ==
[~2022-04-01] VITALS: Ht 172.7 cm; Wt 64.7 kg
[2022-04-01 10:27] VITALS: BP 136/88
== END 2022-04-01 11:13 | disposition left against medical advice (07) ==
LOC: M ED 10:15 → EDBD 10:15 → M ED 11:13
DX: Z53.21 Procedure and treatment not carried out due to patient leaving prior to being seen by health care provider (principal)

== ENCOUNTER 2022-04-04 23:29 | Emergency (ER) | payer MEDICARE, MEDICAID ==
[~2022-04-04] VITALS: Ht 175.3 cm; Wt 66.4 kg
[2022-04-04 23:40] VITALS: BP 123/78
== END 2022-04-05 00:10 | disposition left against medical advice (07) ==
LOC: M ED 23:29 → EDBD 23:29 → M ED 04-05 00:10
DX: Z53.21 Procedure and treatment not carried out due to patient leaving prior to being seen by health care provider (principal)

== ENCOUNTER 2022-04-24 19:53 | Emergency (ER) | payer MEDICARE, MEDICAID | END 2022-04-24 20:58 | disposition left against medical advice (07) | LOC: M ED 20:58 | DX: Z53.21 Procedure and treatment not carried out due to patient leaving prior to being seen by health care provider (principal) ==

== ENCOUNTER 2022-05-05 04:36 | Emergency (ER) | payer MEDICARE, MEDICAID | END 2022-05-05 05:11 | disposition left against medical advice (07) | LOC: M ED 04:36 → EDBD 04:36 → M ED 05:11 | DX: Z53.21 Procedure and treatment not carried out due to patient leaving prior to being seen by health care provider (principal) ==

== ENCOUNTER 2022-05-10 10:41 | Emergency (ER) | payer MEDICAID, MEDICARE, OTHER | END 2022-05-10 10:47 | disposition left against medical advice (07) | LOC: EDBD 10:41 → M ED 10:41 | DX: Z53.21 Procedure and treatment not carried out due to patient leaving prior to being seen by health care provider (principal) ==

== ENCOUNTER 2022-05-13 12:25 | Emergency (ER) | payer MEDICAID | END 2022-05-13 13:15 | disposition left against medical advice (07) | LOC: M ED 12:25 | DX: Z53.29 Procedure and treatment not carried out because of patient's decision for other reasons (principal) ==

== ENCOUNTER 2022-06-19 15:32 | Emergency (ER) | payer MEDICAID ==
[~2022-06-19] VITALS: Ht 172.7 cm; Wt 63.5 kg
[2022-06-19 15:37] VITALS: BP 143/88
== END 2022-06-19 16:09 | disposition left against medical advice (07) ==
LOC: M ED 15:32
DX: Z53.21 Procedure and treatment not carried out due to patient leaving prior to being seen by health care provider (principal)

== ENCOUNTER 2022-09-30 22:17 | Emergency (ER) | payer OTHER, MEDICAID ==
[~2022-09-30] VITALS: Ht 172.7 cm; Wt 65.7 kg
[~2022-09-30 22:17] MED LIST changes: -QUET300T53 PO; +QUET300T93 PO
[2022-09-30] MEDS ORDERED: DEBR6.5S4 OTIC (23:44)
[2022-10-01 00:03] VITALS: BP 138/75
== END 2022-10-01 00:06 | disposition home or self-care (01) ==
LOC: EDBD 22:17 → M ED 22:17
DX: H61.23 Impacted cerumen, bilateral (principal); I25.2 Old myocardial infarction; I10 Essential (primary) hypertension; Z86.718 Personal history of other venous thrombosis and embolism; F17.210 Nicotine dependence, cigarettes, uncomplicated; Z88.5 Allergy status to narcotic agent; Z88.8 Allergy status to other drugs, medicaments and biological substances; Z79.899 Other long term (current) drug therapy

== ENCOUNTER 2022-11-04 21:49 | Emergency (ER) | payer OTHER, MEDICAID ==
[~2022-11-04] VITALS: Ht 170.2 cm; Wt 63.5 kg
[~2022-11-04 21:49] MED LIST changes: +DEBR6.5S4 OTIC
[2022-11-04 21:56] VITALS: BP 138/74
== END 2022-11-04 23:20 | disposition left against medical advice (07) ==
LOC: M ED 21:49
DX: Z53.21 Procedure and treatment not carried out due to patient leaving prior to being seen by health care provider (principal)

== ENCOUNTER 2022-11-13 00:56 | Emergency (ER) | payer OTHER, MEDICAID ==
[~2022-11-13] VITALS: Ht 172.7 cm; Wt 64.5 kg
[2022-11-13 01:02] VITALS: BP 111/72
== END 2022-11-13 02:00 | disposition left against medical advice (07) ==
LOC: EDBD 00:56 → M ED 00:56
DX: Z53.21 Procedure and treatment not carried out due to patient leaving prior to being seen by health care provider (principal)

== ENCOUNTER 2022-11-23 14:41 | Emergency (ER) | payer OTHER, MEDICAID ==
[~2022-11-23] VITALS: Ht 175.3 cm; Wt 65.8 kg
[2022-11-23 14:49] VITALS: BP 120/71
== END 2022-11-23 15:04 | disposition left against medical advice (07) ==
LOC: M ED 14:41 → EDBD 14:41 → M ED 15:04
DX: Z53.21 Procedure and treatment not carried out due to patient leaving prior to being seen by health care provider (principal)

== ENCOUNTER 2022-11-25 21:54 | Emergency (ER) | payer OTHER, MEDICAID ==
[~2022-11-25] VITALS: Ht 172.7 cm; Wt 65.0 kg
[2022-11-25 22:28] VITALS: BP 110/70
== END 2022-11-26 00:52 | disposition left against medical advice (07) ==
LOC: EDBD 21:54 → M ED 21:54
DX: Z53.21 Procedure and treatment not carried out due to patient leaving prior to being seen by health care provider (principal)

== ENCOUNTER 2022-12-04 00:44 | Emergency (ER) | payer OTHER, MEDICAID ==
[2022-12-04 00:48] VITALS: BP 101/72
== END 2022-12-04 02:17 | disposition left against medical advice (07) ==
LOC: M ED 00:44
DX: Z53.21 Procedure and treatment not carried out due to patient leaving prior to being seen by health care provider (principal)

== ENCOUNTER 2022-12-26 07:26 | Emergency (ER) | payer OTHER, MEDICAID ==
[~2022-12-26] VITALS: Ht 172.7 cm; Wt 65.9 kg
[2022-12-26 07:43] VITALS: BP 140/99
== END 2022-12-26 07:58 | disposition left against medical advice (07) ==
LOC: M ED 07:26 → EDBD 07:26 → M ED 07:58
DX: R07.9 Chest pain, unspecified (principal); Z53.9 Procedure and treatment not carried out, unspecified reason; I25.10 Atherosclerotic heart disease of native coronary artery without angina pectoris; I25.2 Old myocardial infarction; Z88.5 Allergy status to narcotic agent; Z88.8 Allergy status to other drugs, medicaments and biological substances; Z79.82 Long term (current) use of aspirin; Z79.899 Other long term (current) drug therapy

== ENCOUNTER 2023-01-09 17:35 | Emergency (ER) | payer OTHER, MEDICAID | END 2023-01-09 18:07 | disposition left against medical advice (07) | LOC: EDBD 17:35 → M ED 17:35 | DX: Z53.21 Procedure and treatment not carried out due to patient leaving prior to being seen by health care provider (principal) ==

== ENCOUNTER 2023-01-27 13:45 | Emergency (ER) | payer OTHER, MEDICAID ==
[2023-01-27 14:17] VITALS: BP 119/72
== END 2023-01-27 15:13 | disposition left against medical advice (07) ==
LOC: M ED 13:45
DX: Z53.21 Procedure and treatment not carried out due to patient leaving prior to being seen by health care provider (principal)

== ENCOUNTER → 2023-02-11 | Outpatient (CLI) | payer OTHER, MEDICAID | LOC: M SOG 07:51 | PROVIDERS: ATTEND Orthopaedic Surgery | DX: M51.16 Intervertebral disc disorders with radiculopathy, lumbar region (principal) ==

== ENCOUNTER 2023-06-05 21:25 | Emergency (ER) | payer OTHER, MEDICAID ==
[~2023-06-05] VITALS: Ht 172.7 cm; Wt 68.4 kg
[2023-06-05 22:52] LABS: VENOUS BASE EXCESS 0.8 (-2.0-2.0); VENOUS O2 SATURATION 35.1 % (60.0-80.0); VENOUS PARTIAL PRESSURE CO2 54.5 mmHg (38.0-50.0); VENOUS PARTIAL PRESSURE O2 23.9 mmHg (30.0-50.0); VENOUS PH 7.328 UNITS (7.330-7.430); VENOUS STANDARD HCO3 23.6 MMOL/L; VENOUS TOTAL CO2 29.6 MMOL/L (24.0-28.0)
[2023-06-05 22:57] LABS: BASO # 0.1 10^3/uL (0.0-0.2); EOS # 0.2 10^3/uL (0.0-0.5); EOS % 3.3 % (0.0-3.0); HEMATOCRIT 44.3 % (42.0-52.0); HEMOGLOBIN 14.4 g/dl (13.5-17.5); LYMPH # 1.8 10^3/uL (1.5-5.0); LYMPH % 26.6 % (24.0-44.0); MEAN CORPUSCULAR HEMOGLOBIN 33.7 pg (27.0-33.0); MEAN CORPUSCULAR HGB CONC 32.5 g/dl (32.0-36.5); MEAN CORPUSCULAR VOLUME 103.7 fl (80.0-96.0); MONO # 0.6 10^3/uL (0.0-0.8); MONO % 8.5 % (2.0-8.0); NEUTROPHILS % 60.3 % (36.0-66.0); PLATELET COUNT, AUTOMATED 106 10^3/uL (150-450); RED BLOOD COUNT 4.27 10^6/uL (4.30-6.10); WHITE BLOOD COUNT 6.7 10^3/uL (4.0-10.0)
[2023-06-05 23:26] LABS: ALBUMIN 3.6 G/DL (3.2-5.2); ALKALINE PHOSPHATASE 83 U/L (46-116); ALT/SGPT 17 U/L (7.0-40); AST/SGOT 25 U/L (<34); BILIRUBIN,DIRECT 0.5 MG/DL (<0.4); BILIRUBIN,TOTAL 0.9 MG/DL (0.3-1.2); BLOOD UREA NITROGEN 25 MG/DL (9-23); CALCIUM LEVEL 9.8 MG/DL (8.3-10.6); CARBON DIOXIDE LEVEL 28 MMOL/L (20-31); CHLORIDE LEVEL 104 MMOL/L (98-107); CPK CREATINE PHOSPHOKINASE 119 U/L (46-171); CREATININE FOR GFR 0.94 MG/DL (0.70-1.30); GLOMERULAR FILTRATION RATE > 60.0 (>49); GLUCOSE, FASTING 98 MG/DL (74-106); MB/CK RELATIVE INDEX 1.68 (< OR =4); POTASSIUM SERUM 4.7 MMOL/L (3.5-5.1); SODIUM LEVEL 138 MMOL/L (136-145); TOTAL PROTEIN 6.5 G/DL (5.7-8.2)
[2023-06-05 23:27] LABS: THYROXINE (T4) 7.4 UG/DL (4.5-10.9)
[2023-06-05 23:28] LABS: THYROID STIMULATING HORMONE 4.392 uIU/ML (0.55-4.78)
[2023-06-05 23:35] LABS: RSV AMPLIFICATION NEGATIVE (NEGATIVE)
[2023-06-06 00:42] VITALS: TEMP 97.9
[2023-06-06] MEDS ORDERED: ISOVUE-370 76% 100ML VIAL As Ordered ONE (01:55)
[2023-06-06] MEDS ORDERED: METOPROLOL TART 25 MG TABLET PO ONE (02:05)
[2023-06-06] MEDS ORDERED: IRBESARTAN 150MG TAB PO ONE (02:05)
[2023-06-06 03:16] VITALS: BP 143/102
[2023-06-06 03:25] VITALS: O2SAT 99
[2023-06-06] MEDS ORDERED: ALBU8.5H INH (22:22)
[2023-06-07] MEDS ORDERED: ELIQ5TAB PO (07:36)
== END 2023-06-06 03:52 | disposition left against medical advice (07) ==
LOC: M ED 21:25
DX: I26.99 Other pulmonary embolism without acute cor pulmonale (principal); J91.8 Pleural effusion in other conditions classified elsewhere; N20.0 Calculus of kidney; Z53.9 Procedure and treatment not carried out, unspecified reason; I25.10 Atherosclerotic heart disease of native coronary artery without angina pectoris; J44.9 Chronic obstructive pulmonary disease, unspecified; Z86.718 Personal history of other venous thrombosis and embolism; Z95.5 Presence of coronary angioplasty implant and graft; F17.200 Nicotine dependence, unspecified, uncomplicated; Z79.82 Long term (current) use of aspirin; Z79.899 Other long term (current) drug therapy; Z88.5 Allergy status to narcotic agent; Z88.8 Allergy status to other drugs, medicaments and biological substances

== ENCOUNTER 2023-06-06 14:41 | Observation (INO) | payer OTHER, MEDICAID ==
[~2023-06-06] VITALS: Ht 172.7 cm; Wt 67.3 kg
[2023-06-06 14:43] VITALS: TEMP 97.3
[2023-06-06 19:22] LABS: VENOUS BASE EXCESS -1.2 (-2.0-2.0); VENOUS HCO3 24.7 MMOL/L (23.0-27.0); VENOUS O2 SATURATION 77.7 % (60.0-80.0); VENOUS PARTIAL PRESSURE CO2 45.6 mmHg (38.0-50.0); VENOUS PARTIAL PRESSURE O2 46.3 mmHg (30.0-50.0); VENOUS PH 7.352 UNITS (7.330-7.430); VENOUS STANDARD HCO3 22.9 MMOL/L; VENOUS TOTAL CO2 26.1 MMOL/L (24.0-28.0)
[2023-06-06 19:31] LABS: BASO # 0.1 10^3/uL (0.0-0.2); BASO % 0.9 % (0.0-1.0); EOS # 0.1 10^3/uL (0.0-0.5); EOS % 1.9 % (0.0-3.0); HEMATOCRIT 45.6 % (42.0-52.0); HEMOGLOBIN 15.3 g/dl (13.5-17.5); LYMPH % 28.5 % (24.0-44.0); MEAN CORPUSCULAR HEMOGLOBIN 34.5 pg (27.0-33.0); MEAN CORPUSCULAR HGB CONC 33.6 g/dl (32.0-36.5); MEAN CORPUSCULAR VOLUME 102.7 fl (80.0-96.0); MONO # 0.6 10^3/uL (0.0-0.8); MONO % 8.5 % (2.0-8.0); NEUTROPHILS # 4.2 10^3/uL (1.5-8.5); NEUTROPHILS % 60.1 % (36.0-66.0); PLATELET COUNT, AUTOMATED 112 10^3/uL (150-450); RED BLOOD COUNT 4.44 10^6/uL (4.30-6.10)
[2023-06-06] MEDS ORDERED: PIPERACILLIN/TAZOBACTAM SOD 4.5 GM in D5W MINI-BAG PLUS 50 ML IV ONE (19:50)
[2023-06-06] MEDS ORDERED: ENOXAPARIN 100MG/1ML SYRINGE (J1650 PER 10MG) SC ONE (19:50)
[2023-06-06] MEDS ORDERED: FUROSEMIDE 20MG/2ML VIAL IV ONE (19:55)
[2023-06-06 20:02] LABS: ALBUMIN 3.7 G/DL (3.2-5.2); ALKALINE PHOSPHATASE 83 U/L (46-116); ALT/SGPT 19 U/L (7.0-40); AST/SGOT 29 U/L (<34); BILIRUBIN,DIRECT 0.6 MG/DL (<0.4); BILIRUBIN,TOTAL 1.6 MG/DL (0.3-1.2); BLOOD UREA NITROGEN 26 MG/DL (9-23); CALCIUM LEVEL 9.8 MG/DL (8.3-10.6); CARBON DIOXIDE LEVEL 22 MMOL/L (20-31); CHLORIDE LEVEL 105 MMOL/L (98-107); CK-MB VALUE MASS 1.6 NG/ML (<3.6); CPK CREATINE PHOSPHOKINASE 102 U/L (46-171); CREATININE FOR GFR 0.94 MG/DL (0.70-1.30); GLOMERULAR FILTRATION RATE > 60.0 (>49); GLUCOSE, FASTING 92 MG/DL (74-106); MB/CK RELATIVE INDEX 1.56 (< OR =4); POTASSIUM SERUM 4.8 MMOL/L (3.5-5.1); SODIUM LEVEL 137 MMOL/L (136-145); TOTAL PROTEIN 6.7 G/DL (5.7-8.2)
[2023-06-06 20:22] LABS: PROCALCITONIN <0.04 ng/ml
[2023-06-06 21:13] VITALS: BP 135/92; O2SAT 95
[2023-06-06] MEDS ORDERED: MOM 30ML SUSPENSION UDC PO PRN (21:55)
[2023-06-06] MEDS ORDERED: ACETAMINOPHEN TAB 650MG DOSE (2X325MG) PO PRN (21:55)
[2023-06-06] MEDS ORDERED: ALBU8.5H INH (22:22)
[2023-06-06 22:48] LABS: INR 1.36; PROTHROMBIN TIME 16.4 SECONDS (12.5-14.5)
[2023-06-06 23:09] LABS: HEMOGLOBIN A1c 5.4 % (4.0-6.0)
[2023-06-07] MEDS ORDERED: ELIQ5TAB PO (07:36)
[2023-06-07] MEDS ORDERED: ATORVASTATIN 20 MG TAB PO SCH (09:00)
[2023-06-07] MEDS ORDERED: NICOTINE 21MG/24HR 1 EA TRANSDERMAL TD SCH (09:00)
[2023-06-07] MEDS ORDERED: DOCUSATE SODIUM 100MG CAPSULE PO SCH (09:00)
[2023-06-07] MEDS ORDERED: ENOXAPARIN 80MG/0.8ML SYRINGE (J1650 PER 10MG) SC SCH (09:00)
[2023-06-07] MEDS ORDERED: ASPIRIN 81MG ENTERIC TABLET PO SCH (09:00)
== END 2023-06-06 22:44 | disposition left against medical advice (07) ==
LOC: M ED 14:41 → M ED INP 14:42
PROVIDERS: ADMIT Student in an Organized Health Care Education/Training Program; ATTEND Student in an Organized Health Care Education/Training Program
DX: I26.99 Other pulmonary embolism without acute cor pulmonale (principal); J90 Pleural effusion, not elsewhere classified; R18.8 Other ascites; F79 Unspecified intellectual disabilities; I25.10 Atherosclerotic heart disease of native coronary artery without angina pectoris; J44.9 Chronic obstructive pulmonary disease, unspecified; F31.9 Bipolar disorder, unspecified; Z86.718 Personal history of other venous thrombosis and embolism; Z98.61 Coronary angioplasty status; Z88.5 Allergy status to narcotic agent; Z88.8 Allergy status to other drugs, medicaments and biological substances; Z79.82 Long term (current) use of aspirin; Z91.148 Patient's other noncompliance with medication regimen for other reason
CPT/HCPCS: 71045; 71275; 80048; 80076; 82550; 82553; 82803; 83036; 83605; 84145; 84484; 85025; 85610; 87040; 93005; 93041; 93970; 94760; 96365; 96372; 96375; 99284; G0378; J1650; J1940; J2543; Q9967

== ENCOUNTER 2023-06-10 19:52 | Inpatient (IN) | payer OTHER, MEDICAID ==
[~2023-06-10] VITALS: Ht 172.7 cm; Wt 67.7 kg
[~2023-06-10 19:52] MED LIST changes: +ALBU8.5H INH; +ELIQ5TAB PO
[2023-06-10 21:39] LABS: BASO # 0.1 10^3/uL (0.0-0.2); BASO % 0.9 % (0.0-1.0); EOS # 0.2 10^3/uL (0.0-0.5); EOS % 2.9 % (0.0-3.0); HEMATOCRIT 43.2 % (42.0-52.0); HEMOGLOBIN 14.2 g/dl (13.5-17.5); LYMPH # 1.6 10^3/uL (1.5-5.0); LYMPH % 23.2 % (24.0-44.0); MEAN CORPUSCULAR HEMOGLOBIN 33.9 pg (27.0-33.0); MEAN CORPUSCULAR HGB CONC 32.9 g/dl (32.0-36.5); MEAN CORPUSCULAR VOLUME 103.1 fl (80.0-96.0); MONO # 0.6 10^3/uL (0.0-0.8); MONO % 8.5 % (2.0-8.0); NEUTROPHILS # 4.5 10^3/uL (1.5-8.5); NEUTROPHILS % 64.2 % (36.0-66.0); PLATELET COUNT, AUTOMATED 149 10^3/uL (150-450); RED BLOOD COUNT 4.19 10^6/uL (4.30-6.10); WHITE BLOOD COUNT 6.9 10^3/uL (4.0-10.0)
[2023-06-10] MEDS ORDERED: IPRATROPIUM 0.5MG/ALBUTEROL 2.5MG INH SOL UD 3ML (DUONEB) NEB ONE (21:45)
[2023-06-10] MEDS ORDERED: methylPREDNISolone 125MG 2ML VIAL IV ONE (21:45)
[2023-06-10] MEDS ORDERED: FUROSEMIDE 40MG/4ML VIAL IV ONE (21:50)
[2023-06-10 22:12] LABS: ALBUMIN 3.5 G/DL (3.2-5.2); ALKALINE PHOSPHATASE 79 U/L (46-116); ALT/SGPT 17 U/L (7.0-40); AST/SGOT 23 U/L (<34); BILIRUBIN,DIRECT 0.5 MG/DL (<0.4); BILIRUBIN,TOTAL 1.1 MG/DL (0.3-1.2); BLOOD UREA NITROGEN 16 MG/DL (9-23); CARBON DIOXIDE LEVEL 27 MMOL/L (20-31); CHLORIDE LEVEL 105 MMOL/L (98-107); CK-MB VALUE MASS 1.5 NG/ML (<3.6); CREATININE FOR GFR 0.97 MG/DL (0.70-1.30); GLOMERULAR FILTRATION RATE > 60.0 (>49); GLUCOSE, FASTING 83 MG/DL (74-106); POTASSIUM SERUM 4.3 MMOL/L (3.5-5.1); SODIUM LEVEL 138 MMOL/L (136-145); TOTAL PROTEIN 6.6 G/DL (5.7-8.2)
[2023-06-10 22:16] LABS: CPK CREATINE PHOSPHOKINASE 88 U/L (46-171)
[2023-06-10] MEDS ORDERED: LEVALBUTEROL 1.25MG 0.5ML CONCENTRATE NEB NEB PRN (23:15)
[2023-06-10] MEDS ORDERED: ACETAMINOPHEN TAB 650MG DOSE (2X325MG) PO PRN (23:15)
[2023-06-10 23:19] LABS: RSV AMPLIFICATION NEGATIVE (NEGATIVE)
[2023-06-10] MEDS ORDERED: ELIQ5TAB PO (23:19)
[2023-06-10] MEDS ORDERED: ASPI-161 PO (23:19)
[2023-06-10] MEDS ORDERED: HOME MED LIST COMPLETE! XX SCH (23:20)
[2023-06-11] MEDS ORDERED: IPRATROPIUM 0.5MG/ALBUTEROL 2.5MG INH SOL UD 3ML (DUONEB) NEB SCH
[2023-06-11 05:15] VITALS: BP 137/97; TEMP 98.2
[2023-06-11 07:00] VITALS: O2SAT 94
[2023-06-11] MEDS ORDERED: ASPIRIN 81MG ENTERIC TABLET PO SCH (09:00)
[2023-06-11] MEDS ORDERED: predniSONE 20 MG TAB PO SCH (09:00)
[2023-06-11] MEDS ORDERED: ATORVASTATIN 20 MG TAB PO SCH (09:00)
[2023-06-11] MEDS ORDERED: APIXABAN 5 MG TAB (ELIQUIS) PO SCH (09:00)
[2023-06-11] MEDS ORDERED: FUROSEMIDE 20MG/2ML VIAL IV SCH (09:00)
[2023-06-15] MEDS ORDERED: APIXABAN 5 MG TAB (ELIQUIS) PO SCH (09:00)
== END 2023-06-11 07:36 | disposition left against medical advice (07) | DRG 176 ==
LOC: M ED 19:52 → M ED INP 23:13
PROVIDERS: ADMIT Internal Medicine; ATTEND Internal Medicine
DX: I26.99 Other pulmonary embolism without acute cor pulmonale (principal); J44.1 Chronic obstructive pulmonary disease with (acute) exacerbation; J81.1 Chronic pulmonary edema; F70 Mild intellectual disabilities; I25.10 Atherosclerotic heart disease of native coronary artery without angina pectoris; F17.210 Nicotine dependence, cigarettes, uncomplicated; Z86.718 Personal history of other venous thrombosis and embolism; Z79.01 Long term (current) use of anticoagulants; Z79.82 Long term (current) use of aspirin; Z79.899 Other long term (current) drug therapy; Z88.5 Allergy status to narcotic agent; Z88.8 Allergy status to other drugs, medicaments and biological substances; Z95.5 Presence of coronary angioplasty implant and graft

== ENCOUNTER 2023-06-29 23:57 | Emergency (ER) | payer OTHER, MEDICAID ==
[~2023-06-29 23:57] MED LIST changes: +ASPI-161 PO; +LASI40TA9 PO; +MAGN400T2 PO
[2023-06-30 00:04] VITALS: TEMP 97
[2023-06-30 00:52] LABS: RSV AMPLIFICATION NEGATIVE (NEGATIVE)
[2023-06-30 02:52] VITALS: BP 128/95; O2SAT 98
[2023-06-30] MEDS ORDERED: NITR0.4S14 SL (04:28)
[2023-06-30] MEDS ORDERED: VENTAER INH (04:28)
== END 2023-06-30 04:53 | disposition home or self-care (01) ==
LOC: EDBD 23:57 → M ED 06-30 03:07
DX: Z76.0 Encounter for issue of repeat prescription (principal); J44.9 Chronic obstructive pulmonary disease, unspecified; F17.200 Nicotine dependence, unspecified, uncomplicated; Z88.5 Allergy status to narcotic agent; Z88.8 Allergy status to other drugs, medicaments and biological substances; Z79.899 Other long term (current) drug therapy

== ENCOUNTER 2023-07-29 15:09 | Emergency (ER) | payer OTHER, MEDICAID ==
[~2023-07-29] VITALS: Ht 172.7 cm; Wt 68.7 kg
[~2023-07-29 15:09] MED LIST changes: +VENTAER INH
[2023-07-29 15:10] VITALS: BP 119/80; TEMP 97.1; O2SAT 100
== END 2023-07-29 18:04 | disposition left against medical advice (07) ==
LOC: M ED 15:09
DX: Z53.21 Procedure and treatment not carried out due to patient leaving prior to being seen by health care provider (principal)

== ENCOUNTER 2023-08-05 21:13 | Emergency (ER) | payer OTHER, MEDICAID ==
[~2023-08-05] VITALS: Ht 172.7 cm; Wt 66.4 kg
[2023-08-05 21:22] VITALS: TEMP 97.9
[2023-08-05 22:00] LABS: VENOUS BASE EXCESS 2.6 (-2.0-2.0); VENOUS HCO3 27.8 MMOL/L (23.0-27.0); VENOUS O2 SATURATION 39.3 % (60.0-80.0); VENOUS PARTIAL PRESSURE CO2 44.7 mmHg (38.0-50.0); VENOUS PARTIAL PRESSURE O2 24.2 mmHg (30.0-50.0); VENOUS PH 7.411 UNITS (7.330-7.430); VENOUS STANDARD HCO3 25.2 MMOL/L; VENOUS TOTAL CO2 29.1 MMOL/L (24.0-28.0)
[2023-08-05 22:10] LABS: BASO % 0.7 % (0.0-1.0); EOS # 0.1 10^3/uL (0.0-0.5); EOS % 2.9 % (0.0-3.0); HEMATOCRIT 42.6 % (42.0-52.0); HEMOGLOBIN 14.6 g/dl (13.5-17.5); LYMPH # 0.4 10^3/uL (1.5-5.0); LYMPH % 10.3 % (24.0-44.0); MEAN CORPUSCULAR HEMOGLOBIN 34.3 pg (27.0-33.0); MEAN CORPUSCULAR HGB CONC 34.3 g/dl (32.0-36.5); MONO # 0.5 10^3/uL (0.0-0.8); MONO % 11.5 % (2.0-8.0); NEUTROPHILS # 3.1 10^3/uL (1.5-8.5); NEUTROPHILS % 74.4 % (36.0-66.0); PLATELET COUNT, AUTOMATED 105 10^3/uL (150-450); RED BLOOD COUNT 4.26 10^6/uL (4.30-6.10); WHITE BLOOD COUNT 4.2 10^3/uL (4.0-10.0)
[2023-08-05 22:19] LABS: INR 1.51; PROTHROMBIN TIME 17.7 SECONDS (12.5-14.5)
[2023-08-05 22:30] VITALS: BP 123/90; O2SAT 97
[2023-08-05 22:35] LABS: CK-MB VALUE MASS 1.4 NG/ML (<3.6)
[2023-08-05 22:36] LABS: ALBUMIN 3.7 G/DL (3.2-5.2); BILIRUBIN,DIRECT 1.2 MG/DL (<0.4); BILIRUBIN,TOTAL 2.6 MG/DL (0.3-1.2); MB/CK RELATIVE INDEX 1.04 (< OR =4); TOTAL PROTEIN 6.9 G/DL (5.7-8.2)
[2023-08-05 22:38] LABS: THYROID STIMULATING HORMONE 3.991 uIU/ML (0.55-4.78); THYROXINE (T4) 7.5 UG/DL (4.5-10.9)
[2023-08-06] MEDS ORDERED: FURO40TA2 PO (16:21)
== END 2023-08-06 00:30 | disposition left against medical advice (07) ==
LOC: M ED 21:13 → EDBD 21:13 → M ED 08-06 00:30
DX: Z53.21 Procedure and treatment not carried out due to patient leaving prior to being seen by health care provider (principal)

== ENCOUNTER 2023-08-06 12:02 | Inpatient (IN) | payer OTHER, MEDICAID ==
[~2023-08-06] VITALS: Ht 172.7 cm; Wt 66.4 kg
[~2023-08-06 12:02] MED LIST changes: +ATORVASTATIN 20 MG TAB PO SCH
[2023-08-06 13:17] LABS: VENOUS BASE EXCESS -1.5 (-2.0-2.0); VENOUS HCO3 21.1 MMOL/L (23.0-27.0); VENOUS O2 SATURATION 91.2 % (60.0-80.0); VENOUS PARTIAL PRESSURE CO2 30.1 mmHg (38.0-50.0); VENOUS PARTIAL PRESSURE O2 62.6 mmHg (30.0-50.0); VENOUS PH 7.464 UNITS (7.330-7.430); VENOUS STANDARD HCO3 23.1 MMOL/L
[2023-08-06 13:27] LABS: BASO % 0.9 % (0.0-1.0); EOS % 0.9 % (0.0-3.0); HEMATOCRIT 40.8 % (42.0-52.0); HEMOGLOBIN 13.8 g/dl (13.5-17.5); LYMPH # 0.8 10^3/uL (1.5-5.0); LYMPH % 18.3 % (24.0-44.0); MEAN CORPUSCULAR HEMOGLOBIN 33.5 pg (27.0-33.0); MEAN CORPUSCULAR HGB CONC 33.8 g/dl (32.0-36.5); MONO # 0.8 10^3/uL (0.0-0.8); MONO % 18.1 % (2.0-8.0); NEUTROPHILS # 2.8 10^3/uL (1.5-8.5); NEUTROPHILS % 61.4 % (36.0-66.0); PLATELET COUNT, AUTOMATED 100 10^3/uL (150-450); RED BLOOD COUNT 4.12 10^6/uL (4.30-6.10); WHITE BLOOD COUNT 4.6 10^3/uL (4.0-10.0)
[2023-08-06 13:46] LABS: INR 1.65; PROTHROMBIN TIME 18.9 SECONDS (12.5-14.5)
[2023-08-06 13:50] LABS: CK-MB VALUE MASS < 1.0 NG/ML (<3.6)
[2023-08-06] MEDS ORDERED: NS 1,000 ML IV ONE (13:50)
[2023-08-06 13:53] LABS: THYROID STIMULATING HORMONE 3.333 uIU/ML (0.55-4.78)
[2023-08-06] MEDS ORDERED: PIPERACILLIN/TAZOBACTAM SOD 4.5 GM in D5W MINI-BAG PLUS 50 ML IV ONE (13:55)
[2023-08-06] MEDS ORDERED: ACETAMINOPHEN TAB 650MG DOSE (2X325MG) PO ONE (13:55)
[2023-08-06 13:58] LABS: PROCALCITONIN 0.15 ng/ml
[2023-08-06 13:59] LABS: ALBUMIN 3.4 G/DL (3.2-5.2); ALKALINE PHOSPHATASE 101 U/L (46-116); ALT/SGPT 19 U/L (7.0-40); AST/SGOT 37 U/L (<34); BILIRUBIN,DIRECT 0.9 MG/DL (<0.4); BILIRUBIN,TOTAL 1.8 MG/DL (0.3-1.2); BLOOD UREA NITROGEN 25 MG/DL (9-23); CARBON DIOXIDE LEVEL 22 MMOL/L (20-31); CHLORIDE LEVEL 100 MMOL/L (98-107); CPK CREATINE PHOSPHOKINASE 119 U/L (46-171); GLOMERULAR FILTRATION RATE > 60.0 (>49); GLUCOSE, FASTING 90 MG/DL (74-106); MB/CK RELATIVE INDEX 0.84 (< OR =4); POTASSIUM SERUM 4.2 MMOL/L (3.5-5.1); SODIUM LEVEL 133 MMOL/L (136-145); TOTAL PROTEIN 6.5 G/DL (5.7-8.2)
[2023-08-06 14:05] LABS: RSV AMPLIFICATION NEGATIVE (NEGATIVE)
[2023-08-06] MEDS ORDERED: ISOVUE-370 76% 100ML VIAL As Ordered ONE (14:05)
[2023-08-06] MEDS ORDERED: NS IV ONE (14:30)
[2023-08-06 15:02] LABS: CK-MB VALUE MASS < 1.0 NG/ML (<3.6)
[2023-08-06 15:05] LABS: CPK CREATINE PHOSPHOKINASE 112 U/L (46-171); MB/CK RELATIVE INDEX 0.89 (< OR =4)
[2023-08-06] MEDS ORDERED: FURO40TA2 PO (16:21)
[2023-08-06] MEDS ORDERED: HOME MED LIST COMPLETE! XX SCH (16:30)
[2023-08-06] MEDS ORDERED: ALBUTEROL 90 MCG/ACT 8GM HFA INHALER INH PRN (16:50)
[2023-08-06] MEDS ORDERED: IPRATROPIUM 0.5MG/ALBUTEROL 2.5MG INH SOL UD 3ML (DUONEB) NEB PRN (16:55)
[2023-08-06] MEDS ORDERED: LORazepam 2 MG TAB PO PRN (16:55)
[2023-08-06] MEDS ORDERED: FUROSEMIDE 40MG/4ML VIAL IV ONE (17:00)
[2023-08-06 20:00] VITALS: BP 113/80; TEMP 97.9; O2SAT 100
[2023-08-06] MEDS ORDERED: REMDESIVIR 200 MG in NS 250 ML IV ONE (20:00)
[2023-08-06] MEDS ORDERED: APIXABAN 5 MG TAB (ELIQUIS) PO SCH (21:00)
[2023-08-06] MEDS ORDERED: NIRMATRELVIR/RITONAVIR CO-PACK (EMERGENCY USE AUTH) PO SCH (21:00)
[2023-08-06] MEDS ORDERED: THIAMINE 100 MG TAB PO SCH (21:00)
[2023-08-07 01:46] VITALS: BP 100/58
[2023-08-07] MEDS ORDERED: COMBIVENT RESPIMAT 100-20MCG INHALER 4GM INH PRN (02:45)
[2023-08-07 05:42] LABS: HEMATOCRIT 40.3 % (42.0-52.0); HEMOGLOBIN 13.9 g/dl (13.5-17.5); MEAN CORPUSCULAR HEMOGLOBIN 33.9 pg (27.0-33.0); MEAN CORPUSCULAR HGB CONC 34.5 g/dl (32.0-36.5); MEAN CORPUSCULAR VOLUME 98.3 fl (80.0-96.0); PLATELET COUNT, AUTOMATED 109 10^3/uL (150-450); WHITE BLOOD COUNT 4.4 10^3/uL (4.0-10.0)
[2023-08-07 06:00] VITALS: BP 114/75; TEMP 98.2; O2SAT 97
[2023-08-07 06:15] LABS: BLOOD UREA NITROGEN 29 MG/DL (9-23); CALCIUM LEVEL 8.4 MG/DL (8.3-10.6); CARBON DIOXIDE LEVEL 25 MMOL/L (20-31); CHLORIDE LEVEL 100 MMOL/L (98-107); CREATININE FOR GFR 1.08 MG/DL (0.70-1.30); GLOMERULAR FILTRATION RATE > 60.0 (>49); GLUCOSE, FASTING 130 MG/DL (74-106); MAGNESIUM LEVEL 1.6 MG/DL (1.8-2.4); POTASSIUM SERUM 3.8 MMOL/L (3.5-5.1); SODIUM LEVEL 133 MMOL/L (136-145)
[2023-08-07] MEDS ORDERED: MAG SULF 1GM/100ML (MAG RUN) 100 ML IV SCH (07:00)
[2023-08-07] MEDS ORDERED: FOLIC ACID 1MG TAB PO SCH (09:00)
[2023-08-07] MEDS ORDERED: MULTIVITAMINS/MINERALS THERAP 1 TAB PO SCH (09:00)
[2023-08-07] MEDS ORDERED: ASPIRIN 81MG ENTERIC TABLET PO SCH (09:00)
[2023-08-07] MEDS ORDERED: REMDESIVIR 100 MG in NS 250 ML IV SCH (20:00)
== END 2023-08-07 08:02 | disposition left against medical advice (07) | DRG 291 ==
LOC: M ED 12:02 → EDBD 12:02 → M ED INP 18:23 → M MSPAV 19:56
PROVIDERS: ADMIT Internal Medicine; ATTEND Internal Medicine
PROC: XW033E5 Introduction of Remdesivir Anti-infective into Peripheral Vein, Percutaneous Approach, New Technology Group 5 (ICD-10-PCS; principal; 2023-08-06)
DX: I11.0 Hypertensive heart disease with heart failure (principal); U07.1 COVID-19; I25.2 Old myocardial infarction; J44.9 Chronic obstructive pulmonary disease, unspecified; I50.9 Heart failure, unspecified; I25.10 Atherosclerotic heart disease of native coronary artery without angina pectoris; G47.00 Insomnia, unspecified; F20.9 Schizophrenia, unspecified; Z86.718 Personal history of other venous thrombosis and embolism; F17.210 Nicotine dependence, cigarettes, uncomplicated; Z28.310 Unvaccinated for COVID-19; I95.9 Hypotension, unspecified; F10.10 Alcohol abuse, uncomplicated; Z79.82 Long term (current) use of aspirin; Z79.899 Other long term (current) drug therapy; Z88.5 Allergy status to narcotic agent; Z88.8 Allergy status to other drugs, medicaments and biological substances

== ENCOUNTER 2023-08-16 17:45 | Inpatient (IN) | payer OTHER, MEDICAID ==
[~2023-08-16] VITALS: Ht 172.7 cm; Wt 66.4 kg
[~2023-08-16 17:45] MED LIST changes: +AMOX875T2 PO; -ATORVASTATIN 20 MG TAB PO SCH; +DOXY100C82 PO; +FURO40TA2 PO
[2023-08-16] MEDS ORDERED: ELIQ5TAB (18:21)
[2023-08-16 20:46] LABS: VENOUS BASE EXCESS -3.7 (-2.0-2.0); VENOUS HCO3 21.8 MMOL/L (23.0-27.0); VENOUS O2 SATURATION 49.8 % (60.0-80.0); VENOUS PARTIAL PRESSURE CO2 40.8 mmHg (38.0-50.0); VENOUS PARTIAL PRESSURE O2 28.6 mmHg (30.0-50.0); VENOUS PH 7.345 UNITS (7.330-7.430); VENOUS STANDARD HCO3 20.2 MMOL/L
[2023-08-16] MEDS ORDERED: ISOVUE-370 76% 100ML VIAL As Ordered ONE (20:51)
[2023-08-16 20:52] LABS: BASO % 0.6 % (0.0-1.0); EOS % 0.4 % (0.0-3.0); HEMOGLOBIN 16.1 g/dl (13.5-17.5); LYMPH # 1.3 10^3/uL (1.5-5.0); LYMPH % 28.4 % (24.0-44.0); MEAN CORPUSCULAR HEMOGLOBIN 33.2 pg (27.0-33.0); MEAN CORPUSCULAR HGB CONC 32.9 g/dl (32.0-36.5); MONO # 0.5 10^3/uL (0.0-0.8); MONO % 11.6 % (2.0-8.0); NEUTROPHILS # 2.7 10^3/uL (1.5-8.5); NEUTROPHILS % 58.4 % (36.0-66.0); PLATELET COUNT, AUTOMATED 178 10^3/uL (150-450); RED BLOOD COUNT 4.85 10^6/uL (4.30-6.10); WHITE BLOOD COUNT 4.7 10^3/uL (4.0-10.0)
[2023-08-16] MEDS: THIAMINE 100 MG TAB PO SCH (21:00)
[2023-08-16 21:15] LABS: CK-MB VALUE MASS < 1.0 NG/ML (<3.6); INR 1.37; PROTHROMBIN TIME 16.4 SECONDS (12.5-14.5)
[2023-08-16 21:16] LABS: ALBUMIN 3.6 G/DL (3.2-5.2); ALKALINE PHOSPHATASE 108 U/L (46-116); ALT/SGPT 21 U/L (7.0-40); AST/SGOT 39 U/L (<34); BILIRUBIN,DIRECT 0.9 MG/DL (<0.4); BILIRUBIN,TOTAL 2.1 MG/DL (0.3-1.2); TOTAL PROTEIN 6.9 G/DL (5.7-8.2)
[2023-08-16 21:19] LABS: THYROXINE (T4) 6.6 UG/DL (4.5-10.9)
[2023-08-16 21:20] LABS: CPK CREATINE PHOSPHOKINASE 95 U/L (46-171); MB/CK RELATIVE INDEX 1.05 (< OR =4)
[2023-08-16] MEDS ORDERED: cefTRIAXone SOD 1 GM in D5W MINI-BAG PLUS 50 ML IV ONE (21:55)
[2023-08-16] MEDS ORDERED: DOXYCYCLINE HYCLATE 100MG TABLET PO ONE (21:55)
[2023-08-16] MEDS ORDERED: FUROSEMIDE 40MG/4ML VIAL IV ONE (22:00)
[2023-08-16] MEDS ORDERED: methylPREDNISolone 125MG 2ML VIAL IV ONE (22:00)
[2023-08-16 23:11] LABS: PROCALCITONIN 0.15 ng/ml
[2023-08-16] MEDS ORDERED: MED REC COMMENT (23:22)
[2023-08-16] MEDS ORDERED: DOXY-443 PO (23:25)
[2023-08-16] MEDS ORDERED: AMOX875T2 PO (23:25)
[2023-08-16] MEDS ORDERED: LORazepam 2 MG TAB PO PRN (23:35)
[2023-08-17] MEDS ORDERED: AZITHROMYCIN INJ 500 MG, VIAL MATE ADAPTER 1 EACH in NS 250 ML IV SCH ×3
[2023-08-17] MEDS ORDERED: HOME MED LIST COMPLETE! XX SCH (00:20)
[2023-08-17] MEDS ORDERED: PIPERACILLIN/TAZOBACTAM SOD 4.5 GM in D5W MINI-BAG PLUS 50 ML IV ONE (01:00)
[2023-08-17] MEDS ORDERED: NITROGLYCERIN 0.4MG SUBL TABLET SL SCH (01:00)
[2023-08-17] MEDS: IPRATROPIUM 0.5MG/ALBUTEROL 2.5MG INH SOL UD 3ML (DUONEB) NEB SCH ×3 (01:42→14:00)
[2023-08-17] MEDS: methylPREDNISolone 40MG 1ML VIAL IV SCH ×2 (05:13→14:53)
[2023-08-17 07:24] LABS: HEMATOCRIT 43.4 % (42.0-52.0); HEMOGLOBIN 14.8 g/dl (13.5-17.5); MEAN CORPUSCULAR HEMOGLOBIN 33.8 pg (27.0-33.0); MEAN CORPUSCULAR HGB CONC 34.1 g/dl (32.0-36.5); MEAN CORPUSCULAR VOLUME 99.1 fl (80.0-96.0); PLATELET COUNT, AUTOMATED 153 10^3/uL (150-450); RED BLOOD COUNT 4.38 10^6/uL (4.30-6.10); WHITE BLOOD COUNT 3.3 10^3/uL (4.0-10.0)
[2023-08-17 08:09] LABS: ALBUMIN 2.9 G/DL (3.2-5.2); ALKALINE PHOSPHATASE 92 U/L (46-116); ALT/SGPT 35 U/L (7.0-40); AST/SGOT 66 U/L (<34); BILIRUBIN,TOTAL 1.8 MG/DL (0.3-1.2); BLOOD UREA NITROGEN 26 MG/DL (9-23); CALCIUM LEVEL 8.2 MG/DL (8.3-10.6); CARBON DIOXIDE LEVEL 23 MMOL/L (20-31); CHLORIDE LEVEL 99 MMOL/L (98-107); CREATININE FOR GFR 1.24 MG/DL (0.70-1.30); GLOMERULAR FILTRATION RATE > 60.0 (>49); GLUCOSE, FASTING 179 MG/DL (74-106); MAGNESIUM LEVEL 1.6 MG/DL (1.8-2.4); SODIUM LEVEL 132 MMOL/L (136-145); TOTAL PROTEIN 5.8 G/DL (5.7-8.2)
[2023-08-17] MEDS ORDERED: POTASSIUM CHLORIDE 10MEQ SR TABLET PO ONE (08:50)
[2023-08-17] MEDS ORDERED: APIXABAN 5 MG TAB (ELIQUIS) PO SCH (09:00)
[2023-08-17] MEDS ORDERED: ATORVASTATIN 20 MG TAB PO SCH (09:00)
[2023-08-17] MEDS ORDERED: ASPIRIN 81MG CHEW TABLET PO SCH (09:00)
[2023-08-17] MEDS ORDERED: MULTIVITAMINS/MINERALS THERAP 1 TAB PO SCH (09:00)
[2023-08-17] MEDS ORDERED: FOLIC ACID 1MG TAB PO SCH (09:00)
[2023-08-17] MEDS: THIAMINE 100 MG TAB PO SCH (09:04)
[2023-08-17] MEDS: MAG SULF 1GM/100ML (MAG RUN) 1 GM in IV 1 EA IV SCH ×3 (09:04→11:03)
[2023-08-17 09:57] LABS: HEPATITIS C VIRUS ABY INDEX 0.08 INDEX (<0.8)
[2023-08-17 09:58] LABS: HEPATITIS B CORE ANTIBODY IGM NEGATIVE (NEGATIVE)
[2023-08-17 15:15] VITALS: TEMP 96.7
[2023-08-17 15:45] VITALS: BP 136/79; O2SAT 98
[2023-08-17] MEDS ORDERED: ANOR1AER PO (15:47)
[2023-08-17] MEDS ORDERED: PRED10TA2 PO (15:47)
[2023-08-17] MEDS ORDERED: AZITHROMYCIN 250MG TABLET PO SCH (21:00)
== END 2023-08-17 16:14 | disposition left against medical advice (07) | DRG 177 ==
LOC: M ED 17:45 → EDBD 17:45 → M ED INP 23:16 → ENRESERV 08-17 15:13
PROVIDERS: ADMIT Family Medicine; ATTEND Internal Medicine
DX: U07.1 COVID-19 (principal); J15.9 Unspecified bacterial pneumonia; J12.9 Viral pneumonia, unspecified; J44.0 Chronic obstructive pulmonary disease with (acute) lower respiratory infection; J44.1 Chronic obstructive pulmonary disease with (acute) exacerbation; E87.20 Acidosis, unspecified; R17 Unspecified jaundice; I50.9 Heart failure, unspecified; F10.10 Alcohol abuse, uncomplicated; I95.9 Hypotension, unspecified; I25.10 Atherosclerotic heart disease of native coronary artery without angina pectoris; I25.2 Old myocardial infarction; I11.0 Hypertensive heart disease with heart failure; Z86.711 Personal history of pulmonary embolism; G47.00 Insomnia, unspecified; F20.9 Schizophrenia, unspecified; F32.A Depression, unspecified; F41.9 Anxiety disorder, unspecified; F17.200 Nicotine dependence, unspecified, uncomplicated; Z86.718 Personal history of other venous thrombosis and embolism; Z88.5 Allergy status to narcotic agent; Z88.8 Allergy status to other drugs, medicaments and biological substances; Z79.899 Other long term (current) drug therapy; Z95.5 Presence of coronary angioplasty implant and graft

== ENCOUNTER 2023-08-30 00:09 | Inpatient (IN) | payer OTHER, MEDICAID ==
[~2023-08-30] VITALS: Ht 172.7 cm; Wt 64.4 kg
[~2023-08-30 00:09] MED LIST changes: +ANOR1AER PO; +DOXY-443 PO; +ELIQ5TAB; +MED REC COMMENT; +PRED10TA2 PO
[2023-08-30 04:33] LABS: BASO % 0.5 % (0.0-1.0); EOS # 0.1 10^3/uL (0.0-0.5); EOS % 1.2 % (0.0-3.0); HEMATOCRIT 45.7 % (42.0-52.0); HEMOGLOBIN 14.8 g/dl (13.5-17.5); LYMPH # 1.8 10^3/uL (1.5-5.0); LYMPH % 22.3 % (24.0-44.0); MEAN CORPUSCULAR HGB CONC 32.4 g/dl (32.0-36.5); MEAN CORPUSCULAR VOLUME 101.8 fl (80.0-96.0); MONO # 0.5 10^3/uL (0.0-0.8); MONO % 6.4 % (2.0-8.0); NEUTROPHILS # 5.6 10^3/uL (1.5-8.5); NEUTROPHILS % 69.2 % (36.0-66.0); PLATELET COUNT, AUTOMATED 138 10^3/uL (150-450); RED BLOOD COUNT 4.49 10^6/uL (4.30-6.10); WHITE BLOOD COUNT 8.1 10^3/uL (4.0-10.0)
[2023-08-30] MEDS ORDERED: IPRATROPIUM 0.5MG/ALBUTEROL 2.5MG INH SOL UD 3ML (DUONEB) NEB ONE ×2 (04:45→05:30)
[2023-08-30 05:05] LABS: BLOOD UREA NITROGEN 22 MG/DL (9-23); CARBON DIOXIDE LEVEL 26 MMOL/L (20-31); CHLORIDE LEVEL 105 MMOL/L (98-107); CREATININE FOR GFR 0.87 MG/DL (0.70-1.30); GLOMERULAR FILTRATION RATE > 60.0 (>49); GLUCOSE, FASTING 122 MG/DL (74-106); POTASSIUM SERUM 4.2 MMOL/L (3.5-5.1); SODIUM LEVEL 139 MMOL/L (136-145)
[2023-08-30] MEDS ORDERED: predniSONE 20 MG TAB PO ONE (05:30)
[2023-08-30] MEDS ORDERED: ISOVUE-370 76% 100ML VIAL As Ordered ONE (05:45)
[2023-08-30 10:15] LABS: ALBUMIN 3.1 G/DL (3.2-5.2); BILIRUBIN,DIRECT 1.2 MG/DL (<0.4); BILIRUBIN,TOTAL 2.6 MG/DL (0.3-1.2); TOTAL PROTEIN 6.2 G/DL (5.7-8.2)
[2023-08-30] MEDS ORDERED: FUROSEMIDE 40MG/4ML VIAL IV ONE (10:55)
[2023-08-30] MEDS ORDERED: MED REC IN PROGRESS XX SCH (11:40)
[2023-08-30] MEDS ORDERED: LORazepam 2 MG TAB PO PRN (11:55)
[2023-08-30] MEDS ORDERED: IPRATROPIUM 0.5MG/ALBUTEROL 2.5MG INH SOL UD 3ML (DUONEB) NEB PRN (11:55)
[2023-08-30] MEDS ORDERED: NITROGLYCERIN 0.3MG SUBL TAB SL PRN (12:00)
[2023-08-30 12:34] VITALS: BP 119/91; TEMP 96.5; O2SAT 99
[2023-08-30 12:56] LABS: CHOLESTEROL RISK RATIO 4.46 (<5); HDL CHOLESTEROL 27.1 MG/DL (>40); LDL CHOLESTEROL 72.3 MG/DL (<100); NON-HDL-C 93.9 MG/DL
[2023-08-30 13:08] LABS: INR 1.26; PARTIAL THROMBOPLASTIN TIME 29.7 SECONDS (24.8-34.2); PROTHROMBIN TIME 15.4 SECONDS (12.5-14.5)
[2023-08-30] MEDS ORDERED: NITROGLYCERIN 0.4MG SUBL TABLET SL PRN (13:20)
[2023-08-30] MEDS ORDERED: HOME MED LIST COMPLETE! XX SCH (15:20)
[2023-08-30 15:44] VITALS: BP 123/84; TEMP 97.6; O2SAT 97
[2023-08-30] MEDS: IPRATROPIUM 0.5MG/ALBUTEROL 2.5MG INH SOL UD 3ML (DUONEB) NEB SCH ×2 (15:58→20:17)
[2023-08-30] MEDS: FUROSEMIDE 40MG/4ML VIAL IV SCH (18:23)
[2023-08-30 19:48] VITALS: BP 142/88; TEMP 97.5; O2SAT 98
[2023-08-30] MEDS: APIXABAN 5 MG TAB (ELIQUIS) PO SCH (20:06)
[2023-08-30] MEDS: THIAMINE 100 MG TAB PO SCH (20:06)
[2023-08-30] MEDS: ADVAIR HFA 230/21MCG INHALER INH SCH (20:17)
[2023-08-30] MEDS ORDERED: ATORVASTATIN 20 MG TAB PO SCH (21:00)
[2023-08-30 23:31] VITALS: BP 128/65; TEMP 98; O2SAT 96
[2023-08-31] MEDS: IPRATROPIUM 0.5MG/ALBUTEROL 2.5MG INH SOL UD 3ML (DUONEB) NEB SCH ×2 (02:19→07:18)
[2023-08-31] MEDS: FUROSEMIDE 40MG/4ML VIAL IV SCH (02:38)
[2023-08-31 03:11] VITALS: BP 103/71; TEMP 97.7; O2SAT 100
[2023-08-31] MEDS: ADVAIR HFA 230/21MCG INHALER INH SCH (07:18)
[2023-08-31 07:33] VITALS: BP 112/77; TEMP 97.6; O2SAT 99
[2023-08-31 07:35] VITALS: BP 109/57; TEMP 97.4; O2SAT 98
[2023-08-31 08:18] VITALS: BP 110/57
[2023-08-31] MEDS: APIXABAN 5 MG TAB (ELIQUIS) PO SCH (08:18)
[2023-08-31] MEDS: THIAMINE 100 MG TAB PO SCH (08:18)
[2023-08-31] MEDS ORDERED: METO1TAB32 PO (08:43)
[2023-08-31] MEDS ORDERED: ADVA230A INH (08:43)
[2023-08-31] MEDS ORDERED: FURO40TA2 PO (08:43)
[2023-08-31] MEDS ORDERED: ELIQ5TAB PO (08:43)
[2023-08-31] MEDS ORDERED: ATOR1TAB21 PO (08:43)
[2023-08-31] MEDS ORDERED: ASPI81TAEC PO (08:43)
[2023-08-31] MEDS ORDERED: VENTAER INH (08:43)
[2023-08-31] MEDS ORDERED: MULTIVITAMINS/MINERALS THERAP 1 TAB PO SCH (09:00)
[2023-08-31] MEDS ORDERED: METOPROLOL SUCC *XL* 25MG TAB (TopROL *XL*) PO SCH (09:00)
[2023-08-31] MEDS ORDERED: FOLIC ACID 1MG TAB PO SCH (09:00)
[2023-08-31] MEDS ORDERED: ASPIRIN 81MG ENTERIC TABLET PO SCH (09:00)
== END 2023-08-31 10:40 | disposition left against medical advice (07) | DRG 291 ==
LOC: M ED 00:09 → UNDOADMIN 11:02 → M PCU 11:02 → M ED INP 11:02 → ENRESERV 11:27 → M PCU 12:04
PROVIDERS: ADMIT Internal Medicine; ATTEND Internal Medicine
PROC: B246ZZZ Ultrasonography of Right and Left Heart (ICD-10-PCS; principal; 2023-08-30)
DX: I11.0 Hypertensive heart disease with heart failure (principal); I50.23 Acute on chronic systolic (congestive) heart failure; I25.10 Atherosclerotic heart disease of native coronary artery without angina pectoris; J44.9 Chronic obstructive pulmonary disease, unspecified; G47.00 Insomnia, unspecified; F20.9 Schizophrenia, unspecified; F32.A Depression, unspecified; F41.9 Anxiety disorder, unspecified; I27.20 Pulmonary hypertension, unspecified; I73.9 Peripheral vascular disease, unspecified; Z86.711 Personal history of pulmonary embolism; Z91.199 Patient's noncompliance with other medical treatment and regimen due to unspecified reason; F17.200 Nicotine dependence, unspecified, uncomplicated; Z91.119 Patient's noncompliance with dietary regimen due to unspecified reason; Z86.16 Personal history of COVID-19; F10.10 Alcohol abuse, uncomplicated; Z79.899 Other long term (current) drug therapy; Z88.5 Allergy status to narcotic agent; Z88.8 Allergy status to other drugs, medicaments and biological substances; I25.2 Old myocardial infarction

== ENCOUNTER 2023-09-09 02:49 | Inpatient (IN) | payer OTHER, MEDICAID ==
[~2023-09-09] VITALS: Ht 172.7 cm; Wt 63.0 kg
[~2023-09-09 02:49] MED LIST changes: +ADVA230A INH; +ASPI81TAEC PO; +ATOR1TAB21 PO; +METO1TAB32 PO
[2023-09-09] MEDS ORDERED: methylPREDNISolone 125MG 2ML VIAL IV ONE (07:00)
[2023-09-09] MEDS ORDERED: ALBUTEROL SULFATE 2.5MG/0.5ML INH NEB SOLN INH ONE (07:00)
[2023-09-09] MEDS ORDERED: IPRATROPIUM 0.5MG/ALBUTEROL 2.5MG INH SOL UD 3ML (DUONEB) NEB ONE (07:00)
[2023-09-09 07:49] LABS: BASO # 0.1 10^3/uL (0.0-0.2); BASO % 0.8 % (0.0-1.0); EOS # 0.2 10^3/uL (0.0-0.5); EOS % 2.6 % (0.0-3.0); HEMATOCRIT 43.8 % (42.0-52.0); HEMOGLOBIN 14.6 g/dl (13.5-17.5); LYMPH # 1.7 10^3/uL (1.5-5.0); MEAN CORPUSCULAR HEMOGLOBIN 33.8 pg (27.0-33.0); MEAN CORPUSCULAR HGB CONC 33.3 g/dl (32.0-36.5); MEAN CORPUSCULAR VOLUME 101.4 fl (80.0-96.0); MONO # 0.6 10^3/uL (0.0-0.8); MONO % 9.4 % (2.0-8.0); NEUTROPHILS # 3.7 10^3/uL (1.5-8.5); NEUTROPHILS % 59.6 % (36.0-66.0); PLATELET COUNT, AUTOMATED 124 10^3/uL (150-450); RED BLOOD COUNT 4.32 10^6/uL (4.30-6.10); WHITE BLOOD COUNT 6.3 10^3/uL (4.0-10.0)
[2023-09-09 08:18] LABS: ALBUMIN 3.5 G/DL (3.2-5.2); ALKALINE PHOSPHATASE 136 U/L (46-116); ALT/SGPT 25 U/L (7.0-40); AST/SGOT 31 U/L (<34); BILIRUBIN,DIRECT 1.1 MG/DL (<0.4); BILIRUBIN,TOTAL 2.2 MG/DL (0.3-1.2); BLOOD UREA NITROGEN 31 MG/DL (9-23); CALCIUM LEVEL 9.1 MG/DL (8.3-10.6); CARBON DIOXIDE LEVEL 28 MMOL/L (20-31); CHLORIDE LEVEL 102 MMOL/L (98-107); CREATININE FOR GFR 1.16 MG/DL (0.70-1.30); GLOMERULAR FILTRATION RATE > 60.0 (>49); GLUCOSE, FASTING 96 MG/DL (74-106); POTASSIUM SERUM 4.1 MMOL/L (3.5-5.1); SODIUM LEVEL 138 MMOL/L (136-145); TOTAL PROTEIN 6.5 G/DL (5.7-8.2)
[2023-09-09 08:19] LABS: CK-MB VALUE MASS 1.4 NG/ML (<3.6); RSV AMPLIFICATION NEGATIVE (NEGATIVE)
[2023-09-09 08:22] LABS: THYROID STIMULATING HORMONE 13.218 uIU/ML (0.55-4.78); THYROXINE (T4) 6.8 UG/DL (4.5-10.9)
[2023-09-09 08:23] LABS: CPK CREATINE PHOSPHOKINASE 72 U/L (46-171); MB/CK RELATIVE INDEX 1.94 (< OR =4)
[2023-09-09 08:43] LABS: CK-MB VALUE MASS 1.4 NG/ML (<3.6)
[2023-09-09 08:45] LABS: MB/CK RELATIVE INDEX 1.68 (< OR =4)
[2023-09-09] MEDS ORDERED: FUROSEMIDE 40MG/4ML VIAL IV ONE (08:45)
[2023-09-09 09:00] VITALS: BP 102/63
[2023-09-09] MEDS ORDERED: ASPIRIN 81MG ENTERIC TABLET PO SCH (09:00)
[2023-09-09] MEDS ORDERED: METOPROLOL SUCC *XL* 25MG TAB (TopROL *XL*) PO SCH (09:00)
[2023-09-09] MEDS ORDERED: ISOVUE-370 76% 100ML VIAL As Ordered ONE (09:14)
[2023-09-09] MEDS ORDERED: MED REC IN PROGRESS XX SCH (10:50)
[2023-09-09] MEDS ORDERED: ATOR80TA59 PO (10:59)
[2023-09-09] MEDS ORDERED: HOME MED LIST COMPLETE! XX SCH (11:00)
[2023-09-09] MEDS ORDERED: NITROGLYCERIN 0.4MG SUBL TABLET SL SCH (14:05)
[2023-09-09] MEDS ORDERED: ALBUTEROL 90 MCG/ACT 8GM HFA INHALER INH PRN (14:20)
[2023-09-09] MEDS ORDERED: FUROSEMIDE 100MG/10ML VIAL IV SCH (17:00)
[2023-09-09] MEDS: ADVAIR HFA 230/21MCG INHALER INH SCH (19:18)
[2023-09-09 20:05] VITALS: BP 121/82; TEMP 98.2; O2SAT 99
[2023-09-09 20:15] LABS: CK-MB VALUE MASS 1.4 NG/ML (<3.6)
[2023-09-09 20:16] LABS: MB/CK RELATIVE INDEX 2.08 (< OR =4)
[2023-09-09] MEDS ORDERED: ATORVASTATIN 20 MG TAB PO SCH (21:00)
[2023-09-09] MEDS ORDERED: APIXABAN 5 MG TAB (ELIQUIS) PO SCH (21:00)
[2023-09-09 23:20] VITALS: BP 101/69; TEMP 97.5; O2SAT 95
[2023-09-10 03:29] VITALS: BP 106/58; TEMP 97.8; O2SAT 97
[2023-09-10 05:21] LABS: HEMATOCRIT 41.4 % (42.0-52.0); MEAN CORPUSCULAR HEMOGLOBIN 33.5 pg (27.0-33.0); MEAN CORPUSCULAR HGB CONC 33.8 g/dl (32.0-36.5); PLATELET COUNT, AUTOMATED 145 10^3/uL (150-450); RED BLOOD COUNT 4.18 10^6/uL (4.30-6.10); WHITE BLOOD COUNT 11.7 10^3/uL (4.0-10.0)
[2023-09-10 05:37] LABS: CK-MB VALUE MASS 2.2 NG/ML (<3.6)
[2023-09-10 05:38] LABS: BLOOD UREA NITROGEN 28 MG/DL (9-23); CARBON DIOXIDE LEVEL 30 MMOL/L (20-31); CHLORIDE LEVEL 100 MMOL/L (98-107); CREATININE FOR GFR 0.98 MG/DL (0.70-1.30); GLOMERULAR FILTRATION RATE > 60.0 (>49); GLUCOSE, FASTING 216 MG/DL (74-106); MAGNESIUM LEVEL 1.3 MG/DL (1.8-2.4); POTASSIUM SERUM 3.4 MMOL/L (3.5-5.1); SODIUM LEVEL 136 MMOL/L (136-145)
[2023-09-10 05:39] LABS: MB/CK RELATIVE INDEX 3.85 (< OR =4)
[2023-09-10] MEDS: MAG SULF 1GM/100ML (MAG RUN) 1 GM in IV 1 EA IV SCH ×2 (06:24→07:31)
[2023-09-10] MEDS: ADVAIR HFA 230/21MCG INHALER INH SCH (07:46)
[2023-09-10 08:00] VITALS: BP 123/98; TEMP 97.1; O2SAT 92
[2023-09-10] MEDS ORDERED: KCL 10MEQ/100ML SWI (KRUN) 10 MEQ in IV 1 EA IV ONE (09:00)
== END 2023-09-10 08:39 | disposition left against medical advice (07) | DRG 291 ==
LOC: EDBD 02:49 → M ED 02:49 → M ED INP 13:58 → ENRESERV 17:38 → M PCU 19:54
PROVIDERS: ADMIT Family Medicine; ATTEND Student in an Organized Health Care Education/Training Program
DX: I11.0 Hypertensive heart disease with heart failure (principal); I50.23 Acute on chronic systolic (congestive) heart failure; I25.10 Atherosclerotic heart disease of native coronary artery without angina pectoris; I25.2 Old myocardial infarction; J44.9 Chronic obstructive pulmonary disease, unspecified; Z86.711 Personal history of pulmonary embolism; Z95.5 Presence of coronary angioplasty implant and graft; G47.00 Insomnia, unspecified; F20.9 Schizophrenia, unspecified; F32.A Depression, unspecified; F41.9 Anxiety disorder, unspecified; E87.6 Hypokalemia; F10.10 Alcohol abuse, uncomplicated; F17.200 Nicotine dependence, unspecified, uncomplicated; E83.42 Hypomagnesemia; I27.20 Pulmonary hypertension, unspecified; Z86.16 Personal history of COVID-19; Z79.01 Long term (current) use of anticoagulants; Z79.82 Long term (current) use of aspirin; Z79.899 Other long term (current) drug therapy; Z88.5 Allergy status to narcotic agent; Z88.8 Allergy status to other drugs, medicaments and biological substances

== ENCOUNTER 2023-09-22 11:58 | Inpatient (IN) | payer OTHER, MEDICAID ==
[~2023-09-22] VITALS: Ht 172.7 cm; Wt 68.8 kg
[~2023-09-22 11:58] MED LIST changes: +ATOR80TA59 PO; +DAPAGLIFLOZIN PROPANEDIOL 10MG TABLET (FARXIGA) PO SCH; +FOLIC ACID 1MG TAB PO SCH; +MULTIVITAMINS/MINERALS THERAP 1 TAB PO SCH; +NICOTINE 14 MG/24 HR TRANSDERMAL TD SCH; +THIAMINE 100 MG TAB PO SCH
[2023-09-22] MEDS ORDERED: IPRATROPIUM 0.5MG/ALBUTEROL 2.5MG INH SOL UD 3ML (DUONEB) NEB ONE (12:15)
[2023-09-22] MEDS ORDERED: methylPREDNISolone 125MG 2ML VIAL IV ONE (12:15)
[2023-09-22] MEDS ORDERED: LORazepam 2 MG TAB PO PRN (12:30)
[2023-09-22 13:02] LABS: VENOUS BASE EXCESS -4.1 (-2.0-2.0); VENOUS HCO3 23.1 MMOL/L (23.0-27.0); VENOUS O2 SATURATION 31.5 % (60.0-80.0); VENOUS PARTIAL PRESSURE O2 24.6 mmHg (30.0-50.0); VENOUS PH 7.282 UNITS (7.330-7.430); VENOUS STANDARD HCO3 19.6 MMOL/L; VENOUS TOTAL CO2 24.6 MMOL/L (24.0-28.0)
[2023-09-22 13:05] LABS: BASO # 0.1 10^3/uL (0.0-0.2); BASO % 0.6 % (0.0-1.0); EOS # 0.1 10^3/uL (0.0-0.5); EOS % 1.3 % (0.0-3.0); HEMATOCRIT 44.2 % (42.0-52.0); HEMOGLOBIN 14.6 g/dl (13.5-17.5); LYMPH # 1.7 10^3/uL (1.5-5.0); LYMPH % 18.6 % (24.0-44.0); MEAN CORPUSCULAR HEMOGLOBIN 33.7 pg (27.0-33.0); MEAN CORPUSCULAR VOLUME 102.1 fl (80.0-96.0); MONO # 0.8 10^3/uL (0.0-0.8); MONO % 8.5 % (2.0-8.0); NEUTROPHILS # 6.5 10^3/uL (1.5-8.5); NEUTROPHILS % 69.9 % (36.0-66.0); PLATELET COUNT, AUTOMATED 167 10^3/uL (150-450); RED BLOOD COUNT 4.33 10^6/uL (4.30-6.10); WHITE BLOOD COUNT 9.3 10^3/uL (4.0-10.0)
[2023-09-22 13:35] LABS: ABG BASE EXCESS -5.6 (-2.0-2.0); ABG HCO3 18.2 MMOL/L (22.0-26.0); ABG O2 SATURATION 94.1 % (95.0-99.0); ABG PARTIAL PRESSURE CO2 31.2 mmHg (35.0-45.0); ABG PARTIAL PRESSURE O2 73.4 mmHg (75.0-100.0); ABG STANDARD HCO3 19.9 MMOL/L. (22.0-26.0); ABG TOTAL CO2 19.1 MMOL/L (23.0-31.0); ABG pH (ARTERIAL) 7.383 UNITS (7.350-7.450)
[2023-09-22 13:43] LABS: ALBUMIN 3.6 G/DL (3.2-5.2); ALKALINE PHOSPHATASE 116 U/L (46-116); ALT/SGPT 25 U/L (7.0-40); AST/SGOT 60 U/L (<34); BILIRUBIN,DIRECT 1.2 MG/DL (<0.4); BILIRUBIN,TOTAL 3.5 MG/DL (0.3-1.2); BLOOD UREA NITROGEN 17 MG/DL (9-23); CALCIUM LEVEL 8.9 MG/DL (8.3-10.6); CARBON DIOXIDE LEVEL 25 MMOL/L (20-31); CHLORIDE LEVEL 99 MMOL/L (98-107); CK-MB VALUE MASS 1.7 NG/ML (<3.6); CPK CREATINE PHOSPHOKINASE 105 U/L (46-171); CREATININE FOR GFR 1.12 MG/DL (0.70-1.30); GLOMERULAR FILTRATION RATE > 60.0 (>49); GLUCOSE, FASTING 85 MG/DL (74-106); MAGNESIUM LEVEL 1.8 MG/DL (1.8-2.4); MB/CK RELATIVE INDEX 1.61 (< OR =4); POTASSIUM SERUM 5.8 MMOL/L (3.5-5.1); SODIUM LEVEL 131 MMOL/L (136-145); TOTAL PROTEIN 7.1 G/DL (5.7-8.2)
[2023-09-22] MEDS ORDERED: ISOVUE-370 76% 100ML VIAL As Ordered ONE (13:53)
[2023-09-22] MEDS ORDERED: FUROSEMIDE 100MG/10ML VIAL IV ONE (14:50)
[2023-09-22 15:06] LABS: CK-MB VALUE MASS 1.4 NG/ML (<3.6)
[2023-09-22 15:09] LABS: MB/CK RELATIVE INDEX 1.77 (< OR =4)
[2023-09-22] MEDS ORDERED: MED REC IN PROGRESS XX SCH (15:15)
[2023-09-22] MEDS ORDERED: IPRATROPIUM 0.5MG/ALBUTEROL 2.5MG INH SOL UD 3ML (DUONEB) NEB PRN (15:15)
[2023-09-22] MEDS ORDERED: FURO40TA2 PO (15:25)
[2023-09-22] MEDS ORDERED: VENTAER INH (15:45)
[2023-09-22] MEDS ORDERED: ELIQ5TAB PO (15:45)
[2023-09-22] MEDS ORDERED: NITR0.4S14 SL (15:45)
[2023-09-22] MEDS ORDERED: METO1TAB32 PO (15:45)
[2023-09-22] MEDS ORDERED: HOME MED LIST COMPLETE! XX SCH (15:50)
[2023-09-22 17:12] LABS: THYROID STIMULATING HORMONE 16.487 uIU/ML (0.55-4.78)
[2023-09-22 17:16] LABS: FOLATE > 24.00 NG/ML (>5.4); FREE T4 1.01 NG/DL (0.89-1.76); VITAMIN B12 LEVEL 1053 PG/ML (211-911)
[2023-09-22 18:14] VITALS: BP 102/74; TEMP 98; O2SAT 99
[2023-09-22 20:00] VITALS: BP 118/74; TEMP 97.3; O2SAT 98
[2023-09-22] MEDS ORDERED: SYMBICORT 80/4.5MCG INHALER 6GM INH SCH (20:00)
[2023-09-22] MEDS ORDERED: ATORVASTATIN 20 MG TAB PO SCH (21:00)
[2023-09-22] MEDS ORDERED: APIXABAN 5 MG TAB (ELIQUIS) PO SCH (21:00)
[2023-09-23] VITALS: BP 109/61; TEMP 97.4; O2SAT 96
[2023-09-23] MEDS ORDERED: ACETAMINOPHEN TAB 650MG DOSE (2X325MG) PO PRN (00:05)
[2023-09-23 01:47] LABS: BLOOD UREA NITROGEN 18 MG/DL (9-23); CALCIUM LEVEL 8.7 MG/DL (8.3-10.6); CARBON DIOXIDE LEVEL 27 MMOL/L (20-31); CHLORIDE LEVEL 101 MMOL/L (98-107); CREATININE FOR GFR 1.16 MG/DL (0.70-1.30); GLOMERULAR FILTRATION RATE > 60.0 (>49); GLUCOSE, FASTING 230 MG/DL (74-106); MAGNESIUM LEVEL 1.6 MG/DL (1.8-2.4); POTASSIUM SERUM 3.5 MMOL/L (3.5-5.1); SODIUM LEVEL 135 MMOL/L (136-145)
[2023-09-23] MEDS: MAGNESIUM OXIDE 400MG TAB (MAG-OX) PO SCH ×2 (02:32→04:09)
[2023-09-23] MEDS ORDERED: POTASSIUM CHLORIDE 10MEQ SR TABLET PO ONE (03:00)
[2023-09-23 04:00] VITALS: BP 113/59; TEMP 96.5; O2SAT 99
[2023-09-23] MEDS ORDERED: LEVOTHYROXINE 25MCG TABLET (0.025MG) PO SCH (06:00)
[2023-09-23 06:53] LABS: HEMATOCRIT 43.2 % (42.0-52.0); HEMOGLOBIN 14.6 g/dl (13.5-17.5); MEAN CORPUSCULAR HEMOGLOBIN 33.7 pg (27.0-33.0); MEAN CORPUSCULAR HGB CONC 33.8 g/dl (32.0-36.5); MEAN CORPUSCULAR VOLUME 99.8 fl (80.0-96.0); PLATELET COUNT, AUTOMATED 173 10^3/uL (150-450); RED BLOOD COUNT 4.33 10^6/uL (4.30-6.10); WHITE BLOOD COUNT 10.4 10^3/uL (4.0-10.0)
[2023-09-23 07:47] LABS: ALBUMIN 2.8 G/DL (3.2-5.2); ALKALINE PHOSPHATASE 114 U/L (46-116); ALT/SGPT 14 U/L (7.0-40); AST/SGOT 17 U/L (<34); BLOOD UREA NITROGEN 23 MG/DL (9-23); CALCIUM LEVEL 8.9 MG/DL (8.3-10.6); CARBON DIOXIDE LEVEL 28 MMOL/L (20-31); CHLORIDE LEVEL 99 MMOL/L (98-107); CREATININE FOR GFR 1.26 MG/DL (0.70-1.30); GLOMERULAR FILTRATION RATE > 60.0 (>49); GLUCOSE, FASTING 194 MG/DL (74-106); MAGNESIUM LEVEL 1.6 MG/DL (1.8-2.4); POTASSIUM SERUM 4.2 MMOL/L (3.5-5.1); SODIUM LEVEL 134 MMOL/L (136-145); TOTAL PROTEIN 6.1 G/DL (5.7-8.2)
[2023-09-23] MEDS ORDERED: METOPROLOL SUCC *XL* 25MG TAB (TopROL *XL*) PO SCH (09:00)
[2023-09-23] MEDS ORDERED: MAGN400T35 PO ×2 (10:18→10:19)
== END 2023-09-23 08:30 | disposition left against medical advice (07) | DRG 291 ==
LOC: EDBD → M ED 11:58 → M ED INP 15:12 → ENRESERV 16:48 → M PCU 18:05
PROVIDERS: ADMIT Internal Medicine; ATTEND Internal Medicine
DX: I11.0 Hypertensive heart disease with heart failure (principal); I50.23 Acute on chronic systolic (congestive) heart failure; E87.1 Hypo-osmolality and hyponatremia; I47.20 Ventricular tachycardia, unspecified; I25.10 Atherosclerotic heart disease of native coronary artery without angina pectoris; J44.9 Chronic obstructive pulmonary disease, unspecified; J45.909 Unspecified asthma, uncomplicated; F17.210 Nicotine dependence, cigarettes, uncomplicated; E78.5 Hyperlipidemia, unspecified; F10.20 Alcohol dependence, uncomplicated; I42.6 Alcoholic cardiomyopathy; I73.9 Peripheral vascular disease, unspecified; E87.6 Hypokalemia; I27.20 Pulmonary hypertension, unspecified; Z86.718 Personal history of other venous thrombosis and embolism; Z86.711 Personal history of pulmonary embolism; Z95.5 Presence of coronary angioplasty implant and graft; Z98.62 Peripheral vascular angioplasty status; I08.3 Combined rheumatic disorders of mitral, aortic and tricuspid valves; D75.89 Other specified diseases of blood and blood-forming organs; Z79.01 Long term (current) use of anticoagulants; Z79.899 Other long term (current) drug therapy; Z88.8 Allergy status to other drugs, medicaments and biological substances; Z88.5 Allergy status to narcotic agent; Z91.198 Patient's noncompliance with other medical treatment and regimen for other reason

== ENCOUNTER 2023-09-26 02:58 | Emergency (ER) | payer OTHER, MEDICAID ==
[~2023-09-26] VITALS: Ht 172.7 cm; Wt 63.6 kg
[~2023-09-26 02:58] MED LIST changes: -DAPAGLIFLOZIN PROPANEDIOL 10MG TABLET (FARXIGA) PO SCH; -FOLIC ACID 1MG TAB PO SCH; +MAGN400T35 PO; -MULTIVITAMINS/MINERALS THERAP 1 TAB PO SCH; -NICOTINE 14 MG/24 HR TRANSDERMAL TD SCH; -THIAMINE 100 MG TAB PO SCH
[2023-09-26 04:46] LABS: BASO % 0.5 % (0.0-1.0); EOS # 0.1 10^3/uL (0.0-0.5); EOS % 1.8 % (0.0-3.0); HEMOGLOBIN 15.1 g/dl (13.5-17.5); LYMPH # 1.6 10^3/uL (1.5-5.0); LYMPH % 19.9 % (24.0-44.0); MEAN CORPUSCULAR HEMOGLOBIN 33.3 pg (27.0-33.0); MEAN CORPUSCULAR HGB CONC 32.8 g/dl (32.0-36.5); MEAN CORPUSCULAR VOLUME 101.5 fl (80.0-96.0); MONO # 0.5 10^3/uL (0.0-0.8); MONO % 6.1 % (2.0-8.0); NEUTROPHILS # 5.6 10^3/uL (1.5-8.5); NEUTROPHILS % 70.9 % (36.0-66.0); PLATELET COUNT, AUTOMATED 130 10^3/uL (150-450); RED BLOOD COUNT 4.53 10^6/uL (4.30-6.10); WHITE BLOOD COUNT 7.9 10^3/uL (4.0-10.0)
[2023-09-26] MEDS ORDERED: ALBU8.5H INH (05:15)
[2023-09-26] MEDS ORDERED: NITR4TASL SL (05:15)
[2023-09-26] MEDS ORDERED: MAGN400T35 PO (05:15)
[2023-09-26] MEDS ORDERED: HOME MED LIST COMPLETE! XX SCH (05:15)
[2023-09-26 05:17] LABS: ETHYL ALCOHOL (ETHANOL) 0.081 % (0.000-0.010)
[2023-09-26 05:19] LABS: SALICYLATE LEVEL < 3.0 MG/DL (<30)
[2023-09-26 05:21] LABS: THYROID STIMULATING HORMONE 7.518 uIU/ML (0.55-4.78)
[2023-09-26 05:26] LABS: ALBUMIN 3.5 G/DL (3.2-5.2); ALKALINE PHOSPHATASE 123 U/L (46-116); ALT/SGPT 17 U/L (7.0-40); AST/SGOT 28 U/L (<34); BILIRUBIN,DIRECT 0.9 MG/DL (<0.4); BILIRUBIN,TOTAL 1.6 MG/DL (0.3-1.2); BLOOD UREA NITROGEN 23 MG/DL (9-23); CALCIUM LEVEL 8.9 MG/DL (8.3-10.6); CARBON DIOXIDE LEVEL 25 MMOL/L (20-31); CHLORIDE LEVEL 102 MMOL/L (98-107); CREATININE FOR GFR 0.92 MG/DL (0.70-1.30); GLOMERULAR FILTRATION RATE > 60.0 (>49); GLUCOSE, FASTING 96 MG/DL (74-106); POTASSIUM SERUM 3.9 MMOL/L (3.5-5.1); SODIUM LEVEL 136 MMOL/L (136-145); TOTAL PROTEIN 6.8 G/DL (5.7-8.2)
[2023-09-26] MEDS ORDERED: ALBUTEROL 90 MCG/ACT 8GM HFA INHALER INH PRN (07:20)
[2023-09-26 07:31] LABS: AMPHETAMINES LEVEL URINE NEGATIVE (NEGATIVE); BARBITURATES URINE NEGATIVE (NEGATIVE); BENZODIAZEPINES URINE NEGATIVE (NEGATIVE)
[2023-09-26 07:32] LABS: CANNABINOIDS URINE NEGATIVE (NEGATIVE); COCAINE METABOLITE URINE NEGATIVE (NEGATIVE); METHADONE URINE NEGATIVE (NEGATIVE); OPIATES URINE NEGATIVE (NEGATIVE); PHENCYCLIDINE URINE NEGATIVE (NEGATIVE)
[2023-09-26] MEDS ORDERED: FUROSEMIDE 40 MG TAB PO SCH (09:00)
[2023-09-26] MEDS ORDERED: MAGNESIUM OXIDE 400MG TAB (MAG-OX) PO SCH (09:00)
[2023-09-26] MEDS ORDERED: APIXABAN 5 MG TAB (ELIQUIS) PO SCH (09:00)
[2023-09-26] MEDS ORDERED: METOPROLOL SUCC *XL* 25MG TAB (TopROL *XL*) PO SCH (09:00)
[2023-09-26 09:31] VITALS: BP 116/84; TEMP 96.8; O2SAT 97
[2023-09-26 10:03] VITALS: BP 116/84
[2023-09-26] MEDS ORDERED: ATORVASTATIN 20 MG TAB PO SCH (21:00)
== END 2023-09-26 12:27 | disposition home or self-care (01) ==
LOC: EDBD 02:58 → M ED 02:58
DX: F32.9 Major depressive disorder, single episode, unspecified (principal); F10.14 Alcohol abuse with alcohol-induced mood disorder; U07.1 COVID-19; Z79.01 Long term (current) use of anticoagulants; Z79.899 Other long term (current) drug therapy; Z88.5 Allergy status to narcotic agent; Z88.8 Allergy status to other drugs, medicaments and biological substances

== ENCOUNTER 2023-10-08 00:05 | Emergency (ER) | payer OTHER, MEDICAID ==
[~2023-10-08 00:05] MED LIST changes: -ASPI-161 PO; +ASPI-615 PO
[2023-10-08 00:12] VITALS: BP 137/91; TEMP 98.6; O2SAT 99
== END 2023-10-08 01:58 | disposition left against medical advice (07) ==
LOC: EDBD 00:05 → M ED 00:05
DX: Z53.21 Procedure and treatment not carried out due to patient leaving prior to being seen by health care provider (principal)

== ENCOUNTER 2023-10-13 01:48 | Emergency (ER) | payer OTHER, MEDICAID ==
[~2023-10-13 01:48] MED LIST changes: +ASPI-161 PO; -ASPI-615 PO
[2023-10-13 01:58] VITALS: TEMP 97
[2023-10-13 02:55] LABS: BASO # 0.1 10^3/uL (0.0-0.2); BASO % 0.9 % (0.0-1.0); EOS # 0.2 10^3/uL (0.0-0.5); EOS % 2.4 % (0.0-3.0); HEMATOCRIT 42.1 % (42.0-52.0); HEMOGLOBIN 13.9 g/dl (13.5-17.5); LYMPH # 1.6 10^3/uL (1.5-5.0); MEAN CORPUSCULAR HEMOGLOBIN 33.7 pg (27.0-33.0); MEAN CORPUSCULAR VOLUME 102.2 fl (80.0-96.0); MONO % 14.7 % (2.0-8.0); NEUTROPHILS # 3.8 10^3/uL (1.5-8.5); NEUTROPHILS % 57.7 % (36.0-66.0); PLATELET COUNT, AUTOMATED 158 10^3/uL (150-450); RED BLOOD COUNT 4.12 10^6/uL (4.30-6.10); WHITE BLOOD COUNT 6.7 10^3/uL (4.0-10.0)
[2023-10-13 03:13] LABS: CK-MB VALUE MASS < 1.0 NG/ML (<3.6)
[2023-10-13 03:15] LABS: ALBUMIN 3.6 G/DL (3.2-5.2); ALKALINE PHOSPHATASE 125 U/L (46-116); ALT/SGPT 13 U/L (7.0-40); AST/SGOT 25 U/L (<34); BILIRUBIN,DIRECT 1.2 MG/DL (<0.4); BILIRUBIN,TOTAL 2.5 MG/DL (0.3-1.2); BLOOD UREA NITROGEN 20 MG/DL (9-23); CALCIUM LEVEL 9.1 MG/DL (8.3-10.6); CARBON DIOXIDE LEVEL 20 MMOL/L (20-31); CHLORIDE LEVEL 106 MMOL/L (98-107); CREATININE FOR GFR 0.82 MG/DL (0.70-1.30); GLOMERULAR FILTRATION RATE > 60.0 (>49); GLUCOSE, FASTING 121 MG/DL (74-106); POTASSIUM SERUM 4.7 MMOL/L (3.5-5.1); SODIUM LEVEL 135 MMOL/L (136-145); TOTAL PROTEIN 6.9 G/DL (5.7-8.2)
[2023-10-13 03:21] LABS: CPK CREATINE PHOSPHOKINASE 84 U/L (46-171); MB/CK RELATIVE INDEX 1.19 (< OR =4)
[2023-10-13 04:01] VITALS: BP 132/86; O2SAT 95
== END 2023-10-13 05:11 | disposition left against medical advice (07) ==
LOC: EDBD 01:48 → M ED 01:48
DX: Z53.21 Procedure and treatment not carried out due to patient leaving prior to being seen by health care provider (principal)

== ENCOUNTER 2023-10-14 10:32 | Emergency (ER) | payer OTHER, MEDICAID ==
[~2023-10-14] VITALS: Ht 172.7 cm; Wt 64.1 kg
[2023-10-14 10:54] VITALS: BP 135/96; TEMP 97.2; O2SAT 100
== END 2023-10-14 12:07 | disposition left against medical advice (07) ==
LOC: M ED 10:32
DX: Z53.21 Procedure and treatment not carried out due to patient leaving prior to being seen by health care provider (principal)

== ENCOUNTER 2023-10-21 01:29 | Emergency (ER) | payer OTHER, MEDICAID ==
[~2023-10-21] VITALS: Ht 185.4 cm; Wt 62.0 kg
[~2023-10-21 01:29] MED LIST changes: -ASPI-161 PO; +ASPI-615 PO
[2023-10-21 02:12] LABS: BASO # 0.1 10^3/uL (0.0-0.2); BASO % 0.8 % (0.0-1.0); EOS # 0.2 10^3/uL (0.0-0.5); EOS % 3.4 % (0.0-3.0); HEMATOCRIT 44.1 % (42.0-52.0); HEMOGLOBIN 14.4 g/dl (13.5-17.5); LYMPH # 1.6 10^3/uL (1.5-5.0); LYMPH % 24.5 % (24.0-44.0); MEAN CORPUSCULAR HGB CONC 32.7 g/dl (32.0-36.5); MEAN CORPUSCULAR VOLUME 104.3 fl (80.0-96.0); MONO % 15.5 % (2.0-8.0); NEUTROPHILS # 3.6 10^3/uL (1.5-8.5); NEUTROPHILS % 55.5 % (36.0-66.0); PLATELET COUNT, AUTOMATED 163 10^3/uL (150-450); RED BLOOD COUNT 4.23 10^6/uL (4.30-6.10); WHITE BLOOD COUNT 6.4 10^3/uL (4.0-10.0)
[2023-10-21 02:36] LABS: ALBUMIN 3.6 G/DL (3.2-5.2); ALKALINE PHOSPHATASE 119 U/L (46-116); ALT/SGPT 14 U/L (7.0-40); AST/SGOT 37 U/L (<34); BILIRUBIN,DIRECT 1.2 MG/DL (<0.4); BILIRUBIN,TOTAL 2.5 MG/DL (0.3-1.2); BLOOD UREA NITROGEN 14 MG/DL (9-23); CALCIUM LEVEL 8.8 MG/DL (8.3-10.6); CARBON DIOXIDE LEVEL 23 MMOL/L (20-31); CHLORIDE LEVEL 99 MMOL/L (98-107); CK-MB VALUE MASS 1.2 NG/ML (<3.6); CPK CREATINE PHOSPHOKINASE 100 U/L (46-171); CREATININE FOR GFR 1.03 MG/DL (0.70-1.30); GLOMERULAR FILTRATION RATE > 60.0 (>49); GLUCOSE, FASTING 87 MG/DL (74-106); POTASSIUM SERUM 4.9 MMOL/L (3.5-5.1); SODIUM LEVEL 131 MMOL/L (136-145)
[2023-10-21 03:01] LABS: ETHYL ALCOHOL (ETHANOL) 0.133 % (0.000-0.010)
[2023-10-21 03:45] VITALS: TEMP 98.8
[2023-10-21] MEDS: methylPREDNISolone 125MG 2ML VIAL IV ONE (04:50)
[2023-10-21] MEDS: cefTRIAXone SOD 1 GM in D5W MINI-BAG PLUS 50 ML IV ONE (04:50)
[2023-10-21] MEDS: IPRATROPIUM 0.5MG/ALBUTEROL 2.5MG INH SOL UD 3ML (DUONEB) NEB SCH (05:18)
[2023-10-21 06:15] VITALS: BP 139/76; O2SAT 93
[2023-10-21] MEDS ORDERED: PRED20TA PO (06:26)
[2023-10-21] MEDS ORDERED: CEFD1CAP9 PO (06:26)
== END 2023-10-21 06:43 | disposition home or self-care (01) ==
LOC: EDBD 01:29 → M ED 01:29
DX: J18.9 Pneumonia, unspecified organism (principal); I25.42 Coronary artery dissection; J44.9 Chronic obstructive pulmonary disease, unspecified; I10 Essential (primary) hypertension; F17.210 Nicotine dependence, cigarettes, uncomplicated; F10.10 Alcohol abuse, uncomplicated; R00.1 Bradycardia, unspecified; I45.81 Long QT syndrome; Z88.8 Allergy status to other drugs, medicaments and biological substances; Z79.51 Long term (current) use of inhaled steroids; Z79.899 Other long term (current) drug therapy; Z79.52 Long term (current) use of systemic steroids
CPT/HCPCS: 71045; 80048; 80076; 82077; 82140; 82550; 82553; 83605; 83880; 84484; 85025; 87040; 87486; 87581; 87633; 87798; 93005; 93041; 94640; 94760; 96365; 96366; 99285; J0696; J2930

== ENCOUNTER 2023-10-22 21:01 | Emergency (ER) | payer OTHER, MEDICAID ==
[~2023-10-22] VITALS: Ht 172.7 cm; Wt 64.0 kg
[~2023-10-22 21:01] MED LIST changes: +CEFD1CAP9 PO
[2023-10-22 22:00] VITALS: BP 112/85
[2023-10-22 22:04] VITALS: TEMP 96.5
[2023-10-22] MEDS: IPRATROPIUM 0.5MG/ALBUTEROL 2.5MG INH SOL UD 3ML (DUONEB) NEB ONE (22:14)
[2023-10-22 22:15] LABS: BASO % 0.1 % (0.0-1.0); HEMATOCRIT 46.2 % (42.0-52.0); LYMPH # 0.8 10^3/uL (1.5-5.0); LYMPH % 9.7 % (24.0-44.0); MEAN CORPUSCULAR HEMOGLOBIN 33.9 pg (27.0-33.0); MEAN CORPUSCULAR HGB CONC 32.5 g/dl (32.0-36.5); MEAN CORPUSCULAR VOLUME 104.5 fl (80.0-96.0); MONO # 0.4 10^3/uL (0.0-0.8); MONO % 5.2 % (2.0-8.0); NEUTROPHILS # 7.1 10^3/uL (1.5-8.5); NEUTROPHILS % 84.6 % (36.0-66.0); PLATELET COUNT, AUTOMATED 144 10^3/uL (150-450); RED BLOOD COUNT 4.42 10^6/uL (4.30-6.10); WHITE BLOOD COUNT 8.4 10^3/uL (4.0-10.0)
[2023-10-22 22:17] VITALS: O2SAT 98
== END 2023-10-23 00:40 | disposition left against medical advice (07) ==
LOC: M ED 21:01
DX: I50.22 Chronic systolic (congestive) heart failure (principal); I25.42 Coronary artery dissection; I11.0 Hypertensive heart disease with heart failure; J44.9 Chronic obstructive pulmonary disease, unspecified; J45.909 Unspecified asthma, uncomplicated; E78.5 Hyperlipidemia, unspecified; Z79.899 Other long term (current) drug therapy; Z79.51 Long term (current) use of inhaled steroids; Z79.2 Long term (current) use of antibiotics; Z79.52 Long term (current) use of systemic steroids; Z88.8 Allergy status to other drugs, medicaments and biological substances; F17.210 Nicotine dependence, cigarettes, uncomplicated; Z53.9 Procedure and treatment not carried out, unspecified reason

== ENCOUNTER 2023-10-23 22:10 | Emergency (ER) | payer OTHER, MEDICAID ==
[~2023-10-23] VITALS: Ht 172.7 cm; Wt 59.1 kg
[2023-10-23 22:27] VITALS: BP 112/75; TEMP 98; O2SAT 97
== END 2023-10-24 02:38 | disposition left against medical advice (07) ==
LOC: M ED 22:10
DX: Z53.21 Procedure and treatment not carried out due to patient leaving prior to being seen by health care provider (principal)

== ENCOUNTER 2023-10-27 04:38 | Emergency (ER) | payer OTHER, MEDICAID ==
[~2023-10-27] VITALS: Ht 172.7 cm; Wt 75.4 kg
[2023-10-27 04:58] VITALS: TEMP 96.9
[2023-10-27 05:46] LABS: VENOUS BASE EXCESS -2.6 (-2.0-2.0); VENOUS HCO3 25.5 MMOL/L (23.0-27.0); VENOUS O2 SATURATION 49.4 % (60.0-80.0); VENOUS PARTIAL PRESSURE O2 32.3 mmHg (30.0-50.0); VENOUS PH 7.268 UNITS (7.330-7.430); VENOUS STANDARD HCO3 21.1 MMOL/L; VENOUS TOTAL CO2 27.2 MMOL/L (24.0-28.0)
[2023-10-27 06:04] LABS: BASO % 0.1 % (0.0-1.0); EOS # 0.1 10^3/uL (0.0-0.5); EOS % 0.6 % (0.0-3.0); HEMATOCRIT 45.4 % (42.0-52.0); HEMOGLOBIN 14.6 g/dl (13.5-17.5); LYMPH # 1.4 10^3/uL (1.5-5.0); LYMPH % 16.2 % (24.0-44.0); MEAN CORPUSCULAR HEMOGLOBIN 33.6 pg (27.0-33.0); MEAN CORPUSCULAR HGB CONC 32.2 g/dl (32.0-36.5); MEAN CORPUSCULAR VOLUME 104.4 fl (80.0-96.0); NEUTROPHILS # 6.2 10^3/uL (1.5-8.5); NEUTROPHILS % 71.6 % (36.0-66.0); PLATELET COUNT, AUTOMATED 117 10^3/uL (150-450); RED BLOOD COUNT 4.35 10^6/uL (4.30-6.10); WHITE BLOOD COUNT 8.7 10^3/uL (4.0-10.0)
[2023-10-27 06:34] LABS: CK-MB VALUE MASS 2.7 NG/ML (<3.6)
[2023-10-27 06:35] LABS: CPK CREATINE PHOSPHOKINASE 84 U/L (46-171); MB/CK RELATIVE INDEX 3.21 (< OR =4)
[2023-10-27 06:36] LABS: ALBUMIN 3.5 G/DL (3.2-5.2); ALKALINE PHOSPHATASE 107 U/L (46-116); ALT/SGPT 16 U/L (7.0-40); AST/SGOT 22 U/L (<34); BILIRUBIN,DIRECT 0.8 MG/DL (<0.4); BILIRUBIN,TOTAL 1.3 MG/DL (0.3-1.2); BLOOD UREA NITROGEN 34 MG/DL (9-23); CALCIUM LEVEL 9.5 MG/DL (8.3-10.6); CARBON DIOXIDE LEVEL 28 MMOL/L (20-31); CHLORIDE LEVEL 104 MMOL/L (98-107); CREATININE FOR GFR 1.07 MG/DL (0.70-1.30); GLOMERULAR FILTRATION RATE > 60.0 (>49); GLUCOSE, FASTING 99 MG/DL (74-106); POTASSIUM SERUM 4.3 MMOL/L (3.5-5.1); SODIUM LEVEL 138 MMOL/L (136-145); TOTAL PROTEIN 6.9 G/DL (5.7-8.2)
[2023-10-27 07:00] VITALS: BP 134/94; O2SAT 98
[2023-10-27] MEDS ORDERED: ELIQ5TAB PO (17:08)
[2023-10-27] MEDS ORDERED: METO1TAB32 PO (17:08)
[2023-10-27] MEDS ORDERED: ATOR80TA59 PO (17:08)
[2023-10-27] MEDS ORDERED: FURO40TA2 PO (17:08)
[2023-10-27] MEDS ORDERED: ALBU8.5H INH (17:08)
== END 2023-10-27 07:24 | disposition left against medical advice (07) ==
LOC: M ED 04:38
DX: Z53.21 Procedure and treatment not carried out due to patient leaving prior to being seen by health care provider (principal)

== ENCOUNTER 2023-10-27 15:51 | Emergency (ER) | payer OTHER, MEDICAID ==
[~2023-10-27] VITALS: Ht 172.7 cm; Wt 64.1 kg
[2023-10-27 15:53] VITALS: BP 120/78; TEMP 97.6; O2SAT 89
[2023-10-27] MEDS ORDERED: ELIQ5TAB PO (17:08)
[2023-10-27] MEDS ORDERED: FURO40TA2 PO (17:08)
[2023-10-27] MEDS ORDERED: METO1TAB32 PO (17:08)
[2023-10-27] MEDS ORDERED: ALBU8.5H INH (17:08)
[2023-10-27] MEDS ORDERED: ATOR80TA59 PO (17:08)
[2023-10-27] MEDS: ALBUTEROL SULFATE 2.5MG/0.5ML INH NEB SOLN NEB ONE (17:17)
[2023-10-27] MEDS: APIXABAN 5 MG TAB (ELIQUIS) PO ONE (17:44)
[2023-10-27] MEDS: FUROSEMIDE 40 MG TAB PO ONE (17:44)
[2023-10-27] MEDS: METOPROLOL SUCC *XL* 25MG TAB (TopROL *XL*) PO ONE (17:44)
== END 2023-10-27 17:57 | disposition left against medical advice (07) ==
LOC: M ED 15:51
DX: I50.22 Chronic systolic (congestive) heart failure (principal); Z76.0 Encounter for issue of repeat prescription; I25.2 Old myocardial infarction; E78.5 Hyperlipidemia, unspecified; I11.0 Hypertensive heart disease with heart failure; F17.210 Nicotine dependence, cigarettes, uncomplicated; Z88.8 Allergy status to other drugs, medicaments and biological substances; Z79.899 Other long term (current) drug therapy; Z79.51 Long term (current) use of inhaled steroids; Z53.9 Procedure and treatment not carried out, unspecified reason

== ENCOUNTER 2023-10-29 05:52 | Emergency (ER) | payer OTHER, MEDICAID ==
[2023-10-29 06:05] VITALS: BP 108/73; TEMP 96.2; O2SAT 62
== END 2023-10-29 09:37 | disposition left against medical advice (07) ==
LOC: EDBD 05:52 → M ED 08:50
DX: R60.9 Edema, unspecified (principal); I10 Essential (primary) hypertension; E78.5 Hyperlipidemia, unspecified; I25.2 Old myocardial infarction; J91.8 Pleural effusion in other conditions classified elsewhere; M54.50 Low back pain, unspecified; J44.9 Chronic obstructive pulmonary disease, unspecified; F10.10 Alcohol abuse, uncomplicated; Z86.711 Personal history of pulmonary embolism; Z88.8 Allergy status to other drugs, medicaments and biological substances; Z88.5 Allergy status to narcotic agent; Z79.899 Other long term (current) drug therapy; Z79.02 Long term (current) use of antithrombotics/antiplatelets; Z79.01 Long term (current) use of anticoagulants; Z79.52 Long term (current) use of systemic steroids; Z53.9 Procedure and treatment not carried out, unspecified reason

== ENCOUNTER 2023-11-04 01:46 | Emergency (ER) | payer OTHER, MEDICAID ==
[~2023-11-04] VITALS: Ht 172.7 cm; Wt 64.1 kg
[2023-11-04 04:38] VITALS: BP 112/68; TEMP 98.6; O2SAT 95
== END 2023-11-04 06:38 | disposition left against medical advice (07) ==
LOC: EDBD 01:46 → M ED 01:46
DX: Z53.21 Procedure and treatment not carried out due to patient leaving prior to being seen by health care provider (principal)

== ENCOUNTER 2023-11-08 02:19 | Emergency (ER) | payer OTHER, MEDICAID ==
[2023-11-08 02:27] VITALS: BP 95/64; TEMP 96.6; O2SAT 96
[2023-11-08] MEDS ORDERED: LASI80TA3 PO (06:04)
[2023-11-08] MEDS: FUROSEMIDE 80 MG TAB PO ONE (06:38)
== END 2023-11-08 07:10 | disposition left against medical advice (07) ==
LOC: M ED 02:19
DX: N49.2 Inflammatory disorders of scrotum (principal); I50.20 Unspecified systolic (congestive) heart failure; Z86.718 Personal history of other venous thrombosis and embolism; Z86.711 Personal history of pulmonary embolism; F17.200 Nicotine dependence, unspecified, uncomplicated; Z88.8 Allergy status to other drugs, medicaments and biological substances; Z88.5 Allergy status to narcotic agent; Z79.01 Long term (current) use of anticoagulants; Z79.51 Long term (current) use of inhaled steroids

== ENCOUNTER 2023-11-10 01:24 | Emergency (ER) | payer OTHER, MEDICAID ==
[~2023-11-10] VITALS: Ht 172.7 cm; Wt 64.1 kg
[~2023-11-10 01:24] MED LIST changes: +LASI80TA3 PO
[2023-11-10 01:32] VITALS: TEMP 97
[2023-11-10 04:52] LABS: VENOUS BASE EXCESS -2.5 (-2.0-2.0); VENOUS O2 SATURATION 68.4 % (60.0-80.0); VENOUS PARTIAL PRESSURE CO2 53.8 mmHg (38.0-50.0); VENOUS PARTIAL PRESSURE O2 42.8 mmHg (30.0-50.0); VENOUS PH 7.285 UNITS (7.330-7.430); VENOUS STANDARD HCO3 21.7 MMOL/L; VENOUS TOTAL CO2 26.7 MMOL/L (24.0-28.0)
[2023-11-10 05:09] LABS: BASO % 0.7 % (0.0-1.0); EOS # 0.1 10^3/uL (0.0-0.5); EOS % 2.3 % (0.0-3.0); HEMATOCRIT 42.9 % (42.0-52.0); HEMOGLOBIN 14.2 g/dl (13.5-17.5); LYMPH # 1.1 10^3/uL (1.5-5.0); MEAN CORPUSCULAR HGB CONC 33.1 g/dl (32.0-36.5); MEAN CORPUSCULAR VOLUME 102.6 fl (80.0-96.0); MONO # 0.7 10^3/uL (0.0-0.8); MONO % 11.6 % (2.0-8.0); NEUTROPHILS # 3.8 10^3/uL (1.5-8.5); PLATELET COUNT, AUTOMATED 119 10^3/uL (150-450); RED BLOOD COUNT 4.18 10^6/uL (4.30-6.10); WHITE BLOOD COUNT 5.7 10^3/uL (4.0-10.0)
[2023-11-10] MEDS: FUROSEMIDE 100MG/10ML VIAL IV ONE (05:23)
[2023-11-10 05:25] LABS: ETHYL ALCOHOL (ETHANOL) 0.153 % (0.000-0.010)
[2023-11-10 05:27] LABS: ALBUMIN 3.3 G/DL (3.2-5.2); ALKALINE PHOSPHATASE 137 U/L (46-116); ALT/SGPT 14 U/L (7.0-40); AST/SGOT 24 U/L (<34); BILIRUBIN,DIRECT 1.2 MG/DL (<0.4); BILIRUBIN,TOTAL 2.2 MG/DL (0.3-1.2); BLOOD UREA NITROGEN 12 MG/DL (9-23); CALCIUM LEVEL 8.3 MG/DL (8.3-10.6); CARBON DIOXIDE LEVEL 27 MMOL/L (20-31); CHLORIDE LEVEL 98 MMOL/L (98-107); GLOMERULAR FILTRATION RATE > 60.0 (>49); GLUCOSE, FASTING 93 MG/DL (74-106); POTASSIUM SERUM 4.1 MMOL/L (3.5-5.1); SODIUM LEVEL 132 MMOL/L (136-145); TOTAL PROTEIN 6.6 G/DL (5.7-8.2)
[2023-11-10 05:28] LABS: CPK CREATINE PHOSPHOKINASE 67 U/L (46-171); MB/CK RELATIVE INDEX 2.98 (< OR =4)
[2023-11-10] MEDS ORDERED: ISOVUE-370 76% 100ML VIAL As Ordered ONE (06:05)
[2023-11-10 06:23] LABS: INR 1.28; PARTIAL THROMBOPLASTIN TIME 31.7 SECONDS (24.8-34.2); PROTHROMBIN TIME 15.6 SECONDS (12.5-14.5)
[2023-11-10 06:29] VITALS: BP 133/83; O2SAT 95
[2023-11-10 06:45] LABS: CK-MB VALUE MASS 1.5 NG/ML (<3.6)
[2023-11-10 06:47] LABS: ALBUMIN 3.1 G/DL (3.2-5.2); BILIRUBIN,DIRECT 1.1 MG/DL (<0.4); TOTAL PROTEIN 6.3 G/DL (5.7-8.2)
== END 2023-11-10 09:19 | disposition left against medical advice (07) ==
LOC: M ED 01:24 → EDBD 01:24 → M ED 09:19
DX: J96.01 Acute respiratory failure with hypoxia (principal); I50.22 Chronic systolic (congestive) heart failure; I25.119 Atherosclerotic heart disease of native coronary artery with unspecified angina pectoris; J44.9 Chronic obstructive pulmonary disease, unspecified; F17.210 Nicotine dependence, cigarettes, uncomplicated; F10.10 Alcohol abuse, uncomplicated; Z88.8 Allergy status to other drugs, medicaments and biological substances; Z79.51 Long term (current) use of inhaled steroids; Z79.899 Other long term (current) drug therapy
CPT/HCPCS: 36415; 71045; 71275; 74177; 76870; 80048; 80076; 82077; 82550; 82553; 82803; 83605; 83880; 84484; 85025; 85610; 85730; 87040; 87486; 87581; 87633; 87798; 93005; 93041; 93970; 93976; 94760; 96374; 99285; J1940; Q9967

== ENCOUNTER 2023-11-12 03:43 | Inpatient (IN) | payer OTHER, MEDICAID ==
[~2023-11-12] VITALS: Ht 180.3 cm; Wt 80.9 kg
[2023-11-12 04:47] LABS: INR 1.35; PARTIAL THROMBOPLASTIN TIME 25.5 SECONDS (24.8-34.2); PROTHROMBIN TIME 16.3 SECONDS (12.5-14.5)
[2023-11-12 04:51] LABS: CK-MB VALUE MASS 1.6 NG/ML (<3.6)
[2023-11-12 04:55] LABS: FREE T4 0.94 NG/DL (0.89-1.76); THYROID STIMULATING HORMONE 7.251 uIU/ML (0.55-4.78)
[2023-11-12 05:01] LABS: ALBUMIN 3.4 G/DL (3.2-5.2); ALKALINE PHOSPHATASE 158 U/L (46-116); ALT/SGPT 17 U/L (7.0-40); AST/SGOT 28 U/L (<34); BILIRUBIN,DIRECT 1.2 MG/DL (<0.4); BILIRUBIN,TOTAL 2.4 MG/DL (0.3-1.2); BLOOD UREA NITROGEN 11 MG/DL (9-23); CALCIUM LEVEL 8.2 MG/DL (8.3-10.6); CARBON DIOXIDE LEVEL 25 MMOL/L (20-31); CHLORIDE LEVEL 102 MMOL/L (98-107); CPK CREATINE PHOSPHOKINASE 66 U/L (46-171); CREATININE FOR GFR 0.84 MG/DL (0.70-1.30); GLOMERULAR FILTRATION RATE > 60.0 (>49); GLUCOSE, FASTING 96 MG/DL (74-106); MB/CK RELATIVE INDEX 2.42 (< OR =4); POTASSIUM SERUM 3.7 MMOL/L (3.5-5.1); SODIUM LEVEL 134 MMOL/L (136-145); TOTAL PROTEIN 6.8 G/DL (5.7-8.2)
[2023-11-12 05:11] LABS: BASO # 0.1 10^3/uL (0.0-0.2); BASO % 0.9 % (0.0-1.0); EOS # 0.1 10^3/uL (0.0-0.5); EOS % 2.3 % (0.0-3.0); HEMATOCRIT 39.4 % (42.0-52.0); HEMOGLOBIN 13.1 g/dl (13.5-17.5); LYMPH % 18.1 % (24.0-44.0); MEAN CORPUSCULAR HEMOGLOBIN 33.9 pg (27.0-33.0); MEAN CORPUSCULAR HGB CONC 33.2 g/dl (32.0-36.5); MEAN CORPUSCULAR VOLUME 102.1 fl (80.0-96.0); MONO # 0.9 10^3/uL (0.0-0.8); MONO % 16.2 % (2.0-8.0); NEUTROPHILS # 3.6 10^3/uL (1.5-8.5); NEUTROPHILS % 62.3 % (36.0-66.0); PLATELET COUNT, AUTOMATED 148 10^3/uL (150-450); RED BLOOD COUNT 3.86 10^6/uL (4.30-6.10); WHITE BLOOD COUNT 5.7 10^3/uL (4.0-10.0)
[2023-11-12 05:20] LABS: RSV AMPLIFICATION NEGATIVE (NEGATIVE)
[2023-11-12] MEDS ORDERED: LORazepam 2 MG TAB PO PRN (06:05)
[2023-11-12] MEDS ORDERED: ACETAMINOPHEN TAB 650MG DOSE (2X325MG) PO PRN (06:05)
[2023-11-12] MEDS ORDERED: MOM 30ML SUSPENSION UDC PO PRN (06:05)
[2023-11-12] MEDS ORDERED: MAALOX 30 ML SUSP *UDC PO PRN (06:05)
[2023-11-12] MEDS: FUROSEMIDE 40MG/4ML VIAL IV ONE (06:10)
[2023-11-12] MEDS ORDERED: FURO80TA2 PO (06:23)
[2023-11-12] MEDS ORDERED: HOME MED LIST COMPLETE! XX SCH (06:25)
[2023-11-12] MEDS ORDERED: IPRATROPIUM 0.5MG/ALBUTEROL 2.5MG INH SOL UD 3ML (DUONEB) NEB PRN (06:45)
[2023-11-12] MEDS ORDERED: NITROGLYCERIN 0.4MG SUBL TABLET SL PRN (07:30)
[2023-11-12] MEDS ORDERED: ALBUTEROL 90 MCG/ACT 8GM HFA INHALER INH PRN (07:30)
[2023-11-12] MEDS: IPRATROPIUM 0.5MG/ALBUTEROL 2.5MG INH SOL UD 3ML (DUONEB) NEB ONE (08:39)
[2023-11-12] MEDS: THIAMINE 100 MG TAB PO SCH (08:44)
[2023-11-12] MEDS: APIXABAN 5 MG TAB (ELIQUIS) PO SCH (08:44)
[2023-11-12] MEDS: FOLIC ACID 1MG TAB PO SCH (08:44)
[2023-11-12] MEDS: MULTIVITAMINS/MINERALS THERAP 1 TAB PO SCH (08:45)
[2023-11-12] MEDS: METOPROLOL SUCC *XL* 25MG TAB (TopROL *XL*) PO SCH (08:45)
[2023-11-12] MEDS: NICOTINE 21MG/24HR 1 EA TRANSDERMAL TD ONE (08:45)
[2023-11-12] MEDS ORDERED: FUROSEMIDE 40MG/4ML VIAL IV SCH (09:00)
[2023-11-12] MEDS: POTASSIUM CHLORIDE 10MEQ SR TABLET PO STA (10:51)
[2023-11-12] MEDS: DAPAGLIFLOZIN PROPANEDIOL 10MG TABLET (FARXIGA) PO SCH (11:39)
[2023-11-12 11:41] LABS: MAGNESIUM LEVEL 1.6 MG/DL (1.8-2.4)
[2023-11-12 12:00] VITALS: BP 114/77; TEMP 97.7; O2SAT 97
[2023-11-12] MEDS: IPRATROPIUM 0.5MG/ALBUTEROL 2.5MG INH SOL UD 3ML (DUONEB) NEB SCH (13:23)
[2023-11-12] MEDS: MAGNESIUM OXIDE 400MG TAB (MAG-OX) PO SCH (13:49)
[2023-11-12] MEDS: FUROSEMIDE 40MG/4ML VIAL IV SCH (16:22)
[2023-11-12] MEDS: MAG SULF 1GM/100ML (MAG RUN) 1 GM in IV 1 EA IV SCH (16:22)
[2023-11-12 16:48] VITALS: BP 153/23; TEMP 97.9; O2SAT 100
[2023-11-12 19:16] VITALS: BP 115/74; TEMP 97.1; O2SAT 95
[2023-11-12] MEDS: ATORVASTATIN 20 MG TAB PO SCH (20:51)
[2023-11-13] VITALS: BP_SYST 105; BP_SYST 116; BP_DIAS 67; BP_DIAS 86; TEMP 97.6; TEMP 98.7; O2SAT 93; O2SAT 95
[2023-11-13 03:53] VITALS: BP 122/88; TEMP 97.8; O2SAT 93
[2023-11-13] MEDS: IPRATROPIUM 0.5MG/ALBUTEROL 2.5MG INH SOL UD 3ML (DUONEB) NEB PRN (04:17)
[2023-11-13 05:44] LABS: BASO % 0.7 % (0.0-1.0); EOS # 0.1 10^3/uL (0.0-0.5); EOS % 2.4 % (0.0-3.0); HEMATOCRIT 39.3 % (42.0-52.0); HEMOGLOBIN 13.1 g/dl (13.5-17.5); LYMPH % 17.3 % (24.0-44.0); MEAN CORPUSCULAR HEMOGLOBIN 34.1 pg (27.0-33.0); MEAN CORPUSCULAR HGB CONC 33.3 g/dl (32.0-36.5); MEAN CORPUSCULAR VOLUME 102.3 fl (80.0-96.0); MONO # 0.9 10^3/uL (0.0-0.8); MONO % 14.9 % (2.0-8.0); NEUTROPHILS # 3.8 10^3/uL (1.5-8.5); NEUTROPHILS % 64.4 % (36.0-66.0); PLATELET COUNT, AUTOMATED 181 10^3/uL (150-450); RED BLOOD COUNT 3.84 10^6/uL (4.30-6.10); WHITE BLOOD COUNT 5.9 10^3/uL (4.0-10.0)
[2023-11-13 06:08] LABS: BLOOD UREA NITROGEN 14 MG/DL (9-23); CALCIUM LEVEL 8.4 MG/DL (8.3-10.6); CARBON DIOXIDE LEVEL 33 MMOL/L (20-31); CHLORIDE LEVEL 101 MMOL/L (98-107); CREATININE FOR GFR 0.98 MG/DL (0.70-1.30); GLOMERULAR FILTRATION RATE > 60.0 (>49); GLUCOSE, FASTING 98 MG/DL (74-106); MAGNESIUM LEVEL 1.9 MG/DL (1.8-2.4); POTASSIUM SERUM 3.9 MMOL/L (3.5-5.1); SODIUM LEVEL 140 MMOL/L (136-145)
[2023-11-13 07:15] VITALS: BP 136/87; TEMP 98.4; O2SAT 98
[2023-11-13 09:16] VITALS: BP 136/87
[2023-11-13] MEDS ORDERED: FARX1TAB3 PO (10:30)
[2023-11-13] MEDS ORDERED: NITR4TASL SL (10:30)
[2023-11-13] MEDS ORDERED: POTA1TAB23 PO (10:30)
[2023-11-13] MEDS ORDERED: ALBU8.5H INH (10:30)
[2023-11-13] MEDS ORDERED: FOLI1TAB11 PO (10:30)
[2023-11-13] MEDS ORDERED: ELIQ5TAB PO (10:30)
[2023-11-13] MEDS ORDERED: THIA100TA PO (10:30)
[2023-11-13] MEDS ORDERED: ASPI81TAEC PO (10:30)
[2023-11-13] MEDS ORDERED: TIOT18INH INH (10:30)
[2023-11-13] MEDS ORDERED: FURO40TA2 PO (10:30)
== END 2023-11-13 10:24 | disposition left against medical advice (07) | DRG 291 ==
LOC: M ED 03:43 → M ED INP 06:05 → OBSVTOIN 06:05 → INTOOBSV 06:05 → ENRESERV 11:33 → M PCU 11:55
PROVIDERS: ADMIT Internal Medicine; ATTEND Internal Medicine
DX: I11.0 Hypertensive heart disease with heart failure (principal); I50.23 Acute on chronic systolic (congestive) heart failure; I35.0 Nonrheumatic aortic (valve) stenosis; I25.10 Atherosclerotic heart disease of native coronary artery without angina pectoris; E78.5 Hyperlipidemia, unspecified; J44.9 Chronic obstructive pulmonary disease, unspecified; J45.909 Unspecified asthma, uncomplicated; F31.9 Bipolar disorder, unspecified; F10.20 Alcohol dependence, uncomplicated; F17.210 Nicotine dependence, cigarettes, uncomplicated; D53.9 Nutritional anemia, unspecified; D69.6 Thrombocytopenia, unspecified; E02 Subclinical iodine-deficiency hypothyroidism; Z86.718 Personal history of other venous thrombosis and embolism; Z86.711 Personal history of pulmonary embolism; I73.9 Peripheral vascular disease, unspecified; Z79.01 Long term (current) use of anticoagulants; I25.5 Ischemic cardiomyopathy; E87.6 Hypokalemia; Z88.8 Allergy status to other drugs, medicaments and biological substances; Z88.5 Allergy status to narcotic agent; Z79.899 Other long term (current) drug therapy; Z79.82 Long term (current) use of aspirin

== ENCOUNTER 2023-12-06 01:10 | Emergency (ER) | payer OTHER, MEDICAID ==
[~2023-12-06] VITALS: Ht 180.3 cm; Wt 68.2 kg
[~2023-12-06 01:10] MED LIST changes: +FARX1TAB3 PO; +FURO80TA2 PO; +POTA1TAB23 PO; +TIOT18INH INH
[2023-12-06 01:47] LABS: BASO # 0.1 10^3/uL (0.0-0.2); BASO % 1.4 % (0.0-1.0); EOS # 0.2 10^3/uL (0.0-0.5); EOS % 2.6 % (0.0-3.0); HEMATOCRIT 44.8 % (42.0-52.0); HEMOGLOBIN 14.6 g/dl (13.5-17.5); LYMPH # 1.7 10^3/uL (1.5-5.0); LYMPH % 24.1 % (24.0-44.0); MEAN CORPUSCULAR HEMOGLOBIN 33.7 pg (27.0-33.0); MEAN CORPUSCULAR HGB CONC 32.6 g/dl (32.0-36.5); MEAN CORPUSCULAR VOLUME 103.5 fl (80.0-96.0); MONO % 13.6 % (2.0-8.0); NEUTROPHILS # 4.2 10^3/uL (1.5-8.5); NEUTROPHILS % 57.7 % (36.0-66.0); PLATELET COUNT, AUTOMATED 181 10^3/uL (150-450); RED BLOOD COUNT 4.33 10^6/uL (4.30-6.10); WHITE BLOOD COUNT 7.2 10^3/uL (4.0-10.0)
[2023-12-06 02:15] LABS: LIPASE 36 U/L (12-53)
[2023-12-06 02:17] LABS: ALBUMIN 3.8 G/DL (3.2-5.2); ALKALINE PHOSPHATASE 163 U/L (46-116); ALT/SGPT 14 U/L (7.0-40); AST/SGOT 29 U/L (<34); BILIRUBIN,DIRECT 1.3 MG/DL (<0.4); BILIRUBIN,TOTAL 2.3 MG/DL (0.3-1.2); BLOOD UREA NITROGEN 24 MG/DL (9-23); CALCIUM LEVEL 10.2 MG/DL (8.3-10.6); CARBON DIOXIDE LEVEL 26 MMOL/L (20-31); CHLORIDE LEVEL 101 MMOL/L (98-107); CK-MB VALUE MASS 1.2 NG/ML (<3.6); CPK CREATINE PHOSPHOKINASE 61 U/L (46-171); CREATININE FOR GFR 1.03 MG/DL (0.70-1.30); GLOMERULAR FILTRATION RATE > 60.0 (>49); GLUCOSE, FASTING 149 MG/DL (74-106); MB/CK RELATIVE INDEX 1.96 (< OR =4); POTASSIUM SERUM 4.7 MMOL/L (3.5-5.1); SODIUM LEVEL 133 MMOL/L (136-145); TOTAL PROTEIN 7.4 G/DL (5.7-8.2)
[2023-12-06 02:54] LABS: ETHYL ALCOHOL (ETHANOL) 0.007 % (0.000-0.010)
[2023-12-06 03:34] LABS: CK-MB VALUE MASS < 1.0 NG/ML (<3.6)
[2023-12-06 04:10] LABS: CPK CREATINE PHOSPHOKINASE 41 U/L (46-171); MB/CK RELATIVE INDEX 2.43 (< OR =4)
[2023-12-06] MEDS: methylPREDNISolone 125MG 2ML VIAL IV ONE (04:44)
[2023-12-06] MEDS ORDERED: ISOVUE-370 76% 100ML VIAL As Ordered ONE (04:47)
[2023-12-06] MEDS: IPRATROPIUM 0.5MG/ALBUTEROL 2.5MG INH SOL UD 3ML (DUONEB) NEB ONE (04:50)
[2023-12-06 05:47] VITALS: O2SAT 87
[2023-12-06] MEDS: FUROSEMIDE 40MG/4ML VIAL IV ONE (06:03)
[2023-12-06 07:00] VITALS: TEMP 97.7
[2023-12-06] MEDS ORDERED: MED REC IN PROGRESS XX SCH (07:30)
[2023-12-06 08:00] VITALS: BP 128/84; O2SAT 92
[2023-12-07] MEDS ORDERED: ALBU8.5H INH (01:57)
[2023-12-07] MEDS ORDERED: FOLI1TAB11 PO (02:07)
[2023-12-07] MEDS ORDERED: SPIR1CAP INH (02:07)
[2023-12-07] MEDS ORDERED: FURO40TA2 PO (02:07)
[2023-12-07] MEDS ORDERED: FARX1TAB3 PO (02:07)
[2023-12-07] MEDS ORDERED: THIA100T7 PO (02:07)
[2023-12-07] MEDS ORDERED: NITR0.4S14 SL (02:07)
== END 2023-12-06 08:50 | disposition left against medical advice (07) ==
LOC: M ED 01:10
DX: J96.01 Acute respiratory failure with hypoxia (principal); I50.22 Chronic systolic (congestive) heart failure; I25.119 Atherosclerotic heart disease of native coronary artery with unspecified angina pectoris; J44.9 Chronic obstructive pulmonary disease, unspecified; F17.210 Nicotine dependence, cigarettes, uncomplicated; F10.10 Alcohol abuse, uncomplicated; Z88.8 Allergy status to other drugs, medicaments and biological substances; Z79.51 Long term (current) use of inhaled steroids; Z79.1 Long term (current) use of non-steroidal anti-inflammatories (NSAID); Z79.899 Other long term (current) drug therapy; Z53.9 Procedure and treatment not carried out, unspecified reason
CPT/HCPCS: 71045; 71275; 80048; 80076; 82077; 82550; 82553; 83690; 83880; 84484; 85025; 87486; 87581; 87633; 87798; 93005; 93041; 94640; 94760; 96374; 96375; 99285; J1940; J2919; Q9967

== ENCOUNTER 2023-12-06 16:15 | Observation (INO) | payer OTHER, MEDICAID ==
[~2023-12-06] VITALS: Ht 172.7 cm; Wt 68.6 kg
[2023-12-06 20:27] LABS: BASO % 0.2 % (0.0-1.0); HEMATOCRIT 41.9 % (42.0-52.0); HEMOGLOBIN 14.2 g/dl (13.5-17.5); LYMPH # 0.9 10^3/uL (1.5-5.0); LYMPH % 13.9 % (24.0-44.0); MEAN CORPUSCULAR HGB CONC 33.9 g/dl (32.0-36.5); MEAN CORPUSCULAR VOLUME 100.2 fl (80.0-96.0); MONO # 0.7 10^3/uL (0.0-0.8); MONO % 10.5 % (2.0-8.0); NEUTROPHILS # 4.7 10^3/uL (1.5-8.5); NEUTROPHILS % 74.9 % (36.0-66.0); PLATELET COUNT, AUTOMATED 185 10^3/uL (150-450); RED BLOOD COUNT 4.18 10^6/uL (4.30-6.10); WHITE BLOOD COUNT 6.3 10^3/uL (4.0-10.0)
[2023-12-06 20:51] LABS: CK-MB VALUE MASS 1.2 NG/ML (<3.6)
[2023-12-06 20:53] LABS: BLOOD UREA NITROGEN 26 MG/DL (9-23); CALCIUM LEVEL 9.5 MG/DL (8.3-10.6); CARBON DIOXIDE LEVEL 24 MMOL/L (20-31); CHLORIDE LEVEL 99 MMOL/L (98-107); CREATININE FOR GFR 0.82 MG/DL (0.70-1.30); GLOMERULAR FILTRATION RATE > 60.0 (>49); GLUCOSE, FASTING 248 MG/DL (74-106); POTASSIUM SERUM 4.4 MMOL/L (3.5-5.1); SODIUM LEVEL 133 MMOL/L (136-145)
[2023-12-06 20:54] LABS: CPK CREATINE PHOSPHOKINASE 62 U/L (46-171); MB/CK RELATIVE INDEX 1.93 (< OR =4)
[2023-12-06] MEDS: FUROSEMIDE 100MG/10ML VIAL IV ONE (23:50)
[2023-12-07] MEDS ORDERED: MED REC IN PROGRESS XX SCH (01:35)
[2023-12-07] MEDS ORDERED: ALBU8.5H INH (01:57)
[2023-12-07] MEDS ORDERED: FARX1TAB3 PO (02:07)
[2023-12-07] MEDS ORDERED: SPIR1CAP INH (02:07)
[2023-12-07] MEDS ORDERED: FURO40TA2 PO (02:07)
[2023-12-07] MEDS ORDERED: NITR0.4S14 SL (02:07)
[2023-12-07] MEDS ORDERED: FOLI1TAB11 PO (02:07)
[2023-12-07] MEDS ORDERED: THIA100T7 PO (02:07)
[2023-12-07] MEDS ORDERED: HOME MED LIST COMPLETE! XX SCH (02:10)
[2023-12-07] MEDS ORDERED: ACETAMINOPHEN TAB 650MG DOSE (2X325MG) PO PRN (02:30)
[2023-12-07] MEDS ORDERED: NITROGLYCERIN 0.4MG SUBL TABLET SL PRN (02:30)
[2023-12-07] MEDS ORDERED: ALBUTEROL 90 MCG/ACT 8GM HFA INHALER INH PRN (02:30)
[2023-12-07] MEDS: IPRATROPIUM 0.5MG/ALBUTEROL 2.5MG INH SOL UD 3ML (DUONEB) NEB ONE (03:08)
[2023-12-07] MEDS ORDERED: NICOTINE 14 MG/24 HR TRANSDERMAL TD PRN (04:05)
[2023-12-07 06:00] VITALS: BP 90/57
[2023-12-07 06:15] VITALS: TEMP 97.7; O2SAT 93
[2023-12-07] MEDS ORDERED: TIOTROPIUM INHALER/CAPSULE (SPIRIVA) INH SCH (08:00)
[2023-12-07] MEDS ORDERED: APIXABAN 5 MG TAB (ELIQUIS) PO SCH (09:00)
[2023-12-07] MEDS ORDERED: METOPROLOL SUCC *XL* 25MG TAB (TopROL *XL*) PO SCH (09:00)
[2023-12-07] MEDS ORDERED: FOLIC ACID 1MG TAB PO SCH (09:00)
[2023-12-07] MEDS ORDERED: PANTOPRAZOLE 40MG TAB (PROTONIX) PO SCH (09:00)
[2023-12-07] MEDS ORDERED: THIAMINE 100 MG TAB PO SCH (09:00)
[2023-12-07] MEDS ORDERED: ASPIRIN 81MG ENTERIC TABLET PO SCH (09:00)
[2023-12-07] MEDS ORDERED: FUROSEMIDE 40 MG TAB PO SCH (09:00)
[2023-12-07] MEDS ORDERED: DAPAGLIFLOZIN PROPANEDIOL 10MG TABLET (FARXIGA) PO SCH (09:00)
[2023-12-07] MEDS ORDERED: ATORVASTATIN 20 MG TAB PO SCH (21:00)
== END 2023-12-07 08:14 | disposition left against medical advice (07) ==
LOC: M ED 16:15 → M ED INP 12-07 02:28
PROVIDERS: ADMIT Preventive Medicine Undersea and Hyperbaric Medicine; ATTEND Preventive Medicine Undersea and Hyperbaric Medicine
DX: I50.22 Chronic systolic (congestive) heart failure (principal); I35.0 Nonrheumatic aortic (valve) stenosis; R07.9 Chest pain, unspecified; I25.2 Old myocardial infarction; I25.119 Atherosclerotic heart disease of native coronary artery with unspecified angina pectoris; R79.89 Other specified abnormal findings of blood chemistry; I11.0 Hypertensive heart disease with heart failure; E78.5 Hyperlipidemia, unspecified; J44.9 Chronic obstructive pulmonary disease, unspecified; J98.11 Atelectasis; Z86.718 Personal history of other venous thrombosis and embolism; Z87.442 Personal history of urinary calculi; G47.00 Insomnia, unspecified; F20.9 Schizophrenia, unspecified; F32.A Depression, unspecified; F41.9 Anxiety disorder, unspecified; R32 Unspecified urinary incontinence; Z95.5 Presence of coronary angioplasty implant and graft; Z95.828 Presence of other vascular implants and grafts; F17.210 Nicotine dependence, cigarettes, uncomplicated; Z79.899 Other long term (current) drug therapy; Z79.51 Long term (current) use of inhaled steroids; Z79.01 Long term (current) use of anticoagulants; Z79.82 Long term (current) use of aspirin; Z88.5 Allergy status to narcotic agent; Z88.8 Allergy status to other drugs, medicaments and biological substances

== ENCOUNTER 2023-12-07 18:13 | Emergency (ER) | payer OTHER, MEDICAID ==
[~2023-12-07] VITALS: Ht 172.7 cm; Wt 68.1 kg
[~2023-12-07 18:13] MED LIST changes: +SPIR1CAP INH; +THIA100T7 PO
[2023-12-07] MEDS: IPRATROPIUM 0.5MG/ALBUTEROL 2.5MG INH SOL UD 3ML (DUONEB) NEB ONE ×2 (20:19)
[2023-12-07 20:33] LABS: BASO % 0.4 % (0.0-1.0); CK-MB VALUE MASS 1.3 NG/ML (<3.6); EOS # 0.1 10^3/uL (0.0-0.5); EOS % 1.6 % (0.0-3.0); HEMATOCRIT 39.2 % (42.0-52.0); LYMPH # 1.4 10^3/uL (1.5-5.0); LYMPH % 16.7 % (24.0-44.0); MEAN CORPUSCULAR HGB CONC 33.2 g/dl (32.0-36.5); MEAN CORPUSCULAR VOLUME 102.6 fl (80.0-96.0); MONO % 11.4 % (2.0-8.0); NEUTROPHILS % 69.5 % (36.0-66.0); PLATELET COUNT, AUTOMATED 147 10^3/uL (150-450); RED BLOOD COUNT 3.82 10^6/uL (4.30-6.10); WHITE BLOOD COUNT 8.6 10^3/uL (4.0-10.0)
[2023-12-07 20:34] LABS: BLOOD UREA NITROGEN 19 MG/DL (9-23); CARBON DIOXIDE LEVEL 24 MMOL/L (20-31); CHLORIDE LEVEL 98 MMOL/L (98-107); CREATININE FOR GFR 0.69 MG/DL (0.70-1.30); GLOMERULAR FILTRATION RATE > 60.0 (>49); GLUCOSE, FASTING 92 MG/DL (74-106); MAGNESIUM LEVEL 1.5 MG/DL (1.8-2.4); POTASSIUM SERUM 3.7 MMOL/L (3.5-5.1); SODIUM LEVEL 133 MMOL/L (136-145)
[2023-12-07 20:35] LABS: CPK CREATINE PHOSPHOKINASE 65 U/L (46-171)
[2023-12-08 02:53] VITALS: BP 114/80; TEMP 98.2; O2SAT 98
== END 2023-12-08 03:05 | disposition home or self-care (01) ==
LOC: M ED 18:13
DX: R07.9 Chest pain, unspecified (principal); R06.00 Dyspnea, unspecified; I50.22 Chronic systolic (congestive) heart failure; I25.119 Atherosclerotic heart disease of native coronary artery with unspecified angina pectoris; E11.9 Type 2 diabetes mellitus without complications; I11.0 Hypertensive heart disease with heart failure; E78.5 Hyperlipidemia, unspecified; J44.9 Chronic obstructive pulmonary disease, unspecified; F17.210 Nicotine dependence, cigarettes, uncomplicated; Z88.8 Allergy status to other drugs, medicaments and biological substances; Z79.51 Long term (current) use of inhaled steroids; Z79.899 Other long term (current) drug therapy; I35.0 Nonrheumatic aortic (valve) stenosis; R79.89 Other specified abnormal findings of blood chemistry; J98.11 Atelectasis; Z86.718 Personal history of other venous thrombosis and embolism; Z87.442 Personal history of urinary calculi; G47.00 Insomnia, unspecified; F20.9 Schizophrenia, unspecified; F32.A Depression, unspecified; F41.9 Anxiety disorder, unspecified; R32 Unspecified urinary incontinence; Z95.5 Presence of coronary angioplasty implant and graft; Z95.828 Presence of other vascular implants and grafts; Z79.01 Long term (current) use of anticoagulants; Z79.82 Long term (current) use of aspirin; Z88.5 Allergy status to narcotic agent
CPT/HCPCS: 36415; 71045; 80048; 82550; 82553; 83735; 83880; 84484; 85025; 87486; 87581; 87633; 87798; 93005; 94640; 96374; 99284; G0378; J1940

== ENCOUNTER 2023-12-10 00:14 | Emergency (ER) | payer OTHER, MEDICAID ==
[~2023-12-10] VITALS: Ht 172.7 cm; Wt 64.4 kg
[2023-12-10 01:32] LABS: BASO # 0.1 10^3/uL (0.0-0.2); BASO % 1.1 % (0.0-1.0); EOS # 0.3 10^3/uL (0.0-0.5); EOS % 4.3 % (0.0-3.0); HEMATOCRIT 38.9 % (42.0-52.0); HEMOGLOBIN 12.9 g/dl (13.5-17.5); LYMPH # 1.6 10^3/uL (1.5-5.0); LYMPH % 21.5 % (24.0-44.0); MEAN CORPUSCULAR HEMOGLOBIN 34.2 pg (27.0-33.0); MEAN CORPUSCULAR HGB CONC 33.2 g/dl (32.0-36.5); MEAN CORPUSCULAR VOLUME 103.2 fl (80.0-96.0); MONO % 13.8 % (2.0-8.0); NEUTROPHILS # 4.4 10^3/uL (1.5-8.5); NEUTROPHILS % 58.5 % (36.0-66.0); PLATELET COUNT, AUTOMATED 177 10^3/uL (150-450); RED BLOOD COUNT 3.77 10^6/uL (4.30-6.10); WHITE BLOOD COUNT 7.5 10^3/uL (4.0-10.0)
[2023-12-10 01:54] LABS: BLOOD UREA NITROGEN 21 MG/DL (9-23); CALCIUM LEVEL 9.2 MG/DL (8.3-10.6); CARBON DIOXIDE LEVEL 24 MMOL/L (20-31); CHLORIDE LEVEL 99 MMOL/L (98-107); CK-MB VALUE MASS < 1.0 NG/ML (<3.6); CPK CREATINE PHOSPHOKINASE 51 U/L (46-171); CREATININE FOR GFR 0.82 MG/DL (0.70-1.30); GLOMERULAR FILTRATION RATE > 60.0 (>49); GLUCOSE, FASTING 104 MG/DL (74-106); MB/CK RELATIVE INDEX 1.96 (< OR =4); POTASSIUM SERUM 3.7 MMOL/L (3.5-5.1); SODIUM LEVEL 132 MMOL/L (136-145)
[2023-12-10 05:03] VITALS: TEMP 97.8
[2023-12-10] MEDS: methylPREDNISolone 125MG 2ML VIAL IM ONE (07:10)
[2023-12-10] MEDS: IPRATROPIUM 0.5MG/ALBUTEROL 2.5MG INH SOL UD 3ML (DUONEB) NEB ONE (07:22)
[2023-12-10 08:46] VITALS: BP 124/74; O2SAT 100
== END 2023-12-10 08:43 | disposition home or self-care (01) ==
LOC: M ED 00:14
DX: R07.9 Chest pain, unspecified (principal); F10.120 Alcohol abuse with intoxication, uncomplicated; I50.22 Chronic systolic (congestive) heart failure; I11.0 Hypertensive heart disease with heart failure; E78.5 Hyperlipidemia, unspecified; J44.9 Chronic obstructive pulmonary disease, unspecified; F41.9 Anxiety disorder, unspecified; F32.A Depression, unspecified; F17.210 Nicotine dependence, cigarettes, uncomplicated; Z88.8 Allergy status to other drugs, medicaments and biological substances; Z79.51 Long term (current) use of inhaled steroids; Z79.1 Long term (current) use of non-steroidal anti-inflammatories (NSAID); Z79.899 Other long term (current) drug therapy
CPT/HCPCS: 71045; 80048; 82550; 82553; 84484; 85025; 93005; 94640; 96372; 99284; J2919

== ENCOUNTER 2023-12-12 17:37 | Inpatient (IN) | payer OTHER, MEDICAID ==
[~2023-12-12] VITALS: Ht 172.7 cm; Wt 66.4 kg
[2023-12-12 19:19] LABS: BASO # 0.1 10^3/uL (0.0-0.2); BASO % 0.4 % (0.0-1.0); EOS # 0.1 10^3/uL (0.0-0.5); EOS % 1.2 % (0.0-3.0); HEMATOCRIT 44.6 % (42.0-52.0); HEMOGLOBIN 14.6 g/dl (13.5-17.5); LYMPH # 1.5 10^3/uL (1.5-5.0); LYMPH % 13.2 % (24.0-44.0); MEAN CORPUSCULAR HEMOGLOBIN 33.6 pg (27.0-33.0); MEAN CORPUSCULAR HGB CONC 32.7 g/dl (32.0-36.5); MEAN CORPUSCULAR VOLUME 102.5 fl (80.0-96.0); MONO % 9.2 % (2.0-8.0); NEUTROPHILS # 8.4 10^3/uL (1.5-8.5); NEUTROPHILS % 75.5 % (36.0-66.0); RED BLOOD COUNT 4.35 10^6/uL (4.30-6.10); WHITE BLOOD COUNT 11.2 10^3/uL (4.0-10.0)
[2023-12-12 19:47] LABS: THYROID STIMULATING HORMONE 10.341 uIU/ML (0.55-4.78)
[2023-12-12 19:48] LABS: THYROXINE (T4) 7.3 UG/DL (4.5-10.9)
[2023-12-12 19:55] LABS: ALKALINE PHOSPHATASE 145 U/L (46-116); ALT/SGPT 21 U/L (7.0-40); AST/SGOT 44 U/L (<34); BILIRUBIN,DIRECT 0.8 MG/DL (<0.4); BILIRUBIN,TOTAL 1.6 MG/DL (0.3-1.2); BLOOD UREA NITROGEN 29 MG/DL (9-23); CALCIUM LEVEL 9.8 MG/DL (8.3-10.6); CARBON DIOXIDE LEVEL 29 MMOL/L (20-31); CHLORIDE LEVEL 99 MMOL/L (98-107); CK-MB VALUE MASS < 1.0 NG/ML (<3.6); CPK CREATINE PHOSPHOKINASE 80 U/L (46-171); GLOMERULAR FILTRATION RATE > 60.0 (>49); GLUCOSE, FASTING 96 MG/DL (74-106); MB/CK RELATIVE INDEX 1.25 (< OR =4); POTASSIUM SERUM 5.6 MMOL/L (3.5-5.1); SODIUM LEVEL 134 MMOL/L (136-145); TOTAL PROTEIN 7.7 G/DL (5.7-8.2)
[2023-12-12 20:08] LABS: CK-MB VALUE MASS < 1.0 NG/ML (<3.6)
[2023-12-12 20:12] LABS: CPK CREATINE PHOSPHOKINASE 62 U/L (46-171); MB/CK RELATIVE INDEX 1.61 (< OR =4)
[2023-12-12] MEDS: cefTRIAXone SOD 1 GM in D5W MINI-BAG PLUS 50 ML IV ONE (20:22)
[2023-12-12] MEDS: AZITHROMYCIN INJ 500 MG, VIAL MATE ADAPTER 1 EACH in NS 250 ML IV ONE (20:55)
[2023-12-12] MEDS ORDERED: ACETAMINOPHEN TAB 650MG DOSE (2X325MG) PO PRN (23:05)
[2023-12-12] MEDS: DOXYCYCLINE HYCLATE 100MG TABLET PO SCH (23:05)
[2023-12-12] MEDS: IPRATROPIUM 0.5MG/ALBUTEROL 2.5MG INH SOL UD 3ML (DUONEB) NEB ONE (23:15)
[2023-12-12] MEDS ORDERED: HOME MED LIST COMPLETE! XX SCH (23:25)
[2023-12-12] MEDS ORDERED: LORazepam 2 MG TAB PO PRN (23:40)
[2023-12-12] MEDS ORDERED: NITROGLYCERIN 0.4MG SUBL TABLET SL PRN (23:40)
[2023-12-13 00:54] LABS: PROCALCITONIN 0.08 ng/ml
[2023-12-13] MEDS: IPRATROPIUM 0.5MG/ALBUTEROL 2.5MG INH SOL UD 3ML (DUONEB) INH SCH (01:39)
[2023-12-13] MEDS: VANCOMYCIN HCL 750 MG, VIAL MATE ADAPTER 1 EACH in D5W 250 ML IV ONE (02:15)
[2023-12-13] MEDS: VANCOMYCIN HCL 500 MG in D5W MINI-BAG PLUS 100 ML IV ONE (03:42)
[2023-12-13] MEDS: PIPERACILLIN/TAZOBACTAM SOD 4.5 GM in D5W MINI-BAG PLUS 50 ML IV SCH (05:23)
[2023-12-13 05:30] VITALS: BP 114/77; TEMP 98.1; O2SAT 98
[2023-12-13] MEDS: TIOTROPIUM INHALER/CAPSULE (SPIRIVA) INH SCH (07:35)
[2023-12-13 08:10] VITALS: BP 110/76
[2023-12-13] MEDS: FOLIC ACID 1MG TAB PO SCH (10:23)
[2023-12-13] MEDS: APIXABAN 5 MG TAB (ELIQUIS) PO SCH (10:23)
[2023-12-13] MEDS: DAPAGLIFLOZIN PROPANEDIOL 10MG TABLET (FARXIGA) PO SCH (10:23)
[2023-12-13] MEDS: ASPIRIN 81MG ENTERIC TABLET PO SCH (10:23)
[2023-12-13] MEDS: FUROSEMIDE 40 MG TAB PO SCH (10:24)
[2023-12-13] MEDS: THIAMINE 100 MG TAB PO SCH (10:24)
[2023-12-13] MEDS: MULTIVITAMINS/MINERALS THERAP 1 TAB PO SCH (10:24)
[2023-12-13] MEDS: PANTOPRAZOLE 40MG TAB (PROTONIX) PO SCH (10:24)
[2023-12-13 10:25] VITALS: BP 110/77
[2023-12-13] MEDS: METOPROLOL SUCC *XL* 25MG TAB (TopROL *XL*) PO SCH (10:25)
[2023-12-13] MEDS: VANCOMYCIN HCL 1,000 MG, VIAL MATE ADAPTER 1 EACH in D5W 250 ML IV SCH (12:40)
[2023-12-13 14:14] VITALS: BP 126/95; TEMP 97.9; O2SAT 99
[2023-12-13 18:49] LABS: BLOOD UREA NITROGEN 29 MG/DL (9-23); CALCIUM LEVEL 9.3 MG/DL (8.3-10.6); CARBON DIOXIDE LEVEL 29 MMOL/L (20-31); CHLORIDE LEVEL 99 MMOL/L (98-107); CREATININE FOR GFR 0.97 MG/DL (0.70-1.30); GLOMERULAR FILTRATION RATE > 60.0 (>49); GLUCOSE, FASTING 103 MG/DL (74-106); MAGNESIUM LEVEL 1.7 MG/DL (1.8-2.4); POTASSIUM SERUM 4.6 MMOL/L (3.5-5.1); SODIUM LEVEL 136 MMOL/L (136-145)
[2023-12-13] MEDS ORDERED: cefTRIAXone SOD 1 GM in D5W MINI-BAG PLUS 50 ML IV SCH (20:00)
[2023-12-13 20:05] VITALS: O2SAT 92
[2023-12-13 20:16] VITALS: BP 114/77; TEMP 97.7; O2SAT 97
[2023-12-13] MEDS: AZITHROMYCIN INJ 500 MG, VIAL MATE ADAPTER 1 EACH in NS 250 ML IV SCH (20:26)
[2023-12-13] MEDS: ATORVASTATIN 20 MG TAB PO SCH (20:26)
[2023-12-13] MEDS: ALBUTEROL 90 MCG/ACT 8GM HFA INHALER INH PRN (22:20)
[2023-12-14] MEDS: DEXTROMETHORPHAN 60MG/10ML SUSP 90ML BTL(DELSYM) PO PRN (03:50)
[2023-12-14 05:10] VITALS: BP 102/71; TEMP 97.9; O2SAT 95
[2023-12-14] MEDS: MAG SULF 1GM/100ML (MAG RUN) 1 GM in IV 1 EA IV ONE (10:00)
[2023-12-14] MEDS ORDERED: ASPI81TA26 PO (10:48)
[2023-12-14] MEDS ORDERED: NITR0.4S14 SL (10:48)
[2023-12-14] MEDS ORDERED: AZIT500T5 PO (10:50)
[2023-12-14] MEDS ORDERED: AMOX875T2 PO (10:50)
== END 2023-12-14 11:15 | disposition left against medical advice (07) | DRG 194 ==
LOC: M ED 17:37 → EDBD 17:37 → M ED INP 23:36 → M MSPAV 12-13 05:07
PROVIDERS: ADMIT Family Medicine; ATTEND Student in an Organized Health Care Education/Training Program
DX: J18.9 Pneumonia, unspecified organism (principal); I50.22 Chronic systolic (congestive) heart failure; J44.0 Chronic obstructive pulmonary disease with (acute) lower respiratory infection; I25.10 Atherosclerotic heart disease of native coronary artery without angina pectoris; I35.0 Nonrheumatic aortic (valve) stenosis; I11.0 Hypertensive heart disease with heart failure; G47.00 Insomnia, unspecified; F20.9 Schizophrenia, unspecified; F32.A Depression, unspecified; F41.9 Anxiety disorder, unspecified; R32 Unspecified urinary incontinence; E83.42 Hypomagnesemia; F17.210 Nicotine dependence, cigarettes, uncomplicated; E87.5 Hyperkalemia; F10.120 Alcohol abuse with intoxication, uncomplicated; Z79.01 Long term (current) use of anticoagulants; Z79.82 Long term (current) use of aspirin; Z79.899 Other long term (current) drug therapy; Z88.5 Allergy status to narcotic agent; Z88.8 Allergy status to other drugs, medicaments and biological substances; Z86.711 Personal history of pulmonary embolism; Z86.718 Personal history of other venous thrombosis and embolism; Z95.5 Presence of coronary angioplasty implant and graft; Z87.442 Personal history of urinary calculi

== ENCOUNTER 2023-12-20 12:19 | Emergency (ER) | payer OTHER, MEDICAID ==
[~2023-12-20] VITALS: Ht 172.7 cm; Wt 64.5 kg
[~2023-12-20 12:19] MED LIST changes: +AZIT500T5 PO
[2023-12-20 14:32] VITALS: BP 120/79; TEMP 97.8; O2SAT 100
== END 2023-12-20 14:34 | disposition home or self-care (01) ==
LOC: M ED 12:19 → EDBD 12:19 → M ED 14:34
DX: L29.9 Pruritus, unspecified (principal); I50.22 Chronic systolic (congestive) heart failure; I25.119 Atherosclerotic heart disease of native coronary artery with unspecified angina pectoris; I11.0 Hypertensive heart disease with heart failure; J44.9 Chronic obstructive pulmonary disease, unspecified; F20.9 Schizophrenia, unspecified; F17.210 Nicotine dependence, cigarettes, uncomplicated; Z88.8 Allergy status to other drugs, medicaments and biological substances; Z79.51 Long term (current) use of inhaled steroids; Z79.2 Long term (current) use of antibiotics; Z79.1 Long term (current) use of non-steroidal anti-inflammatories (NSAID); Z79.899 Other long term (current) drug therapy

== ENCOUNTER 2023-12-29 02:55 | Emergency (ER) | payer OTHER, MEDICAID ==
[~2023-12-29] VITALS: Ht 172.7 cm; Wt 95.0 kg
[2023-12-29 05:44] VITALS: BP 121/86; TEMP 98.1; O2SAT 96
== END 2023-12-29 06:06 | disposition left against medical advice (07) ==
LOC: M ED 02:55
DX: Z53.21 Procedure and treatment not carried out due to patient leaving prior to being seen by health care provider (principal)

== ENCOUNTER 2024-01-02 17:17 | Emergency (ER) | payer OTHER, MEDICAID ==
[~2024-01-02] VITALS: Ht 172.7 cm; Wt 69.4 kg
[~2024-01-02 17:17] MED LIST changes: +DOXY-323 PO; -DOXY-443 PO
[2024-01-02 17:18] VITALS: TEMP 97
[2024-01-02 18:27] LABS: BASO # 0.1 10^3/uL (0.0-0.2); BASO % 1.1 % (0.0-1.0); EOS # 0.4 10^3/uL (0.0-0.5); EOS % 6.7 % (0.0-3.0); HEMATOCRIT 43.1 % (42.0-52.0); HEMOGLOBIN 14.2 g/dl (13.5-17.5); LYMPH # 1.3 10^3/uL (1.5-5.0); LYMPH % 20.4 % (24.0-44.0); MEAN CORPUSCULAR HEMOGLOBIN 33.7 pg (27.0-33.0); MEAN CORPUSCULAR HGB CONC 32.9 g/dl (32.0-36.5); MEAN CORPUSCULAR VOLUME 102.4 fl (80.0-96.0); MONO # 0.7 10^3/uL (0.0-0.8); MONO % 11.2 % (2.0-8.0); NEUTROPHILS # 3.9 10^3/uL (1.5-8.5); NEUTROPHILS % 60.3 % (36.0-66.0); PLATELET COUNT, AUTOMATED 185 10^3/uL (150-450); RED BLOOD COUNT 4.21 10^6/uL (4.30-6.10); WHITE BLOOD COUNT 6.5 10^3/uL (4.0-10.0)
[2024-01-02 18:36] LABS: INR 1.34; PROTHROMBIN TIME 16.2 SECONDS (12.5-14.5)
[2024-01-02 20:02] LABS: LIPASE 31 U/L (12-53)
[2024-01-02 20:09] LABS: ALBUMIN 3.4 G/DL (3.2-5.2); ALKALINE PHOSPHATASE 144 U/L (46-116); ALT/SGPT 12 U/L (7.0-40); AST/SGOT 25 U/L (<34); BILIRUBIN,TOTAL 1.9 MG/DL (0.3-1.2); BLOOD UREA NITROGEN 14 MG/DL (9-23); CALCIUM LEVEL 9.2 MG/DL (8.3-10.6); CARBON DIOXIDE LEVEL 26 MMOL/L (20-31); CHLORIDE LEVEL 102 MMOL/L (98-107); CK-MB VALUE MASS 1.5 NG/ML (<3.6); CPK CREATINE PHOSPHOKINASE 63 U/L (46-171); CREATININE FOR GFR 0.85 MG/DL (0.70-1.30); GLOMERULAR FILTRATION RATE > 60.0 (>49); GLUCOSE, FASTING 86 MG/DL (74-106); MB/CK RELATIVE INDEX 2.38 (< OR =4); POTASSIUM SERUM 4.6 MMOL/L (3.5-5.1); SODIUM LEVEL 135 MMOL/L (136-145); TOTAL PROTEIN 6.9 G/DL (5.7-8.2)
[2024-01-02] MEDS: FUROSEMIDE 100MG/10ML VIAL IV ONE (21:51)
[2024-01-02 22:00] VITALS: BP 116/78
[2024-01-02 22:02] VITALS: O2SAT 97
== END 2024-01-02 22:24 | disposition left against medical advice (07) ==
LOC: M ED 17:17
DX: R07.9 Chest pain, unspecified (principal); I50.22 Chronic systolic (congestive) heart failure; I25.119 Atherosclerotic heart disease of native coronary artery with unspecified angina pectoris; I11.0 Hypertensive heart disease with heart failure; J44.9 Chronic obstructive pulmonary disease, unspecified; F17.210 Nicotine dependence, cigarettes, uncomplicated; Z88.8 Allergy status to other drugs, medicaments and biological substances; Z79.51 Long term (current) use of inhaled steroids; Z79.1 Long term (current) use of non-steroidal anti-inflammatories (NSAID); Z79.899 Other long term (current) drug therapy; Z53.9 Procedure and treatment not carried out, unspecified reason
CPT/HCPCS: 36415; 71045; 80048; 80076; 82550; 82553; 83690; 83880; 84484; 85025; 85610; 93005; 93041; 94760; 96374; 99285; J1940

== ENCOUNTER 2024-01-05 21:39 | Inpatient (IN) | payer OTHER, MEDICAID ==
[~2024-01-05] VITALS: Ht 172.7 cm; Wt 69.5 kg
[2024-01-05 22:33] LABS: VENOUS BASE EXCESS -1.6 (-2.0-2.0); VENOUS HCO3 26.9 MMOL/L (23.0-27.0); VENOUS O2 SATURATION 62.7 % (60.0-80.0); VENOUS PARTIAL PRESSURE CO2 61.4 mmHg (38.0-50.0); VENOUS PARTIAL PRESSURE O2 36.8 mmHg (30.0-50.0); VENOUS PH 7.259 UNITS (7.330-7.430); VENOUS STANDARD HCO3 22.3 MMOL/L; VENOUS TOTAL CO2 28.8 MMOL/L (24.0-28.0)
[2024-01-05 22:43] LABS: HEMATOCRIT 42.5 % (42.0-52.0); HEMOGLOBIN 13.6 g/dl (13.5-17.5); MEAN CORPUSCULAR HEMOGLOBIN 33.8 pg (27.0-33.0); MEAN CORPUSCULAR VOLUME 105.7 fl (80.0-96.0); PLATELET COUNT, AUTOMATED 171 10^3/uL (150-450); RED BLOOD COUNT 4.02 10^6/uL (4.30-6.10); WHITE BLOOD COUNT 5.9 10^3/uL (4.0-10.0)
[2024-01-05 23:04] LABS: ALBUMIN 3.5 G/DL (3.2-5.2); ALKALINE PHOSPHATASE 131 U/L (46-116); ALT/SGPT 11 U/L (7.0-40); AST/SGOT 21 U/L (<34); BILIRUBIN,TOTAL 1.6 MG/DL (0.3-1.2); BLOOD UREA NITROGEN 12 MG/DL (9-23); CALCIUM LEVEL 8.7 MG/DL (8.3-10.6); CARBON DIOXIDE LEVEL 29 MMOL/L (20-31); CHLORIDE LEVEL 103 MMOL/L (98-107); CK-MB VALUE MASS 1.4 NG/ML (<3.6); CPK CREATINE PHOSPHOKINASE 52 U/L (46-171); CREATININE FOR GFR 0.72 MG/DL (0.70-1.30); GLOMERULAR FILTRATION RATE > 60.0 (>49); GLUCOSE, FASTING 74 MG/DL (74-106); MB/CK RELATIVE INDEX 2.69 (< OR =4); POTASSIUM SERUM 3.9 MMOL/L (3.5-5.1); SODIUM LEVEL 137 MMOL/L (136-145)
[2024-01-05 23:09] LABS: ATYPICAL LYMPH 1 % (0-5); BASOPHILS 1 % (0-1); EOSINOPHILS 6 % (0-3); LYMPHOCYTES 26 % (16-44); MONOCYTES 8 % (0-5); NEUTROPHILS 58 % (28-66); PLATELET ESTIMATE NORMAL (NORMAL)
[2024-01-05] MEDS: ALBUTEROL SULFATE 2.5MG/0.5ML INH NEB SOLN NEB ONE (23:35)
[2024-01-06] MEDS: ASPIRIN 81MG CHEW TABLET PO ONE (00:33)
[2024-01-06 01:30] LABS: CK-MB VALUE MASS 1.2 NG/ML (<3.6)
[2024-01-06 01:32] LABS: MB/CK RELATIVE INDEX 2.4 (< OR =4)
[2024-01-06] MEDS ORDERED: VANCOMYCIN HCL 1,250 MG in NS 250 ML IV ONE (01:40)
[2024-01-06] MEDS: PIPERACILLIN/TAZOBACTAM SOD 4.5 GM in D5W MINI-BAG PLUS 50 ML IV ONE (02:04)
[2024-01-06] MEDS ORDERED: MED REC IN PROGRESS XX SCH (02:05)
[2024-01-06] MEDS: FUROSEMIDE 40MG/4ML VIAL IV STA (02:13)
[2024-01-06] MEDS ORDERED: ACETAMINOPHEN TAB 650MG DOSE (2X325MG) PO PRN (03:00)
[2024-01-06] MEDS: VANCOMYCIN HCL 750 MG, VIAL MATE ADAPTER 1 EACH in D5W 250 ML IV ONE (03:15)
[2024-01-06] MEDS: VANCOMYCIN HCL 500 MG in D5W MINI-BAG PLUS 100 ML IV ONE (03:16)
[2024-01-06 04:41] VITALS: BP 104/66; TEMP 97.2; O2SAT 97
[2024-01-06] MEDS: BENZONATATE 100MG CAPSULE PO PRN (06:16)
[2024-01-06 06:20] LABS: HEMATOCRIT 38.5 % (42.0-52.0); HEMOGLOBIN 12.6 g/dl (13.5-17.5); MEAN CORPUSCULAR HEMOGLOBIN 33.7 pg (27.0-33.0); MEAN CORPUSCULAR HGB CONC 32.7 g/dl (32.0-36.5); MEAN CORPUSCULAR VOLUME 102.9 fl (80.0-96.0); PLATELET COUNT, AUTOMATED 164 10^3/uL (150-450); RED BLOOD COUNT 3.74 10^6/uL (4.30-6.10); WHITE BLOOD COUNT 5.9 10^3/uL (4.0-10.0)
[2024-01-06] MEDS ORDERED: POTA1TAB23 PO (06:36)
[2024-01-06] MEDS ORDERED: ASPI-226 PO (06:36)
[2024-01-06] MEDS ORDERED: HOME MED LIST COMPLETE! XX SCH (06:40)
[2024-01-06 06:44] LABS: PROCALCITONIN <0.04 ng/ml
[2024-01-06] MEDS: IPRATROPIUM 0.5MG/ALBUTEROL 2.5MG INH SOL UD 3ML (DUONEB) NEB PRN (06:56)
[2024-01-06 06:58] LABS: ALKALINE PHOSPHATASE 115 U/L (46-116); ALT/SGPT 12 U/L (7.0-40); AST/SGOT 19 U/L (<34); BILIRUBIN,TOTAL 1.6 MG/DL (0.3-1.2); BLOOD UREA NITROGEN 12 MG/DL (9-23); CALCIUM LEVEL 8.7 MG/DL (8.3-10.6); CARBON DIOXIDE LEVEL 27 MMOL/L (20-31); CHLORIDE LEVEL 105 MMOL/L (98-107); CREATININE FOR GFR 0.71 MG/DL (0.70-1.30); GLOMERULAR FILTRATION RATE > 60.0 (>49); GLUCOSE, FASTING 117 MG/DL (74-106); MAGNESIUM LEVEL 1.4 MG/DL (1.8-2.4); POTASSIUM SERUM 3.7 MMOL/L (3.5-5.1); SODIUM LEVEL 140 MMOL/L (136-145); TOTAL PROTEIN 6.5 G/DL (5.7-8.2)
[2024-01-06 07:59] VITALS: BP 119/74; TEMP 96.8; O2SAT 97
[2024-01-06] MEDS: FUROSEMIDE 40MG/4ML VIAL IV SCH (08:17)
[2024-01-06 08:32] VITALS: O2SAT 93
[2024-01-06] MEDS: IPRATROPIUM 0.5MG/ALBUTEROL 2.5MG INH SOL UD 3ML (DUONEB) NEB SCH (08:35)
[2024-01-06] MEDS ORDERED: FUROSEMIDE 40MG/4ML VIAL IV SCH (09:00)
[2024-01-06] MEDS: SYMBICORT 160/4.5MCG INHALER 6GM INH SCH (09:13)
[2024-01-06] MEDS: TIOTROPIUM INHALER/CAPSULE (SPIRIVA) INH SCH (09:13)
[2024-01-06] MEDS: ASPIRIN 81MG ENTERIC TABLET PO SCH (10:16)
[2024-01-06] MEDS: METOPROLOL SUCC *XL* 25MG TAB (TopROL *XL*) PO SCH (10:16)
[2024-01-06] MEDS: APIXABAN 5 MG TAB (ELIQUIS) PO SCH (10:16)
[2024-01-06] MEDS: DAPAGLIFLOZIN PROPANEDIOL 10MG TABLET (FARXIGA) PO SCH (10:16)
[2024-01-06] MEDS: methylPREDNISolone 40MG 1ML VIAL IV SCH (10:16)
[2024-01-06] MEDS: MAGNESIUM OXIDE 400MG TAB (MAG-OX) PO SCH (11:57)
[2024-01-06] MEDS: POTASSIUM CHLORIDE 10MEQ SR TABLET PO SCH (11:57)
[2024-01-06] MEDS: MAG SULF 1GM/100ML (MAG RUN) 1 GM in IV 1 EA IV SCH (11:57)
[2024-01-06 12:03] VITALS: BP 110/82; TEMP 97.7; O2SAT 95
[2024-01-06] MEDS ORDERED: ATORVASTATIN 20 MG TAB PO SCH (21:00)
== END 2024-01-06 13:55 | disposition left against medical advice (07) | DRG 291 ==
LOC: EDBD 21:39 → M ED 21:39 → M ED INP 01-06 03:00 → M PCU 01-06 04:37
PROVIDERS: ADMIT Preventive Medicine Undersea and Hyperbaric Medicine; ATTEND Internal Medicine Nephrology
DX: I11.0 Hypertensive heart disease with heart failure (principal); I50.23 Acute on chronic systolic (congestive) heart failure; J96.02 Acute respiratory failure with hypercapnia; J44.1 Chronic obstructive pulmonary disease with (acute) exacerbation; I25.10 Atherosclerotic heart disease of native coronary artery without angina pectoris; I25.2 Old myocardial infarction; I35.0 Nonrheumatic aortic (valve) stenosis; G47.00 Insomnia, unspecified; F20.9 Schizophrenia, unspecified; F32.A Depression, unspecified; F41.9 Anxiety disorder, unspecified; F17.200 Nicotine dependence, unspecified, uncomplicated; F10.10 Alcohol abuse, uncomplicated; R32 Unspecified urinary incontinence; I73.9 Peripheral vascular disease, unspecified; Z86.711 Personal history of pulmonary embolism; Z86.718 Personal history of other venous thrombosis and embolism; Z95.5 Presence of coronary angioplasty implant and graft; Z98.62 Peripheral vascular angioplasty status; Z79.01 Long term (current) use of anticoagulants; Z79.82 Long term (current) use of aspirin; Z91.198 Patient's noncompliance with other medical treatment and regimen for other reason; Z79.899 Other long term (current) drug therapy; Z88.5 Allergy status to narcotic agent; Z88.8 Allergy status to other drugs, medicaments and biological substances; Z87.442 Personal history of urinary calculi; Z91.148 Patient's other noncompliance with medication regimen for other reason

== ENCOUNTER 2024-01-08 03:50 | Emergency (ER) | payer OTHER, MEDICAID ==
[~2024-01-08] VITALS: Ht 172.7 cm; Wt 82.7 kg
[~2024-01-08 03:50] MED LIST changes: +ASPI-226 PO
[2024-01-08 04:40] LABS: INR 1.25; PARTIAL THROMBOPLASTIN TIME 28.8 SECONDS (24.8-34.2); PROTHROMBIN TIME 15.4 SECONDS (12.5-14.5)
[2024-01-08 04:53] LABS: ALBUMIN 3.3 G/DL (3.2-5.2); ALKALINE PHOSPHATASE 116 U/L (46-116); ALT/SGPT 16 U/L (7.0-40); AST/SGOT 26 U/L (<34); BILIRUBIN,DIRECT 0.8 MG/DL (<0.4); BILIRUBIN,TOTAL 1.4 MG/DL (0.3-1.2); BLOOD UREA NITROGEN 16 MG/DL (9-23); CALCIUM LEVEL 8.7 MG/DL (8.3-10.6); CARBON DIOXIDE LEVEL 30 MMOL/L (20-31); CHLORIDE LEVEL 101 MMOL/L (98-107); CK-MB VALUE MASS 1.2 NG/ML (<3.6); CREATININE FOR GFR 0.69 MG/DL (0.70-1.30); GLOMERULAR FILTRATION RATE > 60.0 (>49); GLUCOSE, FASTING 96 MG/DL (74-106); POTASSIUM SERUM 3.8 MMOL/L (3.5-5.1); SODIUM LEVEL 138 MMOL/L (136-145); TOTAL PROTEIN 6.8 G/DL (5.7-8.2)
[2024-01-08 04:54] LABS: THYROID STIMULATING HORMONE 4.718 uIU/ML (0.55-4.78)
[2024-01-08 04:55] LABS: FREE T4 1.01 NG/DL (0.89-1.76)
[2024-01-08 05:30] VITALS: TEMP 98
[2024-01-08 05:43] LABS: CPK CREATINE PHOSPHOKINASE 57 U/L (46-171)
[2024-01-08 05:55] LABS: BASO # 0.1 10^3/uL (0.0-0.2); BASO % 0.8 % (0.0-1.0); EOS # 0.3 10^3/uL (0.0-0.5); EOS % 3.8 % (0.0-3.0); HEMATOCRIT 39.9 % (42.0-52.0); LYMPH # 1.4 10^3/uL (1.5-5.0); LYMPH % 16.9 % (24.0-44.0); MEAN CORPUSCULAR HEMOGLOBIN 32.9 pg (27.0-33.0); MEAN CORPUSCULAR HGB CONC 32.6 g/dl (32.0-36.5); NEUTROPHILS # 5.5 10^3/uL (1.5-8.5); NEUTROPHILS % 66.3 % (36.0-66.0); PLATELET COUNT, AUTOMATED 152 10^3/uL (150-450); RED BLOOD COUNT 3.95 10^6/uL (4.30-6.10); WHITE BLOOD COUNT 8.3 10^3/uL (4.0-10.0)
[2024-01-08 06:29] LABS: MB/CK RELATIVE INDEX 1.88 (< OR =4)
[2024-01-08 06:46] VITALS: BP 119/77; O2SAT 94
== END 2024-01-08 07:08 | disposition left against medical advice (07) ==
LOC: M ED 03:50
DX: Z53.21 Procedure and treatment not carried out due to patient leaving prior to being seen by health care provider (principal)

== ENCOUNTER 2024-01-08 22:45 | Emergency (ER) | payer OTHER, MEDICAID ==
[~2024-01-08] VITALS: Ht 172.7 cm; Wt 64.5 kg
[2024-01-09 00:12] LABS: CK-MB VALUE MASS 1.1 NG/ML (<3.6)
[2024-01-09 00:13] LABS: BLOOD UREA NITROGEN 20 MG/DL (9-23); CALCIUM LEVEL 9.2 MG/DL (8.3-10.6); CARBON DIOXIDE LEVEL 32 MMOL/L (20-31); CHLORIDE LEVEL 102 MMOL/L (98-107); CPK CREATINE PHOSPHOKINASE 45 U/L (46-171); CREATININE FOR GFR 0.81 MG/DL (0.70-1.30); GLOMERULAR FILTRATION RATE > 60.0 (>49); GLUCOSE, FASTING 79 MG/DL (74-106); MB/CK RELATIVE INDEX 2.44 (< OR =4); SODIUM LEVEL 138 MMOL/L (136-145)
[2024-01-09 00:16] LABS: BASO # 0.1 10^3/uL (0.0-0.2); BASO % 1.2 % (0.0-1.0); EOS # 0.3 10^3/uL (0.0-0.5); HEMOGLOBIN 13.5 g/dl (13.5-17.5); LYMPH # 1.3 10^3/uL (1.5-5.0); LYMPH % 17.2 % (24.0-44.0); MEAN CORPUSCULAR HEMOGLOBIN 33.2 pg (27.0-33.0); MEAN CORPUSCULAR HGB CONC 32.1 g/dl (32.0-36.5); MEAN CORPUSCULAR VOLUME 103.2 fl (80.0-96.0); MONO % 13.4 % (2.0-8.0); NEUTROPHILS # 4.7 10^3/uL (1.5-8.5); NEUTROPHILS % 63.3 % (36.0-66.0); PLATELET COUNT, AUTOMATED 160 10^3/uL (150-450); RED BLOOD COUNT 4.07 10^6/uL (4.30-6.10); WHITE BLOOD COUNT 7.5 10^3/uL (4.0-10.0)
[2024-01-09 02:00] LABS: CK-MB VALUE MASS 1.3 NG/ML (<3.6)
[2024-01-09 02:02] LABS: MB/CK RELATIVE INDEX 2.95 (< OR =4)
[2024-01-09] MEDS: FUROSEMIDE 40MG/4ML VIAL IV ONE (04:55)
[2024-01-09 06:31] VITALS: BP 107/74; TEMP 98.6; O2SAT 93
== END 2024-01-09 06:42 | disposition left against medical advice (07) ==
LOC: M ED 22:45
DX: J90 Pleural effusion, not elsewhere classified (principal); I50.22 Chronic systolic (congestive) heart failure; R94.31 Abnormal electrocardiogram [ECG] [EKG]; I25.119 Atherosclerotic heart disease of native coronary artery with unspecified angina pectoris; I25.2 Old myocardial infarction; J44.9 Chronic obstructive pulmonary disease, unspecified; I11.0 Hypertensive heart disease with heart failure; F17.210 Nicotine dependence, cigarettes, uncomplicated; Z88.8 Allergy status to other drugs, medicaments and biological substances; Z79.51 Long term (current) use of inhaled steroids; Z79.1 Long term (current) use of non-steroidal anti-inflammatories (NSAID); Z79.899 Other long term (current) drug therapy; Z53.9 Procedure and treatment not carried out, unspecified reason
CPT/HCPCS: 71045; 71046; 80048; 80076; 82550; 82553; 83880; 84439; 84443; 84484; 85025; 85610; 85730; 93005; 93041; 94760; 96374; 99285; J1940

== ENCOUNTER 2024-01-11 14:38 | Emergency (ER) | payer OTHER, MEDICAID ==
[~2024-01-11] VITALS: Ht 172.7 cm; Wt 74.8 kg
[2024-01-11 15:43] LABS: HEMOGLOBIN 11.9 g/dl (13.5-17.5); MEAN CORPUSCULAR HEMOGLOBIN 33.6 pg (27.0-33.0); MEAN CORPUSCULAR HGB CONC 33.1 g/dl (32.0-36.5); MEAN CORPUSCULAR VOLUME 101.7 fl (80.0-96.0); PLATELET COUNT, AUTOMATED 149 10^3/uL (150-450); RED BLOOD COUNT 3.54 10^6/uL (4.30-6.10); WHITE BLOOD COUNT 6.3 10^3/uL (4.0-10.0)
[2024-01-11 16:10] LABS: LIPASE 39 U/L (12-53)
[2024-01-11 16:12] LABS: ALBUMIN 3.4 G/DL (3.2-5.2); ALKALINE PHOSPHATASE 130 U/L (46-116); ALT/SGPT 14 U/L (7.0-40); AST/SGOT 27 U/L (<34); BILIRUBIN,TOTAL 1.9 MG/DL (0.3-1.2); BLOOD UREA NITROGEN 16 MG/DL (9-23); CALCIUM LEVEL 9.3 MG/DL (8.3-10.6); CARBON DIOXIDE LEVEL 28 MMOL/L (20-31); CHLORIDE LEVEL 100 MMOL/L (98-107); CK-MB VALUE MASS 1.8 NG/ML (<3.6); CREATININE FOR GFR 0.81 MG/DL (0.70-1.30); GLOMERULAR FILTRATION RATE > 60.0 (>49); GLUCOSE, FASTING 105 MG/DL (74-106); POTASSIUM SERUM 4.7 MMOL/L (3.5-5.1); SODIUM LEVEL 135 MMOL/L (136-145)
[2024-01-11 16:14] LABS: FREE T4 1.06 NG/DL (0.89-1.76)
[2024-01-11 16:19] LABS: CPK CREATINE PHOSPHOKINASE 50 U/L (46-171)
[2024-01-11 16:27] LABS: ATYPICAL LYMPH 5 % (0-5); BASOPHILS 3 % (0-1); EOSINOPHILS 1 % (0-3); LYMPHOCYTES 9 % (16-44); MONOCYTES 9 % (0-5); NEUTROPHILS 73 % (28-66); PLATELET ESTIMATE NORMAL (NORMAL)
[2024-01-11] MEDS: FUROSEMIDE 100MG/10ML VIAL IV ONE (17:14)
[2024-01-11] MEDS ORDERED: MED REC IN PROGRESS XX SCH (17:50)
[2024-01-11 17:53] LABS: CK-MB VALUE MASS 1.4 NG/ML (<3.6)
[2024-01-11 17:56] LABS: MB/CK RELATIVE INDEX 2.91 (< OR =4)
[2024-01-11 19:16] VITALS: BP 103/53
[2024-01-11 19:16] LABS: MB/CK RELATIVE INDEX 3.63 (< OR =4)
[2024-01-11 19:46] VITALS: O2SAT 97
[2024-01-11] MEDS ORDERED: ASPI-226 PO (20:09)
[2024-01-11] MEDS ORDERED: POTA1TAB23 PO (20:09)
[2024-01-11] MEDS ORDERED: NITR0.4S14 SL (20:09)
[2024-01-11] MEDS ORDERED: FURO40TA2 PO (20:09)
[2024-01-11] MEDS ORDERED: ALBU8.5H INH (20:09)
[2024-01-11] MEDS ORDERED: FARX1TAB3 PO (20:09)
[2024-01-11] MEDS ORDERED: FOLI1TAB11 PO (20:09)
[2024-01-11] MEDS ORDERED: SPIR1CAP INH (20:09)
[2024-01-11] MEDS ORDERED: THIA100T7 PO (20:09)
[2024-01-11 20:13] VITALS: TEMP 97.4
== END 2024-01-11 20:22 | disposition home or self-care (01) ==
LOC: EDBD 14:38 → M ED 14:38
DX: I50.22 Chronic systolic (congestive) heart failure (principal); R07.9 Chest pain, unspecified; Z76.0 Encounter for issue of repeat prescription; I25.2 Old myocardial infarction; I11.0 Hypertensive heart disease with heart failure; E78.5 Hyperlipidemia, unspecified; J44.9 Chronic obstructive pulmonary disease, unspecified; F17.210 Nicotine dependence, cigarettes, uncomplicated; Z88.8 Allergy status to other drugs, medicaments and biological substances; Z79.51 Long term (current) use of inhaled steroids; Z79.1 Long term (current) use of non-steroidal anti-inflammatories (NSAID); Z79.899 Other long term (current) drug therapy

== ENCOUNTER 2024-01-12 17:19 | Inpatient (IN) | payer OTHER, MEDICAID ==
[~2024-01-12] VITALS: Ht 170.2 cm; Wt 74.8 kg
[2024-01-12] MEDS: NS 500 ML IV ONE (18:08)
[2024-01-12 18:19] LABS: VENOUS BASE EXCESS -0.9 (-2.0-2.0); VENOUS HCO3 25.9 MMOL/L (23.0-27.0); VENOUS O2 SATURATION 59.8 % (60.0-80.0); VENOUS PARTIAL PRESSURE O2 35.1 mmHg (30.0-50.0); VENOUS PH 7.324 UNITS (7.330-7.430); VENOUS STANDARD HCO3 22.8 MMOL/L; VENOUS TOTAL CO2 27.5 MMOL/L (24.0-28.0)
[2024-01-12 18:28] LABS: APPEARANCE, URINE CLEAR (CLEAR); BACTERIA, URINE AUTO NEGATIVE (NEGATIVE); BILIRUBIN, URINE AUTO NEGATIVE (NEGATIVE); BLOOD, URINE BLOOD NEGATIVE (NEGATIVE); COLOR, URINE YELLOW (YELLOW); GLUCOSE, URINE (UA) AUTO NEGATIVE (NEGATIVE); KETONE, URINE AUTO NEGATIVE (NEGATIVE); LEUKOCYTE ESTERASE, URINE AUTO NEGATIVE (NEGATIVE); MUCUS, URINE SMALL (NEGATIVE); NITRITE, URINE AUTO NEGATIVE (NEGATIVE); PROTEIN, URINE AUTO NEGATIVE (NEGATIVE); RBC, URINE AUTO 0 /HPF (0-3); SPECIFIC GRAVITY URINE AUTO 1.018 (1.002-1.035); SQUAMOUS EPITHELIAL CELL UR AU 0 /HPF (0-6); WBC, URINE AUTO 1 /HPF (0-3)
[2024-01-12 18:38] LABS: BASO # 0.1 10^3/uL (0.0-0.2); BASO % 0.8 % (0.0-1.0); EOS # 0.2 10^3/uL (0.0-0.5); EOS % 2.8 % (0.0-3.0); HEMATOCRIT 41.7 % (42.0-52.0); HEMOGLOBIN 13.7 g/dl (13.5-17.5); LYMPH # 1.5 10^3/uL (1.5-5.0); LYMPH % 20.7 % (24.0-44.0); MEAN CORPUSCULAR HEMOGLOBIN 33.3 pg (27.0-33.0); MEAN CORPUSCULAR HGB CONC 32.9 g/dl (32.0-36.5); MEAN CORPUSCULAR VOLUME 101.5 fl (80.0-96.0); MONO # 1.2 10^3/uL (0.0-0.8); MONO % 16.5 % (2.0-8.0); NEUTROPHILS # 4.2 10^3/uL (1.5-8.5); NEUTROPHILS % 58.8 % (36.0-66.0); PLATELET COUNT, AUTOMATED 168 10^3/uL (150-450); RED BLOOD COUNT 4.11 10^6/uL (4.30-6.10); WHITE BLOOD COUNT 7.2 10^3/uL (4.0-10.0)
[2024-01-12 18:51] LABS: INR 1.2; PROTHROMBIN TIME 14.8 SECONDS (12.5-14.5)
[2024-01-12] MEDS: cefTRIAXone SOD 1 GM in D5W MINI-BAG PLUS 50 ML IV ONE (18:55)
[2024-01-12] MEDS: methylPREDNISolone 125MG 2ML VIAL IV ONE (18:55)
[2024-01-12 18:56] LABS: ETHYL ALCOHOL (ETHANOL) 0.056 % (0.000-0.010)
[2024-01-12 18:58] LABS: ALBUMIN 3.6 G/DL (3.2-5.2); ALKALINE PHOSPHATASE 141 U/L (46-116); ALT/SGPT 13 U/L (7.0-40); AST/SGOT 19 U/L (<34); BILIRUBIN,TOTAL 1.7 MG/DL (0.3-1.2); BLOOD UREA NITROGEN 19 MG/DL (9-23); CALCIUM LEVEL 9.5 MG/DL (8.3-10.6); CARBON DIOXIDE LEVEL 28 MMOL/L (20-31); CHLORIDE LEVEL 99 MMOL/L (98-107); CREATININE FOR GFR 0.81 MG/DL (0.70-1.30); GLOMERULAR FILTRATION RATE > 60.0 (>49); GLUCOSE, FASTING 98 MG/DL (74-106); MAGNESIUM LEVEL 1.7 MG/DL (1.8-2.4); POTASSIUM SERUM 4.1 MMOL/L (3.5-5.1); SODIUM LEVEL 136 MMOL/L (136-145); TOTAL PROTEIN 7.2 G/DL (5.7-8.2)
[2024-01-12] MEDS: IPRATROPIUM 0.5MG/ALBUTEROL 2.5MG INH SOL UD 3ML (DUONEB) NEB ONE (19:01)
[2024-01-12] MEDS ORDERED: ISOVUE-370 76% 100ML VIAL As Ordered ONE (19:02)
[2024-01-12 19:05] LABS: PROCALCITONIN <0.04 ng/ml
[2024-01-13] MEDS ORDERED: NITR4TASL SL (00:27)
[2024-01-13] MEDS ORDERED: POTA-149 PO (00:27)
[2024-01-13] MEDS ORDERED: THIA100T7 PO (00:27)
[2024-01-13] MEDS ORDERED: HOME MED LIST COMPLETE! XX SCH (00:30)
[2024-01-13] MEDS ORDERED: MAALOX 30 ML SUSP *UDC PO PRN (01:00)
[2024-01-13] MEDS ORDERED: NITROGLYCERIN 0.4MG SUBL TABLET SL PRN (01:00)
[2024-01-13] MEDS ORDERED: ALBUTEROL 90 MCG/ACT 8GM HFA INHALER INH PRN (01:00)
[2024-01-13] MEDS ORDERED: MOM 30ML SUSPENSION UDC PO PRN (01:00)
[2024-01-13] MEDS ORDERED: LORazepam 2 MG TAB PO PRN (01:00)
[2024-01-13] MEDS ORDERED: ACETAMINOPHEN TAB 650MG DOSE (2X325MG) PO PRN (01:00)
[2024-01-13 01:15] VITALS: BP 132/86; TEMP 98.6; O2SAT 93
[2024-01-13] MEDS ORDERED: methylPREDNISolone 125MG 2ML VIAL IV SCH (02:00)
[2024-01-13] MEDS ORDERED: FUROSEMIDE 40MG/4ML VIAL IV ONE (02:25)
[2024-01-13] MEDS ORDERED: DOXYCYCLINE HYCLATE 100 MG in D5W MINI-BAG PLUS 100 ML IV SCH (05:00)
[2024-01-13] MEDS ORDERED: TIOTROPIUM INHALER/CAPSULE (SPIRIVA) INH SCH (08:00)
[2024-01-13] MEDS ORDERED: ASPIRIN 81MG ENTERIC TABLET PO SCH (09:00)
[2024-01-13] MEDS ORDERED: PANTOPRAZOLE 40MG VIAL IV SCH (09:00)
[2024-01-13] MEDS ORDERED: POTASSIUM CHLORIDE 10MEQ SR TABLET PO SCH (09:00)
[2024-01-13] MEDS ORDERED: THIAMINE 100 MG TAB PO SCH (09:00)
[2024-01-13] MEDS ORDERED: METOPROLOL SUCC *XL* 25MG TAB (TopROL *XL*) PO SCH (09:00)
[2024-01-13] MEDS ORDERED: NICOTINE 21MG/24HR 1 EA TRANSDERMAL TD SCH (09:00)
[2024-01-13] MEDS ORDERED: FUROSEMIDE 40 MG TAB PO SCH (09:00)
[2024-01-13] MEDS ORDERED: DAPAGLIFLOZIN PROPANEDIOL 10MG TABLET (FARXIGA) PO SCH (09:00)
[2024-01-13] MEDS ORDERED: DOCUSATE SODIUM 100MG CAPSULE PO SCH (09:00)
[2024-01-13] MEDS ORDERED: APIXABAN 5 MG TAB (ELIQUIS) PO SCH (09:00)
[2024-01-13] MEDS ORDERED: cefTRIAXone SOD 2 GM in D5W MINI-BAG PLUS 50 ML IV SCH (09:00)
[2024-01-13] MEDS ORDERED: FOLIC ACID 1MG TAB PO SCH (09:00)
[2024-01-13] MEDS ORDERED: MULTIVITAMINS/MINERALS THERAP 1 TAB PO SCH (09:00)
[2024-01-13] MEDS ORDERED: ATORVASTATIN 20 MG TAB PO SCH (21:00)
== END 2024-01-13 01:45 | disposition left against medical advice (07) | DRG 291 ==
LOC: M ED 17:19 → EDSEX 17:19 → EDBD 17:19 → M ED INP 23:55
PROVIDERS: ADMIT Family Medicine; ATTEND Family Medicine
DX: I11.0 Hypertensive heart disease with heart failure (principal); I50.23 Acute on chronic systolic (congestive) heart failure; J96.01 Acute respiratory failure with hypoxia; J18.9 Pneumonia, unspecified organism; J44.0 Chronic obstructive pulmonary disease with (acute) lower respiratory infection; J44.1 Chronic obstructive pulmonary disease with (acute) exacerbation; I25.2 Old myocardial infarction; E78.5 Hyperlipidemia, unspecified; F17.210 Nicotine dependence, cigarettes, uncomplicated; F20.9 Schizophrenia, unspecified; F10.90 Alcohol use, unspecified, uncomplicated; I25.10 Atherosclerotic heart disease of native coronary artery without angina pectoris; R29.6 Repeated falls; I35.0 Nonrheumatic aortic (valve) stenosis; Z86.711 Personal history of pulmonary embolism; Z86.718 Personal history of other venous thrombosis and embolism; G47.00 Insomnia, unspecified; F32.A Depression, unspecified; F41.9 Anxiety disorder, unspecified; R32 Unspecified urinary incontinence; M54.50 Low back pain, unspecified; Z95.828 Presence of other vascular implants and grafts; Z79.01 Long term (current) use of anticoagulants; Z79.82 Long term (current) use of aspirin; Z79.84 Long term (current) use of oral hypoglycemic drugs; Z79.899 Other long term (current) drug therapy; Z88.5 Allergy status to narcotic agent; Z88.8 Allergy status to other drugs, medicaments and biological substances; Z95.5 Presence of coronary angioplasty implant and graft

== ENCOUNTER 2024-01-14 03:44 | Emergency (ER) | payer OTHER, MEDICAID ==
[~2024-01-14] VITALS: Ht 177.8 cm; Wt 68.2 kg
[~2024-01-14 03:44] MED LIST changes: +POTA-149 PO
[2024-01-14 03:53] VITALS: TEMP 97.8
[2024-01-14 04:11] LABS: BASO % 0.1 % (0.0-1.0); EOS % 0.4 % (0.0-3.0); HEMATOCRIT 36.9 % (42.0-52.0); HEMOGLOBIN 12.3 g/dl (13.5-17.5); LYMPH # 1.4 10^3/uL (1.5-5.0); LYMPH % 12.8 % (24.0-44.0); MEAN CORPUSCULAR HEMOGLOBIN 33.7 pg (27.0-33.0); MEAN CORPUSCULAR HGB CONC 33.3 g/dl (32.0-36.5); MEAN CORPUSCULAR VOLUME 101.1 fl (80.0-96.0); MONO # 1.5 10^3/uL (0.0-0.8); MONO % 14.2 % (2.0-8.0); NEUTROPHILS # 7.6 10^3/uL (1.5-8.5); NEUTROPHILS % 72.1 % (36.0-66.0); PLATELET COUNT, AUTOMATED 162 10^3/uL (150-450); RED BLOOD COUNT 3.65 10^6/uL (4.30-6.10); WHITE BLOOD COUNT 10.6 10^3/uL (4.0-10.0)
[2024-01-14 04:34] LABS: LIPASE 32 U/L (12-53)
[2024-01-14 04:36] LABS: ALBUMIN 3.5 G/DL (3.2-5.2); ALKALINE PHOSPHATASE 129 U/L (46-116); ALT/SGPT 16 U/L (7.0-40); AST/SGOT 20 U/L (<34); BILIRUBIN,DIRECT 0.8 MG/DL (<0.4); BILIRUBIN,TOTAL 1.5 MG/DL (0.3-1.2); BLOOD UREA NITROGEN 16 MG/DL (9-23); CALCIUM LEVEL 9.2 MG/DL (8.3-10.6); CARBON DIOXIDE LEVEL 26 MMOL/L (20-31); CHLORIDE LEVEL 100 MMOL/L (98-107); CK-MB VALUE MASS 1.4 NG/ML (<3.6); CPK CREATINE PHOSPHOKINASE 44 U/L (46-171); CREATININE FOR GFR 0.66 MG/DL (0.70-1.30); GLOMERULAR FILTRATION RATE > 60.0 (>49); GLUCOSE, FASTING 107 MG/DL (74-106); INR 1.3; MB/CK RELATIVE INDEX 3.18 (< OR =4); PROTHROMBIN TIME 15.7 SECONDS (12.5-14.5); SODIUM LEVEL 134 MMOL/L (136-145)
[2024-01-14 06:30] VITALS: BP 107/77; O2SAT 93
== END 2024-01-14 06:58 | disposition left against medical advice (07) ==
LOC: EDBD 03:44 → M ED 03:44
DX: Z53.21 Procedure and treatment not carried out due to patient leaving prior to being seen by health care provider (principal)

== ENCOUNTER 2024-01-21 21:20 | Inpatient (IN) | payer OTHER, MEDICAID ==
[2024-01-21 21:55] LABS: VENOUS BASE EXCESS -0.1 (-2.0-2.0); VENOUS HCO3 25.4 MMOL/L (23.0-27.0); VENOUS PARTIAL PRESSURE CO2 44.5 mmHg (38.0-50.0); VENOUS PARTIAL PRESSURE O2 68.5 mmHg (30.0-50.0); VENOUS PH 7.374 UNITS (7.330-7.430); VENOUS STANDARD HCO3 24.3 MMOL/L; VENOUS TOTAL CO2 26.7 MMOL/L (24.0-28.0)
[2024-01-21 22:00] LABS: BASO % 0.5 % (0.0-1.0); EOS # 0.3 10^3/uL (0.0-0.5); EOS % 3.4 % (0.0-3.0); HEMATOCRIT 38.1 % (42.0-52.0); HEMOGLOBIN 12.5 g/dl (13.5-17.5); LYMPH # 1.1 10^3/uL (1.5-5.0); LYMPH % 13.7 % (24.0-44.0); MEAN CORPUSCULAR HEMOGLOBIN 33.8 pg (27.0-33.0); MEAN CORPUSCULAR HGB CONC 32.8 g/dl (32.0-36.5); MONO # 1.2 10^3/uL (0.0-0.8); NEUTROPHILS # 5.6 10^3/uL (1.5-8.5); NEUTROPHILS % 68.2 % (36.0-66.0); PLATELET COUNT, AUTOMATED 169 10^3/uL (150-450); WHITE BLOOD COUNT 8.2 10^3/uL (4.0-10.0)
[2024-01-21 22:32] LABS: ETHYL ALCOHOL (ETHANOL) < 0.003 % (0.000-0.010)
[2024-01-21 22:34] LABS: ALBUMIN 3.2 G/DL (3.2-5.2); ALKALINE PHOSPHATASE 139 U/L (46-116); ALT/SGPT 13 U/L (7.0-40); AST/SGOT 17 U/L (<34); BILIRUBIN,DIRECT 1.4 MG/DL (<0.4); BILIRUBIN,TOTAL 2.7 MG/DL (0.3-1.2); BLOOD UREA NITROGEN 12 MG/DL (9-23); CALCIUM LEVEL 8.9 MG/DL (8.3-10.6); CARBON DIOXIDE LEVEL 29 MMOL/L (20-31); CHLORIDE LEVEL 102 MMOL/L (98-107); CK-MB VALUE MASS 1.2 NG/ML (<3.6); CPK CREATINE PHOSPHOKINASE 44 U/L (46-171); CREATININE FOR GFR 0.67 MG/DL (0.70-1.30); GLOMERULAR FILTRATION RATE > 60.0 (>49); GLUCOSE, FASTING 150 MG/DL (74-106); MB/CK RELATIVE INDEX 2.72 (< OR =4); POTASSIUM SERUM 4.2 MMOL/L (3.5-5.1); SODIUM LEVEL 136 MMOL/L (136-145); TOTAL PROTEIN 6.5 G/DL (5.7-8.2)
[2024-01-21] MEDS ORDERED: ISOVUE-370 76% 100ML VIAL As Ordered ONE (23:33)
[2024-01-21 23:53] LABS: CK-MB VALUE MASS 1.4 NG/ML (<3.6)
[2024-01-21 23:56] LABS: MB/CK RELATIVE INDEX 2.85 (< OR =4)
[2024-01-22] MEDS: FUROSEMIDE 100MG/10ML VIAL IV ONE (01:19)
[2024-01-22] MEDS ORDERED: MAALOX 30 ML SUSP *UDC PO PRN (05:05)
[2024-01-22] MEDS ORDERED: ACETAMINOPHEN TAB 650MG DOSE (2X325MG) PO PRN (05:05)
[2024-01-22] MEDS ORDERED: LORazepam 2 MG TAB PO PRN (05:05)
[2024-01-22] MEDS ORDERED: MOM 30ML SUSPENSION UDC PO PRN (05:05)
[2024-01-22] MEDS ORDERED: HOME MED LIST COMPLETE! XX SCH (05:30)
[2024-01-22 06:16] LABS: HEMATOCRIT 41.4 % (42.0-52.0); HEMOGLOBIN 13.5 g/dl (13.5-17.5); MEAN CORPUSCULAR HEMOGLOBIN 33.2 pg (27.0-33.0); MEAN CORPUSCULAR HGB CONC 32.6 g/dl (32.0-36.5); MEAN CORPUSCULAR VOLUME 101.7 fl (80.0-96.0); PLATELET COUNT, AUTOMATED 175 10^3/uL (150-450); RED BLOOD COUNT 4.07 10^6/uL (4.30-6.10); WHITE BLOOD COUNT 6.6 10^3/uL (4.0-10.0)
[2024-01-22] MEDS: FUROSEMIDE 20MG/2ML VIAL IV SCH (08:11)
[2024-01-22] MEDS: NICOTINE 21MG/24HR 1 EA TRANSDERMAL TD SCH (08:12)
[2024-01-22] MEDS: THIAMINE 100 MG TAB PO SCH (08:12)
[2024-01-22] MEDS: DOCUSATE SODIUM 100MG CAPSULE PO SCH (08:13)
[2024-01-22] MEDS: MULTIVITAMINS/MINERALS THERAP 1 TAB PO SCH (08:13)
[2024-01-22] MEDS: APIXABAN 5 MG TAB (ELIQUIS) PO SCH (08:13)
[2024-01-22] MEDS: FOLIC ACID 1MG TAB PO SCH (08:13)
[2024-01-22 08:27] LABS: INR 1.17; PROTHROMBIN TIME 14.6 SECONDS (12.5-14.5)
[2024-01-22 08:49] LABS: PROCALCITONIN <0.04 ng/ml
[2024-01-22 08:50] LABS: ALBUMIN 3.2 G/DL (3.2-5.2); ALKALINE PHOSPHATASE 144 U/L (46-116); ALT/SGPT 12 U/L (7.0-40); AST/SGOT 18 U/L (<34); BILIRUBIN,TOTAL 2.5 MG/DL (0.3-1.2); BLOOD UREA NITROGEN 11 MG/DL (9-23); CALCIUM LEVEL 9.3 MG/DL (8.3-10.6); CARBON DIOXIDE LEVEL 32 MMOL/L (20-31); CHLORIDE LEVEL 100 MMOL/L (98-107); CREATININE FOR GFR 0.64 MG/DL (0.70-1.30); GLOMERULAR FILTRATION RATE > 60.0 (>49); GLUCOSE, FASTING 140 MG/DL (74-106); PHOSPHORUS LEVEL 3.4 MG/DL (2.4-5.1); POTASSIUM SERUM 4.3 MMOL/L (3.5-5.1); SODIUM LEVEL 137 MMOL/L (136-145); TOTAL PROTEIN 6.9 G/DL (5.7-8.2)
[2024-01-22] MEDS ORDERED: ALBUTEROL 90 MCG/ACT 8GM HFA INHALER INH PRN (11:50)
[2024-01-22 12:29] VITALS: BP 113/74
[2024-01-22] MEDS: POTASSIUM CHLORIDE 10MEQ SR TABLET PO SCH (12:29)
[2024-01-22] MEDS: DAPAGLIFLOZIN PROPANEDIOL 10MG TABLET (FARXIGA) PO SCH (12:29)
[2024-01-22] MEDS: METOPROLOL SUCC *XL* 25MG TAB (TopROL *XL*) PO SCH (12:29)
[2024-01-22] MEDS: ASPIRIN 81MG ENTERIC TABLET PO SCH (12:29)
[2024-01-22] MEDS: TIOTROPIUM INHALER/CAPSULE (SPIRIVA) INH SCH (13:46)
[2024-01-22 15:30] VITALS: BP 120/77; TEMP 98.1; O2SAT 94
[2024-01-22 15:47] VITALS: BP 120/77
[2024-01-22] MEDS: FUROSEMIDE 40MG/4ML VIAL IV SCH (16:49)
[2024-01-22] MEDS ORDERED: ATORVASTATIN 20 MG TAB PO SCH (21:00)
== END 2024-01-22 17:52 | disposition left against medical advice (07) | DRG 291 ==
LOC: M ED 21:20 → M ED INP 01-22 05:04 → M MSPAV 01-22 15:22
PROVIDERS: ADMIT Internal Medicine; ATTEND Internal Medicine
DX: I11.0 Hypertensive heart disease with heart failure (principal); I50.23 Acute on chronic systolic (congestive) heart failure; J98.11 Atelectasis; J90 Pleural effusion, not elsewhere classified; R18.8 Other ascites; J44.9 Chronic obstructive pulmonary disease, unspecified; I25.10 Atherosclerotic heart disease of native coronary artery without angina pectoris; I25.2 Old myocardial infarction; I35.0 Nonrheumatic aortic (valve) stenosis; G47.00 Insomnia, unspecified; E78.5 Hyperlipidemia, unspecified; F20.9 Schizophrenia, unspecified; F32.A Depression, unspecified; F41.9 Anxiety disorder, unspecified; R94.5 Abnormal results of liver function studies; F10.10 Alcohol abuse, uncomplicated; F17.210 Nicotine dependence, cigarettes, uncomplicated; Z90.01 Acquired absence of eye; Z95.5 Presence of coronary angioplasty implant and graft; Z95.828 Presence of other vascular implants and grafts; Z79.01 Long term (current) use of anticoagulants; Z79.82 Long term (current) use of aspirin; Z79.899 Other long term (current) drug therapy; Z88.5 Allergy status to narcotic agent; Z88.8 Allergy status to other drugs, medicaments and biological substances; Z86.711 Personal history of pulmonary embolism; Z86.718 Personal history of other venous thrombosis and embolism

== ENCOUNTER 2024-01-31 02:14 | Emergency (ER) | payer OTHER, MEDICAID ==
[~2024-01-31] VITALS: Ht 172.7 cm; Wt 64.5 kg
[~2024-01-31 02:14] MED LIST changes: +MELA2.5C4 PO
[2024-01-31 06:30] VITALS: TEMP 98
[2024-01-31 08:31] VITALS: BP 139/104; O2SAT 95
== END 2024-01-31 08:42 | disposition left against medical advice (07) ==
LOC: EDBD 02:14 → M ED 02:14
DX: Z53.21 Procedure and treatment not carried out due to patient leaving prior to being seen by health care provider (principal)

== ENCOUNTER 2024-02-02 03:20 | Emergency (ER) | payer OTHER, MEDICAID ==
[~2024-02-02] VITALS: Ht 172.7 cm; Wt 65.5 kg
[~2024-02-02 03:20] MED LIST changes: +ONDA-282 PO; -ONDA4TAB6 PO
[2024-02-02 07:35] VITALS: BP 126/82; TEMP 97.8; O2SAT 97
== END 2024-02-02 08:36 | disposition home or self-care (01) ==
LOC: EDBD 03:20 → M ED 03:20
DX: R06.02 Shortness of breath (principal); I10 Essential (primary) hypertension; F10.10 Alcohol abuse, uncomplicated; Z86.718 Personal history of other venous thrombosis and embolism; Z88.5 Allergy status to narcotic agent; Z88.8 Allergy status to other drugs, medicaments and biological substances; Z79.82 Long term (current) use of aspirin; Z79.01 Long term (current) use of anticoagulants; Z79.02 Long term (current) use of antithrombotics/antiplatelets; Z79.52 Long term (current) use of systemic steroids; Z79.899 Other long term (current) drug therapy; Z53.9 Procedure and treatment not carried out, unspecified reason

== ENCOUNTER 2024-02-05 15:01 | Inpatient (IN) | payer OTHER, MEDICAID ==
[~2024-02-05] VITALS: Ht 172.7 cm; Wt 73.0 kg
[2024-02-05] MEDS: IPRATROPIUM 0.5MG/ALBUTEROL 2.5MG INH SOL UD 3ML (DUONEB) NEB PRN (17:00)
[2024-02-05 17:08] LABS: BASO # 0.1 10^3/uL (0.0-0.2); BASO % 0.9 % (0.0-1.0); EOS # 0.3 10^3/uL (0.0-0.5); HEMATOCRIT 38.5 % (42.0-52.0); HEMOGLOBIN 12.4 g/dl (13.5-17.5); LYMPH % 14.1 % (24.0-44.0); MEAN CORPUSCULAR HEMOGLOBIN 33.7 pg (27.0-33.0); MEAN CORPUSCULAR HGB CONC 32.2 g/dl (32.0-36.5); MEAN CORPUSCULAR VOLUME 104.6 fl (80.0-96.0); MONO # 0.9 10^3/uL (0.0-0.8); MONO % 13.2 % (2.0-8.0); NEUTROPHILS # 4.6 10^3/uL (1.5-8.5); NEUTROPHILS % 66.5 % (36.0-66.0); PLATELET COUNT, AUTOMATED 150 10^3/uL (150-450); RED BLOOD COUNT 3.68 10^6/uL (4.30-6.10); WHITE BLOOD COUNT 6.8 10^3/uL (4.0-10.0)
[2024-02-05 17:14] LABS: ABG BASE EXCESS 2.3 (-2.0-2.0); ABG HCO3 27.3 MMOL/L (22.0-26.0); ABG O2 SATURATION 93.6 % (95.0-99.0); ABG PARTIAL PRESSURE CO2 43.7 mmHg (35.0-45.0); ABG PARTIAL PRESSURE O2 66.4 mmHg (75.0-100.0); ABG STANDARD HCO3 26.4 MMOL/L. (22.0-26.0); ABG TOTAL CO2 28.6 MMOL/L (23.0-31.0); ABG pH (ARTERIAL) 7.413 UNITS (7.350-7.450)
[2024-02-05 17:26] LABS: INR 1.22
[2024-02-05 17:31] LABS: AMPHETAMINES LEVEL URINE NEGATIVE (NEGATIVE); BARBITURATES URINE NEGATIVE (NEGATIVE)
[2024-02-05 17:32] LABS: BENZODIAZEPINES URINE NEGATIVE (NEGATIVE); CANNABINOIDS URINE NEGATIVE (NEGATIVE); COCAINE METABOLITE URINE NEGATIVE (NEGATIVE); METHADONE URINE NEGATIVE (NEGATIVE); OPIATES URINE NEGATIVE (NEGATIVE); PHENCYCLIDINE URINE NEGATIVE (NEGATIVE)
[2024-02-05 17:34] LABS: ETHYL ALCOHOL (ETHANOL) < 0.003 % (0.000-0.010)
[2024-02-05 17:35] LABS: CPK CREATINE PHOSPHOKINASE 45 U/L (46-171)
[2024-02-05 17:36] LABS: ALBUMIN 3.3 G/DL (3.2-5.2); ALKALINE PHOSPHATASE 129 U/L (46-116); ALT/SGPT 13 U/L (7.0-40); AST/SGOT 18 U/L (<34); BILIRUBIN,DIRECT 1.2 MG/DL (<0.4); BILIRUBIN,TOTAL 2.7 MG/DL (0.3-1.2); BLOOD UREA NITROGEN 11 MG/DL (9-23); CALCIUM LEVEL 9.4 MG/DL (8.3-10.6); CARBON DIOXIDE LEVEL 32 MMOL/L (20-31); CHLORIDE LEVEL 101 MMOL/L (98-107); CK-MB VALUE MASS 1.3 NG/ML (<3.6); GLOMERULAR FILTRATION RATE > 60.0 (>49); GLUCOSE, FASTING 84 MG/DL (74-106); MB/CK RELATIVE INDEX 2.88 (< OR =4); POTASSIUM SERUM 4.3 MMOL/L (3.5-5.1); SODIUM LEVEL 136 MMOL/L (136-145); TOTAL PROTEIN 6.7 G/DL (5.7-8.2)
[2024-02-05 17:38] LABS: FREE T4 0.88 NG/DL (0.89-1.76)
[2024-02-05 17:47] LABS: PROCALCITONIN 0.05 ng/ml
[2024-02-05] MEDS: FUROSEMIDE 40MG/4ML VIAL IV ONE (17:59)
[2024-02-05] MEDS: methylPREDNISolone 125MG 2ML VIAL IV ONE (17:59)
[2024-02-05 18:38] LABS: CK-MB VALUE MASS 1.3 NG/ML (<3.6)
[2024-02-05 18:41] LABS: CPK CREATINE PHOSPHOKINASE 40 U/L (46-171); MB/CK RELATIVE INDEX 3.25 (< OR =4)
[2024-02-05] MEDS ORDERED: IPRATROPIUM 0.5MG/ALBUTEROL 2.5MG INH SOL UD 3ML (DUONEB) NEB PRN (20:15)
[2024-02-05 20:23] LABS: PROCALCITONIN 0.05 ng/ml
[2024-02-05] MEDS: APIXABAN 5 MG TAB (ELIQUIS) PO SCH (20:57)
[2024-02-05] MEDS: AZITHROMYCIN 250MG TABLET PO SCH (20:57)
[2024-02-05 21:19] LABS: IRON (FE) 87 UG/DL (65-175); PERCENT SATURATION 24.2 % (19.7-50.0); TOTAL IRON BINDING CAPACITY 360 UG/DL (250-425)
[2024-02-05 21:21] LABS: FERRITIN 110.1 NG/ML (10.5-307.3)
[2024-02-05 21:22] LABS: FOLATE > 24.0 NG/ML (>5.4); VITAMIN B12 LEVEL 735 PG/ML (211-911)
[2024-02-05 21:34] LABS: HEPATITIS B SURFACE ANTIGEN NEGATIVE (NEGATIVE)
[2024-02-05 21:54] LABS: HEPATITIS B CORE ANTIBODY IGM NEGATIVE (NEGATIVE)
[2024-02-05 21:55] LABS: HEPATITIS C VIRUS ABY INDEX 0.04 INDEX (<0.8)
[2024-02-05 22:13] VITALS: BP 129/88; TEMP 97.1; O2SAT 95
[2024-02-05] MEDS ORDERED: MELA2.5T11 PO (23:08)
[2024-02-05] MEDS ORDERED: HOME MED LIST COMPLETE! XX SCH (23:10)
[2024-02-05 23:54] VITALS: BP 116/78; TEMP 97.2; O2SAT 90
[2024-02-06] MEDS: IPRATROPIUM 0.5MG/ALBUTEROL 2.5MG INH SOL UD 3ML (DUONEB) NEB SCH (02:00)
[2024-02-06] MEDS ORDERED: NITROGLYCERIN 0.4MG SUBL TABLET SL PRN (03:40)
[2024-02-06 04:09] VITALS: BP 117/59; TEMP 97.1; O2SAT 90
[2024-02-06 07:11] LABS: HEMATOCRIT 42.4 % (42.0-52.0); HEMOGLOBIN 13.9 g/dl (13.5-17.5); MEAN CORPUSCULAR HEMOGLOBIN 34.3 pg (27.0-33.0); MEAN CORPUSCULAR HGB CONC 32.8 g/dl (32.0-36.5); MEAN CORPUSCULAR VOLUME 104.7 fl (80.0-96.0); PLATELET COUNT, AUTOMATED 164 10^3/uL (150-450); RED BLOOD COUNT 4.05 10^6/uL (4.30-6.10); WHITE BLOOD COUNT 5.4 10^3/uL (4.0-10.0)
[2024-02-06 07:40] LABS: BLOOD UREA NITROGEN 13 MG/DL (9-23); CALCIUM LEVEL 9.4 MG/DL (8.3-10.6); CARBON DIOXIDE LEVEL 33 MMOL/L (20-31); CHLORIDE LEVEL 100 MMOL/L (98-107); CREATININE FOR GFR 0.77 MG/DL (0.70-1.30); GLOMERULAR FILTRATION RATE > 60.0 (>49); GLUCOSE, FASTING 145 MG/DL (74-106); POTASSIUM SERUM 4.7 MMOL/L (3.5-5.1); SODIUM LEVEL 137 MMOL/L (136-145)
[2024-02-06 07:52] LABS: PROCALCITONIN 0.05 ng/ml
[2024-02-06 08:00] VITALS: BP 116/78; TEMP 97.1; O2SAT 94
[2024-02-06] MEDS: TIOTROPIUM INHALER/CAPSULE (SPIRIVA) INH SCH ×2 (08:00→08:20)
[2024-02-06 08:48] LABS: ALBUMIN 3.1 G/DL (3.2-5.2); MAGNESIUM LEVEL 1.6 MG/DL (1.8-2.4)
[2024-02-06 08:49] LABS: CPK CREATINE PHOSPHOKINASE 28 U/L (46-171); MB/CK RELATIVE INDEX 3.57 (< OR =4)
[2024-02-06] MEDS ORDERED: METOPROLOL SUCC *XL* 25MG TAB (TopROL *XL*) PO SCH (09:00)
[2024-02-06] MEDS: LEVALBUTEROL 1.25MG 0.5ML CONCENTRATE NEB NEB ONE (09:00)
[2024-02-06] MEDS ORDERED: FUROSEMIDE 40MG/4ML VIAL IV SCH (09:00)
[2024-02-06] MEDS: methylPREDNISolone 125MG 2ML VIAL IV ONE (10:04)
[2024-02-06] MEDS: MAG SULF 1GM/100ML (MAG RUN) 1 GM in IV 1 EA IV ONE (10:04)
[2024-02-06] MEDS: DOXYCYCLINE HYCLATE 100MG TABLET PO SCH (10:04)
[2024-02-06] MEDS: ASPIRIN 81MG ENTERIC TABLET PO SCH (10:05)
[2024-02-06] MEDS: THIAMINE 100 MG TAB PO SCH (10:07)
[2024-02-06] MEDS: POTASSIUM CHLORIDE 10MEQ SR TABLET PO SCH (10:07)
[2024-02-06] MEDS: DAPAGLIFLOZIN PROPANEDIOL 10MG TABLET (FARXIGA) PO SCH (10:07)
[2024-02-06] MEDS: predniSONE 20 MG TAB PO SCH (10:07)
[2024-02-06] MEDS: FOLIC ACID 1MG TAB PO SCH (10:07)
[2024-02-06] MEDS: LEVALBUTEROL 1.25MG 0.5ML CONCENTRATE NEB INH SCH (12:00)
[2024-02-06] MEDS: IPRATROPIUM 0.02% SOLN 0.5MG 2.5ML NEB INH SCH (12:00)
[2024-02-06 12:12] VITALS: BP 144/78; TEMP 97.4; O2SAT 94
[2024-02-06] MEDS: FUROSEMIDE injection 250 MG in D5W 225 ML IV SCH (12:30)
[2024-02-06] MEDS: guaiFENesin ER TABLET 600 MG TAB PO SCH (12:40)
[2024-02-06] MEDS: cefTRIAXone SOD 2 GM in D5W MINI-BAG PLUS 50 ML IV SCH (12:41)
[2024-02-06 15:04] LABS: IONIZED CALCIUM 4.7 MG/DL (4.5-5.3)
[2024-02-06] MEDS: methylPREDNISolone 40MG 1ML VIAL IV SCH (15:36)
[2024-02-06 15:41] LABS: MAGNESIUM LEVEL 1.6 MG/DL (1.8-2.4); POTASSIUM SERUM 4.5 MMOL/L (3.5-5.1)
[2024-02-06 15:42] VITALS: BP 111/83; TEMP 97.2; O2SAT 94
[2024-02-06 19:20] VITALS: BP 110/77; TEMP 97; O2SAT 91
[2024-02-06 19:44] LABS: IONIZED CALCIUM 4.7 MG/DL (4.5-5.3)
[2024-02-06] MEDS: ATORVASTATIN 20 MG TAB PO SCH (20:15)
[2024-02-06 20:16] LABS: BLOOD UREA NITROGEN 19 MG/DL (9-23); CALCIUM LEVEL 9.3 MG/DL (8.3-10.6); CARBON DIOXIDE LEVEL 32 MMOL/L (20-31); CHLORIDE LEVEL 100 MMOL/L (98-107); CREATININE FOR GFR 0.78 MG/DL (0.70-1.30); GLOMERULAR FILTRATION RATE > 60.0 (>49); GLUCOSE, FASTING 204 MG/DL (74-106); MAGNESIUM LEVEL 1.7 MG/DL (1.8-2.4); POTASSIUM SERUM 4.1 MMOL/L (3.5-5.1); SODIUM LEVEL 140 MMOL/L (136-145)
[2024-02-06 23:26] VITALS: BP 126/76; TEMP 98.6; O2SAT 94
[2024-02-07] VITALS (8 sets, daily range): BP systolic 100–113; BP diastolic 52–80; TEMP 97.4–98.3; O2SAT 91–95
[2024-02-07] MEDS: LEVALBUTEROL 1.25MG 0.5ML CONCENTRATE NEB INH PRN (02:17)
[2024-02-07] MEDS: IPRATROPIUM 0.02% SOLN 0.5MG 2.5ML NEB INH PRN (02:17)
[2024-02-07 05:27] LABS: BLOOD UREA NITROGEN 20 MG/DL (9-23); CALCIUM LEVEL 9.2 MG/DL (8.3-10.6); CARBON DIOXIDE LEVEL 34 MMOL/L (20-31); CHLORIDE LEVEL 98 MMOL/L (98-107); CREATININE FOR GFR 0.72 MG/DL (0.70-1.30); GLOMERULAR FILTRATION RATE > 60.0 (>49); GLUCOSE, FASTING 192 MG/DL (74-106); MAGNESIUM LEVEL 1.5 MG/DL (1.8-2.4); POTASSIUM SERUM 3.1 MMOL/L (3.5-5.1); SODIUM LEVEL 141 MMOL/L (136-145)
[2024-02-07] MEDS: KCL 10MEQ/100ML SWI (KRUN) 10 MEQ in IV 1 EA IV ONE (06:09)
[2024-02-07] MEDS: MAGNESIUM OXIDE 400MG TAB (MAG-OX) PO SCH (06:09)
[2024-02-07] MEDS: POTASSIUM CHLORIDE 10MEQ SR TABLET PO SCH (06:09)
[2024-02-07] MEDS: MAG SULF 1GM/100ML (MAG RUN) 1 GM in IV 1 EA IV ONE (06:42)
[2024-02-07] MEDS: VALSARTAN 40MG TABLET (DIOVAN) PO SCH (09:00)
[2024-02-07] MEDS: SPIRONOLACTONE 12.5MG PER 1/2 TABLET PO SCH (09:49)
[2024-02-07 16:19] LABS: BLOOD UREA NITROGEN 20 MG/DL (9-23); CALCIUM LEVEL 8.9 MG/DL (8.3-10.6); CARBON DIOXIDE LEVEL 38 MMOL/L (20-31); CHLORIDE LEVEL 95 MMOL/L (98-107); CREATININE FOR GFR 0.68 MG/DL (0.70-1.30); GLOMERULAR FILTRATION RATE > 60.0 (>49); GLUCOSE, FASTING 219 MG/DL (74-106); MAGNESIUM LEVEL 1.4 MG/DL (1.8-2.4); POTASSIUM SERUM 2.9 MMOL/L (3.5-5.1); SODIUM LEVEL 141 MMOL/L (136-145)
[2024-02-07] MEDS: POTASSIUM CHLORIDE 10% LIQ 20MEQ/15ML UDC PO SCH (16:57)
[2024-02-07] MEDS: MAG SULF 1GM/100ML (MAG RUN) 1 GM in IV 1 EA IV SCH (17:28)
[2024-02-08] VITALS: BP_SYST 114; BP_SYST 117; BP_DIAS 70; TEMP 98.2; O2SAT 98
[2024-02-08 04:46] VITALS: BP 118/71; TEMP 97.1; O2SAT 92
[2024-02-08 07:49] VITALS: BP 124/78; TEMP 97.4; O2SAT 96
[2024-02-08] MEDS ORDERED: POTASSIUM CHLORIDE 10MEQ SR TABLET PO SCH (08:00)
[2024-02-08 09:01] LABS: BLOOD UREA NITROGEN 21 MG/DL (9-23); CALCIUM LEVEL 9.2 MG/DL (8.3-10.6); CARBON DIOXIDE LEVEL 38 MMOL/L (20-31); CHLORIDE LEVEL 98 MMOL/L (98-107); CREATININE FOR GFR 0.64 MG/DL (0.70-1.30); GLOMERULAR FILTRATION RATE > 60.0 (>49); GLUCOSE, FASTING 238 MG/DL (74-106); MAGNESIUM LEVEL 1.9 MG/DL (1.8-2.4); POTASSIUM SERUM 4.5 MMOL/L (3.5-5.1); SODIUM LEVEL 141 MMOL/L (136-145)
[2024-02-09] MEDS ORDERED: FLUT1BLS5 INH (08:32)
[2024-02-10 16:51] LABS: URINE STREP PNEUMONIAE ANTIGEN NOT DETECTED (NOT DETECT)
== END 2024-02-08 09:04 | disposition left against medical advice (07) | DRG 291 ==
LOC: M ED 15:01 → M ED INP 19:16 → M PCU 22:09
PROVIDERS: ADMIT Internal Medicine; ATTEND Family Medicine
PROC: B246ZZZ Ultrasonography of Right and Left Heart (ICD-10-PCS; principal; 2024-02-06)
DX: I50.23 Acute on chronic systolic (congestive) heart failure (principal); J96.01 Acute respiratory failure with hypoxia; J18.9 Pneumonia, unspecified organism; J44.1 Chronic obstructive pulmonary disease with (acute) exacerbation; J44.0 Chronic obstructive pulmonary disease with (acute) lower respiratory infection; R64 Cachexia; I25.5 Ischemic cardiomyopathy; I25.10 Atherosclerotic heart disease of native coronary artery without angina pectoris; G47.00 Insomnia, unspecified; F39 Unspecified mood [affective] disorder; I35.0 Nonrheumatic aortic (valve) stenosis; E03.9 Hypothyroidism, unspecified; F17.210 Nicotine dependence, cigarettes, uncomplicated; D53.9 Nutritional anemia, unspecified; F70 Mild intellectual disabilities; I73.9 Peripheral vascular disease, unspecified; Z86.711 Personal history of pulmonary embolism; Z86.718 Personal history of other venous thrombosis and embolism; Z79.01 Long term (current) use of anticoagulants; Z79.82 Long term (current) use of aspirin; Z79.899 Other long term (current) drug therapy; Z88.5 Allergy status to narcotic agent; Z88.8 Allergy status to other drugs, medicaments and biological substances; Z91.198 Patient's noncompliance with other medical treatment and regimen for other reason; Z91.119 Patient's noncompliance with dietary regimen due to unspecified reason; Z98.62 Peripheral vascular angioplasty status

== ENCOUNTER 2024-02-08 23:10 | Inpatient (IN) | payer OTHER, MEDICAID ==
[~2024-02-08] VITALS: Ht 172.7 cm; Wt 72.8 kg
[~2024-02-08 23:10] MED LIST changes: +MELA2.5T11 PO
[2024-02-09] VITALS (7 sets, daily range): BP systolic 93–105; BP diastolic 54–71; PULSE 96; TEMP 97.1–97.7; O2SAT 95–100
[2024-02-09] MEDS: ALBUTEROL SULFATE 2.5MG/0.5ML INH NEB SOLN NEB ONE (00:46)
[2024-02-09 01:14] LABS: BASO % 0.1 % (0.0-1.0); EOS % 0.1 % (0.0-3.0); HEMATOCRIT 40.5 % (42.0-52.0); MEAN CORPUSCULAR HGB CONC 32.1 g/dl (32.0-36.5); MONO # 1.7 10^3/uL (0.0-0.8); MONO % 10.3 % (2.0-8.0); NEUTROPHILS # 13.3 10^3/uL (1.5-8.5); NEUTROPHILS % 82.9 % (36.0-66.0); PLATELET COUNT, AUTOMATED 188 10^3/uL (150-450); RED BLOOD COUNT 3.82 10^6/uL (4.30-6.10); WHITE BLOOD COUNT 16.1 10^3/uL (4.0-10.0)
[2024-02-09 01:39] LABS: CK-MB VALUE MASS 2.1 NG/ML (<3.6)
[2024-02-09 01:40] LABS: BLOOD UREA NITROGEN 21 MG/DL (9-23); CALCIUM LEVEL 9.5 MG/DL (8.3-10.6); CARBON DIOXIDE LEVEL 34 MMOL/L (20-31); CHLORIDE LEVEL 99 MMOL/L (98-107); GLOMERULAR FILTRATION RATE > 60.0 (>49); GLUCOSE, FASTING 114 MG/DL (74-106); POTASSIUM SERUM 4.7 MMOL/L (3.5-5.1); SODIUM LEVEL 138 MMOL/L (136-145)
[2024-02-09 01:42] LABS: CPK CREATINE PHOSPHOKINASE 56 U/L (46-171); MB/CK RELATIVE INDEX 3.75 (< OR =4)
[2024-02-09 03:48] LABS: CK-MB VALUE MASS 2.1 NG/ML (<3.6)
[2024-02-09 03:51] LABS: MB/CK RELATIVE INDEX 4.11 (< OR =4)
[2024-02-09] MEDS: MORPHINE 4 MG/ML 1ML VIAL IV ONE (05:06)
[2024-02-09] MEDS ORDERED: FLUT1BLS5 INH (08:32)
[2024-02-09] MEDS ORDERED: HOME MED LIST COMPLETE! XX SCH (09:00)
[2024-02-09] MEDS: IPRATROPIUM 0.5MG/ALBUTEROL 2.5MG INH SOL UD 3ML (DUONEB) NEB ONE (10:10)
[2024-02-09] MEDS ORDERED: IPRATROPIUM 0.5MG/ALBUTEROL 2.5MG INH SOL UD 3ML (DUONEB) NEB PRN (10:15)
[2024-02-09] MEDS: DAPAGLIFLOZIN PROPANEDIOL 10MG TABLET (FARXIGA) PO SCH (11:37)
[2024-02-09] MEDS: METOPROLOL SUCC *XL* 25MG TAB (TopROL *XL*) PO SCH (11:37)
[2024-02-09] MEDS: FOLIC ACID 1MG TAB PO SCH (11:37)
[2024-02-09] MEDS: THIAMINE 100 MG TAB PO SCH (11:38)
[2024-02-09] MEDS: ASPIRIN 81MG ENTERIC TABLET PO SCH (11:38)
[2024-02-09] MEDS: FUROSEMIDE 40 MG TAB PO SCH (11:38)
[2024-02-09] MEDS: APIXABAN 5 MG TAB (ELIQUIS) PO SCH (11:38)
[2024-02-09] MEDS: POTASSIUM CHLORIDE 10MEQ SR TABLET PO SCH (11:39)
[2024-02-09] MEDS: IPRATROPIUM 0.5MG/ALBUTEROL 2.5MG INH SOL UD 3ML (DUONEB) NEB SCH (13:39)
[2024-02-09 15:32] LABS: CK-MB VALUE MASS 2.9 NG/ML (<3.6)
[2024-02-09 15:34] LABS: MB/CK RELATIVE INDEX 4.6 (< OR =4)
[2024-02-09] MEDS: ATORVASTATIN 20 MG TAB PO SCH (20:58)
[2024-02-09] MEDS: MORPHINE 2 MG/ML 1ML VIAL IV ONE (21:01)
[2024-02-09 21:37] LABS: CK-MB VALUE MASS 2.6 NG/ML (<3.6); MB/CK RELATIVE INDEX 4.64 (< OR =4)
[2024-02-09] MEDS: ACETAMINOPHEN TAB 650MG DOSE (2X325MG) PO PRN (22:38)
[2024-02-10 00:45] LABS: CK-MB VALUE MASS 2.4 NG/ML (<3.6)
[2024-02-10 00:46] LABS: MB/CK RELATIVE INDEX 4.13 (< OR =4)
[2024-02-10 03:26] VITALS: TEMP 98.1; O2SAT 91
[2024-02-10 03:34] VITALS: BP 98/64
[2024-02-10 06:29] LABS: HEMATOCRIT 39.7 % (42.0-52.0); HEMOGLOBIN 12.8 g/dl (13.5-17.5); MEAN CORPUSCULAR HEMOGLOBIN 33.6 pg (27.0-33.0); MEAN CORPUSCULAR HGB CONC 32.2 g/dl (32.0-36.5); MEAN CORPUSCULAR VOLUME 104.2 fl (80.0-96.0); PLATELET COUNT, AUTOMATED 171 10^3/uL (150-450); RED BLOOD COUNT 3.81 10^6/uL (4.30-6.10); WHITE BLOOD COUNT 8.8 10^3/uL (4.0-10.0)
[2024-02-10 07:05] LABS: BLOOD UREA NITROGEN 31 MG/DL (9-23); CALCIUM LEVEL 9.8 MG/DL (8.3-10.6); CARBON DIOXIDE LEVEL 36 MMOL/L (20-31); CHLORIDE LEVEL 97 MMOL/L (98-107); CREATININE FOR GFR 0.77 MG/DL (0.70-1.30); GLOMERULAR FILTRATION RATE > 60.0 (>49); GLUCOSE, FASTING 108 MG/DL (74-106); MAGNESIUM LEVEL 1.8 MG/DL (1.8-2.4); POTASSIUM SERUM 4.6 MMOL/L (3.5-5.1); SODIUM LEVEL 139 MMOL/L (136-145)
[2024-02-10 07:15] LABS: CK-MB VALUE MASS 1.7 NG/ML (<3.6)
[2024-02-10 07:17] LABS: CPK CREATINE PHOSPHOKINASE 42 U/L (46-171); MB/CK RELATIVE INDEX 4.04 (< OR =4)
[2024-02-10 07:25] VITALS: BP 99/75; TEMP 97.4; O2SAT 99
== END 2024-02-10 08:42 | disposition left against medical advice (07) | DRG 293 ==
LOC: M ED 23:10 → EDBD 23:10 → M ED INP 02-09 10:11 → M PCU 02-09 11:10
PROVIDERS: ADMIT Family Medicine; ATTEND Family Medicine
DX: I50.23 Acute on chronic systolic (congestive) heart failure (principal); I25.10 Atherosclerotic heart disease of native coronary artery without angina pectoris; I25.5 Ischemic cardiomyopathy; I35.0 Nonrheumatic aortic (valve) stenosis; I25.2 Old myocardial infarction; J44.9 Chronic obstructive pulmonary disease, unspecified; I73.9 Peripheral vascular disease, unspecified; F70 Mild intellectual disabilities; F17.200 Nicotine dependence, unspecified, uncomplicated; Z91.198 Patient's noncompliance with other medical treatment and regimen for other reason; Z86.711 Personal history of pulmonary embolism; Z91.148 Patient's other noncompliance with medication regimen for other reason; Z95.5 Presence of coronary angioplasty implant and graft; Z98.62 Peripheral vascular angioplasty status; Z79.01 Long term (current) use of anticoagulants; Z79.899 Other long term (current) drug therapy

== ENCOUNTER 2024-02-10 14:53 | Emergency (ER) | payer OTHER, MEDICAID ==
[~2024-02-10] VITALS: Ht 172.7 cm; Wt 65.5 kg
[~2024-02-10 14:53] MED LIST changes: +FLUT1BLS5 INH
[2024-02-10 15:05] VITALS: BP 117/83; TEMP 97.6; O2SAT 94
== END 2024-02-10 16:57 | disposition left against medical advice (07) ==
LOC: EDBD 14:53 → M ED 14:53
DX: Z53.21 Procedure and treatment not carried out due to patient leaving prior to being seen by health care provider (principal)

== ENCOUNTER 2024-02-10 19:58 | Emergency (ER) | payer OTHER, MEDICAID ==
[~2024-02-10] VITALS: Ht 172.7 cm; Wt 71.8 kg
[2024-02-10 20:37] VITALS: TEMP 98.8
[2024-02-10 20:58] LABS: BASO % 0.1 % (0.0-1.0); HEMATOCRIT 40.3 % (42.0-52.0); HEMOGLOBIN 13.2 g/dl (13.5-17.5); LYMPH # 0.3 10^3/uL (1.5-5.0); LYMPH % 3.6 % (24.0-44.0); MEAN CORPUSCULAR HEMOGLOBIN 33.9 pg (27.0-33.0); MEAN CORPUSCULAR HGB CONC 32.8 g/dl (32.0-36.5); MEAN CORPUSCULAR VOLUME 103.6 fl (80.0-96.0); MONO # 0.2 10^3/uL (0.0-0.8); NEUTROPHILS # 7.3 10^3/uL (1.5-8.5); NEUTROPHILS % 93.7 % (36.0-66.0); PLATELET COUNT, AUTOMATED 201 10^3/uL (150-450); RED BLOOD COUNT 3.89 10^6/uL (4.30-6.10); WHITE BLOOD COUNT 7.8 10^3/uL (4.0-10.0)
[2024-02-10] MEDS: ASPIRIN 81MG CHEW TABLET PO ONE (21:07)
[2024-02-10 22:13] LABS: CK-MB VALUE MASS 1.3 NG/ML (<3.6)
[2024-02-10 22:18] LABS: BLOOD UREA NITROGEN 37 MG/DL (9-23); CALCIUM LEVEL 9.7 MG/DL (8.3-10.6); CARBON DIOXIDE LEVEL 33 MMOL/L (20-31); CHLORIDE LEVEL 98 MMOL/L (98-107); CPK CREATINE PHOSPHOKINASE 53 U/L (46-171); CREATININE FOR GFR 0.78 MG/DL (0.70-1.30); GLOMERULAR FILTRATION RATE > 60.0 (>49); GLUCOSE, FASTING 218 MG/DL (74-106); MB/CK RELATIVE INDEX 2.45 (< OR =4); POTASSIUM SERUM 4.8 MMOL/L (3.5-5.1); SODIUM LEVEL 137 MMOL/L (136-145)
[2024-02-10 22:58] LABS: CK-MB VALUE MASS 1.4 NG/ML (<3.6); MB/CK RELATIVE INDEX 2.15 (< OR =4)
[2024-02-11] MEDS ORDERED: HOME MED LIST COMPLETE! XX SCH (00:05)
[2024-02-11] MEDS ORDERED: NITROGLYCERIN 0.4MG SUBL TABLET SL PRN (01:00)
[2024-02-11] MEDS: UNRESOLVED CLARIFICATION ENTRY XX STA (01:48)
[2024-02-11 07:17] LABS: CREATININE FOR GFR 0.66 MG/DL (0.70-1.30); GLOMERULAR FILTRATION RATE > 60.0 (>49)
[2024-02-11] MEDS: TIOTROPIUM INHALER/CAPSULE (SPIRIVA) INH SCH (08:00)
[2024-02-11] MEDS: ENOXAPARIN 80MG/0.8ML SYRINGE (J1650 PER 10MG) SC SCH (09:00)
[2024-02-11] MEDS: METOPROLOL SUCC *XL* 25MG TAB (TopROL *XL*) PO SCH (11:46)
[2024-02-11] MEDS: FOLIC ACID 1MG TAB PO SCH (11:46)
[2024-02-11] MEDS: ASPIRIN 81MG ENTERIC TABLET PO SCH (11:46)
[2024-02-11] MEDS: FUROSEMIDE 40 MG TAB PO SCH (11:46)
[2024-02-11] MEDS: THIAMINE 100 MG TAB PO SCH (11:46)
[2024-02-11] MEDS: DAPAGLIFLOZIN PROPANEDIOL 10MG TABLET (FARXIGA) PO SCH (11:46)
[2024-02-11] MEDS: POTASSIUM CHLORIDE 10MEQ SR TABLET PO SCH (11:47)
[2024-02-11 14:50] LABS: ALKALINE PHOSPHATASE 110 U/L (46-116); ALT/SGPT 24 U/L (7.0-40); AST/SGOT 27 U/L (<34); BILIRUBIN,TOTAL 1.1 MG/DL (0.3-1.2); BLOOD UREA NITROGEN 33 MG/DL (9-23); CALCIUM LEVEL 9.4 MG/DL (8.3-10.6); CARBON DIOXIDE LEVEL 30 MMOL/L (20-31); CHLORIDE LEVEL 98 MMOL/L (98-107); GLUCOSE, FASTING 211 MG/DL (74-106); POTASSIUM SERUM 4.5 MMOL/L (3.5-5.1); SODIUM LEVEL 137 MMOL/L (136-145); TOTAL PROTEIN 6.5 G/DL (5.7-8.2)
[2024-02-11] MEDS: ALBUTEROL 90 MCG/ACT 8GM HFA INHALER INH PRN (15:26)
[2024-02-11] MEDS: ATORVASTATIN 20 MG TAB PO SCH (20:51)
[2024-02-11 20:52] VITALS: BP 127/78; O2SAT 93
== END 2024-02-11 21:03 | disposition short-term general hospital (02) ==
LOC: M ED 19:58
DX: I50.22 Chronic systolic (congestive) heart failure (principal); I35.0 Nonrheumatic aortic (valve) stenosis; J44.9 Chronic obstructive pulmonary disease, unspecified; F17.210 Nicotine dependence, cigarettes, uncomplicated; Z88.5 Allergy status to narcotic agent; Z88.8 Allergy status to other drugs, medicaments and biological substances; Z79.51 Long term (current) use of inhaled steroids; Z79.1 Long term (current) use of non-steroidal anti-inflammatories (NSAID); Z79.899 Other long term (current) drug therapy

== ENCOUNTER 2024-02-21 10:44 | Emergency (ER) | payer OTHER, MEDICAID ==
[~2024-02-21] VITALS: Ht 172.7 cm; Wt 71.8 kg
[2024-02-21 10:54] VITALS: TEMP 97.2
[2024-02-21 12:00] VITALS: BP 104/56; O2SAT 90
== END 2024-02-21 12:35 | disposition home or self-care (01) ==
LOC: M ED 10:44
DX: S02.2XXA Fracture of nasal bones, initial encounter for closed fracture (principal); Y92.019 Unspecified place in single-family (private) house as the place of occurrence of the external cause; Y93.9 Activity, unspecified; Y99.9 Unspecified external cause status; W01.0XXA Fall on same level from slipping, tripping and stumbling without subsequent striking against object, initial encounter; I48.91 Unspecified atrial fibrillation; I10 Essential (primary) hypertension; F17.210 Nicotine dependence, cigarettes, uncomplicated; F10.10 Alcohol abuse, uncomplicated; R94.31 Abnormal electrocardiogram [ECG] [EKG]; Z88.5 Allergy status to narcotic agent; Z88.8 Allergy status to other drugs, medicaments and biological substances; Z79.51 Long term (current) use of inhaled steroids; Z79.1 Long term (current) use of non-steroidal anti-inflammatories (NSAID); Z79.899 Other long term (current) drug therapy

== ENCOUNTER 2024-02-23 03:32 | Emergency (ER) | payer OTHER, MEDICAID ==
[~2024-02-23] VITALS: Ht 172.7 cm; Wt 71.8 kg
[2024-02-23 03:42] VITALS: BP 140/86; TEMP 97.9; O2SAT 97
== END 2024-02-23 05:42 | disposition left against medical advice (07) ==
LOC: EDBD 03:32 → M ED 03:32
DX: Z53.21 Procedure and treatment not carried out due to patient leaving prior to being seen by health care provider (principal)

== ENCOUNTER 2024-03-11 17:07 | Emergency (ER) | payer OTHER, MEDICAID ==
[~2024-03-11] VITALS: Ht 172.7 cm; Wt 70.0 kg
[2024-03-11 21:04] VITALS: BP 104/66; TEMP 97.6; O2SAT 97
== END 2024-03-11 21:06 | disposition home or self-care (01) ==
LOC: EDBD 17:07 → M ED 17:07
DX: M25.571 Pain in right ankle and joints of right foot (principal); M25.572 Pain in left ankle and joints of left foot; I25.119 Atherosclerotic heart disease of native coronary artery with unspecified angina pectoris; F17.210 Nicotine dependence, cigarettes, uncomplicated; Z88.5 Allergy status to narcotic agent; Z88.8 Allergy status to other drugs, medicaments and biological substances; Z79.51 Long term (current) use of inhaled steroids; Z79.1 Long term (current) use of non-steroidal anti-inflammatories (NSAID); Z79.899 Other long term (current) drug therapy

== ENCOUNTER 2024-03-13 09:28 | Emergency (ER) | payer OTHER, MEDICAID ==
[~2024-03-13] VITALS: Ht 172.7 cm; Wt 58.1 kg
[2024-03-13 11:28] VITALS: BP 123/88; TEMP 97.8; O2SAT 98
[2024-03-14] MEDS ORDERED: ASPE4PAD TOP (09:02)
[2024-03-14] MEDS ORDERED: METH-1164 PO (09:02)
== END 2024-03-13 11:29 | disposition home or self-care (01) ==
LOC: M ED 09:28
DX: M54.50 Low back pain, unspecified (principal); F17.210 Nicotine dependence, cigarettes, uncomplicated; Z88.5 Allergy status to narcotic agent; Z88.8 Allergy status to other drugs, medicaments and biological substances; Z79.51 Long term (current) use of inhaled steroids; Z79.1 Long term (current) use of non-steroidal anti-inflammatories (NSAID); Z79.899 Other long term (current) drug therapy

== ENCOUNTER 2024-03-13 18:19 | Emergency (ER) | payer OTHER, MEDICAID ==
[~2024-03-13] VITALS: Ht 172.7 cm; Wt 71.8 kg
[2024-03-13 21:32] VITALS: BP 131/36; TEMP 98; O2SAT 97
[2024-03-14] MEDS ORDERED: ASPE4PAD TOP (09:02)
[2024-03-14] MEDS ORDERED: METH-1164 PO (09:02)
== END 2024-03-13 22:45 | disposition left against medical advice (07) ==
LOC: M ED 18:19
DX: Z53.21 Procedure and treatment not carried out due to patient leaving prior to being seen by health care provider (principal)

== ENCOUNTER 2024-03-14 02:13 | Emergency (ER) | payer OTHER, MEDICAID ==
[~2024-03-14] VITALS: Ht 172.7 cm; Wt 71.8 kg
[2024-03-14] MEDS: LIDOCAINE 5% (LIDODERM) PATCH TD ONE (08:46)
[2024-03-14] MEDS ORDERED: METH-1164 PO (09:02)
[2024-03-14] MEDS ORDERED: ASPE4PAD TOP (09:02)
[2024-03-14 09:14] VITALS: BP 119/74; TEMP 97.2; O2SAT 99
== END 2024-03-14 09:19 | disposition home or self-care (01) ==
LOC: EDBD 02:13 → M ED 02:13
DX: M54.50 Low back pain, unspecified (principal); I50.22 Chronic systolic (congestive) heart failure; I25.2 Old myocardial infarction; I11.0 Hypertensive heart disease with heart failure; E78.5 Hyperlipidemia, unspecified; J44.9 Chronic obstructive pulmonary disease, unspecified; F17.210 Nicotine dependence, cigarettes, uncomplicated; Z88.5 Allergy status to narcotic agent; Z88.8 Allergy status to other drugs, medicaments and biological substances; Z79.51 Long term (current) use of inhaled steroids; Z79.1 Long term (current) use of non-steroidal anti-inflammatories (NSAID); Z79.899 Other long term (current) drug therapy

== ENCOUNTER 2024-04-09 21:27 | Emergency (ER) | payer OTHER, MEDICAID ==
[~2024-04-09 21:27] MED LIST changes: +ASPE4PAD TOP; -DOXY-323 PO; +DOXY-441 PO; +METH-1164 PO
[2024-04-09 22:06] LABS: HEMATOCRIT 46.2 % (42.0-52.0); HEMOGLOBIN 15.9 g/dl (13.5-17.5); MEAN CORPUSCULAR HEMOGLOBIN 32.9 pg (27.0-33.0); MEAN CORPUSCULAR HGB CONC 34.4 g/dl (32.0-36.5); MEAN CORPUSCULAR VOLUME 95.5 fl (80.0-96.0); PLATELET COUNT, AUTOMATED 174 10^3/uL (150-450); RED BLOOD COUNT 4.84 10^6/uL (4.30-6.10); WHITE BLOOD COUNT 6.9 10^3/uL (4.0-10.0)
[2024-04-09 22:28] VITALS: BP 149/76; TEMP 96.7; O2SAT 99
[2024-04-09 22:37] LABS: ETHYL ALCOHOL (ETHANOL) 0.254 % (0.000-0.010)
[2024-04-09 22:39] LABS: ALKALINE PHOSPHATASE 122 U/L (46-116); ALT/SGPT 20 U/L (7.0-40); AST/SGOT 27 U/L (<34); BILIRUBIN,DIRECT 0.3 MG/DL (<0.4); BILIRUBIN,TOTAL 0.7 MG/DL (0.3-1.2); BLOOD UREA NITROGEN 9 MG/DL (9-23); CALCIUM LEVEL 9.5 MG/DL (8.3-10.6); CARBON DIOXIDE LEVEL 26 MMOL/L (20-31); CHLORIDE LEVEL 98 MMOL/L (98-107); CREATININE FOR GFR 0.61 MG/DL (0.70-1.30); GLOMERULAR FILTRATION RATE > 60.0 (>49); GLUCOSE, FASTING 89 MG/DL (74-106); POTASSIUM SERUM 3.8 MMOL/L (3.5-5.1); SALICYLATE LEVEL < 3.0 MG/DL (<30); SODIUM LEVEL 131 MMOL/L (136-145); TOTAL PROTEIN 7.9 G/DL (5.7-8.2)
[2024-04-09 22:48] LABS: AMPHETAMINES LEVEL URINE NEGATIVE (NEGATIVE); BARBITURATES URINE NEGATIVE (NEGATIVE); BENZODIAZEPINES URINE NEGATIVE (NEGATIVE); CANNABINOIDS URINE NEGATIVE (NEGATIVE); COCAINE METABOLITE URINE NEGATIVE (NEGATIVE); METHADONE URINE NEGATIVE (NEGATIVE); OPIATES URINE NEGATIVE (NEGATIVE); PHENCYCLIDINE URINE NEGATIVE (NEGATIVE)
== END 2024-04-10 00:13 | disposition home or self-care (01) ==
LOC: M ED 21:27
DX: F43.0 Acute stress reaction (principal); F32.A Depression, unspecified; F10.10 Alcohol abuse, uncomplicated; I10 Essential (primary) hypertension; J44.9 Chronic obstructive pulmonary disease, unspecified; F41.9 Anxiety disorder, unspecified; F20.9 Schizophrenia, unspecified; Z88.5 Allergy status to narcotic agent; Z88.8 Allergy status to other drugs, medicaments and biological substances; Z79.51 Long term (current) use of inhaled steroids; Z79.1 Long term (current) use of non-steroidal anti-inflammatories (NSAID); Z79.899 Other long term (current) drug therapy

== ENCOUNTER 2024-04-11 20:59 | Emergency (ER) | payer OTHER, MEDICAID ==
[~2024-04-11] VITALS: Ht 175.3 cm; Wt 65.4 kg
[~2024-04-11 20:59] MED LIST changes: +DOXY-323 PO; -DOXY-441 PO
[2024-04-11 21:09] VITALS: BP 120/76; TEMP 97.9; O2SAT 99
== END 2024-04-11 21:44 | disposition home or self-care (01) ==
LOC: M ED 20:59
DX: F43.0 Acute stress reaction (principal); I25.2 Old myocardial infarction; J44.9 Chronic obstructive pulmonary disease, unspecified; Z88.5 Allergy status to narcotic agent; Z88.8 Allergy status to other drugs, medicaments and biological substances; Z79.51 Long term (current) use of inhaled steroids; Z79.1 Long term (current) use of non-steroidal anti-inflammatories (NSAID); Z79.899 Other long term (current) drug therapy

== ENCOUNTER 2024-04-21 19:17 | Emergency (ER) | payer OTHER, MEDICAID ==
[~2024-04-21] VITALS: Ht 172.7 cm; Wt 62.5 kg
[2024-04-21 19:27] VITALS: BP 117/69; TEMP 98.6; O2SAT 97
== END 2024-04-21 20:40 | disposition left against medical advice (07) ==
LOC: M ED 19:17
DX: Z53.21 Procedure and treatment not carried out due to patient leaving prior to being seen by health care provider (principal)

== ENCOUNTER 2024-04-23 16:33 | Emergency (ER) | payer OTHER, MEDICAID ==
[2024-04-23 17:12] VITALS: BP 129/90; TEMP 97.3; O2SAT 99
== END 2024-04-23 19:21 | disposition left against medical advice (07) ==
LOC: M ED 16:33 → EDBD 16:33 → M ED 19:21
DX: Z53.21 Procedure and treatment not carried out due to patient leaving prior to being seen by health care provider (principal)

== ENCOUNTER 2024-05-01 16:18 | Emergency (ER) | payer OTHER, MEDICAID ==
[~2024-05-01] VITALS: Ht 172.7 cm; Wt 65.5 kg
[2024-05-01 16:23] VITALS: BP 134/76; TEMP 97.1; O2SAT 97
[2024-05-02] MEDS ORDERED: FARX1TAB3 PO (16:43)
[2024-05-02] MEDS ORDERED: SPIR1CAP INH (16:43)
[2024-05-02] MEDS ORDERED: NITR0.4S14 SL (16:43)
[2024-05-02] MEDS ORDERED: FURO40TA2 PO (16:43)
[2024-05-02] MEDS ORDERED: FOLI1TAB11 PO (16:43)
[2024-05-02] MEDS ORDERED: FLUT1BLS5 IH (16:43)
[2024-05-02] MEDS ORDERED: METO1TAB32 PO (16:43)
[2024-05-02] MEDS ORDERED: ATOR80TA59 PO (16:43)
[2024-05-02] MEDS ORDERED: POTA10CA70 PO (16:43)
[2024-05-02] MEDS ORDERED: ELIQ5TAB PO (16:43)
[2024-05-02] MEDS ORDERED: THIA100TA PO (16:43)
== END 2024-05-01 16:50 | disposition left against medical advice (07) ==
LOC: M ED 16:18
DX: Z53.21 Procedure and treatment not carried out due to patient leaving prior to being seen by health care provider (principal)

== ENCOUNTER 2024-05-02 14:01 | Emergency (ER) | payer OTHER, MEDICAID ==
[~2024-05-02] VITALS: Ht 172.7 cm; Wt 65.6 kg
[2024-05-02 14:24] VITALS: TEMP 97.5; O2SAT 95
[2024-05-02] MEDS ORDERED: FARX1TAB3 PO (16:43)
[2024-05-02] MEDS ORDERED: FURO40TA2 PO (16:43)
[2024-05-02] MEDS ORDERED: ELIQ5TAB PO (16:43)
[2024-05-02] MEDS ORDERED: ATOR80TA59 PO (16:43)
[2024-05-02] MEDS ORDERED: FLUT1BLS5 IH (16:43)
[2024-05-02] MEDS ORDERED: THIA100TA PO (16:43)
[2024-05-02] MEDS ORDERED: NITR0.4S14 SL (16:43)
[2024-05-02] MEDS ORDERED: POTA10CA70 PO (16:43)
[2024-05-02] MEDS ORDERED: SPIR1CAP INH (16:43)
[2024-05-02] MEDS ORDERED: METO1TAB32 PO (16:43)
[2024-05-02] MEDS ORDERED: FOLI1TAB11 PO (16:43)
[2024-05-02] MEDS: FOLIC ACID 1MG TAB PO ONE (16:46)
[2024-05-02] MEDS: ATORVASTATIN 20 MG TAB PO ONE (16:46)
[2024-05-02 16:47] VITALS: BP 150/90
[2024-05-02] MEDS: FUROSEMIDE 40 MG TAB PO ONE (16:47)
[2024-05-02] MEDS: APIXABAN 5 MG TAB (ELIQUIS) PO ONE (16:47)
[2024-05-02] MEDS: METOPROLOL SUCC *XL* 25MG TAB (TopROL *XL*) PO ONE (16:47)
[2024-05-02 16:48] VITALS: BP 150/90
[2024-05-03] MEDS ORDERED: DAPAGLIFLOZIN PROPANEDIOL 10MG TABLET (FARXIGA) PO SCH (09:00)
== END 2024-05-02 17:50 | disposition home or self-care (01) ==
LOC: M ED 14:01
DX: R42 Dizziness and giddiness (principal); Z76.0 Encounter for issue of repeat prescription; I11.0 Hypertensive heart disease with heart failure; I50.9 Heart failure, unspecified; I25.2 Old myocardial infarction; J44.9 Chronic obstructive pulmonary disease, unspecified; Z87.442 Personal history of urinary calculi; Z86.718 Personal history of other venous thrombosis and embolism; Z95.5 Presence of coronary angioplasty implant and graft; F17.200 Nicotine dependence, unspecified, uncomplicated; Z88.5 Allergy status to narcotic agent; Z88.8 Allergy status to other drugs, medicaments and biological substances; Z79.01 Long term (current) use of anticoagulants; Z79.899 Other long term (current) drug therapy

== ENCOUNTER 2024-05-09 13:56 | Emergency (ER) | payer OTHER, MEDICAID ==
[~2024-05-09 13:56] MED LIST changes: +FLUT1BLS5 IH; +POTA10CA70 PO
[2024-05-09 14:07] VITALS: BP 82/53; TEMP 96.6; O2SAT 95
== END 2024-05-09 14:30 | disposition left against medical advice (07) ==
LOC: M ED 13:56
DX: Z53.21 Procedure and treatment not carried out due to patient leaving prior to being seen by health care provider (principal)

== ENCOUNTER 2024-05-10 18:00 | Emergency (ER) | payer OTHER, MEDICAID ==
[~2024-05-10] VITALS: Ht 172.7 cm; Wt 65.7 kg
[2024-05-10 18:10] VITALS: BP 117/86; TEMP 96.7; O2SAT 97
== END 2024-05-10 18:25 | disposition left against medical advice (07) ==
LOC: M ED 18:00
DX: Z53.21 Procedure and treatment not carried out due to patient leaving prior to being seen by health care provider (principal)

== ENCOUNTER 2024-05-12 19:24 | Emergency (ER) | payer OTHER, MEDICAID ==
[~2024-05-12] VITALS: Ht 170.2 cm; Wt 62.0 kg
[2024-05-12 19:33] VITALS: BP 111/75; TEMP 97.4; O2SAT 97
== END 2024-05-12 20:53 | disposition left against medical advice (07) ==
LOC: M ED 19:24
DX: Z53.21 Procedure and treatment not carried out due to patient leaving prior to being seen by health care provider (principal)

== ENCOUNTER 2024-05-16 15:32 | Emergency (ER) | payer OTHER, MEDICAID ==
[~2024-05-16] VITALS: Ht 172.7 cm; Wt 65.5 kg
[2024-05-16 15:52] VITALS: BP 124/75; TEMP 97; O2SAT 98
== END 2024-05-16 16:58 | disposition left against medical advice (07) ==
LOC: EDBD 15:32 → M ED 15:32
DX: M79.604 Pain in right leg (principal); M79.605 Pain in left leg; N53.19 Other ejaculatory dysfunction; J44.9 Chronic obstructive pulmonary disease, unspecified; I11.0 Hypertensive heart disease with heart failure; Z88.5 Allergy status to narcotic agent; Z88.8 Allergy status to other drugs, medicaments and biological substances; Z79.51 Long term (current) use of inhaled steroids; Z79.01 Long term (current) use of anticoagulants; Z79.899 Other long term (current) drug therapy; Z53.9 Procedure and treatment not carried out, unspecified reason

== ENCOUNTER 2024-05-17 18:47 | Emergency (ER) | payer OTHER, MEDICAID ==
[~2024-05-17] VITALS: Ht 172.7 cm; Wt 65.5 kg
[2024-05-17 19:02] VITALS: BP 114/84; TEMP 97.2; O2SAT 97
== END 2024-05-17 20:25 | disposition left against medical advice (07) ==
LOC: M ED 18:47
DX: Z53.21 Procedure and treatment not carried out due to patient leaving prior to being seen by health care provider (principal)

== ENCOUNTER 2024-05-18 23:05 | Emergency (ER) | payer OTHER, MEDICAID ==
[~2024-05-18] VITALS: Ht 172.7 cm; Wt 59.6 kg
[2024-05-18 23:07] VITALS: BP 130/84; TEMP 98
[2024-05-19 01:49] VITALS: O2SAT 92
== END 2024-05-19 07:37 | disposition left against medical advice (07) ==
LOC: M ED 23:05
DX: Z53.21 Procedure and treatment not carried out due to patient leaving prior to being seen by health care provider (principal)

== ENCOUNTER 2024-05-21 20:05 | Emergency (ER) | payer OTHER, MEDICAID ==
[~2024-05-21] VITALS: Ht 172.7 cm; Wt 62.8 kg
[2024-05-21 20:21] VITALS: BP 143/79; TEMP 97; O2SAT 98
== END 2024-05-21 21:03 | disposition left against medical advice (07) ==
LOC: M ED 20:05
DX: Z53.21 Procedure and treatment not carried out due to patient leaving prior to being seen by health care provider (principal)

== ENCOUNTER 2024-05-22 20:10 | Emergency (ER) | payer OTHER, MEDICAID ==
[~2024-05-22] VITALS: Ht 172.7 cm; Wt 62.5 kg
[2024-05-22 20:19] VITALS: BP 133/93; TEMP 97; O2SAT 96
== END 2024-05-22 21:05 | disposition left against medical advice (07) ==
LOC: M ED 20:10
DX: Z53.21 Procedure and treatment not carried out due to patient leaving prior to being seen by health care provider (principal)

== ENCOUNTER 2024-05-24 15:30 | Emergency (ER) | payer OTHER, MEDICAID ==
[2024-05-24 15:36] VITALS: BP 142/81; TEMP 97.5; O2SAT 98
== END 2024-05-24 19:30 | disposition left against medical advice (07) ==
LOC: M ED 15:30 → EDBD 15:30 → M ED 19:30
DX: Z53.21 Procedure and treatment not carried out due to patient leaving prior to being seen by health care provider (principal)

== ENCOUNTER 2024-05-25 05:57 | Emergency (ER) | payer OTHER, MEDICAID ==
[~2024-05-25] VITALS: Ht 172.7 cm; Wt 62.3 kg
[2024-05-25 05:57] VITALS: BP 152/76; TEMP 97.6; O2SAT 99
== END 2024-05-25 07:10 | disposition left against medical advice (07) ==
LOC: M ED 05:57
DX: Z53.21 Procedure and treatment not carried out due to patient leaving prior to being seen by health care provider (principal)

== ENCOUNTER 2024-05-25 08:33 | Emergency (ER) | payer OTHER, MEDICAID ==
[~2024-05-25] VITALS: Ht 172.7 cm; Wt 61.6 kg
[2024-05-25 08:34] VITALS: BP 116/73; TEMP 97.7; O2SAT 96
== END 2024-05-25 10:51 | disposition left against medical advice (07) ==
LOC: M ED 08:33
DX: Z53.21 Procedure and treatment not carried out due to patient leaving prior to being seen by health care provider (principal)

== ENCOUNTER 2024-05-25 14:05 | Emergency (ER) | payer OTHER, MEDICAID ==
[~2024-05-25] VITALS: Ht 172.7 cm; Wt 67.5 kg
[2024-05-25 14:19] VITALS: BP 120/83; TEMP 96.9; O2SAT 98
== END 2024-05-25 14:48 | disposition left against medical advice (07) ==
LOC: M ED 14:05
DX: Z53.21 Procedure and treatment not carried out due to patient leaving prior to being seen by health care provider (principal)

== ENCOUNTER 2024-06-03 13:46 | Emergency (ER) | payer OTHER, MEDICAID ==
[~2024-06-03] VITALS: Ht 170.2 cm; Wt 61.2 kg
[~2024-06-03 13:46] MED LIST changes: -DOXY-323 PO; +DOXY-441 PO
[2024-06-03 13:57] VITALS: BP 117/85; TEMP 96.6; O2SAT 97
== END 2024-06-03 14:12 | disposition left against medical advice (07) ==
LOC: M ED 13:46 → EDBD 13:46 → M ED 14:12
DX: Z53.21 Procedure and treatment not carried out due to patient leaving prior to being seen by health care provider (principal)

== ENCOUNTER 2024-06-06 18:50 | Emergency (ER) | payer OTHER, MEDICAID ==
[~2024-06-06] VITALS: Ht 172.7 cm; Wt 62.0 kg
[2024-06-06 19:01] VITALS: BP 118/77; TEMP 97.3; O2SAT 99
== END 2024-06-06 19:58 | disposition left against medical advice (07) ==
LOC: M ED 18:50 → EDBD 18:50 → M ED 19:58
DX: Z53.21 Procedure and treatment not carried out due to patient leaving prior to being seen by health care provider (principal)

== ENCOUNTER 2024-06-15 20:39 | Emergency (ER) | payer OTHER, MEDICAID ==
[~2024-06-15] VITALS: Ht 172.7 cm; Wt 65.5 kg
[2024-06-15 20:46] VITALS: BP 119/83; TEMP 97; O2SAT 99
== END 2024-06-16 01:26 | disposition home or self-care (01) ==
LOC: M ED 20:39
DX: S46.012A Strain of muscle(s) and tendon(s) of the rotator cuff of left shoulder, initial encounter (principal); X50.0XXA Overexertion from strenuous movement or load, initial encounter; F10.10 Alcohol abuse, uncomplicated; D64.9 Anemia, unspecified; I25.10 Atherosclerotic heart disease of native coronary artery without angina pectoris; F19.10 Other psychoactive substance abuse, uncomplicated; F17.200 Nicotine dependence, unspecified, uncomplicated; Y92.9 Unspecified place or not applicable; Y93.89 Activity, other specified; Y99.9 Unspecified external cause status

== ENCOUNTER → 2024-06-15 | Outpatient (REF) | payer OTHER, MEDICAID ==
[2024-06-15 18:44] LABS: CHOLESTEROL RISK RATIO 3.23 (<5); HDL CHOLESTEROL 57.2 MG/DL (>40); LDL CHOLESTEROL 98.2 MG/DL (<100); NON-HDL-C 127.8 MG/DL
== END ==
LOC: M LAB REF 16:37
PROVIDERS: ATTEND Physician Assistant
DX: D64.9 Anemia, unspecified (principal); I25.10 Atherosclerotic heart disease of native coronary artery without angina pectoris

== ENCOUNTER 2024-06-17 19:24 | Emergency (ER) | payer OTHER, MEDICAID ==
[~2024-06-17] VITALS: Ht 172.7 cm; Wt 66.1 kg
[2024-06-17 19:33] VITALS: BP 134/89; TEMP 96.1; O2SAT 100
== END 2024-06-17 20:50 | disposition left against medical advice (07) ==
LOC: M ED 19:24
DX: Z53.21 Procedure and treatment not carried out due to patient leaving prior to being seen by health care provider (principal)

== ENCOUNTER 2024-07-11 11:51 | Emergency (ER) | payer OTHER, MEDICAID ==
[~2024-07-11] VITALS: Ht 170.2 cm; Wt 66.1 kg
[2024-07-11 13:47] VITALS: BP 134/79; TEMP 95.7; O2SAT 97
== END 2024-07-11 13:53 | disposition home or self-care (01) ==
LOC: EDBD 11:51 → M ED 11:51
DX: S93.402A Sprain of unspecified ligament of left ankle, initial encounter (principal); S40.012A Contusion of left shoulder, initial encounter; Y92.9 Unspecified place or not applicable; Y93.9 Activity, unspecified; Y99.9 Unspecified external cause status; F17.210 Nicotine dependence, cigarettes, uncomplicated; Z88.5 Allergy status to narcotic agent; Z88.8 Allergy status to other drugs, medicaments and biological substances

== ENCOUNTER 2024-07-18 10:29 | Emergency (ER) | payer OTHER, MEDICAID ==
[~2024-07-18] VITALS: Ht 172.7 cm; Wt 66.6 kg
[2024-07-18 10:32] VITALS: BP 121/75; TEMP 97.6; O2SAT 96
== END 2024-07-18 11:56 | disposition home or self-care (01) ==
LOC: M ED 10:29
DX: S93.402A Sprain of unspecified ligament of left ankle, initial encounter (principal); X58.XXXA Exposure to other specified factors, initial encounter; F17.200 Nicotine dependence, unspecified, uncomplicated; Z88.5 Allergy status to narcotic agent; Z88.8 Allergy status to other drugs, medicaments and biological substances; Y93.9 Activity, unspecified; Y99.9 Unspecified external cause status

== ENCOUNTER 2024-07-21 14:41 | Emergency (ER) | payer OTHER, MEDICAID ==
[~2024-07-21] VITALS: Ht 170.2 cm; Wt 66.6 kg
[2024-07-21 15:46] LABS: HEMATOCRIT 44.3 % (42.0-52.0); HEMOGLOBIN 15.6 g/dl (13.5-17.5); MEAN CORPUSCULAR HEMOGLOBIN 34.6 pg (27.0-33.0); MEAN CORPUSCULAR HGB CONC 35.2 g/dl (32.0-36.5); MEAN CORPUSCULAR VOLUME 98.2 fl (80.0-96.0); PLATELET COUNT, AUTOMATED 160 10^3/uL (150-450); RED BLOOD COUNT 4.51 10^6/uL (4.30-6.10); WHITE BLOOD COUNT 7.7 10^3/uL (4.0-10.0)
[2024-07-21 16:11] LABS: ALBUMIN 3.7 G/DL (3.2-5.2); ALKALINE PHOSPHATASE 82 U/L (40-129); ALT/SGPT 45 U/L (7.0-40); AST/SGOT 48 U/L (<34); BILIRUBIN,DIRECT 0.2 MG/DL (<0.4); BILIRUBIN,TOTAL 0.7 MG/DL (0.3-1.2); BLOOD UREA NITROGEN 12 MG/DL (9-23); CALCIUM LEVEL 9.7 MG/DL (8.3-10.6); CARBON DIOXIDE LEVEL 26 MMOL/L (20-31); CHLORIDE LEVEL 100 MMOL/L (98-107); CREATININE FOR GFR 0.89 MG/DL (0.70-1.30); GLOMERULAR FILTRATION RATE > 60.0 (>49); GLUCOSE, FASTING 126 MG/DL (74-106); POTASSIUM SERUM 3.7 MMOL/L (3.5-5.1); SALICYLATE LEVEL < 3.0 MG/DL (<30); SODIUM LEVEL 134 MMOL/L (136-145); TOTAL PROTEIN 7.5 G/DL (5.7-8.2)
[2024-07-21 16:13] LABS: THYROID STIMULATING HORMONE 0.986 uIU/ML (0.55-4.78)
[2024-07-21 16:19] LABS: AMPHETAMINES LEVEL URINE NEGATIVE (NEGATIVE); BARBITURATES URINE NEGATIVE (NEGATIVE); BENZODIAZEPINES URINE NEGATIVE (NEGATIVE); CANNABINOIDS URINE NEGATIVE (NEGATIVE); COCAINE METABOLITE URINE NEGATIVE (NEGATIVE); METHADONE URINE NEGATIVE (NEGATIVE); OPIATES URINE NEGATIVE (NEGATIVE); PHENCYCLIDINE URINE NEGATIVE (NEGATIVE)
[2024-07-21 16:40] LABS: ETHYL ALCOHOL (ETHANOL) 0.329 % (0.000-0.010)
[2024-07-22 06:05] VITALS: BP 122/68; TEMP 97.4; O2SAT 94
[2024-07-22] MEDS ORDERED: ATOR80TA59 PO (09:08)
[2024-07-22] MEDS ORDERED: ADV250INH INH (09:08)
[2024-07-22] MEDS ORDERED: VENTAER INH (09:08)
[2024-07-22] MEDS ORDERED: HOME MED LIST COMPLETE! XX SCH (09:10)
== END 2024-07-22 11:55 | disposition home or self-care (01) ==
LOC: M ED 14:41
DX: F10.14 Alcohol abuse with alcohol-induced mood disorder (principal); I50.22 Chronic systolic (congestive) heart failure; I25.119 Atherosclerotic heart disease of native coronary artery with unspecified angina pectoris; J44.9 Chronic obstructive pulmonary disease, unspecified; Z88.5 Allergy status to narcotic agent; Z88.8 Allergy status to other drugs, medicaments and biological substances; Z79.51 Long term (current) use of inhaled steroids; Z79.01 Long term (current) use of anticoagulants; Z79.899 Other long term (current) drug therapy

== ENCOUNTER 2024-07-27 20:37 | Emergency (ER) | payer OTHER, MEDICAID ==
[~2024-07-27] VITALS: Ht 172.7 cm; Wt 66.6 kg
[~2024-07-27 20:37] MED LIST changes: +ADV250INH INH
[2024-07-27 20:48] VITALS: BP 132/72; TEMP 97.1; O2SAT 98
== END 2024-07-27 21:02 | disposition left against medical advice (07) ==
LOC: M ED 20:37 → EDBD 20:37 → M ED 21:02
DX: Z53.21 Procedure and treatment not carried out due to patient leaving prior to being seen by health care provider (principal)

== ENCOUNTER 2024-08-22 15:31 | Emergency (ER) | payer OTHER, MEDICAID ==
[~2024-08-22] VITALS: Ht 172.7 cm; Wt 67.5 kg
[~2024-08-22 15:31] MED LIST changes: -ADV250INH INH; +ADVA1AER9 INH
[2024-08-22 16:46] VITALS: BP 135/85; TEMP 97.1; O2SAT 100
[2024-08-22] MEDS ORDERED: ACET-683 PO (16:47)
== END 2024-08-22 16:53 | disposition home or self-care (01) ==
LOC: M ED 15:31 → EDBD 15:31 → M ED 16:53
DX: M70.21 Olecranon bursitis, right elbow (principal); I25.119 Atherosclerotic heart disease of native coronary artery with unspecified angina pectoris; F17.210 Nicotine dependence, cigarettes, uncomplicated; F10.10 Alcohol abuse, uncomplicated; Z88.5 Allergy status to narcotic agent; Z88.8 Allergy status to other drugs, medicaments and biological substances; Z79.1 Long term (current) use of non-steroidal anti-inflammatories (NSAID); Z79.51 Long term (current) use of inhaled steroids; Z79.01 Long term (current) use of anticoagulants; Z79.899 Other long term (current) drug therapy

== ENCOUNTER 2024-08-25 18:58 | Emergency (ER) | payer OTHER, MEDICAID ==
[~2024-08-25] VITALS: Ht 172.7 cm; Wt 66.3 kg
[~2024-08-25 18:58] MED LIST changes: +ACET-683 PO
[2024-08-25 19:20] VITALS: BP 124/71; TEMP 98.2; O2SAT 98
== END 2024-08-25 20:07 | disposition left against medical advice (07) ==
LOC: M ED 18:58 → EDBD 18:58 → M ED 20:07
DX: Z53.21 Procedure and treatment not carried out due to patient leaving prior to being seen by health care provider (principal)

== ENCOUNTER 2024-08-30 09:27 | Emergency (ER) | payer OTHER, MEDICAID ==
[~2024-08-30] VITALS: Ht 175.3 cm; Wt 66.8 kg
[2024-08-30 09:36] VITALS: BP 118/75; TEMP 97.2; O2SAT 98
== END 2024-08-30 10:04 | disposition left against medical advice (07) ==
LOC: M ED 09:27
DX: Z53.21 Procedure and treatment not carried out due to patient leaving prior to being seen by health care provider (principal)

== ENCOUNTER 2024-09-03 21:36 | Emergency (ER) | payer OTHER, MEDICAID ==
[~2024-09-03] VITALS: Ht 172.7 cm; Wt 68.1 kg
[2024-09-03 21:47] VITALS: BP 164/81; TEMP 97.1; O2SAT 97
== END 2024-09-03 22:32 | disposition left against medical advice (07) ==
LOC: EDBD 21:36 → M ED 21:36
DX: Z53.21 Procedure and treatment not carried out due to patient leaving prior to being seen by health care provider (principal)

== ENCOUNTER 2024-09-17 17:49 | Emergency (ER) | payer OTHER, MEDICAID ==
[~2024-09-17] VITALS: Ht 170.2 cm; Wt 66.8 kg
[2024-09-17 17:53] VITALS: BP 132/80; TEMP 97.4; O2SAT 99
== END 2024-09-17 19:54 | disposition left against medical advice (07) ==
LOC: EDBD 17:49 → M ED 17:49
DX: Z53.21 Procedure and treatment not carried out due to patient leaving prior to being seen by health care provider (principal)

== ENCOUNTER 2024-10-18 12:41 | Emergency (ER) | payer OTHER, MEDICAID ==
[~2024-10-18] VITALS: Ht 170.2 cm; Wt 68.4 kg
[2024-10-18 12:52] VITALS: BP 140/82; TEMP 97.2; O2SAT 99
== END 2024-10-18 14:36 | disposition left against medical advice (07) ==
LOC: M ED 12:41
DX: Z53.21 Procedure and treatment not carried out due to patient leaving prior to being seen by health care provider (principal)

== ENCOUNTER 2024-11-04 21:40 | Emergency (ER) | payer OTHER, MEDICAID ==
[~2024-11-04] VITALS: Ht 172.7 cm; Wt 72.6 kg
[2024-11-04 21:45] VITALS: BP 162/92; TEMP 96; O2SAT 96
== END 2024-11-04 22:23 | disposition left against medical advice (07) ==
LOC: M ED 21:40
DX: Z53.21 Procedure and treatment not carried out due to patient leaving prior to being seen by health care provider (principal)

== ENCOUNTER 2024-11-10 12:03 | Emergency (ER) | payer OTHER, MEDICAID ==
[~2024-11-10] VITALS: Ht 172.7 cm; Wt 69.4 kg
[2024-11-10 12:11] VITALS: BP 134/85; TEMP 96.5; O2SAT 97
== END 2024-11-10 14:46 | disposition left against medical advice (07) ==
LOC: EDBD 12:03 → M ED 12:03
DX: Z53.21 Procedure and treatment not carried out due to patient leaving prior to being seen by health care provider (principal)

== ENCOUNTER 2024-11-14 12:47 | Emergency (ER) | payer OTHER, MEDICAID ==
[~2024-11-14] VITALS: Ht 175.3 cm; Wt 69.0 kg
[~2024-11-14 12:47] MED LIST changes: +DOXY-442 PO; -DOXY100C82 PO
[2024-11-14 12:54] VITALS: BP 118/70; TEMP 98.2; O2SAT 96
== END 2024-11-14 13:40 | disposition left against medical advice (07) ==
LOC: M ED 12:47 → EDBD 12:47 → M ED 13:40
DX: Z53.21 Procedure and treatment not carried out due to patient leaving prior to being seen by health care provider (principal)

== ENCOUNTER 2024-11-21 23:02 | Emergency (ER) | payer OTHER, MEDICAID ==
[~2024-11-21] VITALS: Ht 172.7 cm; Wt 67.0 kg
[2024-11-21 23:15] VITALS: BP 125/79; TEMP 97.8; O2SAT 98
== END 2024-11-22 01:45 | disposition left against medical advice (07) ==
LOC: M ED 23:02 → EDBD 23:02 → M ED 11-22 01:45
DX: Z53.21 Procedure and treatment not carried out due to patient leaving prior to being seen by health care provider (principal)

== ENCOUNTER 2024-11-28 20:04 | Emergency (ER) | payer OTHER, MEDICAID ==
[~2024-11-28] VITALS: Ht 175.3 cm; Wt 66.6 kg
[2024-11-28 20:25] VITALS: BP 130/70; O2SAT 99
== END 2024-11-28 21:48 | disposition left against medical advice (07) ==
LOC: M ED 20:04
DX: Z53.21 Procedure and treatment not carried out due to patient leaving prior to being seen by health care provider (principal)

== ENCOUNTER 2024-12-12 15:55 | Emergency (ER) | payer OTHER, MEDICAID ==
[~2024-12-12] VITALS: Ht 172.7 cm; Wt 66.6 kg
[2024-12-12 18:06] VITALS: BP 107/58; TEMP 99.2; O2SAT 100
[2024-12-13] MEDS ORDERED: BENZ200C70 PO (20:28)
== END 2024-12-12 18:36 | disposition left against medical advice (07) ==
LOC: M ED 15:55
DX: Z53.21 Procedure and treatment not carried out due to patient leaving prior to being seen by health care provider (principal)

== ENCOUNTER 2024-12-13 18:31 | Emergency (ER) | payer OTHER, MEDICAID ==
[~2024-12-13] VITALS: Ht 172.7 cm; Wt 66.4 kg
[2024-12-13 18:36] VITALS: BP 140/80; TEMP 98.2; O2SAT 96
[2024-12-13] MEDS ORDERED: BENZ200C70 PO (20:28)
[2024-12-13] MEDS: BENZONATATE 100MG CAPSULE PO ONE (20:31)
== END 2024-12-13 21:05 | disposition home or self-care (01) ==
LOC: EDBD 18:31 → M ED 18:31
DX: R05.9 Cough, unspecified (principal); B34.1 Enterovirus infection, unspecified; I50.22 Chronic systolic (congestive) heart failure; I25.2 Old myocardial infarction; J44.9 Chronic obstructive pulmonary disease, unspecified; E78.5 Hyperlipidemia, unspecified; F17.210 Nicotine dependence, cigarettes, uncomplicated; F10.10 Alcohol abuse, uncomplicated; Z88.5 Allergy status to narcotic agent; Z88.8 Allergy status to other drugs, medicaments and biological substances; Z79.1 Long term (current) use of non-steroidal anti-inflammatories (NSAID); Z79.899 Other long term (current) drug therapy

== ENCOUNTER 2024-12-16 12:09 | Emergency (ER) | payer OTHER, MEDICAID ==
[~2024-12-16] VITALS: Ht 172.7 cm; Wt 67.8 kg
[~2024-12-16 12:09] MED LIST changes: +BENZ200C70 PO
[2024-12-16 12:25] VITALS: BP 104/69; TEMP 97.5; O2SAT 97
== END 2024-12-16 12:30 | disposition left against medical advice (07) ==
LOC: EDBD 12:09 → M ED 12:09
DX: Z53.21 Procedure and treatment not carried out due to patient leaving prior to being seen by health care provider (principal)

== ENCOUNTER 2024-12-18 22:16 | Emergency (ER) | payer OTHER, MEDICAID ==
[~2024-12-18] VITALS: Ht 172.7 cm; Wt 66.6 kg
[2024-12-18 22:22] VITALS: BP 133/81; TEMP 97.3; O2SAT 96
== END 2024-12-18 23:28 | disposition left against medical advice (07) ==
LOC: M ED 22:16 → EDBD 22:16 → M ED 23:28
DX: Z53.21 Procedure and treatment not carried out due to patient leaving prior to being seen by health care provider (principal)

== ENCOUNTER 2024-12-20 23:00 | Emergency (ER) | payer OTHER, MEDICAID ==
[~2024-12-20] VITALS: Ht 172.7 cm; Wt 66.0 kg
[2024-12-20 23:06] VITALS: BP 143/90; TEMP 97.4; O2SAT 95
[2024-12-21] MEDS ORDERED: TRAM50TA2 PO (03:54)
[2024-12-21] MEDS: IBUPROFEN 600MG TAB PO ONE (04:02)
== END 2024-12-21 05:28 | disposition home or self-care (01) ==
LOC: M ED 23:00
DX: S20.212A Contusion of left front wall of thorax, initial encounter (principal); Y92.019 Unspecified place in single-family (private) house as the place of occurrence of the external cause; Y93.9 Activity, unspecified; Y99.9 Unspecified external cause status; W06.XXXA Fall from bed, initial encounter; J44.9 Chronic obstructive pulmonary disease, unspecified; F20.9 Schizophrenia, unspecified; Z88.5 Allergy status to narcotic agent; Z88.8 Allergy status to other drugs, medicaments and biological substances; Z79.1 Long term (current) use of non-steroidal anti-inflammatories (NSAID); Z79.899 Other long term (current) drug therapy

== ENCOUNTER 2024-12-22 17:49 | Emergency (ER) | payer OTHER, MEDICAID ==
[~2024-12-22] VITALS: Ht 172.7 cm; Wt 64.4 kg
[~2024-12-22 17:49] MED LIST changes: +TRAM50TA2 PO
[2024-12-22 17:56] VITALS: BP 120/76; TEMP 96.9; O2SAT 97
== END 2024-12-22 18:43 | disposition left against medical advice (07) ==
LOC: M ED 17:49
DX: Z53.21 Procedure and treatment not carried out due to patient leaving prior to being seen by health care provider (principal)

== ENCOUNTER 2024-12-29 14:10 | Emergency (ER) | payer OTHER, MEDICAID ==
[~2024-12-29] VITALS: Ht 172.7 cm; Wt 64.5 kg
[2024-12-29 14:15] VITALS: BP 136/88; TEMP 98.8; O2SAT 98
== END 2024-12-29 16:07 | disposition left against medical advice (07) ==
LOC: EDBD 14:10 → M ED 14:10
DX: Z53.21 Procedure and treatment not carried out due to patient leaving prior to being seen by health care provider (principal)

== ENCOUNTER 2024-12-29 21:38 | Emergency (ER) | payer OTHER, MEDICAID ==
[~2024-12-29] VITALS: Ht 175.3 cm; Wt 65.1 kg
[2024-12-29 21:43] VITALS: BP 162/80; TEMP 98.6; O2SAT 96
== END 2024-12-29 23:12 | disposition left against medical advice (07) ==
LOC: EDBD 21:38 → M ED 21:38
DX: Z53.21 Procedure and treatment not carried out due to patient leaving prior to being seen by health care provider (principal)

== ENCOUNTER 2025-04-05 00:59 | Emergency (ER) | payer OTHER, MEDICAID ==
[~2025-04-05] VITALS: Ht 170.2 cm; Wt 63.6 kg
[2025-04-05 01:04] VITALS: BP 160/85; TEMP 97.2; O2SAT 96
== END 2025-04-05 01:33 | disposition left against medical advice (07) ==
LOC: EDBD 00:59 → M ED 00:59
DX: Z53.21 Procedure and treatment not carried out due to patient leaving prior to being seen by health care provider (principal)

== ENCOUNTER 2025-06-06 19:40 | Emergency (ER) | payer OTHER, MEDICAID ==
[~2025-06-06] VITALS: Ht 172.7 cm; Wt 64.8 kg
[~2025-06-06 19:40] MED LIST changes: -IBUP-1022 PO; +IBUP600T42 PO
[2025-06-06 19:47] VITALS: BP 105/65; TEMP 98.1; O2SAT 97
== END 2025-06-06 20:21 | disposition left against medical advice (07) ==
LOC: M ED 19:40 → EDBD 19:40 → M ED 20:21
DX: Z53.21 Procedure and treatment not carried out due to patient leaving prior to being seen by health care provider (principal)

== ENCOUNTER 2025-06-14 20:03 | Emergency (ER) | payer OTHER, MEDICAID ==
[~2025-06-14] VITALS: Ht 172.7 cm; Wt 62.8 kg
[2025-06-14] MEDS: ACETAMINOPHEN 500 MG TAB PO ONE (21:54)
[2025-06-14 22:32] VITALS: BP 158/90; TEMP 97.4; O2SAT 96
== END 2025-06-14 22:46 | disposition home or self-care (01) ==
LOC: M ED 20:03
DX: R25.2 Cramp and spasm (principal); I25.119 Atherosclerotic heart disease of native coronary artery with unspecified angina pectoris; I50.22 Chronic systolic (congestive) heart failure; I25.2 Old myocardial infarction; I11.0 Hypertensive heart disease with heart failure; J44.9 Chronic obstructive pulmonary disease, unspecified; F17.210 Nicotine dependence, cigarettes, uncomplicated; F10.10 Alcohol abuse, uncomplicated; Z86.711 Personal history of pulmonary embolism; Z88.5 Allergy status to narcotic agent; Z88.8 Allergy status to other drugs, medicaments and biological substances; Z79.1 Long term (current) use of non-steroidal anti-inflammatories (NSAID); Z79.899 Other long term (current) drug therapy

== ENCOUNTER 2025-06-25 21:38 | Emergency (ER) | payer OTHER, MEDICAID ==
[~2025-06-25] VITALS: Ht 170.2 cm; Wt 64.2 kg
[2025-06-25 21:42] VITALS: BP 170/91; TEMP 96.7; O2SAT 98
== END 2025-06-26 00:53 | disposition left against medical advice (07) ==
LOC: M ED 21:38
DX: Z53.21 Procedure and treatment not carried out due to patient leaving prior to being seen by health care provider (principal)

== ENCOUNTER 2025-07-26 14:07 | Emergency (ER) | payer OTHER, MEDICAID ==
[~2025-07-26 14:07] MED LIST changes: -DOCU-160; -DOCU-160 PO; +STOO100C19; +STOO100C19 PO
[2025-07-26 14:53] LABS: PLATELET COUNT, AUTOMATED 164 10^3/uL (150-450)
[2025-07-26 15:13] LABS: AMPHETAMINES LEVEL URINE NEGATIVE (NEGATIVE); BARBITURATES URINE NEGATIVE (NEGATIVE); BENZODIAZEPINES URINE NEGATIVE (NEGATIVE)
[2025-07-26 15:14] LABS: CANNABINOIDS URINE NEGATIVE (NEGATIVE); COCAINE METABOLITE URINE NEGATIVE (NEGATIVE); METHADONE URINE NEGATIVE (NEGATIVE); OPIATES URINE NEGATIVE (NEGATIVE); PHENCYCLIDINE URINE NEGATIVE (NEGATIVE)
[2025-07-26 15:18] LABS: ALT/SGPT 25 U/L (7.0-40); AST/SGOT 42 U/L (<34); CALCIUM LEVEL 9.2 MG/DL (8.3-10.6); CARBON DIOXIDE LEVEL 23 MMOL/L (20-31); CHLORIDE LEVEL 95 MMOL/L (98-107); CREATININE FOR GFR 0.70 MG/DL (0.70-1.30); GLOMERULAR FILTRATION RATE > 90.0 (>49); POTASSIUM SERUM 4.4 MMOL/L (3.5-5.1); SALICYLATE LEVEL < 3.0 MG/DL (<30); SODIUM LEVEL 128 MMOL/L (136-145)
[2025-07-26 15:50] LABS: ETHYL ALCOHOL (ETHANOL) 0.336 % (0.000-0.010)
[2025-07-26 17:39] VITALS: BP 122/60; TEMP 97.8; O2SAT 97
== END 2025-07-26 17:52 | disposition home or self-care (01) ==
LOC: M ED 14:07
DX: F10.120 Alcohol abuse with intoxication, uncomplicated (principal); I25.119 Atherosclerotic heart disease of native coronary artery with unspecified angina pectoris; I50.22 Chronic systolic (congestive) heart failure; I25.2 Old myocardial infarction; I11.0 Hypertensive heart disease with heart failure; J44.9 Chronic obstructive pulmonary disease, unspecified; F17.210 Nicotine dependence, cigarettes, uncomplicated; Z88.5 Allergy status to narcotic agent; Z88.8 Allergy status to other drugs, medicaments and biological substances

== ENCOUNTER 2025-08-13 17:06 | Emergency (ER) | payer OTHER, MEDICAID ==
[~2025-08-13] VITALS: Ht 172.7 cm; Wt 64.6 kg
[2025-08-13 21:47] VITALS: BP 134/78; TEMP 96.9; O2SAT 97
[2025-08-13] MEDS: IBUPROFEN 400 MG TAB PO ONE (22:01)
== END 2025-08-13 22:02 | disposition home or self-care (01) ==
LOC: M ED 17:06
DX: M54.50 Low back pain, unspecified (principal); I25.2 Old myocardial infarction; I10 Essential (primary) hypertension; E78.5 Hyperlipidemia, unspecified; N20.0 Calculus of kidney; F41.9 Anxiety disorder, unspecified; F20.9 Schizophrenia, unspecified

== ENCOUNTER 2025-08-21 13:41 | Emergency (ER) | payer OTHER, MEDICAID ==
[~2025-08-21] VITALS: Ht 170.2 cm; Wt 65.1 kg
[2025-08-21 13:52] VITALS: TEMP 96.9
[2025-08-21] MEDS ORDERED: KETO-204 PO (15:39)
[2025-08-21] MEDS: KETOROLAC 30 MG/ML 1 ML VIAL IM ONE (15:53)
[2025-08-21 16:09] VITALS: BP 126/70; O2SAT 98
== END 2025-08-21 16:10 | disposition home or self-care (01) ==
LOC: EDBD 13:41 → M ED 13:41
DX: S29.012A Strain of muscle and tendon of back wall of thorax, initial encounter (principal); Y92.9 Unspecified place or not applicable; Y93.9 Activity, unspecified; Y99.9 Unspecified external cause status; W00.0XXA Fall on same level due to ice and snow, initial encounter; N20.0 Calculus of kidney; F10.10 Alcohol abuse, uncomplicated; Z88.5 Allergy status to narcotic agent; Z88.8 Allergy status to other drugs, medicaments and biological substances; Z79.2 Long term (current) use of antibiotics
CPT/HCPCS: 96372; 99284; J1885